=== PATIENT | female | born 1950 | race American Indian/Alaskan Native ===

== ENCOUNTER 2016-10-25 07:48 | Inpatient (IN) | payer MEDICARE, BC ==
[2016-10-16 10:34] VITALS: BMI 32.3
[2016-10-25] MEDS ORDERED: ceFAZolin IV 2 gm in Dextrose 0 GM/0 ML BAG IVPB ONE (08:32)
[2016-10-25] MEDS ORDERED: HEPARIN-NS 5,000 UNITS/500 ML 0 UNIT/0 ML BAG IV ONE (08:33)
[2016-10-25] MEDS ORDERED: Iodixanol 320 MG/ML 200 ML BOTTLE IV ONE (08:33)
[2016-10-25 08:53] LABS: POTASSIUM 4.1 mmol/L (3.6-5.2)
[2016-10-25 08:57] LABS: CALCIUM 8.2 mg/dl (8.6-10.4)
[2016-10-25 09:21] LABS: BASO % 0.2 % (0.0-2.0); HEMATOCRIT 25.4 % (34.0-47.0); LYMPH # 1.2 K/uL (1.0-4.3); MEAN CELL VOLUME 91.3 fL (81.0-99.0); MEAN CORPUSCULAR HEMOGLOBIN 28.6 pg (27.0-31.0); MEAN CORPUSCULAR HGB CONC 31.4 g/dL (33.0-37.0); MEAN PLATELET VOLUME 9.2 fL (7.2-11.7); MONO # 0.7 K/uL (0.0-0.8); PLATELET COUNT 280 K/uL (130-400); RED CELL DISTRIBUTION WIDTH 17.6 % (11.5-14.5); WHITE BLOOD COUNT 17.7 K/uL (4.8-10.8)
--- NOTE | 2016-10-25 09:35 | RAD ---
HISTORY: pre-op COMPARISON: Comparison is made to 10/16/2016 FINDINGS: LUNGS: No significant interval change in the lungs noted since the previous exam. PLEURA: No significant pleural effusion identified, no pneumothorax apparent. CARDIOVASCULAR: The cardiac silhouette is prominent/mildly enlarged. Left-sided subclavian hemodialysis catheter is again seen in place. OSSEOUS STRUCTURES: No significant abnormalities. VISUALIZED UPPER ABDOMEN: Normal. OTHER FINDINGS: None. IMPRESSION: No significant interval change since the previous exam.
[2016-10-25 10:01] LABS: NEUTROPHIL 90 % (50-75); TOTAL CELLS COUNTED 100
[2016-10-25 10:51] LABS: VENOUS BLOOD GAS BASE EXCESS 4.9 mmol/L (0.0-2.0); VENOUS BLOOD GAS PCO2 41 mmHg (40-60); VENOUS BLOOD PH 7.46 (7.32-7.43)
--- NOTE | 2016-10-25 15:47 | CP.PCM.CON ---
History of Present Illness - History of Present Illness History of Present Illness: Surgery 65 F with PMH of ESRD on HD, DM, secral decubitus ulcer came to [facility] for AV shunt placement. Pt reports that she has been having fevers ranging between 102- 104 last 6 days. Pt has sacral decubitus ulcer and has wound vac. Wound vac is leaking and displaced. Pt had permacath for over 8 months for HD. AV shunt placement is cancelled today and Pt is admitted for sepsis. Denies N/V/D/CP/SOB/ dysuria/ PMH: DM, ESRD on HD, sacral decubitus ulcer, HLD, HTN PSH: Decubitus debridement, Permacath Review of Systems - Review of Systems Review of Systems: See HPI - Gastrointestinal Gastrointestinal: absent: Abdominal Pain Past Patient History - Past Medical History & Family History Past Medical History?: Yes - Past Social History Smoking Status: Never Smoked - CARDIAC Hx Cardiac Disorders: Yes Hx Hypertension: Yes - PULMONARY Hx Respiratory Disorders: No - NEUROLOGICAL Hx Neurological Disorder: No - HEENT Hx HEENT Problems: No - RENAL Hx Chronic Kidney Disease: Yes Type of Dialysis Access: perma cath left chest Date of Last Dialysis Treatment: 10/24/16 Hx Renal Failure: Yes - ENDOCRINE/METABOLIC Hx Endocrine Disorders: Yes Hx Diabetes Mellitus Type 2: Yes - HEMATOLOGICAL/ONCOLOGICAL Hx Blood Disorders: Yes Hx Anemia: Yes Hx Blood Transfusions: Yes Hx Blood Transfusion Reaction: No - INTEGUMENTARY Hx Dermatological Problems: Yes Other/Comment: ulcer buttocks - MUSCULOSKELETAL/RHEUMATOLOGICAL Hx Musculoskeletal Disorders: Yes (right leg weakness due to debridemnet buttocks wound) Hx Osteoarthritis: Yes - GASTROINTESTINAL Hx Gastrointestinal Disorders: No - GENITOURINARY/GYNECOLOGICAL Hx Genitourinary Disorders: No - PSYCHIATRIC Hx Psychophysiologic Disorder: No - SURGICAL HISTORY Hx Surgeries: Yes Hx Cardiac Catheterization: Yes Hx Vascular Surgery: Yes (perma cath insertion) Other/Comment: debridement ulcer buttocks - ANESTHESIA Hx Anesthesia: Yes Hx Anesthesia Reactions: No Hx Malignant Hyperthermia: No Has any member of the family had a problem w/ anesthesia?: No Meds Allergies/Adverse Reactions: Allergies Allergy/AdvReac Type Severity Reaction Status Date / Time No Known Allergies Allergy Verified 10/16/16 10:32 - Medications Medications: Current Medications Ceftriaxone Sodium 1 gm/ (Sodium Chloride) 100 mls @ 200 mls/hr IVPB DAILY YANETH Last Admin: 10/25/16 12:40 Dose: 100 mls Physical Exam - Constitutional Appears: Non-toxic - Head Exam Head Exam: ATRAUMATIC, NORMAL INSPECTION, NORMOCEPHALIC - Eye Exam Eye Exam: EOMI, Normal appearance, PERRL Pupil Exam: NORMAL ACCOMODATION, PERRL - ENT Exam ENT Exam: Mucous Membranes Moist, Normal Exam - Neck Exam Neck exam: Positive for: Normal Inspection - Respiratory Exam Respiratory Exam: Clear to Auscultation Bilateral, NORMAL BREATHING PATTERN - Cardiovascular Exam Cardiovascular Exam: REGULAR RHYTHM - GI/Abdominal Exam GI & Abdominal Exam: Normal Bowel Sounds, Soft. absent: Distended, Tenderness - Extremities Exam Extremities exam: Negative for: full ROM Additional comments: R LE weakness - Neurological Exam Neurological exam: Alert, CN II-XII Intact, Oriented x3, Reflexes Normal - Psychiatric Exam Psychiatric exam: Normal Affect, Normal Mood - Skin Skin Exam: Erythema, Warm Additional comments: Sacral decubitus : covered on wound vac. Leaking. Results - Vital Signs Recent Vital Signs: Last Vital Signs Temp 98.5 F 10/25/16 08:15 Pulse 69 10/25/16 08:15 Resp 18 10/25/16 08:15 BP 129/64 10/25/16 08:15 Pulse Ox 96 10/25/16 08:15 - Labs Result Diagrams: 10/25/16 09:00 10/25/16 08:40 Labs: Laboratory Results - last 24 hr 10/25/16 10/25/16 10/25/16 08:16 08:40 09:00 WBC 17.7 H RBC 2.79 L Hgb 8.0 L Hct 25.4 L MCV 91.3 MCH 28.6 MCHC 31.4 L RDW 17.6 H Plt Count 280 MPV 9.2 Neut % (Auto) 88.8 H Lymph % (Auto) 7.0 L [place] % (Auto) 4.0 Eos % (Auto) 0.0 Baso % (Auto) 0.2 Neut # 15.7 H Lymph # 1.2 [place] # 0.7 Eos # 0.0 Baso # 0.0 Neutrophils % (Manual) 90 H Lymphocytes % (Manual) 8 L Monocytes % (Manual) 2 Platelet Estimate Normal Hypochromasia (manual) Slight Poikilocytosis (manual Slight Anisocytosis (manual) Slight Microcytosis (manual) Slight Target Cells Slight pO2 VBG pH VBG pCO2 VBG HCO3 VBG Total CO2 VBG O2 Sat (Calc) VBG Base Excess VBG Potassium A-a O2 Difference Glucose Lactate FiO2 Crit Value Called To Crit Value Called By Crit Value Read Back Blood Gas Notified Time Sodium 135 Potassium 4.1 Chloride 97 L Carbon Dioxide 26 Anion Gap 16 BUN 37 H Creatinine 2.9 H Est GFR ( Amer) 20 Est GFR (Non-Af Amer) 16 POC Glucose (mg/dL) 166 H Random Glucose 131 H Calcium 8.2 L Venous Blood Potassium 10/25/16 10:40 WBC RBC Hgb Hct MCV MCH MCHC RDW Plt Count MPV Neut % (Auto) Lymph % (Auto) [place] % (Auto) Eos % (Auto) Baso % (Auto) Neut # Lymph # [place] # Eos # Baso # Neutrophils % (Manual) Lymphocytes % (Manual) Monocytes % (Manual) Platelet Estimate Hypochromasia (manual) Poikilocytosis (manual Anisocytosis (manual) Microcytosis (manual) Target Cells pO2 33 VBG pH 7.46 H VBG pCO2 41 VBG HCO3 27.9 VBG Total CO2 30.5 H VBG O2 Sat (Calc) 72.0 H VBG Base Excess 4.9 H VBG Potassium 4.2 A-a O2 Difference 65.0 Glucose 150 H Lactate 0.9 FiO2 21.0 Crit Value Called To [facility] rn Crit Value 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 Cancelled. -Febrile , Leukocytosis 18k -Had Permacath for 8months -Sacral decubitus -Medical management -IV ABX -Wound care: Wound vac -ID rec : need clearance for AV shunt -F/U blood cx -F/U catheter cx -will order wound cx DW Dr. Casillas
--- NOTE | 2016-10-25 17:22 | CP.PCM.CON ---
History of Present Illness - History of Present Illness History of Present Illness: 65 F with PMH of ESRD on HD, DM, secral decubitus ulcer came to [facility] for AV shunt placement. Pt reports that she has been having fevers ranging between 102- 104 last 6 days. Pt has sacral decubitus ulcer and has wound vac. Wound vac is leaking and displaced. Pt had permacath for over 8 months for HD. AV shunt placement is cancelled today and Pt is admitted for sepsis. Denies N/V/D/CP/SOB/ dysuria/ PMH: DM, ESRD on HD, sacral decubitus ulcer, HLD, HTN PSH: Decubitus debridement, Permacath Review of Systems - Review of Systems All systems: reviewed and no additional remarkable complaints except - Constitutional Constitutional: As Per HPI - EENT Eyes: absent: As Per HPI, Blind Spots, Blurred Vision, Change in Vision, Decreased Night Vision, Diplopia, Discharge, Dry Eye, Exophthalmos, Floaters, Irritation, Itchy Eyes, Loss of Peripheral Vision, Pain, Photophobia, Requires Corrective Lenses, Sees Flashes, Spots in Vision, Tunnel Vision, Other Visual Disturbances, Loss of Vision, Other Ears: absent: As Per HPI, Decreased Hearing, Ear Discharge, Ear Pain, Tinnitus, Abnormal Hearing, Disequilibrium, Dizziness, Other Nose/Mouth/Throat: absent: As Per HPI, Epistaxis, Nasal Congestion, Nasal Discharge, Nasal Obstruction, Nasal Trauma, Nose Pain, Post Nasal Drip, Sinus Pain, Sinus Pressure, Bleeding Gums, Change in Voice, Dental Pain, Dry Mouth, Dysphagia, Halitosis, Hoarsness, Lip Swelling, Mouth Lesions, Mouth Pain, Odynophagia, Sore Throat, Throat Swelling, Tongue Swelling, Facial Pain, Neck Pain, Neck Mass, Other - Breasts Breasts: absent: As Per HPI, Change in Shape, Mass, Pain, Nipple Discharge, Nipple Inversion, Skin Changes, Swelling, Other - Cardiovascular Cardiovascular: absent: As Per HPI, Acrocyanosis, Chest Pain, Chest Pain at Rest , Chest Pain with Activity, Claudication, Diaphoresis, Dyspnea, Dyspnea on Exertion, Edema, Irregular Heart Rhythm, Pain Radiating to Arm/Neck/Jaw, Leg Edema, Leg Ulcers, Lightheadedness, Orthopnea, Palpitations, Paroxysmal Nocturnal Dyspnea, Pedal Edema, Radiating Pain, Rapid Heart Rate, Slow Heart Rate, Syncope, Other - Respiratory Respiratory: absent: As Per HPI, Cough, Dyspnea, Hemoptysis, Dyspnea on Exertion , Wheezing, Snoring, Stridor, Pain on Inspiration, Chest Congestion, Excessive Mucous Production, Change in Mucous Color, Pain with Coughing, Other - Gastrointestinal Gastrointestinal: absent: As Per HPI, Abdominal Pain, Belching, Bloating, Change in Bowel Habits, Change in Stool Character, Coffee Ground Emesis, Constipation, Cramping, Diarrhea, Dyspepsia, Dysphagia, Early Satiety, Excessive Flatus, Fecal Incontinence, Heartburn, Hematemesis, Hematochezia, Loose Stools, Melena, Nausea, Odynophagia, Temesmus, Vomiting, Other - Genitourinary Genitourinary: absent: As Per HPI, Change in Urinary Stream, Difficulty Urinating, Dysuria, Flank Pain, Hematuria, Pyuria, Nocturia, Urinary Incontinence, Urinary Frequency, Urinary Hesitance, Urinary Urgency, Voiding Freq/Small Amts, Freq UTI, Hx Renal/Bladder Calculi, Hx /Renal Surgery, Bladder Distension, Other - Reproductive: Female Reproductive:Female: absent: As Per HPI, Amenorrhea, Amenorrhea/ Control, Currently Menstual, Cycle <21 Days, Cycle >35 Days, Cycle Variable, Menses 1-7 Days, Menses >/= 8 Days, Menses Variable, Cycle > 4 Weeks Between, No Menses for 6 Months, Heavy Menses, Light Menses, Normal Menses, Spotting Between Cycles , S/P Hysterectomy, Menopausal, Post Menopausal, Premenarche, Abnormal Vaginal Bleeding, Dysmenorrhea, Dyspareunia, Genital Lesions, Genital Pruritis, Pelvic Pain, Prolapse Symptoms, Sexual Dysfunction, Vaginal Discharge, Vaginal Dryness , Vaginal Odor, Vaginal Pruritis, Other - Menstruation Menstruation: absent: As Per HPI, Amenorrhea, Amenorrhea/ Control, Currently Menstual, Cycle <21 Days, Cycle >35 Days, Cycle Variable, Menses 1-7 Days, Menses >/= 8 Days, Menses Variable, Cycle > 4 Weeks Between, No Menses for 6 Months, Heavy Menses, Light Menses, Normal Menses, Spotting Between Cycles , S/P Hysterectomy, Menopausal, Post Menopausal, Premenarche, Abnormal Vaginal Bleeding, Dysmenorrhea, Other - Musculoskeletal Musculoskeletal: As Per HPI - Integumentary Integumentary: As Per HPI - Neurological Neurological: As Per HPI, Weakness - Psychiatric Psychiatric: absent: As Per HPI, Abnormal Sleep Pattern, Anhedonia, Anxiety, Auditory Hallucinations, Behavioral Changes, Change in Appetite, Change in Libido, Confusion, Depression, Difficulty Concentrating, Hallucinations, Homicidal Ideation, Hopelessness, Irritability, Memory Loss, Mood Swings, Panic Attacks, Paranoia, Suicidal Ideation, Visual Hallucinations, Tactile Hallucinations, Other - Endocrine Endocrine: absent: As Per HPI, Change in Body Appearance, Change in Libido, Cold Intolorance, Deepening of Voice, Excessive Sweating, Fatigue, Flushing, Heat Intolorance, Increase in Ring/Shoe/Hat Size, Palpitations, Polydipsia, Polyphagia, Polyuria, Other - Hematologic/Lymphatic Hematologic: absent: As Per HPI, Easy Bleeding, Easy Bruising, Lymphadenopathy, Other Past Patient History - Past Medical History & Family History Past Medical History?: Yes - Past Social History Smoking Status: Never Smoked - CARDIAC Hx Cardiac Disorders: Yes Hx Hypertension: Yes - PULMONARY Hx Respiratory Disorders: No - NEUROLOGICAL Hx Neurological Disorder: No - HEENT Hx HEENT Problems: No - RENAL Hx Chronic Kidney Disease: Yes Type of Dialysis Access: perma cath left chest Date of Last Dialysis Treatment: 10/24/16 Hx Renal Failure: Yes - ENDOCRINE/METABOLIC Hx Endocrine Disorders: Yes Hx Diabetes Mellitus Type 2: Yes - HEMATOLOGICAL/ONCOLOGICAL Hx Blood Disorders: Yes Hx Anemia: Yes Hx Blood Transfusions: Yes Hx Blood Transfusion Reaction: No - INTEGUMENTARY Hx Dermatological Problems: Yes Other/Comment: ulcer buttocks - MUSCULOSKELETAL/RHEUMATOLOGICAL Hx Musculoskeletal Disorders: Yes (right leg weakness due to debridemnet buttocks wound) Hx Osteoarthritis: Yes - GASTROINTESTINAL Hx Gastrointestinal Disorders: No - GENITOURINARY/GYNECOLOGICAL Hx Genitourinary Disorders: No - PSYCHIATRIC Hx Psychophysiologic Disorder: No - SURGICAL HISTORY Hx Surgeries: Yes Hx Cardiac Catheterization: Yes Hx Vascular Surgery: Yes (perma cath insertion) Other/Comment: debridement ulcer buttocks - ANESTHESIA Hx Anesthesia: Yes Hx Anesthesia Reactions: No Hx Malignant Hyperthermia: No Has any member of the family had a problem w/ anesthesia?: No Meds Allergies/Adverse Reactions: Allergies Allergy/AdvReac Type Severity Reaction Status Date / Time No Known Allergies Allergy Verified 10/16/16 10:32 - Medications Medications: Current Medications Ceftriaxone Sodium 1 gm/ (Sodium Chloride) 100 mls @ 200 mls/hr IVPB DAILY YANETH Last Admin: 10/25/16 12:40 Dose: 100 mls Physical Exam - Constitutional Appears: Non-toxic, Chronically Ill - Head Exam Head Exam: ATRAUMATIC, NORMAL INSPECTION, NORMOCEPHALIC - Eye Exam Eye Exam: PERRL. absent: Scleral icterus - ENT Exam ENT Exam: Mucous Membranes Dry - Neck Exam Neck exam: Negative for: Lymphadenopathy, Thyromegaly - Respiratory Exam Respiratory Exam: Decreased Breath Sounds, Clear to Auscultation Bilateral - Cardiovascular Exam Cardiovascular Exam: REGULAR RHYTHM, +S1, +S2 - GI/Abdominal Exam GI & Abdominal Exam: Diminished Bowel Sounds, Soft. absent: Tenderness - Rectal Exam Rectal Exam: Deferred - Exam Exam: NORMAL INSPECTION - Extremities Exam Extremities exam: Positive for: pedal pulses present. Negative for: calf tenderness, pedal edema, tenderness - Back Exam Back exam: absent: CVA tenderness (L), CVA tenderness (R) - Neurological Exam Neurological exam: Abnormal Gait, Alert, CN II-XII Intact, Motor Sensory Deficit , Oriented x3 - Psychiatric Exam Psychiatric exam: Depressed - Skin Skin Exam: Dry Results - Vital Signs Recent Vital Signs: Last Vital Signs Temp 98.5 F 10/25/16 08:15 Pulse 69 10/25/16 08:15 Resp 18 10/25/16 08:15 BP 129/64 10/25/16 08:15 Pulse Ox 96 10/25/16 08:15 - Labs Result Diagrams: 10/27/16 07:16 10/27/16 07:16 Labs: Laboratory Results - last 24 hr 10/25/16 10/25/16 10/25/16 08:16 08:40 09:00 WBC 17.7 H RBC 2.79 L Hgb 8.0 L Hct 25.4 L MCV 91.3 MCH 28.6 MCHC 31.4 L RDW 17.6 H Plt Count 280 MPV 9.2 Neut % (Auto) 88.8 H Lymph % (Auto) 7.0 L [place] % (Auto) 4.0 Eos % (Auto) 0.0 Baso % (Auto) 0.2 Neut # 15.7 H Lymph # 1.2 [place] # 0.7 Eos # 0.0 Baso # 0.0 Neutrophils % (Manual) 90 H Lymphocytes % (Manual) 8 L Monocytes % (Manual) 2 Platelet Estimate Normal Hypochromasia (manual) Slight Poikilocytosis (manual Slight Anisocytosis (manual) Slight Microcytosis (manual) Slight Target Cells Slight pO2 VBG pH VBG pCO2 VBG HCO3 VBG Total CO2 VBG O2 Sat (Calc) VBG Base Excess VBG Potassium A-a O2 Difference Glucose Lactate FiO2 Crit Value Called To Crit Value Called By Crit Value Read Back Blood Gas Notified Time Sodium 135 Potassium 4.1 Chloride 97 L Carbon Dioxide 26 Anion Gap 16 BUN 37 H Creatinine 2.9 H Est GFR ( Amer) 20 Est GFR (Non-Af Amer) 16 POC Glucose (mg/dL) 166 H Random Glucose 131 H Calcium 8.2 L Venous Blood Potassium 10/25/16 10:40 WBC RBC Hgb Hct MCV MCH MCHC RDW Plt Count MPV Neut % (Auto) Lymph % (Auto) [place] % (Auto) Eos % (Auto) Baso % (Auto) Neut # Lymph # [place] # Eos # Baso # Neutrophils % (Manual) Lymphocytes % (Manual) Monocytes % (Manual) Platelet Estimate Hypochromasia (manual) Poikilocytosis (manual Anisocytosis (manual) Microcytosis (manual) Target Cells pO2 33 VBG pH 7.46 H VBG pCO2 41 VBG HCO3 27.9 VBG Total CO2 30.5 H VBG O2 Sat (Calc) 72.0 H VBG Base Excess 4.9 H VBG Potassium 4.2 A-a O2 Difference 65.0 Glucose 150 H Lactate 0.9 FiO2 21.0 Crit Value Called To [facility] rn Crit Value 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
--- NOTE | 2016-10-25 17:57 | CP.PCM.HP ---
History of Present Illness - History of Present Illness History of Present Illness: A 65-year-old female with PMH- ESRD [on maintenance as HD], DM and sacral decubitus ulcer presents for AV shunt placement. C/Ofever for 6 days. High-grade, with chills, with rigors, intermittent, 2-3 spikes per day, recorded at 102-104F. Patient has a sacral decubitus ulcer and has a wound VAC which is leaking. Patient has a permacath for over 8 months for hemodialysis. No C/Oshortness of breath, chest pain, cough, abdominal pain. Past Patient History - Past Medical History & Family History Past Medical History?: Yes - Past Social History Smoking Status: Never Smoked - CARDIAC Hx Cardiac Disorders: Yes Hx Hypertension: Yes - PULMONARY Hx Respiratory Disorders: No - NEUROLOGICAL Hx Neurological Disorder: No - HEENT Hx HEENT Problems: No - RENAL Hx Chronic Kidney Disease: Yes Type of Dialysis Access: perma cath left chest Date of Last Dialysis Treatment: 10/24/16 Hx Renal Failure: Yes - ENDOCRINE/METABOLIC Hx Endocrine Disorders: Yes Hx Diabetes Mellitus Type 2: Yes - HEMATOLOGICAL/ONCOLOGICAL Hx Blood Disorders: Yes Hx Anemia: Yes Hx Blood Transfusions: Yes Hx Blood Transfusion Reaction: No - INTEGUMENTARY Hx Dermatological Problems: Yes Other/Comment: ulcer buttocks - MUSCULOSKELETAL/RHEUMATOLOGICAL Hx Musculoskeletal Disorders: Yes (right leg weakness due to debridemnet buttocks wound) Hx Osteoarthritis: Yes - GASTROINTESTINAL Hx Gastrointestinal Disorders: No - GENITOURINARY/GYNECOLOGICAL Hx Genitourinary Disorders: No - PSYCHIATRIC Hx Psychophysiologic Disorder: No - SURGICAL HISTORY Hx Surgeries: Yes Hx Cardiac Catheterization: Yes Hx Vascular Surgery: Yes (perma cath insertion) Other/Comment: debridement ulcer buttocks - ANESTHESIA Hx Anesthesia: Yes Hx Anesthesia Reactions: No Hx Malignant Hyperthermia: No Has any member of the family had a problem w/ anesthesia?: No Meds Home Medications: Home Medication List Medication Instructions Recorded Confirmed Type Acetaminophen [Tylenol 325mg tab] 650 mg PO Q6 PRN tab 10/31/16 Rx Cefepime [Maxipime] 1 gm IV DAILY #1 vial 10/31/16 Rx Epoetin Alonso [Procrit] 10,000 unit IV TTS ml 10/31/16 Rx Insulin Human Regular [Novolin R] 0 unit SC ACHS unit 10/31/16 Rx Sevelamer Carbonate [Renvela] 1,600 mg PO TIDCC tab 10/31/16 Rx Vitamin B Complex/Vit C/Folic 1 tab PO 0800 tab 10/31/16 Rx [Nephro-Umu] amLODIPine [Norvasc] 5 mg PO DAILY tab 10/31/16 Rx Allergies/Adverse Reactions: Allergies Allergy/AdvReac Type Severity Reaction Status Date / Time No Known Allergies Allergy Verified 10/16/16 10:32 Physical Exam - Constitutional Appears: Well - Head Exam Head Exam: ATRAUMATIC, NORMAL INSPECTION, NORMOCEPHALIC - Eye Exam Eye Exam: EOMI, Normal appearance, PERRL Pupil Exam: NORMAL ACCOMODATION, PERRL - ENT Exam ENT Exam: Mucous Membranes Moist, Normal Exam - Neck Exam Neck exam: Positive for: Normal Inspection - Respiratory Exam Respiratory Exam: Decreased Breath Sounds - Cardiovascular Exam Cardiovascular Exam: REGULAR RHYTHM, +S1, +S2 - GI/Abdominal Exam GI & Abdominal Exam: Diminished Bowel Sounds, Soft - Rectal Exam Rectal Exam: Deferred Results - Vital Signs Recent Vital Signs: Last Vital Signs Temp 98.8 F 10/25/16 17:23 Pulse 66 10/25/16 17:23 Resp 16 10/25/16 17:23 BP 107/62 10/25/16 17:23 Pulse Ox 96 10/25/16 17:23 - Labs Result Diagrams: 10/30/16 14:13 10/30/16 14:13 Labs: Laboratory Results - last 24 hr 10/25/16 10/25/16 10/25/16 08:16 08:40 09:00 WBC 17.7 H RBC 2.79 L Hgb 8.0 L Hct 25.4 L MCV 91.3 MCH 28.6 MCHC 31.4 L RDW 17.6 H Plt Count 280 MPV 9.2 Neut % (Auto) 88.8 H Lymph % (Auto) 7.0 L [place] % (Auto) 4.0 Eos % (Auto) 0.0 Baso % (Auto) 0.2 Neut # 15.7 H Lymph # 1.2 [place] # 0.7 Eos # 0.0 Baso # 0.0 Neutrophils % (Manual) 90 H Lymphocytes % (Manual) 8 L Monocytes % (Manual) 2 Platelet Estimate Normal Hypochromasia (manual) Slight Poikilocytosis (manual Slight Anisocytosis (manual) Slight Microcytosis (manual) Slight Target Cells Slight pO2 VBG pH VBG pCO2 VBG HCO3 VBG Total CO2 VBG O2 Sat (Calc) VBG Base Excess VBG Potassium A-a O2 Difference Glucose Lactate FiO2 Crit Value Called To Crit Value Called By Crit Value Read Back Blood Gas Notified Time Sodium 135 Potassium 4.1 Chloride 97 L Carbon Dioxide 26 Anion Gap 16 BUN 37 H Creatinine 2.9 H Est GFR ( Amer) 20 Est GFR (Non-Af Amer) 16 POC Glucose (mg/dL) 166 H Random Glucose 131 H Calcium 8.2 L Venous Blood Potassium 10/25/16 10:40 WBC RBC Hgb Hct MCV MCH MCHC RDW Plt Count MPV Neut % (Auto) Lymph % (Auto) [place] % (Auto) Eos % (Auto) Baso % (Auto) Neut # Lymph # [place] # Eos # Baso # Neutrophils % (Manual) Lymphocytes % (Manual) Monocytes % (Manual) Platelet Estimate Hypochromasia (manual) Poikilocytosis (manual Anisocytosis (manual) Microcytosis (manual) Target Cells pO2 33 VBG pH 7.46 H VBG pCO2 41 VBG HCO3 27.9 VBG Total CO2 30.5 H VBG O2 Sat (Calc) 72.0 H VBG Base Excess 4.9 H VBG Potassium 4.2 A-a O2 Difference 65.0 Glucose 150 H Lactate 0.9 FiO2 21.0 Crit Value Called To [facility] rn Crit Value Called By [employer] 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
[2016-10-25] MEDS: Vancomycin 1 gm/NS 200 ml 1 GM/200 ML BAG IVPB SCH ×2 (18:45→19:00)
[2016-10-25] MEDS: Piperacillin/Tazobact 3.375 GM in Sodium Chloride 100 ML IVPB SCH (22:46)
[2016-10-26 07:18] LABS: BASO % 0.2 % (0.0-2.0); EOS # 0.1 K/uL (0.0-0.7); EOS % 1.3 % (0.0-4.0); HEMATOCRIT 25.4 % (34.0-47.0); LYMPH # 1.8 K/uL (1.0-4.3); MEAN CORPUSCULAR HEMOGLOBIN 29.5 pg (27.0-31.0); MEAN PLATELET VOLUME 8.9 fL (7.2-11.7); MONO # 0.6 K/uL (0.0-0.8); RED CELL DISTRIBUTION WIDTH 17.5 % (11.5-14.5); WHITE BLOOD COUNT 10.3 K/uL (4.8-10.8)
[2016-10-26 07:43] LABS: ALB/GLOB RATIO 0.8 (1.0-2.1); BILIRUBIN,TOTAL 0.8 mg/dL (0.2-1.3); TOTAL PROTEIN 6.7 g/dL (6.3-8.3)
[2016-10-26 07:44] LABS: CALCIUM 8.3 mg/dl (8.6-10.4)
--- NOTE | 2016-10-26 09:10 | CP.PCM.PN ---
Subjective - Date & Time of Evaluation Date of Evaluation: 10/26/16 Time of Evaluation: 09:02 - Subjective Subjective: Patient was seen and examined at bedside in no acute distress. Patient was laying comfortably in bed. She denies having fevers over night, but says she feels like she currently has a fever. Patient's measure temperature have ranged from 98.0 to 99.2F over 24 hours. She denies having chest pain, abdominal pain, sacral pain, nausea, and vomiting. 12 point review of systems otherwise negative. Objective - Vital Signs/Intake and Output Vital Signs (last 24 hours): Temp Pulse Resp BP Pulse Ox 98 F 62 20 155/84 H 99 10/26/16 07:58 10/26/16 07:58 10/26/16 07:58 10/26/16 07:58 10/26/16 07:58 Intake and Output: 10/26/16 10/26/16 06:59 18:59 Intake Total 120 Balance 120 - Medications Medications: Current Medications Amiodarone HCl (Cordarone) 200 mg PO DAILY [facility] Collagenase (Santyl) 0.5 gm EXT DAILY [facility] Folic Acid (Folic Acid) 1 mg PO DAILY [facility] Vancomycin/Sodium Chloride (Vancocin) 1 gm in 200 mls @ 166.7 mls/hr IVPB ONCE [facility] Stop: 10/30/16 18:01 Last Admin: 10/25/16 18:45 Dose: 0 mls Piperacillin Sod/Tazobactam (Sod 3.375 gm/ Sodium Chloride) 100 mls @ 200 mls/ hr IVPB Q12 [facility] Last Admin: 10/25/16 22:46 Dose: 200 mls/hr Lisinopril (Zestril) 40 mg PO DAILY [facility] Metoprolol Tartrate (Lopressor) 100 mg PO DAILY [facility] Warfarin Sodium (Coumadin) 5 mg PO DAILY [facility] - Labs Labs: 10/26/16 07:10 10/26/16 07:10 - Head Exam Head Exam: ATRAUMATIC, NORMAL INSPECTION - Eye Exam Eye Exam: EOMI - ENT Exam ENT Exam: Mucous Membranes Moist - Respiratory Exam Respiratory Exam: Clear to Ausculation Bilateral, NORMAL BREATHING PATTERN. absent: Rhonchi, Wheezes, Respiratory Distress - Cardiovascular Exam Cardiovascular Exam: +S1, +S2, Murmur - GI/Abdominal Exam GI & Abdominal Exam: Soft, Normal Bowel Sounds. absent: Tenderness - Extremities Exam Extremities Exam: Pedal Edema - Neurological Exam Neurological Exam: Alert, Awake - Psychiatric Exam Psychiatric exam: Normal Affect, Normal Mood - Skin Skin Exam: Dry, Normal Color, Warm Additional comments: Permacath placed 12/2015; Dressing clean, dry, intact. Assessment and Plan - Assessment and Plan (Free Text) Assessment: 65 year old female with ESRD, consulted for left AV shunt. Patient was scheduled for same day surgery on 10/25/16; surgery was canceled due to fever and leukocytosis. Patient has permathcath since 12/2015. - Blood culture: gram positive cocci; follow up sensitivities. - Follow up wound culture - Continue IV antibiotics and management as per ID. - Continue wound care for sacral decubitus ulcer. - Continue medical management.
[2016-10-26] MEDS ORDERED: Collagenase 250 Units/gm Ointment(30 gm) EXT SCH (10:00)
[2016-10-26] MEDS: Metoprolol Succinate 100 mg XL Tab PO SCH (10:58)
[2016-10-26] MEDS: Piperacillin/Tazobact 3.375 GM in Sodium Chloride 100 ML IVPB SCH (11:00)
--- NOTE | 2016-10-26 11:43 | CP.PCM.CON ---
History of Present Illness - History of Present Illness History of Present Illness: 65 y/o female with ESRD on [facility] every TTS via a Rt IJ permanent cath, HTN, decubitus ulcer whic was previously treated for infection is admitted for AVF Sx. However, pt reported that she was having fevers of 102, 103 with chills. Sx was cancelled & pt is currently treated fo Staph bacteremia Past Patient History - Past Medical History & Family History Past Medical History?: Yes - Past Social History Smoking Status: Never Smoked - CARDIAC Hx Cardiac Disorders: Yes Hx Hypercholesterolemia: Yes Hx Hypertension: Yes - PULMONARY Hx Respiratory Disorders: No - NEUROLOGICAL Hx Neurological Disorder: No - HEENT Hx HEENT Problems: No - RENAL Hx Chronic Kidney Disease: Yes Type of Dialysis Access: perma cath left chest Date of Last Dialysis Treatment: 10/24/16 Hx Renal Failure: Yes - ENDOCRINE/METABOLIC Hx Endocrine Disorders: Yes Hx Diabetes Mellitus Type 2: Yes - HEMATOLOGICAL/ONCOLOGICAL Hx Blood Disorders: Yes Hx Anemia: Yes Hx Blood Transfusions: Yes Hx Blood Transfusion Reaction: No - INTEGUMENTARY Hx Dermatological Problems: Yes Other/Comment: ulcer buttocks - MUSCULOSKELETAL/RHEUMATOLOGICAL Hx Falls: No - GASTROINTESTINAL Hx Gastrointestinal Disorders: No - GENITOURINARY/GYNECOLOGICAL Hx Genitourinary Disorders: No - PSYCHIATRIC Hx Psychophysiologic Disorder: No Hx Substance Use: No - SURGICAL HISTORY Hx Surgeries: Yes Hx Cardiac Catheterization: Yes Hx Vascular Surgery: Yes (perma cath insertion) Other/Comment: debridement ulcer buttocks - ANESTHESIA Hx Anesthesia: Yes Hx Anesthesia Reactions: No Hx Malignant Hyperthermia: No Has any member of the family had a problem w/ anesthesia?: No Meds Allergies/Adverse Reactions: Allergies Allergy/AdvReac Type Severity Reaction Status Date / Time No Known Allergies Allergy Verified 10/16/16 10:32 - Medications Medications: Current Medications Amiodarone HCl (Cordarone) 200 mg PO DAILY [facility] Last Admin: 10/26/16 10:57 Dose: Not Given Collagenase (Santyl) 0.5 gm EXT DAILY [facility] Epoetin Alonso (Procrit) 10,000 unit IV TTS [facility] Folic Acid (Folic Acid) 1 mg PO DAILY [facility] Last Admin: 10/26/16 11:00 Dose: 1 mg Vancomycin/Sodium Chloride (Vancocin) 1 gm in 200 mls @ 166.7 mls/hr IVPB ONCE [facility] Stop: 10/30/16 18:01 Last Admin: 10/25/16 18:45 Dose: 0 mls Piperacillin Sod/Tazobactam (Sod 3.375 gm/ Sodium Chloride) 100 mls @ 200 mls/ hr IVPB Q12 [facility] Last Admin: 10/26/16 11:00 Dose: 200 mls/hr Vancomycin HCl 500 mg/ Sodium (Chloride) 100 mls @ 100 mls/hr IVPB TTS [facility] Lisinopril (Zestril) 40 mg PO DAILY [facility] Last Admin: 10/26/16 10:58 Dose: Not Given Metoprolol Succinate (Toprol Xl) 100 mg PO DAILY [facility] Last Admin: 10/26/16 10:58 Dose: Not Given Warfarin Sodium (Coumadin) 5 mg PO DAILY [facility] Physical Exam - Constitutional Appears: No Acute Distress - Head Exam Head Exam: ATRAUMATIC, NORMOCEPHALIC - Eye Exam Additional comments: Sclerae anicteric - ENT Exam ENT Exam: Mucous Membranes Moist - Neck Exam Neck exam: Positive for: Full Rom - Respiratory Exam Additional comments: Lungs clear - Cardiovascular Exam Cardiovascular Exam: REGULAR RHYTHM - GI/Abdominal Exam GI & Abdominal Exam: Soft - Extremities Exam Additional comments: No edema Results - Vital Signs Recent Vital Signs: Last Vital Signs Temp 98 F 10/26/16 07:58 Pulse 62 10/26/16 07:58 Resp 20 10/26/16 07:58 BP 155/84 H 10/26/16 07:58 Pulse Ox 99 10/26/16 07:58 - Labs Result Diagrams: 10/26/16 07:10 10/26/16 07:10 Labs: Laboratory Results - last 24 hr 10/26/16 10/26/16 10/26/16 07:10 07:10 07:22 WBC 10.3 RBC 2.77 L Hgb 8.1 L Hct 25.4 L MCV 92.0 MCH 29.5 MCHC 32.0 L RDW 17.5 H Plt Count 272 MPV 8.9 Neut % (Auto) 75.5 H Lymph % (Auto) 17.0 L [place] % (Auto) 6.0 Eos % (Auto) 1.3 Baso % (Auto) 0.2 Neut # 7.8 H Lymph # 1.8 [place] # 0.6 Eos # 0.1 Baso # 0.0 Sodium 136 Potassium 5.0 Chloride 98 Carbon Dioxide 25 Anion Gap 19 BUN 47 H Creatinine 3.7 H Est GFR ( Amer) 15 Est GFR (Non-Af Amer) 12 POC Glucose (mg/dL) 114 H Random Glucose 107 H Calcium 8.3 L Total Bilirubin 0.8 AST 53 H ALT 54 H Alkaline Phosphatase 474 H Total Protein 6.7 Albumin 2.9 L Globulin 3.7 Albumin/Globulin Ratio 0.8 L Assessment & Plan - Assessment and Plan (Free Text) Assessment: ESRD on HD Staph bactereima ? line infection Infected decubitus ulcer ( Staph aureous ) Anemia Plan: Pt is for dialysis today Vancomycin is ordered. ID on case Leukocytosis is resolving Epogen, Iron profile
[2016-10-26 11:45] LABS: INR 1.4
[2016-10-26 14:16] LABS: IRON 22 ug/dL (37-170)
[2016-10-26] MEDS ORDERED: Epoetin Alfa 10,000 unit/ml Dialysis IV SCH (16:10)
--- NOTE | 2016-10-26 17:20 | CP.PCM.PN ---
Subjective - Date & Time of Evaluation Date of Evaluation: 10/26/16 Time of Evaluation: 07:20 - Subjective Subjective: clinically same Objective - Vital Signs/Intake and Output Vital Signs (last 24 hours): Temp Pulse Resp BP Pulse Ox 97.6 F 62 16 118/67 97 10/26/16 13:05 10/26/16 14:56 10/26/16 14:56 10/26/16 16:00 10/26/16 13:05 Intake and Output: 10/26/16 10/26/16 06:59 18:59 Intake Total 120 400 Balance 120 400 - Medications Medications: Current Medications Amiodarone HCl (Cordarone) 200 mg PO DAILY [facility] Last Admin: 10/26/16 10:57 Dose: Not Given Epoetin Alonso (Procrit) 10,000 unit IV TTS [facility] Stop: 10/31/16 10:01 Last Admin: 10/26/16 16:50 Dose: 10,000 unit Folic Acid (Folic Acid) 1 mg PO DAILY [facility] Last Admin: 10/26/16 11:00 Dose: 1 mg Heparin Sodium (Porcine) (Heparin) 3,700 units IVP TTS [facility] Stop: 10/31/16 10:01 Vancomycin/Sodium Chloride (Vancocin) 1 gm in 200 mls @ 166.7 mls/hr IVPB ONCE [facility] Stop: 10/30/16 18:01 Last Admin: 10/25/16 18:45 Dose: 0 mls Vancomycin HCl 500 mg/ Sodium (Chloride) 100 mls @ 100 mls/hr IVPB TTS [facility] Piperacillin Sod/Tazobactam (Sod 2.25 gm/ Sodium Chloride) 100 mls @ 200 mls/ hr IVPB Q8H [facility] Lisinopril (Zestril) 40 mg PO DAILY [facility] Last Admin: 10/26/16 10:58 Dose: Not Given Metoprolol Succinate (Toprol Xl) 100 mg PO DAILY [facility] Last Admin: 10/26/16 10:58 Dose: Not Given Warfarin Sodium (Coumadin) 5 mg PO ONCE [facility] Stop: 10/26/16 18:01 - Labs Labs: 10/26/16 07:10 10/26/16 07:10 PT 16.7 SECONDS (9.7-12.2) H 10/26/16 11:35 INR 1.4 10/26/16 11:35 - Constitutional Appears: Well - Head Exam Head Exam: ATRAUMATIC, NORMAL INSPECTION, NORMOCEPHALIC - Eye Exam Eye Exam: EOMI, Normal appearance, PERRL Pupil Exam: NORMAL ACCOMODATION, PERRL - ENT Exam ENT Exam: Mucous Membranes Moist, Normal Exam - Neck Exam Neck Exam: Full ROM, Normal Inspection. absent: Lymphadenopathy - Respiratory Exam Respiratory Exam: Decreased Breath Sounds - Cardiovascular Exam Cardiovascular Exam: REGULAR RHYTHM, +S1, +S2 - GI/Abdominal Exam GI & Abdominal Exam: Soft, Diminished Bowel Sounds - Rectal Exam Rectal Exam: Deferred - Extremities Exam Extremities Exam: Full ROM, Normal Capillary Refill, Normal Inspection. absent : Joint Swelling, Pedal Edema - Psychiatric Exam Psychiatric exam: Normal Affect, Normal Mood Assessment and Plan (1) Osteomyelitis Status: Acute - Assessment and Plan (Free Text) Plan: WBC count raised, with significant neutrophilia. Creatinine at 2.9. Patient in sepsis. Continue broad-spectrum antibiotic piperacillin and tazobactam, vancomycin. Blood culture positive for beta-hemolytic group B streptococcus sensitive to ampicillin, penicillin and vancomycin.
--- NOTE | 2016-10-26 18:22 | CP.PCM.PN ---
Subjective - Date & Time of Evaluation Date of Evaluation: 10/26/16 Time of Evaluation: 10:00 - Subjective Subjective: IV rx in progress + blodd cultures wound care in progress consider CT sacrum/ surgical eval of woiund Objective - Vital Signs/Intake and Output Vital Signs (last 24 hours): Temp Pulse Resp BP Pulse Ox 98.2 F 67 18 151/81 H 99 10/26/16 16:45 10/26/16 16:45 10/26/16 16:45 10/26/16 16:45 10/26/16 16:45 Intake and Output: 10/26/16 10/26/16 06:59 18:59 Intake Total 120 400 Balance 120 400 - Medications Medications: Current Medications Amiodarone HCl (Cordarone) 200 mg PO DAILY [facility] Last Admin: 10/26/16 10:57 Dose: Not Given Epoetin Alonso (Procrit) 10,000 unit IV TTS [facility] Stop: 10/31/16 10:01 Last Admin: 10/26/16 16:50 Dose: 10,000 unit Folic Acid (Folic Acid) 1 mg PO DAILY [facility] Last Admin: 10/26/16 11:00 Dose: 1 mg Heparin Sodium (Porcine) (Heparin) 3,700 units IVP TTS [facility] Stop: 10/31/16 10:01 Last Admin: 10/26/16 17:24 Dose: 3,700 units Vancomycin/Sodium Chloride (Vancocin) 1 gm in 200 mls @ 166.7 mls/hr IVPB ONCE [facility] Stop: 10/30/16 18:01 Last Admin: 10/25/16 18:45 Dose: 0 mls Vancomycin HCl 500 mg/ Sodium (Chloride) 100 mls @ 100 mls/hr IVPB TTS [facility] Piperacillin Sod/Tazobactam (Sod 2.25 gm/ Sodium Chloride) 100 mls @ 200 mls/ hr IVPB Q8H [facility] Lisinopril (Zestril) 40 mg PO DAILY [facility] Last Admin: 10/26/16 10:58 Dose: Not Given Metoprolol Succinate (Toprol Xl) 100 mg PO DAILY [facility] Last Admin: 10/26/16 10:58 Dose: Not Given - Labs Labs: 10/26/16 07:10 10/26/16 07:10 PT 16.7 SECONDS (9.7-12.2) H 10/26/16 11:35 INR 1.4 10/26/16 11:35 - Constitutional Appears: Non-toxic, Chronically Ill - Head Exam Head Exam: NORMOCEPHALIC - Eye Exam Eye Exam: PERRL. absent: Scleral icterus - ENT Exam ENT Exam: Mucous Membranes Dry - Neck Exam Neck Exam: absent: Lymphadenopathy - Respiratory Exam Respiratory Exam: Decreased Breath Sounds, Clear to Ausculation Bilateral - Cardiovascular Exam Cardiovascular Exam: REGULAR RHYTHM - GI/Abdominal Exam GI & Abdominal Exam: Distended, Soft - Rectal Exam Rectal Exam: Deferred - Exam Exam: NORMAL INSPECTION Assessment and Plan - Assessment and Plan (Free Text) Assessment: esrd on hd sepsis baceremia decubiti
[2016-10-26] MEDS: Piperacillin/Tazobact 2.25 GM in Sodium Chloride 100 ML IVPB SCH (22:27)
[2016-10-27] MEDS: Piperacillin/Tazobact 2.25 GM in Sodium Chloride 100 ML IVPB SCH ×3 (06:03→22:34)
[2016-10-27 07:37] LABS: BASO % 0.6 % (0.0-2.0); EOS # 0.3 K/uL (0.0-0.7); EOS % 3.5 % (0.0-4.0); HEMATOCRIT 24.7 % (34.0-47.0); LYMPH # 1.8 K/uL (1.0-4.3); MEAN CELL VOLUME 91.3 fL (81.0-99.0); MEAN CORPUSCULAR HEMOGLOBIN 29.5 pg (27.0-31.0); MEAN CORPUSCULAR HGB CONC 32.3 g/dL (33.0-37.0); MEAN PLATELET VOLUME 9.1 fL (7.2-11.7); MONO # 0.6 K/uL (0.0-0.8); MONO % 8.6 % (0.0-10.0); RED CELL DISTRIBUTION WIDTH 17.6 % (11.5-14.5); WHITE BLOOD COUNT 7.3 K/uL (4.8-10.8)
--- NOTE | 2016-10-27 07:44 | CP.PCM.PN ---
<Olegario Hester - Last Filed: 10/27/16 17:56> Subjective - Date & Time of Evaluation Date of Evaluation: 10/27/16 Time of Evaluation: 07:05 - Subjective Subjective: PGY2 Resident - Medicine Progress Note Patient seen and examined at bedside. No overnight events per nursing. Wound care on board for stage 4 pressure ulcers. Patient is resting comfortably. Admits that she has not been able to walk for over 1 year secondary to decreased sensation in her b/l legs. Tolerating diet. Denies any acute complaints. --- 65 F with PMH of ESRD on HD, DM, secral decubitus ulcer came to [facility] for AV shunt placement. Pt reports that she has been having fevers ranging between 102- 104 last 6 days. Pt has sacral decubitus ulcer and has wound vac. Wound vac is leaking and displaced. Pt had permacath for over 8 months for HD. AV shunt placement is cancelled today and Pt is admitted for sepsis. Denies N/V/D/CP/SOB/ dysuria/ PMH: DM, ESRD on HD, sacral decubitus ulcer, HLD, HTN PSH: Decubitus debridement, Permacath Objective - Vital Signs/Intake and Output Vital Signs (last 24 hours): Temp Pulse Resp BP Pulse Ox 98.5 F 68 20 159/76 H 96 10/26/16 23:20 10/26/16 23:20 10/26/16 23:20 10/26/16 23:20 10/26/16 23:20 Intake and Output: 10/27/16 10/27/16 06:59 18:59 Intake Total 400 200 Balance 400 200 - Medications Medications: Current Medications Amiodarone HCl (Cordarone) 200 mg PO DAILY [facility] Last Admin: 10/26/16 10:57 Dose: Not Given Epoetin Alonso (Procrit) 10,000 unit IV TTS [facility] Stop: 10/31/16 10:01 Last Admin: 10/26/16 16:50 Dose: 10,000 unit Folic Acid (Folic Acid) 1 mg PO DAILY [facility] Last Admin: 10/26/16 11:00 Dose: 1 mg Heparin Sodium (Porcine) (Heparin) 3,700 units IVP TTS [facility] Stop: 10/31/16 10:01 Last Admin: 10/26/16 17:24 Dose: 3,700 units Vancomycin/Sodium Chloride (Vancocin) 1 gm in 200 mls @ 166.7 mls/hr IVPB ONCE [facility] Stop: 10/30/16 18:01 Last Admin: 10/25/16 18:45 Dose: 0 mls Vancomycin HCl 500 mg/ Sodium (Chloride) 100 mls @ 100 mls/hr IVPB TTS [facility] Piperacillin Sod/Tazobactam (Sod 2.25 gm/ Sodium Chloride) 100 mls @ 200 mls/ hr IVPB Q8H [facility] Last Admin: 10/27/16 06:03 Dose: 200 mls/hr Lisinopril (Zestril) 40 mg PO DAILY [facility] Last Admin: 10/26/16 10:58 Dose: Not Given Metoprolol Succinate (Toprol Xl) 100 mg PO DAILY [facility] Last Admin: 10/26/16 10:58 Dose: Not Given - Labs Labs: 10/27/16 07:16 10/26/16 07:10 PT 16.7 SECONDS (9.7-12.2) H 10/26/16 11:35 INR 1.4 10/26/16 11:35 - Additional Findings Additional findings: - Head Exam Head Exam: ATRAUMATIC, NORMAL INSPECTION - Eye Exam Eye Exam: EOMI - ENT Exam ENT Exam: Mucous Membranes Moist - Respiratory Exam Respiratory Exam: Clear to Ausculation Bilateral, NORMAL BREATHING PATTERN. absent: Rhonchi, Wheezes, Respiratory Distress - Cardiovascular Exam Cardiovascular Exam: +S1, +S2, Murmur - GI/Abdominal Exam GI & Abdominal Exam: Soft, Normal Bowel Sounds. absent: Tenderness - Extremities Exam Extremities Exam: Pedal Edema - discoloration/darkening of skin on b/l shins - Neurological Exam Neurological Exam: Alert, Awake - reflexes in tact b/l - decreased sensation along all aspects of b/l lower extremities (below knee) ( R is worst than L). - Psychiatric Exam Psychiatric exam: Normal Affect, Normal Mood - Skin Skin Exam: Dry, Normal Color, Warm Additional comments: Permacath placed 12/2015; Dressing clean, dry, intact. Assessment and Plan - Assessment and Plan (Free Text) Assessment: ESRD on HD 10/27: received HD yesterday, no complications. IV rx in progress + blodd cultures wound care in progress consider CT sacrum/ surgical eval of wound Vancomycin HCl 500 mg/ Sodium (Chloride) 100 mls @ 100 mls/hr IVPB TTS [facility] Sepsis / Bacteremia 10/27: WBC 7.3. Continue IV Abx. f/u repeat wound culture and blood cultures. Blood culture (+) for beta hemolytic strep / Coccyx culture (+) corynebacterium. ID consult, Dr. George, f/u recs Vancocin) 1 gm in 200 mls @ 166.7 mls/hr IVPB ONCE [facility] Piperacillin Sod/Tazobactam (Sod 2.25 gm/ Sodium Chloride) 100 mls @ 200 mls/ hr IVPB Q8H [facility] Decubitus Ulcer 10/27: WBC 7.3. Continue IV Abx. Blood culture (+) for beta hemolytic strep / Coccyx culture (+) corynebacterium. - Follow up wound culture - Continue IV antibiotics and management as per ID. - Continue wound care for sacral decubitus ulcer. Anemia Procrit) 10,000 unit IV TTS [facility] Folic Acid) 1 mg PO DAILY [facility] HTN Amiodarone HCl (Cordarone) 200 mg PO DAILY [facility] Lisinopril (Zestril) 40 mg PO DAILY [facility] Metoprolol Succinate (Toprol Xl) 100 mg PO DAILY [facility] Prophylaxis Heparin 3,700 units IVP TTS [facility] SCDs Case discussed with attending. All medical management as per Dr. Kain Ya <Stacie Ya - Last Filed: 12/13/16 15:54> Objective - Vital Signs/Intake and Output Vital Signs (last 24 hours): Temp Pulse Resp BP Pulse Ox 98.9 F 67 20 155/75 H 96 10/31/16 23:15 10/31/16 23:15 10/31/16 23:15 10/31/16 23:15 10/31/16 23:15 - Labs Labs: 10/30/16 14:13 10/30/16 14:13 PT 16.7 SECONDS (9.7-12.2) H 10/26/16 11:35 INR 1.4 10/26/16 11:35 Assessment and Plan (1) Osteomyelitis Status: Acute Attending/Attestation - Attestation I have personally seen and examined this patient.: Yes I have fully participated in the care of the patient.: Yes I have reviewed all pertinent clinical information, including history, physical exam and plan: Yes Notes (Text): Patient examined. No overnight events. Stage IV decubitus pressure sore on the back present. Continue vancomycin and piperacillin tazobactam for sepsis. Continue dialysis for ESRD. Continue antihypertensive medications.
[2016-10-27 07:52] LABS: POTASSIUM 4.5 mmol/L (3.6-5.2)
[2016-10-27 07:55] LABS: ALB/GLOB RATIO 0.8 (1.0-2.1); BILIRUBIN,TOTAL 0.6 mg/dL (0.2-1.3); CALCIUM 8.1 mg/dl (8.6-10.4); TOTAL PROTEIN 6.6 g/dL (6.3-8.3)
[2016-10-27] MEDS: Metoprolol Succinate 100 mg XL Tab PO SCH (10:49)
--- NOTE | 2016-10-27 10:57 | CP.PCM.PN ---
Subjective - Date & Time of Evaluation Date of Evaluation: 10/27/16 Time of Evaluation: 07:20 - Subjective Subjective: clinically same Objective - Vital Signs/Intake and Output Vital Signs (last 24 hours): Temp Pulse Resp BP Pulse Ox 98.4 F 65 20 177/86 H 97 10/27/16 07:58 10/27/16 07:58 10/27/16 07:58 10/27/16 07:58 10/27/16 07:58 Intake and Output: 10/27/16 10/27/16 06:59 18:59 Intake Total 400 200 Balance 400 200 - Medications Medications: Current Medications Amiodarone HCl (Cordarone) 200 mg PO DAILY [facility] Last Admin: 10/27/16 10:49 Dose: 200 mg Epoetin Alonso (Procrit) 10,000 unit IV TTS [facility] Stop: 10/31/16 10:01 Last Admin: 10/26/16 16:50 Dose: 10,000 unit Folic Acid (Folic Acid) 1 mg PO DAILY [facility] Last Admin: 10/27/16 10:49 Dose: 1 mg Heparin Sodium (Porcine) (Heparin) 3,700 units IVP TTS [facility] Stop: 10/31/16 10:01 Last Admin: 10/26/16 17:24 Dose: 3,700 units Vancomycin/Sodium Chloride (Vancocin) 1 gm in 200 mls @ 166.7 mls/hr IVPB ONCE [facility] Stop: 10/30/16 18:01 Last Admin: 10/25/16 18:45 Dose: 0 mls Vancomycin HCl 500 mg/ Sodium (Chloride) 100 mls @ 100 mls/hr IVPB TTS [facility] Piperacillin Sod/Tazobactam (Sod 2.25 gm/ Sodium Chloride) 100 mls @ 200 mls/ hr IVPB Q8H [facility] Last Admin: 10/27/16 06:03 Dose: 200 mls/hr Lisinopril (Zestril) 40 mg PO DAILY [facility] Last Admin: 10/27/16 10:49 Dose: 40 mg Metoprolol Succinate (Toprol Xl) 100 mg PO DAILY [facility] Last Admin: 10/27/16 10:49 Dose: 100 mg Vitamin B Complex/Vit C/Folic Acid (Nephro-Umu) 1 tab PO 0800 [facility] - Labs Labs: 10/27/16 07:16 10/27/16 07:16 PT 16.7 SECONDS (9.7-12.2) H 10/26/16 11:35 INR 1.4 10/26/16 11:35 - Constitutional Appears: Well - Head Exam Head Exam: ATRAUMATIC, NORMAL INSPECTION, NORMOCEPHALIC - Eye Exam Eye Exam: EOMI, Normal appearance, PERRL Pupil Exam: NORMAL ACCOMODATION, PERRL - ENT Exam ENT Exam: Mucous Membranes Moist, Normal Exam - Neck Exam Neck Exam: Full ROM, Normal Inspection. absent: Lymphadenopathy - Respiratory Exam Respiratory Exam: Decreased Breath Sounds - Cardiovascular Exam Cardiovascular Exam: REGULAR RHYTHM, +S1, +S2 - GI/Abdominal Exam GI & Abdominal Exam: Soft, Diminished Bowel Sounds - Rectal Exam Rectal Exam: Deferred - Extremities Exam Extremities Exam: Full ROM, Normal Capillary Refill, Normal Inspection. absent : Joint Swelling, Pedal Edema - Psychiatric Exam Psychiatric exam: Normal Affect, Normal Mood Assessment and Plan (1) Sepsis Status: Acute (2) Osteomyelitis Status: Acute - Assessment and Plan (Free Text) Plan: Patient examined. Continue vancomycin and piperacillin tazobactam. Continue medications for hypertension. Continue supportive care. General nursing care.
--- NOTE | 2016-10-27 19:06 | CP.PCM.PN ---
Subjective - Date & Time of Evaluation Date of Evaluation: 10/27/16 Time of Evaluation: 08:00 - Subjective Subjective: cultures noted iv rx in progress Objective - Vital Signs/Intake and Output Vital Signs (last 24 hours): Temp Pulse Resp BP Pulse Ox 98.9 F 62 20 164/73 H 97 10/27/16 16:00 10/27/16 16:00 10/27/16 16:00 10/27/16 16:00 10/27/16 16:00 Intake and Output: 10/27/16 10/28/16 18:59 06:59 Intake Total 600 Balance 600 - Medications Medications: Current Medications Amiodarone HCl (Cordarone) 200 mg PO DAILY [facility] Last Admin: 10/27/16 10:49 Dose: 200 mg Epoetin Alonso (Procrit) 10,000 unit IV TTS [facility] Stop: 10/31/16 10:01 Last Admin: 10/26/16 16:50 Dose: 10,000 unit Folic Acid (Folic Acid) 1 mg PO DAILY [facility] Last Admin: 10/27/16 10:49 Dose: 1 mg Heparin Sodium (Porcine) (Heparin) 3,700 units IVP TTS [facility] Stop: 10/31/16 10:01 Last Admin: 10/26/16 17:24 Dose: 3,700 units Vancomycin/Sodium Chloride (Vancocin) 1 gm in 200 mls @ 166.7 mls/hr IVPB ONCE [facility] Stop: 10/30/16 18:01 Last Admin: 10/25/16 18:45 Dose: 0 mls Vancomycin HCl 500 mg/ Sodium (Chloride) 100 mls @ 100 mls/hr IVPB TTS [facility] Piperacillin Sod/Tazobactam (Sod 2.25 gm/ Sodium Chloride) 100 mls @ 200 mls/ hr IVPB Q8H [facility] Last Admin: 10/27/16 16:04 Dose: 200 mls/hr Lisinopril (Zestril) 40 mg PO DAILY [facility] Last Admin: 10/27/16 10:49 Dose: 40 mg Metoprolol Succinate (Toprol Xl) 100 mg PO DAILY [facility] Last Admin: 10/27/16 10:49 Dose: 100 mg Vitamin B Complex/Vit C/Folic Acid (Nephro-Umu) 1 tab PO 0800 [facility] - Labs Labs: 10/27/16 07:16 10/27/16 07:16 PT 16.7 SECONDS (9.7-12.2) H 10/26/16 11:35 INR 1.4 10/26/16 11:35 - Constitutional Appears: Non-toxic, Chronically Ill - Head Exam Head Exam: NORMOCEPHALIC - Eye Exam Eye Exam: PERRL - ENT Exam ENT Exam: Mucous Membranes Dry - Cardiovascular Exam Cardiovascular Exam: REGULAR RHYTHM - GI/Abdominal Exam GI & Abdominal Exam: Distended Assessment and Plan - Assessment and Plan (Free Text) Plan: cont iv rx and wound care consider ct sacrum
[2016-10-28] MEDS: Piperacillin/Tazobact 2.25 GM in Sodium Chloride 100 ML IVPB SCH ×3 (05:59→22:24)
[2016-10-28] MEDS: Multivitamin Vitamin B Complex (Nephro-Vite) Tab PO SCH (08:04)
[2016-10-28] MEDS: Metoprolol Succinate 100 mg XL Tab PO SCH (09:19)
[2016-10-28] MEDS ORDERED: Epoetin Alfa 10,000 unit/ml Dialysis IV SCH ×3 (10:00→15:45)
[2016-10-28] MEDS: EPOETIN ALFA 4,000 UNIT/ML ML Dialysis IV SCH (16:00)
[2016-10-28] MEDS: Epoetin Alfa 10,000 unit/ml Dialysis IV SCH (16:00)
--- NOTE | 2016-10-28 18:48 | CP.PCM.PN ---
Subjective - Date & Time of Evaluation Date of Evaluation: 10/28/16 Time of Evaluation: 07:20 - Subjective Subjective: clinically same Objective - Vital Signs/Intake and Output Vital Signs (last 24 hours): Temp Pulse Resp BP Pulse Ox 98.5 F 60 20 148/76 96 10/28/16 13:30 10/28/16 13:30 10/28/16 13:30 10/28/16 14:45 10/28/16 09:17 Intake and Output: 10/28/16 10/28/16 06:59 18:59 Intake Total 370 Balance 370 - Medications Medications: Current Medications Amiodarone HCl (Cordarone) 200 mg PO DAILY [facility] Last Admin: 10/28/16 09:20 Dose: 200 mg Epoetin Alonso (Procrit) 10,000 unit IV TTS [facility] Stop: 11/07/16 10:01 Epoetin Alonso (Procrit) 4,000 unit IV TTS [facility] Stop: 11/07/16 10:01 Folic Acid (Folic Acid) 1 mg PO DAILY [facility] Last Admin: 10/28/16 09:19 Dose: 1 mg Heparin Sodium (Porcine) (Heparin) 3,700 units IVP TTS [facility] Stop: 10/31/16 10:01 Last Admin: 10/28/16 15:35 Dose: 3,700 units Vancomycin/Sodium Chloride (Vancocin) 1 gm in 200 mls @ 166.7 mls/hr IVPB ONCE [facility] Stop: 10/30/16 18:01 Last Admin: 10/25/16 18:45 Dose: 0 mls Vancomycin HCl 500 mg/ Sodium (Chloride) 100 mls @ 100 mls/hr IVPB TTS [facility] Last Admin: 10/28/16 09:50 Dose: 100 mls/hr Piperacillin Sod/Tazobactam (Sod 2.25 gm/ Sodium Chloride) 100 mls @ 200 mls/ hr IVPB Q8H [facility] Last Admin: 10/28/16 05:59 Dose: 200 mls/hr Lisinopril (Zestril) 40 mg PO DAILY [facility] Last Admin: 10/28/16 09:19 Dose: 40 mg Metoprolol Succinate (Toprol Xl) 100 mg PO DAILY [facility] Last Admin: 10/28/16 09:19 Dose: 100 mg Vitamin B Complex/Vit C/Folic Acid (Nephro-Umu) 1 tab PO 0800 [facility] Last Admin: 10/28/16 08:04 Dose: 1 tab - Labs Labs: 10/27/16 07:16 10/27/16 07:16 PT 16.7 SECONDS (9.7-12.2) H 10/26/16 11:35 INR 1.4 10/26/16 11:35 - Constitutional Appears: Well - Head Exam Head Exam: ATRAUMATIC, NORMAL INSPECTION, NORMOCEPHALIC - Eye Exam Eye Exam: EOMI, Normal appearance, PERRL - ENT Exam ENT Exam: Mucous Membranes Moist, Normal Exam - Neck Exam Neck Exam: Full ROM, Normal Inspection. absent: Lymphadenopathy - Respiratory Exam Respiratory Exam: Decreased Breath Sounds - Cardiovascular Exam Cardiovascular Exam: REGULAR RHYTHM, +S1, +S2. absent: Murmur - GI/Abdominal Exam GI & Abdominal Exam: Diminished Bowel Sounds - Rectal Exam Rectal Exam: Deferred - Extremities Exam Extremities Exam: Full ROM, Normal Capillary Refill, Normal Inspection. absent : Joint Swelling, Pedal Edema - Psychiatric Exam Psychiatric exam: Normal Affect, Normal Mood Assessment and Plan (1) Osteomyelitis Status: Acute (2) Sepsis Status: Acute - Assessment and Plan (Free Text) Plan: Patient examined. Clinically the same. Continue broad-spectrum antibiotics vancomycin and piperacillin and tazobactam. Continue treatment for hypertension. Continue supportive care and nursing care.
[2016-10-29] MEDS: Piperacillin/Tazobact 2.25 GM in Sodium Chloride 100 ML IVPB SCH ×3 (06:30→22:18)
[2016-10-29] MEDS: Multivitamin Vitamin B Complex (Nephro-Vite) Tab PO SCH (08:30)
[2016-10-29] MEDS: Metoprolol Succinate 100 mg XL Tab PO SCH (09:59)
--- NOTE | 2016-10-29 14:33 | CP.PCM.PN ---
Subjective - Date & Time of Evaluation Date of Evaluation: 10/29/16 Time of Evaluation: 09:00 - Subjective Subjective: no fever remains bedridden/ weak consider ct sacrum to r/o OM consider neuro eval cont iv antibiotics and wound care Objective - Vital Signs/Intake and Output Vital Signs (last 24 hours): Temp Pulse Resp BP Pulse Ox 99.1 F 64 20 137/70 98 10/29/16 09:10 10/29/16 09:10 10/29/16 09:10 10/29/16 09:10 10/29/16 09:10 Intake and Output: 10/29/16 10/29/16 06:59 18:59 Intake Total 500 Balance 500 - Medications Medications: Current Medications Amiodarone HCl (Cordarone) 200 mg PO DAILY [facility] Last Admin: 10/29/16 09:59 Dose: 200 mg Epoetin Alonso (Procrit) 10,000 unit IV TTS [facility] Stop: 11/07/16 10:01 Epoetin Alonso (Procrit) 4,000 unit IV TTS [facility] Stop: 11/07/16 10:01 Folic Acid (Folic Acid) 1 mg PO DAILY [facility] Last Admin: 10/29/16 09:59 Dose: 1 mg Heparin Sodium (Porcine) (Heparin) 3,700 units IVP TTS [facility] Stop: 10/31/16 10:01 Last Admin: 10/28/16 15:35 Dose: 3,700 units Vancomycin/Sodium Chloride (Vancocin) 1 gm in 200 mls @ 166.7 mls/hr IVPB ONCE [facility] Stop: 10/30/16 18:01 Last Admin: 10/25/16 18:45 Dose: 0 mls Vancomycin HCl 500 mg/ Sodium (Chloride) 100 mls @ 100 mls/hr IVPB TTS [facility] Last Admin: 10/28/16 09:50 Dose: 100 mls/hr Piperacillin Sod/Tazobactam (Sod 2.25 gm/ Sodium Chloride) 100 mls @ 200 mls/ hr IVPB Q8H [facility] Last Admin: 10/29/16 14:13 Dose: 200 mls/hr Lisinopril (Zestril) 40 mg PO DAILY [facility] Last Admin: 10/29/16 09:59 Dose: 40 mg Metoprolol Succinate (Toprol Xl) 100 mg PO DAILY [facility] Last Admin: 10/29/16 09:59 Dose: 100 mg Vitamin B Complex/Vit C/Folic Acid (Nephro-Umu) 1 tab PO 0800 [facility] Last Admin: 10/29/16 08:30 Dose: 1 tab - Labs Labs: 10/27/16 07:16 10/27/16 07:16 PT 16.7 SECONDS (9.7-12.2) H 10/26/16 11:35 INR 1.4 10/26/16 11:35 - Constitutional Appears: Non-toxic, Chronically Ill - Head Exam Head Exam: NORMOCEPHALIC - Eye Exam Eye Exam: PERRL. absent: Scleral icterus - ENT Exam ENT Exam: Mucous Membranes Dry, Normal External Ear Exam - Neck Exam Neck Exam: absent: Lymphadenopathy - Respiratory Exam Respiratory Exam: Decreased Breath Sounds, Rhonchi - Cardiovascular Exam Cardiovascular Exam: REGULAR RHYTHM, +S1, +S2 - GI/Abdominal Exam GI & Abdominal Exam: Distended, Soft. absent: Tenderness - Rectal Exam Rectal Exam: Deferred - Extremities Exam Extremities Exam: absent: Pedal Edema - Back Exam Back Exam: absent: CVA tenderness (L), CVA tenderness (R), paraspinal tenderness - Neurological Exam Neurological Exam: Alert, Awake, Oriented x3 Assessment and Plan - Assessment and Plan (Free Text) Plan: no fever remains bedridden/ weak consider ct sacrum to r/o OM consider neuro eval cont iv antibiotics and wound care
--- NOTE | 2016-10-29 17:43 | CP.PCM.PN ---
Subjective - Date & Time of Evaluation Date of Evaluation: 10/29/16 Time of Evaluation: 07:20 - Subjective Subjective: clinically same Objective - Vital Signs/Intake and Output Vital Signs (last 24 hours): Temp Pulse Resp BP Pulse Ox 99.2 F 59 L 20 144/66 97 10/29/16 16:00 10/29/16 16:00 10/29/16 16:00 10/29/16 16:00 10/29/16 16:00 Intake and Output: 10/29/16 10/29/16 06:59 18:59 Intake Total 500 Balance 500 - Medications Medications: Current Medications Amiodarone HCl (Cordarone) 200 mg PO DAILY [facility] Last Admin: 10/29/16 09:59 Dose: 200 mg Epoetin Alonso (Procrit) 10,000 unit IV TTS [facility] Stop: 11/07/16 10:01 Epoetin Alonso (Procrit) 4,000 unit IV TTS [facility] Stop: 11/07/16 10:01 Folic Acid (Folic Acid) 1 mg PO DAILY [facility] Last Admin: 10/29/16 09:59 Dose: 1 mg Vancomycin/Sodium Chloride (Vancocin) 1 gm in 200 mls @ 166.7 mls/hr IVPB ONCE [facility] Stop: 10/30/16 18:01 Last Admin: 10/25/16 18:45 Dose: 0 mls Vancomycin HCl 500 mg/ Sodium (Chloride) 100 mls @ 100 mls/hr IVPB TTS [facility] Last Admin: 10/28/16 09:50 Dose: 100 mls/hr Piperacillin Sod/Tazobactam (Sod 2.25 gm/ Sodium Chloride) 100 mls @ 200 mls/ hr IVPB Q8H [facility] Last Admin: 10/29/16 14:13 Dose: 200 mls/hr Lisinopril (Zestril) 40 mg PO DAILY [facility] Last Admin: 10/29/16 09:59 Dose: 40 mg Metoprolol Succinate (Toprol Xl) 100 mg PO DAILY [facility] Last Admin: 10/29/16 09:59 Dose: 100 mg Vitamin B Complex/Vit C/Folic Acid (Nephro-Umu) 1 tab PO 0800 [facility] Last Admin: 10/29/16 08:30 Dose: 1 tab - Labs Labs: 10/27/16 07:16 10/27/16 07:16 PT 16.7 SECONDS (9.7-12.2) H 10/26/16 11:35 INR 1.4 10/26/16 11:35 - Constitutional Appears: Well - Head Exam Head Exam: ATRAUMATIC, NORMAL INSPECTION, NORMOCEPHALIC - Eye Exam Eye Exam: EOMI, Normal appearance, PERRL - ENT Exam ENT Exam: Mucous Membranes Moist, Normal Exam - Neck Exam Neck Exam: Full ROM, Normal Inspection. absent: Lymphadenopathy - Respiratory Exam Respiratory Exam: Decreased Breath Sounds - Cardiovascular Exam Cardiovascular Exam: REGULAR RHYTHM, +S1, +S2. absent: Murmur - GI/Abdominal Exam GI & Abdominal Exam: Diminished Bowel Sounds - Extremities Exam Extremities Exam: Full ROM, Normal Capillary Refill, Normal Inspection. absent : Joint Swelling, Pedal Edema - Back Exam Back Exam: NORMAL INSPECTION - Psychiatric Exam Psychiatric exam: Normal Affect, Normal Mood Assessment and Plan (1) Osteomyelitis Status: Acute (2) Sepsis Status: Acute - Assessment and Plan (Free Text) Plan: Patient examined. No fever. Plan CT sacrum to rule out osteomyelitis. Neuro evaluation. Continue broad-spectrum antibiotics vancomycin and piperacillin and tazobactam. Continue treatment for hypertension. Continue supportive care and nursing care.
[2016-10-30] MEDS: Piperacillin/Tazobact 2.25 GM in Sodium Chloride 100 ML IVPB SCH ×3 (05:58→22:21)
[2016-10-30] MEDS: Multivitamin Vitamin B Complex (Nephro-Vite) Tab PO SCH (09:30)
--- NOTE | 2016-10-30 09:30 | PN ---
DATE: This is followup note for the dictation of HPI. REVIEWS OF SYSTEMS: Noted overnight events. She denied any complaints of chest pain, palpitations, shortness of breath, cough, phlegm, fever or chills. PHYSICAL EXAMINATION GENERAL: Patient appeared comfortable, not in acute distress. Pleasant and cooperative. VITAL SIGNS: Noted. Afebrile, pulse 82, blood pressure 157/79. LUNGS: Bilateral vesicular sounds clear. CARDIOVASCULAR: S1 and S2 is normal. No murmur. ABDOMEN: Soft, nontender. No organomegaly. EXTREMITIES: No edema. PSYCHIATRIC: Patient is pleasant and cooperative. Judgement is appropriate. Normal insight is present as well. VASCULAR: Patient has Perma-Cath. LABORATORY DATA: White blood cell count 7.3, hemoglobin 8, platelet count 291. Sodium 136, potassium 4.5, bicarb is 27, creatinine 2.8 and glucose 117. Wound culture have grown coagulase negative Staphylococcus and blood cultures have shown beta-hemolytic group B Streptococcus. MEDICATIONS: Current medications also Reviewed. ASSESSMENT AND PLAN: Sepsis with sacral decubitus wound infection and restarted hemodialysis, diabetic kidney disease, hypertensive chronic kidney disease, hyperlipidemia with anemia, hypophosphatemia secondary to hypoparathyroidism. RECOMMENDATIONS: Patient planned for dialysis today as ordered. Then we will increase his Epogen dose to 40,000 units. He is on dialysis. Patient is on AFib, rate controlled. Medication; amiodarone, continue lisinopril for his hypertension. He is also on multivitamin per day. Then dose vancomycin also by level. All questions were answered. Ryan Carter MD
--- NOTE | 2016-10-30 09:34 | PN ---
DATE: CHIEF COMPLAINT: None at this time. HISTORY OF PRESENT ILLNESS AND REVIEW OF SYSTEMS: Overnight no events. The patient doing well, no complaints. No chest pain, palpitations, shortness of breath. PHYSICAL EXAMINATION VITAL SIGNS: Afebrile, pulse is 64 and blood pressure 137/70. LUNGS: Bilateral vesicular breath sounds clear. CARDIOVASCULAR: S1 and S2 normal. No murmur. ABDOMEN: Soft and nontender. No organomegaly. EXTREMITIES: No edema. ACCESS: The patient has PermCath as the access. NEUROLOGIC: Alert and oriented x3. No focal deficits. Moving all 4 extremities. Strength and sensation intact. LABORATORY DATA: No new labs today. Glucose is 200 range. negative. ASSESSMENT: 1. Sepsis with sacral decubitus infection. 2. End stage renal disease, started on hemodialysis, right PermCath. 3. Hypertensive chronic kidney disease. 4. Diabetes mellitus, diabetes chronic kidney disease. RECOMMENDATIONS: No acute need for dialysis today. The patient had dialysis done yesterday. She tolerated it well. We will plan for next dialysis on Sunday. Blood pressure is under control on current regimen, continue with the same. She is on multivitamin, also lisinopril, dose vancomycin by level. All questions were answered. She is on Epogen with dialysis 14,000 units. Ryan Carter MD
--- NOTE | 2016-10-30 09:34 | PN ---
CHIEF COMPLAINT: "I've wound at the back." HISTORY OF PRESENT ILLNESS AND REVIEW OF SYSTEMS: The patient otherwise feels significant health. Denies any nausea, vomiting, chest pain, palpitation, shortness of breath, fevers or chills. Had dialysis yesterday. She reports that she has a wound at the back and she has infection from it. PHYSICAL EXAMINATION GENERAL: The patient does appear comfortable. She is sitting on the bed, not in acute distress, pleasant and cooperative. VITAL SIGNS: Noted, stable, afebrile. Pulse is 65. Blood pressure mostly under better control, but only this morning it was 177/86, but mostly has been under the good target range and has been 100 to 120s to 130s. LUNGS: Bilateral vesicular breath sounds, clear, but air entry present. No added sounds. CARDIOVASCULAR: S1 and S2 normal. No murmur. No rub. ABDOMEN: Soft and nontender. No organomegaly could be appreciated. EXTREMITIES: No edema. SKIN: No rash or ulceration except the patient has a wound at the back. LYMPH NODES: No adenopathy in the neck. NEUROLOGICALLY: Alert and oriented x3. No focal deficits. Moving all 4 extremities. PSYCHIATRIC: The patient is pleasant and cooperative. Judgement is appropriate. Affect is normal. Insight is present as well. LABORATORY DATA: Workup shows white blood cell count is 7.3, hemoglobin is 8, platelet count is 291. Sodium is 136, potassium is 4.5, creatinine 2.8, glucose is 122. Then, iron saturation of 14% with ferritin of 2130, albumin is 2.9. Culture from the wound infection has shown coagulase-negative staphylococcus and blood culture grew group B hemolytic streptococcus. CURRENT MEDICATIONS: Reviewed. ASSESSMENT: 1. End-stage renal disease, on hemodialysis via Perm-A-Cath and has sepsis with wound infection. 2. History of atrial fibrillation. 3. Hypertension. 4. Anemia, hyperphosphatemia. RECOMMENDATION: No acute need for dialysis today, but can be planned for dialysis tomorrow. Then, she is getting Epogen with dialysis and IV iron not indicated considering high ferritin infection. The patient mostly under good control on lisinopril 40 mg, also on metoprolol. Continue the antibiotic as per the infectious disease. Continue the multivitamin per day. All questions were answered. Dose vancomycin by level. Thank you, please call if any questions. Ryan Carter MD
--- NOTE | 2016-10-30 10:28 | CP.PCM.PN ---
<Javier Rojas - Last Filed: 10/30/16 17:02> Subjective - Date & Time of Evaluation Date of Evaluation: 10/30/16 Time of Evaluation: 10:25 - Subjective Subjective: PGY-[address] Ya's service: Pt seen and examined at bedside. Found lying in bed in no acute distress, eating breakfast. Wound nurse saw patient this AM, and states sacral wound is healing well. Wound vac applied today. Pt denies fever, chills, chest pain, SOB , abdominal pain, N/V/D/C. Patient is a 65 year old female, with PMHx of ESRD on HD, DM, secral decubitus ulcer came to [facility] for AV shunt placement on 10/25/2016. At that time she reported fevers ranging between 102-104 last 6 days. She was found to have sacral decubitus ulcers and has wound vac. Wound vac is leaking and displaced. Pt had permacath for over 8 months for HD. AV shunt placement was cancelled and instead pt was admitted for sepsis. Denies N/V/D/CP/SOB/dysuria. PMH: DM, ESRD on HD, sacral decubitus ulcer, HLD, HTN PSH: Decubitus debridement, Permacath Objective - Vital Signs/Intake and Output Vital Signs (last 24 hours): Temp Pulse Resp BP Pulse Ox 98.9 F 61 20 162/82 H 98 10/30/16 00:00 10/30/16 00:00 10/30/16 00:00 10/30/16 00:00 10/30/16 00:00 Intake and Output: 10/30/16 10/30/16 06:59 18:59 Intake Total 800 Balance 800 - Medications Medications: Current Medications Amiodarone HCl (Cordarone) 200 mg PO DAILY [facility] Last Admin: 10/29/16 09:59 Dose: 200 mg Epoetin Alonso (Procrit) 10,000 unit IV TTS [facility] Stop: 11/07/16 10:01 Epoetin Alonso (Procrit) 4,000 unit IV TTS [facility] Stop: 11/07/16 10:01 Folic Acid (Folic Acid) 1 mg PO DAILY [facility] Last Admin: 10/29/16 09:59 Dose: 1 mg Vancomycin/Sodium Chloride (Vancocin) 1 gm in 200 mls @ 166.7 mls/hr IVPB ONCE [facility] Stop: 10/30/16 18:01 Last Admin: 10/25/16 18:45 Dose: 0 mls Vancomycin HCl 500 mg/ Sodium (Chloride) 100 mls @ 100 mls/hr IVPB TTS [facility] Last Admin: 10/28/16 09:50 Dose: 100 mls/hr Piperacillin Sod/Tazobactam (Sod 2.25 gm/ Sodium Chloride) 100 mls @ 200 mls/ hr IVPB Q8H [facility] Last Admin: 10/30/16 05:58 Dose: 200 mls/hr Lisinopril (Zestril) 40 mg PO DAILY [facility] Last Admin: 10/29/16 09:59 Dose: 40 mg Metoprolol Succinate (Toprol Xl) 100 mg PO DAILY [facility] Last Admin: 10/29/16 09:59 Dose: 100 mg Vitamin B Complex/Vit C/Folic Acid (Nephro-Umu) 1 tab PO 0800 [facility] Last Admin: 10/30/16 09:30 Dose: 1 tab - Labs Labs: 10/27/16 07:16 10/27/16 07:16 PT 16.7 SECONDS (9.7-12.2) H 10/26/16 11:35 INR 1.4 10/26/16 11:35 - Constitutional Appears: Non-toxic, Chronically Ill - Head Exam Head Exam: NORMOCEPHALIC - Eye Exam Eye Exam: EOMI, PERRL - ENT Exam ENT Exam: Mucous Membranes Dry - Neck Exam Neck Exam: Full ROM - Respiratory Exam Respiratory Exam: Decreased Breath Sounds, Clear to Ausculation Bilateral, NORMAL BREATHING PATTERN. absent: Rhonchi, Wheezes - Cardiovascular Exam Cardiovascular Exam: +S1, +S2, Murmur - GI/Abdominal Exam GI & Abdominal Exam: Distended, Soft, Normal Bowel Sounds. absent: Tenderness - Extremities Exam Extremities Exam: Normal Capillary Refill, Pedal Edema (non-pitting) - Back Exam Back Exam: absent: CVA tenderness (L), CVA tenderness (R) - Neurological Exam Neurological Exam: Alert, Awake, Oriented x3 - Psychiatric Exam Psychiatric exam: Normal Affect, Normal Mood - Skin Skin Exam: Normal Color, Warm Additional comments: discoloration of b/l shins Assessment and Plan - Assessment and Plan (Free Text) Plan: Sepsis / Bacteremia 10/30: WBC 10.7. Continue IV Abx - repeat wound culture (pending) Blood culture (10/25/16) (+) for beta hemolytic strep / Coccyx culture (+) corynebacterium - repeat blood cx (no growth x 24 hrs) ID consult, Dr. George -Vancomycin 1 gm in 200 mls @ 166.7 mls/hr IVPB ONCE [facility] - Zosyn 2.25 gm IVPB Q8H [facility] - recommend CT l-spine/sacrum for osteomyletits ESRD on HD 10/30: received HD yesterday, no complications. IV rx in progress + blood cultures wound care in progress consider CT sacrum/ surgical eval of wound Vancomycin HCl 500 mg/ Sodium (Chloride) 100 mls @ 100 mls/hr IVPB TTS [facility] Decubitus Ulcer 10/30: WBC 10.7. Continue IV Abx. Blood culture (+) for beta hemolytic strep / Coccyx culture (+) corynebacterium. - Follow up wound culture - Continue IV antibiotics and management as per ID. - Continue wound care for sacral decubitus ulcer. Wound care following - f/u CT L-spine for osteomyelitis Anemia Hgb 7.6 on AM labs - monitor Procrit 10,000 unit IV TTS [facility] Folic Acid 1 mg PO DAILY [facility] HTN Amiodarone HCl (Cordarone) 200 mg PO DAILY [facility] Lisinopril (Zestril) 40 mg PO DAILY [facility] Metoprolol Succinate (Toprol Xl) 100 mg PO DAILY [facility] Type Two Diabetes Mellitus Accuchecks GINO f/u A1c Prophylaxis Heparin with dialysis SCDs Coumadin held for possible surgical intervention Javier Rojas PGY-2 Case discussed with attending. All medical management as per Dr. Kain Ya <Stacie Ya - Last Filed: 12/13/16 16:00> Objective - Vital Signs/Intake and Output Vital Signs (last 24 hours): Temp Pulse Resp BP Pulse Ox 98.9 F 67 20 155/75 H 96 10/31/16 23:15 10/31/16 23:15 10/31/16 23:15 10/31/16 23:15 10/31/16 23:15 - Labs Labs: 10/30/16 14:13 10/30/16 14:13 PT 16.7 SECONDS (9.7-12.2) H 10/26/16 11:35 INR 1.4 10/26/16 11:35 Assessment and Plan (1) Osteomyelitis Status: Acute (2) Sepsis Status: Acute Attending/Attestation - Attestation I have personally seen and examined this patient.: Yes I have fully participated in the care of the patient.: Yes I have reviewed all pertinent clinical information, including history, physical exam and plan: Yes Notes (Text): Patient examined. No acute events. Continue broad-spectrum antibiotics. Continue treatment for hypertension. Continue supportive care. Continue dialysis.
[2016-10-30] MEDS: Metoprolol Succinate 100 mg XL Tab PO SCH (11:10)
--- NOTE | 2016-10-30 12:00 | CP.PCM.PN ---
Subjective - Date & Time of Evaluation Date of Evaluation: 10/30/16 Time of Evaluation: 07:00 - Subjective Subjective: remains bedridden/ weak consider ct sacrum to r/o OM Objective - Vital Signs/Intake and Output Vital Signs (last 24 hours): Temp Pulse Resp BP Pulse Ox 98.9 F 61 20 162/82 H 98 10/30/16 00:00 10/30/16 00:00 10/30/16 00:00 10/30/16 00:00 10/30/16 00:00 Intake and Output: 10/30/16 10/30/16 06:59 18:59 Intake Total 800 Balance 800 - Medications Medications: Current Medications Amiodarone HCl (Cordarone) 200 mg PO DAILY [facility] Last Admin: 10/30/16 11:10 Dose: 200 mg Epoetin Alonso (Procrit) 10,000 unit IV TTS [facility] Stop: 11/07/16 10:01 Epoetin Alonso (Procrit) 4,000 unit IV TTS [facility] Stop: 11/07/16 10:01 Folic Acid (Folic Acid) 1 mg PO DAILY [facility] Last Admin: 10/30/16 11:10 Dose: 1 mg Vancomycin/Sodium Chloride (Vancocin) 1 gm in 200 mls @ 166.7 mls/hr IVPB ONCE [facility] Stop: 10/30/16 18:01 Last Admin: 10/25/16 18:45 Dose: 0 mls Vancomycin HCl 500 mg/ Sodium (Chloride) 100 mls @ 100 mls/hr IVPB TTS [facility] Last Admin: 10/28/16 09:50 Dose: 100 mls/hr Piperacillin Sod/Tazobactam (Sod 2.25 gm/ Sodium Chloride) 100 mls @ 200 mls/ hr IVPB Q8H [facility] Last Admin: 10/30/16 05:58 Dose: 200 mls/hr Lisinopril (Zestril) 40 mg PO DAILY [facility] Last Admin: 10/30/16 11:10 Dose: 40 mg Metoprolol Succinate (Toprol Xl) 100 mg PO DAILY [facility] Last Admin: 10/30/16 11:10 Dose: 100 mg Vitamin B Complex/Vit C/Folic Acid (Nephro-Umu) 1 tab PO 0800 [facility] Last Admin: 10/30/16 09:30 Dose: 1 tab - Labs Labs: 10/27/16 07:16 10/27/16 07:16 PT 16.7 SECONDS (9.7-12.2) H 10/26/16 11:35 INR 1.4 10/26/16 11:35 - Constitutional Appears: Non-toxic, Chronically Ill - Head Exam Head Exam: NORMOCEPHALIC - Eye Exam Eye Exam: PERRL - ENT Exam ENT Exam: Mucous Membranes Dry, Normal External Ear Exam - Neck Exam Neck Exam: absent: Lymphadenopathy - Respiratory Exam Respiratory Exam: Decreased Breath Sounds - Cardiovascular Exam Cardiovascular Exam: REGULAR RHYTHM - GI/Abdominal Exam GI & Abdominal Exam: Distended Assessment and Plan - Assessment and Plan (Free Text) Assessment: remains bedridden/ weak consider ct sacrum to r/o OM
[2016-10-30 14:31] LABS: BASO # 0.1 K/uL (0.0-0.2); BASO % 0.6 % (0.0-2.0); EOS # 0.2 K/uL (0.0-0.7); EOS % 1.9 % (0.0-4.0); HEMATOCRIT 23.7 % (34.0-47.0); LYMPH # 2.2 K/uL (1.0-4.3); LYMPH % 20.7 % (20.0-40.0); MEAN CELL VOLUME 91.4 fL (81.0-99.0); MEAN CORPUSCULAR HEMOGLOBIN 29.4 pg (27.0-31.0); MEAN CORPUSCULAR HGB CONC 32.2 g/dL (33.0-37.0); MEAN PLATELET VOLUME 8.6 fL (7.2-11.7); MONO # 0.7 K/uL (0.0-0.8); MONO % 6.1 % (0.0-10.0); RED CELL DISTRIBUTION WIDTH 17.9 % (11.5-14.5); WHITE BLOOD COUNT 10.7 K/uL (4.8-10.8)
[2016-10-30 14:33] LABS: POTASSIUM 5.2 mmol/L (3.6-5.2)
[2016-10-30 14:36] LABS: ALB/GLOB RATIO 0.8 (1.0-2.1); BILIRUBIN,TOTAL 0.4 mg/dL (0.2-1.3); PHOSPHOROUS 7.2 mg/dL (2.5-4.5); TOTAL PROTEIN 6.5 g/dL (6.3-8.3)
--- NOTE | 2016-10-30 16:54 | CT ---
PROCEDURE: CT Lumbar Spine without contrast HISTORY: sacral wound, r/o osteomyelitis COMPARISON: None. TECHNIQUE: Axial computed tomography images were obtained of the lumbar spine without the use of intravenous contrast. Coronal and sagittal reformatted images were created and reviewed. Radiation dose: Total exam DLP = 1727.47 mGy-cm. This CT exam was performed using one or more of the following dose reduction techniques: Automated exposure control, adjustment of the mA and/or kV according to patient size, and/or use of iterative reconstruction technique. FINDINGS: VERTEBRAE: The vertebral bodies of the lumbar spine are maintained in height. The transverse processes and posterior elements appear intact. Normal alignment is maintained. There is mild levo scoliotic curvature of the lumbar spine. The sacrum is significant for sclerosis of the inferior aspect of the [id number]. . There is gross osseous destruction of the majority of the proximal coccyx secondary to a large sacral decubitus ulcer. DISCS/SPINAL CANAL/NEURAL FORAMINA: L1-2: Marked disc space narrowing mild osteophyte formation consistent with degenerative disc disease. L2-3: Disc space narrowing and osteophyte formation consistent with degenerative disc disease. [id number] bilateral neural foraminal stenosis. L3-4: Mild disc bulge. No focal herniation. No spinal or foraminal stenosis. L4-5: Diffuse disc bulge. Extensive bilateral degenerative facet arthropathy with bilateral ligamentum flavum hypertrophy and mild central spinal stenosis. Moderate bilateral neural foraminal stenosis is also noted. L5-S1: Diffuse disc bulge. No focal herniation. No spinal or foraminal stenosis. PARASPINAL SOFT TISSUES: Large sacral decubitus ulcer. Abnormal presacral soft tissue density common nonspecific. This may be related to the sacral decubitus ulcer. OTHER FINDINGS: None. IMPRESSION: Gross destruction of the proximal coccyx. Sclerosis of the distal aspect of the S4 vertebra. Large sacral decubitus ulcer. Findings concerning for osteomyelitis. Abnormal presacral soft tissue density. Additional minor findings of the lumbar spine as above.
[2016-10-30] MEDS: (Novolin R) Insulin Human Regular 100 units/ml vial SC SCH ×2 (18:10→22:22)
--- NOTE | 2016-10-30 18:16 | CP.PCM.PN ---
Subjective - Date & Time of Evaluation Date of Evaluation: 10/30/16 Time of Evaluation: 07:20 - Subjective Subjective: clinically sme Objective - Vital Signs/Intake and Output Vital Signs (last 24 hours): Temp Pulse Resp BP Pulse Ox 98.1 F 61 21 162/82 H 98 10/30/16 14:42 10/30/16 12:23 10/30/16 10:00 10/30/16 12:23 10/30/16 12:23 Intake and Output: 10/30/16 10/30/16 06:59 18:59 Intake Total 800 340 Balance 800 340 - Medications Medications: Current Medications Acetaminophen (Tylenol 325mg Tab) 650 mg PO Q6 PRN PRN Reason: Pain, moderate (4-7) Last Admin: 10/30/16 14:42 Dose: 650 mg Amiodarone HCl (Cordarone) 200 mg PO DAILY [facility] Last Admin: 10/30/16 11:10 Dose: 200 mg Epoetin Alonso (Procrit) 10,000 unit IV TTS [facility] Stop: 11/07/16 10:01 Epoetin Alonso (Procrit) 4,000 unit IV TTS [facility] Stop: 11/07/16 10:01 Folic Acid (Folic Acid) 1 mg PO DAILY [facility] Last Admin: 10/30/16 11:10 Dose: 1 mg Vancomycin HCl 500 mg/ Sodium (Chloride) 100 mls @ 100 mls/hr IVPB TTS [facility] Last Admin: 10/28/16 09:50 Dose: 100 mls/hr Piperacillin Sod/Tazobactam (Sod 2.25 gm/ Sodium Chloride) 100 mls @ 200 mls/ hr IVPB Q8H [facility] Last Admin: 10/30/16 14:35 Dose: 200 mls/hr Insulin Human Regular (Novolin R) 0 unit SC ACHS [facility] PRN Reason: Protocol Last Admin: 10/30/16 18:10 Dose: Not Given Lisinopril (Zestril) 40 mg PO DAILY [facility] Last Admin: 10/30/16 11:10 Dose: 40 mg Metoprolol Succinate (Toprol Xl) 100 mg PO DAILY [facility] Last Admin: 10/30/16 11:10 Dose: 100 mg Sevelamer Carbonate (Renvela) 1,600 mg PO TIDCC [facility] Last Admin: 10/30/16 18:10 Dose: 1,600 mg Vitamin B Complex/Vit C/Folic Acid (Nephro-Umu) 1 tab PO 0800 [facility] Last Admin: 10/30/16 09:30 Dose: 1 tab - Labs Labs: 10/30/16 14:13 10/30/16 14:13 PT 16.7 SECONDS (9.7-12.2) H 10/26/16 11:35 INR 1.4 10/26/16 11:35 - Constitutional Appears: Well - Head Exam Head Exam: ATRAUMATIC, NORMAL INSPECTION, NORMOCEPHALIC - Eye Exam Eye Exam: EOMI, Normal appearance, PERRL Pupil Exam: NORMAL ACCOMODATION, PERRL - ENT Exam ENT Exam: Mucous Membranes Moist, Normal Exam - Neck Exam Neck Exam: Full ROM, Normal Inspection. absent: Lymphadenopathy - Respiratory Exam Respiratory Exam: Decreased Breath Sounds - Cardiovascular Exam Cardiovascular Exam: REGULAR RHYTHM, +S1, +S2 - GI/Abdominal Exam GI & Abdominal Exam: Soft, Diminished Bowel Sounds - Rectal Exam Rectal Exam: Deferred - Neurological Exam Neurological Exam: Alert, Awake, CN II-XII Intact, Oriented x3 - Psychiatric Exam Psychiatric exam: Normal Affect, Normal Mood Assessment and Plan (1) Osteomyelitis Status: Acute (2) Sepsis Status: Acute - Assessment and Plan (Free Text) Plan: Patient examined. Plan CT sacrum. Continue broad-spectrum antibiotics, dialysis, antihypertensive medications and supportive care.
--- NOTE | 2016-10-30 22:21 | CARD ---
APPROVED REPORT EKG Measurement Heart [id number] <Conclusion> Normal sinus rhythm Normal ECG
[2016-10-31] MEDS: Piperacillin/Tazobact 2.25 GM in Sodium Chloride 100 ML IVPB SCH ×2 (06:05→14:11)
[2016-10-31] MEDS: (Novolin R) Insulin Human Regular 100 units/ml vial SC SCH ×4 (08:45→22:35)
--- NOTE | 2016-10-31 08:55 | PN ---
DATE: 10/30/2016 CHIEF COMPLAINT: None at this time, "I feel good". HISTORY OF PRESENT ILLNESS AND REVIEW OF SYSTEMS: The patient feels well. Denies any nausea, vomiting, chest pain, palpitations, shortness of breath, cough, fever or chills. PHYSICAL EXAMINATION: VITAL SIGNS: The patient is afebrile with pulse of 61, blood pressure 162/82, saturation is well maintained. LUNGS: Bilateral vesicular breath sounds clear. Bilateral air entry, normal symmetrical, no added sounds. CARDIOVASCULAR: S1 and S2 normal. No murmur, rub or gallop. ABDOMEN: Soft, nontender. No organomegaly could be appreciated. EXTREMITIES: No edema. PSYCHIATRIC: The patient is pleasant and cooperative. Judgement is appropriate. Affect is normal. Insight is present. VASCULAR: The patient has a Perma-Cath. LABORATORY DATA: Workup, white blood cell count is 10.7, hemoglobin is 7.6, platelet count is 363. Sodium is 136, potassium 5.2, creatinine 4.3. Phosphorus is 7.2. Repeat blood culture from 10/29 has been negative so far. CURRENT MEDICATIONS: Reviewed. ASSESSMENT: Overall condition is stable. DIAGNOSES: 1. Sepsis with wound infection. 2. End-stage renal disease, on hemodialysis via Perma-Cath. 3. Anemia. 4. Hyperphosphatemia. 5. Secondary hyperparathyroidism. 6. Diabetic chronic kidney disease and hypertensive chronic kidney disease. 7. History of sacral decubitus ulcer. RECOMMENDATIONS: No acute need for dialysis today. We will plan for dialysis tomorrow. The patient is on 14,000 units Epogen with dialysis, may transfuse as needed, blood pressure mostly acceptable on lisinopril, also she is on metoprolol. Continue multivitamin. We will add phosphate binders considering her hyperphosphatemia. All questions were answered. Thanks for the consultation. Ryan Carter MD
[2016-10-31] MEDS: Multivitamin Vitamin B Complex (Nephro-Vite) Tab PO SCH (09:02)
--- NOTE | 2016-10-31 11:00 | CP.PCM.PN ---
Addendum entered and electronically signed by Javier Rojas DO 10/31/16 15:49: Addendum to Osteomyelitis/Bacteremia plan: - Contact isolation per ID Original Note: <Javier Rojas - Last Filed: 10/31/16 15:07> Subjective - Date & Time of Evaluation Date of Evaluation: 10/31/16 Time of Evaluation: 10:59 - Subjective Subjective: PGY-[address] Ya's service: Pt seen and examined at bedside. Nursing reports no acute events overnight. She is for dialysis today. Pt denies fever, chills, chest pain, SOB, abdominal pain , N/V/D/C. Objective - Vital Signs/Intake and Output Vital Signs (last 24 hours): Temp Pulse Resp BP Pulse Ox 98.7 F 60 20 193/93 H 97 10/31/16 08:56 10/31/16 08:56 10/31/16 08:56 10/31/16 08:56 10/31/16 08:56 Intake and Output: 10/31/16 10/31/16 06:59 18:59 Intake Total 700 Balance 700 - Medications Medications: Current Medications Acetaminophen (Tylenol 325mg Tab) 650 mg PO Q6 PRN PRN Reason: Pain, moderate (4-7) Last Admin: 10/30/16 14:42 Dose: 650 mg Amiodarone HCl (Cordarone) 200 mg PO DAILY [facility] Last Admin: 10/30/16 11:10 Dose: 200 mg Amlodipine Besylate (Norvasc) 5 mg PO DAILY [facility] Epoetin Alonso (Procrit) 10,000 unit IV TTS [facility] Stop: 11/07/16 10:01 Epoetin Alonso (Procrit) 4,000 unit IV TTS [facility] Stop: 11/07/16 10:01 Folic Acid (Folic Acid) 1 mg PO DAILY [facility] Last Admin: 10/30/16 11:10 Dose: 1 mg Vancomycin HCl 500 mg/ Sodium (Chloride) 100 mls @ 100 mls/hr IVPB TTS [facility] Last Admin: 10/28/16 09:50 Dose: 100 mls/hr Piperacillin Sod/Tazobactam (Sod 2.25 gm/ Sodium Chloride) 100 mls @ 200 mls/ hr IVPB Q8H [facility] Last Admin: 10/31/16 06:05 Dose: 200 mls/hr Insulin Human Regular (Novolin R) 0 unit SC ACHS [facility] PRN Reason: Protocol Last Admin: 10/31/16 08:45 Dose: Not Given Lisinopril (Zestril) 40 mg PO DAILY [facility] Last Admin: 10/30/16 11:10 Dose: 40 mg Metoprolol Succinate (Toprol Xl) 100 mg PO DAILY [facility] Last Admin: 10/30/16 11:10 Dose: 100 mg Sevelamer Carbonate (Renvela) 1,600 mg PO TIDCC [facility] Last Admin: 10/31/16 09:02 Dose: 1,600 mg Vitamin B Complex/Vit C/Folic Acid (Nephro-Umu) 1 tab PO 0800 [facility] Last Admin: 10/31/16 09:02 Dose: 1 tab - Labs Labs: 10/30/16 14:13 10/30/16 14:13 PT 16.7 SECONDS (9.7-12.2) H 10/26/16 11:35 INR 1.4 10/26/16 11:35 - Additional Findings Additional findings: - Constitutional Appears: Non-toxic, Chronically Ill, excess body habitus noted - Head Exam Head Exam: NORMOCEPHALIC, Atraumatic - Eye Exam Eye Exam: EOMI, PERRL - ENT Exam ENT Exam: Mucous Membranes Dry - Neck Exam Neck Exam: Full ROM - Respiratory Exam Respiratory Exam: Decreased Breath Sounds (excess body habitus), Clear to Ausculation Bilateral, NORMAL BREATHING PATTERN. absent: Rhonchi, Wheezes - Cardiovascular Exam Cardiovascular Exam: +S1, +S2, Murmur - GI/Abdominal Exam GI & Abdominal Exam: Distended, Soft, Normal Bowel Sounds. absent: Tenderness - Extremities Exam Extremities Exam: Normal Capillary Refill, Pedal Edema (non-pitting) - Back Exam Back Exam: absent: CVA tenderness (L), CVA tenderness (R) - wound vac applied to sacral wound - Neurological Exam Neurological Exam: Alert, Awake, Oriented x3 - Psychiatric Exam Psychiatric exam: Normal Affect, Normal Mood - Skin Skin Exam: Normal Color, Warm Additional comments: discoloration of b/l shins Assessment and Plan - Assessment and Plan (Free Text) Plan: Sepsis / Bacteremia Blood culture (10/25/16) (+) for beta hemolytic strep / Coccyx culture (+) corynebacterium - repeat blood cx (10/29/16) (no growth x 48 hrs) 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 George - start Zyvox 600mg IV Q12H - start Cefepime 1gm IV daily - stop zosyn and Vancomycin Osteomyelitis CT L-spine (10/30/16): Gross destruction of proximal coccyx. Sclerosis of distal S4 vertebrae. Large sacral ulcer. Concerning for osteomyelitis. (see full report ) ID consult, Dr. George - start Zyvox 600mg IV Q12H (for 6 week duration) - start Cefepime 1gm IV daily (for 6 week duration) ESRD on HD 10/31: received HD today, no complications. IV rx in progress + blood cultures wound care in progress Decubitus Ulcer 10/30: WBC 10.7. Continue IV Abx. Blood culture (+) for beta hemolytic strep / Coccyx culture (+) corynebacterium. - Follow up wound culture - Continue IV antibiotics and management as per ID. - Continue wound care for sacral decubitus ulcer. Wound care following - CT L-spine for osteomyelitis: Gross destruction of proximal coccyx. Sclerosis of distal S4 vertebrae. Large sacral ulcer. Concerning for osteomyelitis. (see full report) Anemia Procrit 10,000 unit IV TTS [facility] Folic Acid 1 mg PO DAILY [facility] HTN Elevated, will follow up after dialysis Amiodarone HCl (Cordarone) 200 mg PO DAILY [facility] Lisinopril (Zestril) 40 mg PO DAILY [facility] Metoprolol Succinate (Toprol Xl) 100 mg PO DAILY [facility] Type Two Diabetes Mellitus Well-controlled Accuchecks GINO A1c: 5.0 Prophylaxis SCDs Restart Coumadin this evening Disposition: Pt accepted to [facility], will need 6 weeks of IV antibiotics (Zyvox and Cefepime) Javier Rojas PGY-2 Case discussed with attending. All medical management as per Dr. Kain Ya <Stacie Ya - Last Filed: 12/13/16 16:03> Objective - Vital Signs/Intake and Output Vital Signs (last 24 hours): Temp Pulse Resp BP Pulse Ox 98.9 F 67 20 155/75 H 96 10/31/16 23:15 10/31/16 23:15 10/31/16 23:15 10/31/16 23:15 10/31/16 23:15 - Labs Labs: 10/30/16 14:13 10/30/16 14:13 PT 16.7 SECONDS (9.7-12.2) H 10/26/16 11:35 INR 1.4 10/26/16 11:35 Assessment and Plan (1) Osteomyelitis Status: Acute (2) Sepsis Status: Acute Attending/Attestation - Attestation I have personally seen and examined this patient.: Yes I have fully participated in the care of the patient.: Yes I have reviewed all pertinent clinical information, including history, physical exam and plan: Yes Notes (Text): Patient examined. No acute events. Continue her broad-spectrum antibiotics, dialysis, supportive care, antihypertensive medications.
[2016-10-31] MEDS: Metoprolol Succinate 100 mg XL Tab PO SCH (11:38)
--- NOTE | 2016-10-31 12:40 | CP.PCM.PN ---
Subjective - Date & Time of Evaluation Date of Evaluation: 10/31/16 Time of Evaluation: 09:00 - Subjective Subjective: VRE wound discussed with Dr Kristi stewart added Objective - Vital Signs/Intake and Output Vital Signs (last 24 hours): Temp Pulse Resp BP Pulse Ox 98.7 F 60 20 193/93 H 97 10/31/16 08:56 10/31/16 08:56 10/31/16 08:56 10/31/16 08:56 10/31/16 08:56 Intake and Output: 10/31/16 10/31/16 06:59 18:59 Intake Total 700 Balance 700 - Medications Medications: Current Medications Acetaminophen (Tylenol 325mg Tab) 650 mg PO Q6 PRN PRN Reason: Pain, moderate (4-7) Last Admin: 10/30/16 14:42 Dose: 650 mg Amiodarone HCl (Cordarone) 200 mg PO DAILY [facility] Last Admin: 10/31/16 11:37 Dose: Not Given Amlodipine Besylate (Norvasc) 5 mg PO DAILY [facility] Last Admin: 10/31/16 11:37 Dose: Not Given Epoetin Alonso (Procrit) 10,000 unit IV TTS [facility] Stop: 11/07/16 10:01 Epoetin Alonso (Procrit) 4,000 unit IV TTS [facility] Stop: 11/07/16 10:01 Folic Acid (Folic Acid) 1 mg PO DAILY [facility] Last Admin: 10/31/16 11:37 Dose: Not Given Heparin Sodium (Porcine) (Heparin) 2,000 units IVP TTS [facility] Vancomycin HCl 500 mg/ Sodium (Chloride) 100 mls @ 100 mls/hr IVPB TTS [facility] Last Admin: 10/28/16 09:50 Dose: 100 mls/hr Piperacillin Sod/Tazobactam (Sod 2.25 gm/ Sodium Chloride) 100 mls @ 200 mls/ hr IVPB Q8H [facility] Last Admin: 10/31/16 06:05 Dose: 200 mls/hr Insulin Human Regular (Novolin R) 0 unit SC ACHS [facility] PRN Reason: Protocol Last Admin: 10/31/16 12:11 Dose: 1 unit Lisinopril (Zestril) 40 mg PO DAILY [facility] Last Admin: 10/31/16 11:38 Dose: Not Given Metoprolol Succinate (Toprol Xl) 100 mg PO DAILY [facility] Last Admin: 10/31/16 11:38 Dose: Not Given Sevelamer Carbonate (Renvela) 1,600 mg PO TIDCC [facility] Last Admin: 10/31/16 09:02 Dose: 1,600 mg Vitamin B Complex/Vit C/Folic Acid (Nephro-Umu) 1 tab PO 0800 [facility] Last Admin: 10/31/16 09:02 Dose: 1 tab - Labs Labs: 10/30/16 14:13 10/30/16 14:13 PT 16.7 SECONDS (9.7-12.2) H 10/26/16 11:35 INR 1.4 10/26/16 11:35 - Constitutional Appears: Non-toxic, Chronically Ill - Head Exam Head Exam: NORMOCEPHALIC - Eye Exam Eye Exam: PERRL - ENT Exam ENT Exam: Mucous Membranes Dry - Neck Exam Neck Exam: absent: Lymphadenopathy - Respiratory Exam Respiratory Exam: Decreased Breath Sounds - Cardiovascular Exam Cardiovascular Exam: REGULAR RHYTHM - GI/Abdominal Exam GI & Abdominal Exam: Distended Assessment and Plan (1) Osteomyelitis Status: Acute
[2016-10-31 14:24] LABS: HTLV-I-II AB W/REFL CONF Nonreactive (Nonreactive)
[2016-10-31] MEDS: Epoetin Alfa 10,000 unit/ml Dialysis IV SCH (14:46)
[2016-10-31] MEDS: EPOETIN ALFA 4,000 UNIT/ML ML Dialysis IV SCH (14:48)
[2016-10-31] MEDS ORDERED: Linezolid 600 mg in D5W 300 ml 600 MG/300 ML BAG IVPB ONE (17:52)
[2016-10-31] MEDS ORDERED: Cefepime 1 GM in Sodium Chloride 0.9% 100 ML IVPB SCH (18:00)
[2016-10-31] MEDS ORDERED: Cefepime 1 GM in Sodium Chloride 0.9% 50 ML IVPB SCH (18:00)
--- NOTE | 2016-10-31 19:31 | PN ---
DATE: 10/31/2016 CHIEF COMPLAINT: None at this time. Reports wound at the back. HISTORY OF PRESENT ILLNESS AND REVIEW OF SYSTEMS: Noted overnight event. Denies any new complaint. No chest pain, palpitations, shortness of breath, or cough. No fever or chills. She is scheduled for dialysis today. PHYSICAL EXAMINATION: VITAL SIGNS: Afebrile, pulse of 60, blood pressure had been on the high side, latest was 193/93, previously had been 140 to 170 systolic. LUNGS: Bilateral vesicular sounds. Bilateral air entry, normal, symmetrical, clear. CARDIOVASCULAR: S1 and S2 normal. No murmur or gallop. Rhythm is normal. ABDOMEN: Soft, nontender. No organomegaly could be appreciated. EXTREMITIES: No edema. NEUROLOGIC: The patient is A and O x3, following all commands. PSYCHIATRIC: The patient is pleasant and cooperative. Judgement is appropriate. Affect is normal. Insight is present as well. WORKUP: Her white blood cell count is 10.7, hemoglobin is 7.6, and platelet count is 363. Sodium is 136, potassium 5.2, and creatinine 4.3. Phosphorus 7.2. These are labs from yesterday. No new labs today. Repeat blood culture had been negative so far. CT scan of the spine shows sacral decubitus ulcer and concern for osteomyelitis. ASSESSMENT: Overall condition remains stable. 1. Sacral decubitus ulcer with consequences of osteomyelitis and also with sepsis. 2. End-stage renal disease, on hemodialysis via PermCath. 3. Diabetic chronic kidney disease and hypertensive chronic kidney disease. 4. Anemia. 5. Hyperphosphatemia. 6. Secondary hyperparathyroidism. RECOMMENDATIONS: The patient will plan for dialysis today as ordered. We will add amlodipine 500 mg daily for her hypertension control. She is already on max dose of lisinopril and metoprolol XL. Can increase amlodipine for next few days if blood pressure stays elevated. She is already on phosphate binders. She is also on Epogen 14,000 units for dialysis, then may give PRBC as needed. We will also add heparin during dialysis. She is already on multivitamin per day. All questions were answered. Thank you for the consultation. Please call if any questions. Ryan Emma, MD
--- NOTE | 2016-10-31 20:02 | CP.PCM.PN ---
Subjective - Date & Time of Evaluation Date of Evaluation: 10/31/16 Time of Evaluation: 07:20 - Subjective Subjective: clinically same Objective - Vital Signs/Intake and Output Vital Signs (last 24 hours): Temp Pulse Resp BP Pulse Ox 97.9 F 61 18 167/86 H 98 10/31/16 18:00 10/31/16 18:00 10/31/16 18:00 10/31/16 18:00 10/31/16 18:00 Intake and Output: 10/31/16 11/01/16 18:59 06:59 Intake Total 340 Balance 340 - Medications Medications: Current Medications Acetaminophen (Tylenol 325mg Tab) 650 mg PO Q6 PRN PRN Reason: Pain, moderate (4-7) Last Admin: 10/30/16 14:42 Dose: 650 mg Amiodarone HCl (Cordarone) 200 mg PO DAILY [facility] Last Admin: 10/31/16 11:37 Dose: Not Given Amlodipine Besylate (Norvasc) 5 mg PO DAILY [facility] Last Admin: 10/31/16 11:37 Dose: Not Given Epoetin Alonso (Procrit) 10,000 unit IV TTS [facility] Stop: 11/07/16 10:01 Last Admin: 10/31/16 14:46 Dose: 10,000 unit Epoetin Alonso (Procrit) 4,000 unit IV TTS [facility] Stop: 11/07/16 10:01 Last Admin: 10/31/16 14:48 Dose: 4,000 unit Folic Acid (Folic Acid) 1 mg PO DAILY [facility] Last Admin: 10/31/16 11:37 Dose: Not Given Heparin Sodium (Porcine) (Heparin) 2,000 units IVP TTS [facility] Last Admin: 10/31/16 14:46 Dose: 2,000 units Cefepime HCl 1 gm/ Sodium (Chloride) 100 mls @ 100 mls/hr IVPB Q24H [facility] Last Admin: 10/31/16 18:22 Dose: 100 mls/hr Insulin Human Regular (Novolin R) 0 unit SC ACHS [facility] PRN Reason: Protocol Last Admin: 10/31/16 17:02 Dose: Not Given Lisinopril (Zestril) 40 mg PO DAILY [facility] Last Admin: 10/31/16 11:38 Dose: Not Given Metoprolol Succinate (Toprol Xl) 100 mg PO DAILY [facility] Last Admin: 10/31/16 11:38 Dose: Not Given Sevelamer Carbonate (Renvela) 1,600 mg PO TIDCC [facility] Last Admin: 10/31/16 18:37 Dose: 1,600 mg Vitamin B Complex/Vit C/Folic Acid (Nephro-Umu) 1 tab PO 0800 [facility] Last Admin: 10/31/16 09:02 Dose: 1 tab - Labs Labs: 10/30/16 14:13 10/30/16 14:13 PT 16.7 SECONDS (9.7-12.2) H 10/26/16 11:35 INR 1.4 10/26/16 11:35 - Constitutional Appears: Well - Head Exam Head Exam: ATRAUMATIC, NORMAL INSPECTION, NORMOCEPHALIC - Eye Exam Eye Exam: EOMI, Normal appearance, PERRL Pupil Exam: NORMAL ACCOMODATION, PERRL - ENT Exam ENT Exam: Mucous Membranes Moist, Normal Exam - Neck Exam Neck Exam: Full ROM, Normal Inspection. absent: Lymphadenopathy - Respiratory Exam Respiratory Exam: Decreased Breath Sounds - Cardiovascular Exam Cardiovascular Exam: REGULAR RHYTHM, +S1, +S2 - GI/Abdominal Exam GI & Abdominal Exam: Soft, Diminished Bowel Sounds - Rectal Exam Rectal Exam: Deferred - Extremities Exam Extremities Exam: Full ROM, Normal Capillary Refill, Normal Inspection. absent : Joint Swelling, Pedal Edema - Back Exam Back Exam: NORMAL INSPECTION - Psychiatric Exam Psychiatric exam: Normal Affect, Normal Mood Assessment and Plan (1) Osteomyelitis Status: Acute (2) Sepsis Status: Acute - Assessment and Plan (Free Text) Plan: CT sacrum suggestive of gross destruction of proximal coccyx. Sclerosis of a S4. Large sacral decubitus ulcer. Osteomyelitis present. Abnormal presacral soft tissue density. Continue broad-spectrum antibiotics vancomycin and piperacillin tazobactam. Continue supportive care. Continue dialysis. Continue antihypertensive medications.
[2016-10-31 23:19] VITALS: BP 155/75; PULSE 67; RESP 20; TEMP 98.9; O2SAT 96
== END 2016-11-01 | DRG 871 ==
LOC: C.SDS 07:48 → C.9S 08:42 → C.3T 18:54
PROVIDERS: ADMIT Internal Medicine Nephrology; ATTEND Internal Medicine Nephrology
PROC: 5A1D60Z (ICD-10-PCS; principal; 2016-10-26)
DX: A41.1 Sepsis due to other specified staphylococcus (principal); L89.154 Pressure ulcer of sacral region, stage 4; N18.6 End stage renal disease; I12.0 Hypertensive chronic kidney disease with stage 5 chronic kidney disease or end stage renal disease; T82.42XA Displacement of vascular dialysis catheter, initial encounter; N25.81 Secondary hyperparathyroidism of renal origin; E11.22 Type 2 diabetes mellitus with diabetic chronic kidney disease; I48.91 Unspecified atrial fibrillation; M46.28 Osteomyelitis of vertebra, sacral and sacrococcygeal region; E11.69 Type 2 diabetes mellitus with other specified complication; D64.9 Anemia, unspecified; E20.9 Hypoparathyroidism, unspecified; Z99.2 Dependence on renal dialysis; Y84.1 Kidney dialysis as the cause of abnormal reaction of the patient, or of later complication, without mention of misadventure at the time of the procedure; Z53.09 Procedure and treatment not carried out because of other contraindication; Z79.899 Other long term (current) drug therapy

== ENCOUNTER 2017-03-26 16:57 | Inpatient (IN) | payer MEDICARE, BC, OTHER ==
[2017-03-26 16:57] VITALS: BMI 32.3
[2017-03-26 18:11] LABS: BASO % 0.1 % (0.0-2.0); EOS # 0.1 K/uL (0.0-0.7); EOS % 0.5 % (0.0-4.0); HEMOGLOBIN 8.7 g/dL (11.0-16.0); LYMPH # 0.7 K/uL (1.0-4.3); LYMPH % 3.4 % (20.0-40.0); MEAN CORPUSCULAR HEMOGLOBIN 30.4 pg (27.0-31.0); MEAN CORPUSCULAR HGB CONC 31.9 g/dL (33.0-37.0); MONO # 0.3 K/uL (0.0-0.8); MONO % 1.5 % (0.0-10.0); NEUT # 18.9 K/uL (1.8-7.0); NEUT % 94.5 % (50.0-75.0); PLATELET COUNT 203 K/uL (130-400); RBC 2.87 Mil/uL (3.80-5.20); RED CELL DISTRIBUTION WIDTH 16.9 % (11.5-14.5)
[2017-03-26 18:12] LABS: MEAN CELL VOLUME 95.1 fL (81.0-99.0)
[2017-03-26 18:23] LABS: ALB/GLOB RATIO 0.8 (1.0-2.1); ALBUMIN 2.9 g/dL (3.5-5.0)
[2017-03-26 18:34] LABS: TROPONIN I 0.053 ng/mL (0.00-0.120)
[2017-03-26 18:41] LABS: BANDS 8 % (0-2); LYMPHOCYTE 4 % (20-40); MONOCYTE 1 % (0-10); NEUTROPHIL 87 % (50-75); NUCLEATED RED BLOOD CELL 1 % (0-0); PLATELET ESTIMATE NORMAL (NORMAL); TOTAL CELLS COUNTED 100
[2017-03-26 18:42] LABS: HYPOCHROMIC SLIGHT; MICROCYTOSIS SLIGHT; POLYCHROMIC SLIGHT; SCHISTOCYTES SLIGHT
[2017-03-26 18:46] LABS: LARGE PLATELETS PRESENT
[2017-03-26 18:47] LABS: SMUDGE CELLS PRESENT
[2017-03-26 19:00] LABS: TEARDROP CELLS SLIGHT
[2017-03-26 19:10] LABS: SQUAMOUS EPITHIAL 232 /hpf (0-5); URINE BACTERIA MANY (<OCC); URINE BILIRUBIN NEGATIVE (NEGATIVE); URINE BLOOD 2+ (NEGATIVE); URINE CLARITY Turbid (Clear); URINE COLOR Yellow (YELLOW); URINE GLUCOSE (UA) NORMAL (Normal); URINE LEUKOCYTE ESTERASE 3+ Leu/uL (Negative); URINE NITRATE NEGATIVE (NEGATIVE); URINE PROTEIN 2+ mg/dL (NEGATIVE); URINE UROBILINOGEN NORMAL mg/dL (0.2-1.0)
[2017-03-26] MEDS ORDERED: Piperacill/Tazo 3.375gm in Dex 3.375 GM/50 ML BAG IVPB STA (19:31)
[2017-03-26] MEDS ORDERED: Vancomycin 1 GM 1 GM/250 ML BAG IV STA (19:32)
--- NOTE | 2017-03-26 19:37 | C.PDOC ---
History Of Present Illness 66 year old female with history of dementia presents to the ED with son for evaluation of low grade fevers x1 week. Per son patient has had occasion increased confusion. Patient had fever to 101 prior to arrival. She denies dysuria. Time Seen by Provider: 03/26/17 17:20 Chief Complaint (Nursing): Flu-like Symptoms History Per: Patient, Family History/Exam Limitations: other (dementia) Onset/Duration Of Symptoms: Days Current Symptoms Are (Timing): Still Present Additional History Per: Family Past Medical History Reviewed: Historical Data, Nursing Documentation, Vital Signs Vital Signs: Last Vital Signs Temp 99.2 F 03/26/17 21:10 Pulse 86 03/26/17 21:10 Resp 20 03/26/17 21:10 BP 130/60 03/26/17 21:10 Pulse Ox 88 L 03/27/17 01:24 - Medical History PMH: Anemia, Dementia, HTN, Hypercholesterolemia, Chronic Kidney Disease - [facility] Procedures PERFORMANCE OF URINARY FILTRATION, MULTIPLE (10/25/16) Family History: States: Unknown Family Hx - Social History Hx Alcohol Use: No Hx Substance Use: No Review Of Systems Except As Marked, All Systems Reviewed And Found Negative. Constitutional: Positive for: Fever Genitourinary: Negative for: Dysuria Neurological: Positive for: Confusion Physical Exam - Physical Exam Appears: Well, Non-toxic, No Acute Distress, Confused (mild dementia ) Skin: Normal Color, Warm, Dry Head: Atraumatic, Normacephalic Eye(s): bilateral: Normal Inspection, PERRL, EOMI Oral Mucosa: Moist Tongue: Normal Appearing Lips: Normal Appearing Throat: Normal Neck: Normal, Normal ROM, Supple Cardiovascular: Rhythm Regular Respiratory: Normal Breath Sounds Gastrointestinal/Abdominal: Soft, No Tenderness, Other (obese ) Back: Other (Sacral decubitus ulcer 7x6x2.5 cm with good granulation tissue) Extremity: Normal ROM, No Deformity ED Course And Treatment - Laboratory Results Result Diagrams: 03/26/17 18:07 03/26/17 18:07 Lab Interpretation: Abnormal (UA 7600 WBC's) ECG: Interpreted By Me ECG Rhythm: Sinus Rhythm ECG Interpretation: Normal O2 Sat by Pulse Oximetry: 88 Pulse Ox Interpretation: Abnormal - Radiology CXR: Interpreted by Me CXR Interpretation: Yes: No Acute Disease Progress Note: paul/yolanda Reevaluation Time: 19:38 Reassessment Condition: Improved - Physician Consult Information Outcome Of Conversation: [phone], d/w Dr. Goldy Ya, ok to admit. Medical Decision Making Medical Decision Making: urosepsis, chronic sacral decub Will start patient on vancomycin. Disposition Doctor Will See Patient In The: Hospital Counseled Patient/Family Regarding: Studies Performed, Diagnosis - Disposition Disposition: HOSPITALIZED Disposition Time: 19:39 Condition: GOOD - Clinical Impression Clinical Impression: UTI (urinary tract infection), Sacral decubitus ulcer, stage IV - Scribe Statement The provider has reviewed the documentation as recorded by the Scribe The provider has reviewed the documentation as recorded by the Scribe (Harris Armendariz) Provider Attestation: All medical record entries made by the Scribe were at my direction and personally dictated by me. I have reviewed the chart and agree that the record accurately reflects my personal performance of the history, physical exam, medical decision making, and the department course for this patient. I have also personally directed, reviewed, and agree with the discharge instructions and disposition.
[2017-03-26] MEDS ORDERED: Piperacillin/Tazobact 3.375 GM in Sodium Chloride 0.9% 100 ML IVPB ONE (20:00)
[2017-03-26] MEDS ORDERED: Vancomycin 1 gm/NS 200 ml 1 GM/200 ML BAG IVPB ONE (20:00)
--- NOTE | 2017-03-26 23:57 | CP.PCM.HP ---
Past Patient History - Past Medical History & Family History Past Medical History?: Yes - Past Social History Smoking Status: Never Smoked - CARDIAC Hx Hypercholesterolemia: Yes Hx Hypertension: Yes - PULMONARY Hx Respiratory Disorders: No - NEUROLOGICAL Hx Neurological Disorder: No - HEENT Hx HEENT Problems: No - RENAL Hx Chronic Kidney Disease: Yes - ENDOCRINE/METABOLIC Hx Endocrine Disorders: Yes Hx Diabetes Mellitus Type 2: Yes - HEMATOLOGICAL/ONCOLOGICAL Hx Anemia: Yes - INTEGUMENTARY Hx Dermatological Problems: Yes Other/Comment: ulcer buttocks - MUSCULOSKELETAL/RHEUMATOLOGICAL Hx Musculoskeletal Disorders: Yes (right leg weakness due to debridemnet buttocks wound) Hx Osteoarthritis: Yes - GASTROINTESTINAL Hx Gastrointestinal Disorders: No - GENITOURINARY/GYNECOLOGICAL Hx Genitourinary Disorders: No - PSYCHIATRIC Hx Substance Use: No - SURGICAL HISTORY Hx Surgeries: Yes Hx Cardiac Catheterization: Yes Hx Vascular Surgery: Yes (perma cath insertion) Other/Comment: debridement ulcer buttocks - ANESTHESIA Hx Anesthesia: Yes Hx Anesthesia Reactions: No Hx Malignant Hyperthermia: No Meds Allergies/Adverse Reactions: Allergies Allergy/AdvReac Type Severity Reaction Status Date / Time No Known Allergies Allergy Verified 03/26/17 17:07 Results - Vital Signs Recent Vital Signs: Last Vital Signs Temp 99.2 F 03/26/17 21:10 Pulse 86 03/26/17 21:10 Resp 20 03/26/17 21:10 BP 130/60 03/26/17 21:10 Pulse Ox 95 03/26/17 21:10 - Labs Result Diagrams: 03/26/17 18:07 03/26/17 18:07 Labs: Laboratory Results - last 24 hr 03/26/17 03/26/17 03/26/17 17:47 18:07 18:07 WBC 20.0 H D RBC 2.87 L Hgb 8.7 L Hct 27.3 L MCV 95.1 D MCH 30.4 MCHC 31.9 L RDW 16.9 H Plt Count 203 D MPV 10.0 Neut % (Auto) 94.5 H Lymph % (Auto) 3.4 L [place] % (Auto) 1.5 Eos % (Auto) 0.5 Baso % (Auto) 0.1 Neut # (Auto) 18.9 H Lymph # (Auto) 0.7 L [place] # (Auto) 0.3 Eos # (Auto) 0.1 Baso # (Auto) 0.0 Neutrophils % (Manual) 87 H Band Neutrophils % 8 H Lymphocytes % (Manual) 4 L Monocytes % (Manual) 1 Nucleated RBC % 1 H Smudge Cells Present Platelet Estimate Normal Large Platelets Present Polychromasia Slight Hypochromasia (manual) Slight Microcytosis (manual) Slight Tear Drop Cells Slight Schistocytes Slight Sodium 132 Potassium 4.1 Chloride 91 L Carbon Dioxide 27 Anion Gap 18 BUN 57 H Creatinine 4.0 H Est GFR ( Amer) 14 Est GFR (Non-Af Amer) 11 Random Glucose 272 H Calcium 9.0 Total Bilirubin 4.5 H AST 79 H ALT 48 Alkaline Phosphatase 513 H Troponin I 0.0530 NT-Pro-B Natriuret Pep 41394 H Total Protein 6.8 Albumin 2.9 L Globulin 3.9 Albumin/Globulin Ratio 0.8 L Urine Color Urine Clarity Urine pH Ur Specific [place] Urine Protein Urine Glucose (UA) Urine Ketones Urine Blood Urine Nitrate Urine Bilirubin Urine Urobilinogen Ur Leukocyte Esterase Urine WBC (Auto) Urine RBC (Auto) Ur Squamous Epith Cells Urine Bacteria Influenza Typ A,B (EIA) Negative for flu a/b 03/26/17 18:45 WBC RBC Hgb Hct MCV MCH MCHC RDW Plt Count MPV Neut % (Auto) Lymph % (Auto) [place] % (Auto) Eos % (Auto) Baso % (Auto) Neut # (Auto) Lymph # (Auto) [place] # (Auto) Eos # (Auto) Baso # (Auto) Neutrophils % (Manual) Band Neutrophils % Lymphocytes % (Manual) Monocytes % (Manual) Nucleated RBC % Smudge Cells Platelet Estimate Large Platelets Polychromasia Hypochromasia (manual) Microcytosis (manual) Tear Drop Cells Schistocytes Sodium Potassium Chloride Carbon Dioxide Anion Gap BUN Creatinine Est GFR ( Amer) Est GFR (Non-Af Amer) Random Glucose Calcium Total Bilirubin AST ALT Alkaline Phosphatase Troponin I NT-Pro-B Natriuret Pep Total Protein Albumin Globulin Albumin/Globulin Ratio Urine Color Yellow Urine Clarity Turbid Urine pH 5.0 Ur Specific [place] 1.008 Urine Protein 2+ H Urine Glucose (UA) Normal Urine Ketones Negative Urine Blood 2+ H Urine Nitrate Negative Urine Bilirubin Negative Urine Urobilinogen Normal Ur Leukocyte Esterase 3+ H Urine WBC (Auto) 7618 H Urine RBC (Auto) 370 H Ur Squamous Epith Cells 232 H Urine Bacteria Many H Influenza Typ A,B (EIA)
[2017-03-27] MEDS: Multivitamin Vitamin B Complex (Nephro-Vite) Tab PO SCH (08:27)
[2017-03-27] MEDS: (Novolin R) Insulin Human Regular 100 units/ml vial SC SCH ×4 (08:28→21:28)
--- NOTE | 2017-03-27 08:36 | RAD ---
PROCEDURE: CHEST RADIOGRAPH, 1 VIEW HISTORY: SOB COMPARISON: 10/16/2016. FINDINGS: The left-sided dialysis catheter terminates in the right atrium. LUNGS: The lungs are well inflated. There is mild pulmonary venous congestion. PLEURA: No pneumothorax or pleural fluid seen. CARDIOVASCULAR: Normal. OSSEOUS STRUCTURES: No significant abnormalities. VISUALIZED UPPER ABDOMEN: Normal. OTHER FINDINGS: None. IMPRESSION: Mild pulmonary venous congestion. The left dialysis catheter terminates in the right atrium.
[2017-03-27] MEDS ORDERED: Cefepime (Maxipime) 1 g Inj IVPB SCH (10:00)
[2017-03-27] MEDS ORDERED: Linezolid 600 mg in D5W 300 ml 600 MG/300 ML BAG IVPB SCH (10:30)
[2017-03-27] MEDS: Cefepime IV 1 gm in Dextrose 1 GM/50 ML BAG IVPB SCH (11:00)
[2017-03-27] MEDS: Collagenase 250 Units/gm Ointment(30 gm) EXT SCH (11:00)
[2017-03-27 11:20] LABS: INR 1.2; PROTHROMBIN TIME 14.1 SECONDS (9.7-12.2)
[2017-03-27 11:33] LABS: MEAN CORPUSCULAR HEMOGLOBIN 31.2 pg (27.0-31.0); MEAN CORPUSCULAR HGB CONC 32.8 g/dL (33.0-37.0); PLATELET COUNT 168 K/uL (130-400); RBC 2.89 Mil/uL (3.80-5.20); RED CELL DISTRIBUTION WIDTH 17.6 % (11.5-14.5); WHITE BLOOD COUNT 17.8 K/uL (4.8-10.8)
--- NOTE | 2017-03-27 11:47 | CP.PCM.CON ---
History of Present Illness - History of Present Illness History of Present Illness: admitted for sepsis ? old CVA with large IV decubiti from home blood + cocci chains - Medical History PMH: Anemia, Dementia, HTN, Hypercholesterolemia, Chronic Kidney Disease Review of Systems - Review of Systems Systems not reviewed;Unavailable: Altered Mental Status Past Patient History - Past Medical History & Family History Past Medical History?: Yes - Past Social History Smoking Status: Never Smoked - CARDIAC Hx Cardiac Disorders: Yes Hx Hypercholesterolemia: Yes Hx Hypertension: Yes - PULMONARY Hx Respiratory Disorders: No - NEUROLOGICAL Hx Neurological Disorder: Yes Hx Dementia: Yes - HEENT Hx HEENT Problems: No - RENAL Hx Chronic Kidney Disease: Yes Type of Dialysis Access: L chest permacath Date of Last Dialysis Treatment: 03/24/17 - ENDOCRINE/METABOLIC Hx Endocrine Disorders: Yes Hx Diabetes Mellitus Type 2: Yes - HEMATOLOGICAL/ONCOLOGICAL Hx Blood Disorders: Yes Hx Anemia: Yes - INTEGUMENTARY Hx Dermatological Problems: Yes Other/Comment: ulcer buttocks - MUSCULOSKELETAL/RHEUMATOLOGICAL Hx Musculoskeletal Disorders: Yes (right leg weakness due to debridemnet buttocks wound) Hx Falls: No Hx Osteoarthritis: Yes - GASTROINTESTINAL Hx Gastrointestinal Disorders: No - GENITOURINARY/GYNECOLOGICAL Hx Genitourinary Disorders: Yes Hx Incontinence: Yes Hx Urinary Tract Infection: Yes - PSYCHIATRIC Hx Psychophysiologic Disorder: No Hx Substance Use: No - SURGICAL HISTORY Hx Surgeries: Yes Hx Cardiac Catheterization: Yes Hx Vascular Surgery: Yes (perma cath insertion) Other/Comment: debridement ulcer buttocks - ANESTHESIA Hx Anesthesia: Yes Hx Anesthesia Reactions: No Hx Malignant Hyperthermia: No Meds Allergies/Adverse Reactions: Allergies Allergy/AdvReac Type Severity Reaction Status Date / Time No Known Allergies Allergy Verified 03/26/17 17:07 - Medications Medications: Current Medications Acetaminophen (Tylenol 325mg Tab) 650 mg PO Q6 PRN PRN Reason: Pain, moderate (4-7) Amiodarone HCl (Cordarone) 200 mg PO DAILY YANETH Amlodipine Besylate (Norvasc) 5 mg PO DAILY YANETH Collagenase (Santyl) 0 gm EXT DAILY YANETH Epoetin Alonso (Procrit) 10,000 unit IV TTS YANETH Folic Acid (Folic Acid) 1 mg PO DAILY YANETH Cefepime HCl (Maxipime Iv 1 Gm Premix) 1 gm in 50 mls @ 100 mls/hr IVPB DAILY YANETH Linezolid (Zyvox 600mg/300ml D5w) 600 mg in 300 mls @ 200 mls/hr IVPB Q12H [facility] Insulin Human Regular (Novolin R) 0 unit SC ACHS [facility] PRN Reason: Protocol Last Admin: 03/27/17 08:28 Dose: 3 unit Lisinopril (Zestril) 40 mg PO DAILY [facility] Metoprolol Tartrate (Lopressor) 100 mg PO DAILY [facility] Pneumococcal Polyvalent Vaccine (Pneumovax 23 Vaccine) 0.5 ml IM .ONCE ONE Stop: 03/29/17 10:01 Sevelamer Carbonate (Renvela) 1,600 mg PO TIDCC [facility] Last Admin: 03/27/17 08:27 Dose: 1,600 mg Vitamin B Complex/Vit C/Folic Acid (Nephro-Umu) 1 tab PO 0800 [facility] Last Admin: 03/27/17 08:27 Dose: 1 tab Warfarin Sodium (Coumadin) 5 mg PO DAILY@1800 ONE Stop: 03/27/17 18:01 Physical Exam - Constitutional Appears: Non-toxic, Chronically Ill - Head Exam Head Exam: NORMOCEPHALIC - Eye Exam Eye Exam: PERRL - ENT Exam ENT Exam: Mucous Membranes Dry - Neck Exam Neck exam: Negative for: Lymphadenopathy - Respiratory Exam Respiratory Exam: Decreased Breath Sounds, Rhonchi - Cardiovascular Exam Cardiovascular Exam: REGULAR RHYTHM - GI/Abdominal Exam GI & Abdominal Exam: Diminished Bowel Sounds - Rectal Exam Rectal Exam: Deferred - Exam Exam: NORMAL INSPECTION - Extremities Exam Extremities exam: Positive for: pedal pulses present. Negative for: calf tenderness, normal inspection, pedal edema - Back Exam Back exam: absent: CVA tenderness (L), CVA tenderness (R) - Neurological Exam Neurological exam: Alert, Altered, CN II-XII Intact, Motor Sensory Deficit Additional comments: weakness bilaterally upper/ lower bedridden - Psychiatric Exam Psychiatric exam: Depressed - Skin Skin Exam: Dry Results - Vital Signs Recent Vital Signs: Last Vital Signs Temp 98.6 F 03/27/17 08:16 Pulse 105 H 03/27/17 08:16 Resp 20 03/27/17 08:16 BP 124/82 03/27/17 08:16 Pulse Ox 99 03/27/17 08:16 - Labs Result Diagrams: 03/27/17 11:04 03/26/17 18:07 Labs: Laboratory Results - last 24 hr 03/26/17 03/26/17 03/26/17 17:47 18:07 18:07 WBC 20.0 H D RBC 2.87 L Hgb 8.7 L Hct 27.3 L MCV 95.1 D MCH 30.4 MCHC 31.9 L RDW 16.9 H Plt Count 203 D MPV 10.0 Neut % (Auto) 94.5 H Lymph % (Auto) 3.4 L [place] % (Auto) 1.5 Eos % (Auto) 0.5 Baso % (Auto) 0.1 Neut # (Auto) 18.9 H Lymph # (Auto) 0.7 L [place] # (Auto) 0.3 Eos # (Auto) 0.1 Baso # (Auto) 0.0 Neutrophils % (Manual) 87 H Band Neutrophils % 8 H Lymphocytes % (Manual) 4 L Monocytes % (Manual) 1 Nucleated RBC % 1 H Smudge Cells Present Platelet Estimate Normal Large Platelets Present Polychromasia Slight Hypochromasia (manual) Slight Microcytosis (manual) Slight Tear Drop Cells Slight Schistocytes Slight PT INR APTT Sodium 132 Potassium 4.1 Chloride 91 L Carbon Dioxide 27 Anion Gap 18 BUN 57 H Creatinine 4.0 H Est GFR ( Amer) 14 Est GFR (Non-Af Amer) 11 POC Glucose (mg/dL) Random Glucose 272 H Calcium 9.0 Total Bilirubin 4.5 H AST 79 H ALT 48 Alkaline Phosphatase 513 H Troponin I 0.0530 NT-Pro-B Natriuret Pep 97454 H Total Protein 6.8 Albumin 2.9 L Globulin 3.9 Albumin/Globulin Ratio 0.8 L Urine Color Urine Clarity Urine pH Ur Specific [place] Urine Protein Urine Glucose (UA) Urine Ketones Urine Blood Urine Nitrate Urine Bilirubin Urine Urobilinogen Ur Leukocyte Esterase Urine WBC (Auto) Urine RBC (Auto) Ur Squamous Epith Cells Urine Bacteria Influenza Typ A,B (EIA) Negative for flu a/b 03/26/17 03/27/17 03/27/17 18:45 07:06 11:04 WBC 17.8 H RBC 2.89 L Hgb 9.0 L Hct 27.4 L MCV 95.0 MCH 31.2 H MCHC 32.8 L RDW 17.6 H Plt Count 168 MPV 11.0 Neut % (Auto) Lymph % (Auto) [place] % (Auto) Eos % (Auto) Baso % (Auto) Neut # (Auto) Lymph # (Auto) [place] # (Auto) Eos # (Auto) Baso # (Auto) Neutrophils % (Manual) Band Neutrophils % Lymphocytes % (Manual) Monocytes % (Manual) Nucleated RBC % Smudge Cells Platelet Estimate Large Platelets Polychromasia Hypochromasia (manual) Microcytosis (manual) Tear Drop Cells Schistocytes PT INR APTT Sodium Potassium Chloride Carbon Dioxide Anion Gap BUN Creatinine Est GFR ( Amer) Est GFR (Non-Af Amer) POC Glucose (mg/dL) 258 H Random Glucose Calcium Total Bilirubin AST ALT Alkaline Phosphatase Troponin I NT-Pro-B Natriuret Pep Total Protein Albumin Globulin Albumin/Globulin Ratio Urine Color Yellow Urine Clarity Turbid Urine pH 5.0 Ur Specific [place] 1.008 Urine Protein 2+ H Urine Glucose (UA) Normal Urine Ketones Negative Urine Blood 2+ H Urine Nitrate Negative Urine Bilirubin Negative Urine Urobilinogen Normal Ur Leukocyte Esterase 3+ H Urine WBC (Auto) 7618 H Urine RBC (Auto) 370 H Ur Squamous Epith Cells 232 H Urine Bacteria Many H Influenza Typ A,B (EIA) 03/27/17 03/27/17 11:04 11:12 WBC RBC Hgb Hct MCV MCH MCHC RDW Plt Count MPV Neut % (Auto) Lymph % (Auto) [place] % (Auto) Eos % (Auto) Baso % (Auto) Neut # (Auto) Lymph # (Auto) [place] # (Auto) Eos # (Auto) Baso # (Auto) Neutrophils % (Manual) Band Neutrophils % Lymphocytes % (Manual) Monocytes % (Manual) Nucleated RBC % Smudge Cells Platelet Estimate Large Platelets Polychromasia Hypochromasia (manual) Microcytosis (manual) Tear Drop Cells Schistocytes PT 14.1 H INR 1.2 APTT 29 Sodium Potassium Chloride Carbon Dioxide Anion Gap BUN Creatinine Est GFR ( Amer) Est GFR (Non-Af Amer) POC Glucose (mg/dL) 294 H Random Glucose Calcium Total Bilirubin AST ALT Alkaline Phosphatase Troponin I NT-Pro-B Natriuret Pep Total Protein Albumin Globulin Albumin/Globulin Ratio Urine Color Urine Clarity Urine pH Ur Specific [place] Urine Protein Urine Glucose (UA) Urine Ketones Urine Blood Urine Nitrate Urine Bilirubin Urine Urobilinogen Ur Leukocyte Esterase Urine WBC (Auto) Urine RBC (Auto) Ur Squamous Epith Cells Urine Bacteria Influenza Typ A,B (EIA) Assessment & Plan (1) Sacral decubitus ulcer, stage IV Status: Acute (2) UTI (urinary tract infection) Status: Acute (3) Osteomyelitis Status: Acute (4) Sepsis Status: Acute - Assessment and Plan (Free Text) Assessment: recc : CT Sacrum await blood c/s echo Cont IV antibiotics
[2017-03-27 11:53] LABS: ALB/GLOB RATIO 0.7 (1.0-2.1); ALBUMIN 2.7 g/dL (3.5-5.0); CALCIUM 8.6 mg/dl (8.6-10.4)
--- NOTE | 2017-03-27 12:26 | CARD ---
APPROVED REPORT EKG Measurement Heart [id number] <Conclusion> Atrial fibrillation with rapid ventricular response with premature ventricular or aberrantly conducted complexes Abnormal ECG
[2017-03-27 12:27] LABS: BASO % 0.3 % (0.0-2.0); EOS % 0.1 % (0.0-4.0); LYMPH # 1.6 K/uL (1.0-4.3); LYMPH % 9.4 % (20.0-40.0); MONO # 1.2 K/uL (0.0-0.8); MONO % 7.1 % (0.0-10.0); NEUT # 14.5 K/uL (1.8-7.0); NEUT % 83.1 % (50.0-75.0)
[2017-03-27 12:30] LABS: ANISOCYTOSIS SLIGHT; BANDS 7 % (0-2); LYMPHOCYTE 4 % (20-40); MONOCYTE 5 % (0-10); NEUTROPHIL 84 % (50-75); PLATELET ESTIMATE NORMAL (NORMAL); TOTAL CELLS COUNTED 100; TOXIC GRANULATION PRESENT
[2017-03-27] MEDS: Albumin Human 25% (12.5 gm/50 ml) IV PRN (13:29)
--- NOTE | 2017-03-27 13:40 | CP.PCM.CON ---
History of Present Illness - History of Present Illness History of Present Illness: dictated Past Patient History - Past Medical History & Family History Past Medical History?: Yes - Past Social History Smoking Status: Never Smoked - CARDIAC Hx Cardiac Disorders: Yes Hx Hypercholesterolemia: Yes Hx Hypertension: Yes - PULMONARY Hx Respiratory Disorders: No - NEUROLOGICAL Hx Neurological Disorder: Yes Hx Dementia: Yes - HEENT Hx HEENT Problems: No - RENAL Hx Chronic Kidney Disease: Yes Type of Dialysis Access: L chest permacath Date of Last Dialysis Treatment: 03/24/17 - ENDOCRINE/METABOLIC Hx Endocrine Disorders: Yes Hx Diabetes Mellitus Type 2: Yes - HEMATOLOGICAL/ONCOLOGICAL Hx Blood Disorders: Yes Hx Anemia: Yes - INTEGUMENTARY Hx Dermatological Problems: Yes Other/Comment: ulcer buttocks - MUSCULOSKELETAL/RHEUMATOLOGICAL Hx Musculoskeletal Disorders: Yes (right leg weakness due to debridemnet buttocks wound) Hx Falls: No Hx Osteoarthritis: Yes - GASTROINTESTINAL Hx Gastrointestinal Disorders: No - GENITOURINARY/GYNECOLOGICAL Hx Genitourinary Disorders: Yes Hx Incontinence: Yes Hx Urinary Tract Infection: Yes - PSYCHIATRIC Hx Psychophysiologic Disorder: No Hx Substance Use: No - SURGICAL HISTORY Hx Surgeries: Yes Hx Cardiac Catheterization: Yes Hx Vascular Surgery: Yes (perma cath insertion) Other/Comment: debridement ulcer buttocks - ANESTHESIA Hx Anesthesia: Yes Hx Anesthesia Reactions: No Hx Malignant Hyperthermia: No Meds Allergies/Adverse Reactions: Allergies Allergy/AdvReac Type Severity Reaction Status Date / Time No Known Allergies Allergy Verified 03/26/17 17:07 - Medications Medications: Current Medications Acetaminophen (Tylenol 325mg Tab) 650 mg PO Q6 PRN PRN Reason: Pain, moderate (4-7) Albumin Human (Albumin Human 25% (12.5 Gm/50 Ml)) 12.5 gm IV TTS PRN PRN Reason: Hypotension Stop: 03/30/17 13:17 Last Admin: 03/27/17 13:29 Dose: 12.5 gm Amiodarone HCl (Cordarone) 200 mg PO DAILY [facility] Last Admin: 03/27/17 11:00 Dose: 200 mg Amlodipine Besylate (Norvasc) 5 mg PO DAILY [facility] Last Admin: 03/27/17 11:00 Dose: Not Given Collagenase (Santyl) 0 gm EXT DAILY [facility] Last Admin: 03/27/17 11:00 Dose: Not Given Epoetin Alonso (Procrit) 10,000 unit IV TTS [facility] Folic Acid (Folic Acid) 1 mg PO DAILY [facility] Last Admin: 03/27/17 11:00 Dose: 1 mg Cefepime HCl (Maxipime Iv 1 Gm Premix) 1 gm in 50 mls @ 100 mls/hr IVPB DAILY [facility] Last Admin: 03/27/17 11:00 Dose: 100 mls/hr Linezolid (Zyvox 600mg/300ml D5w) 600 mg in 300 mls @ 200 mls/hr IVPB Q12H [facility] Insulin Human Regular (Novolin R) 0 unit SC ACHS [facility] PRN Reason: Protocol Last Admin: 03/27/17 12:30 Dose: 3 unit Lisinopril (Zestril) 40 mg PO DAILY [facility] Last Admin: 03/27/17 11:00 Dose: Not Given Metoprolol Tartrate (Lopressor) 100 mg PO DAILY [facility] Last Admin: 03/27/17 11:00 Dose: Not Given Pneumococcal Polyvalent Vaccine (Pneumovax 23 Vaccine) 0.5 ml IM .ONCE ONE Stop: 03/29/17 10:01 Sevelamer Carbonate (Renvela) 1,600 mg PO TIDCC [facility] Last Admin: 03/27/17 12:36 Dose: Not Given Vitamin B Complex/Vit C/Folic Acid (Nephro-Umu) 1 tab PO 0800 [facility] Last Admin: 03/27/17 08:27 Dose: 1 tab Warfarin Sodium (Coumadin) 5 mg PO DAILY@1800 ONE Stop: 03/27/17 18:01 Results - Vital Signs Recent Vital Signs: Last Vital Signs Temp 98.6 F 03/27/17 08:16 Pulse 105 H 03/27/17 08:16 Resp 20 03/27/17 08:16 BP 124/82 03/27/17 08:16 Pulse Ox 99 03/27/17 08:16 - Labs Result Diagrams: 03/27/17 11:04 03/27/17 11:04 Labs: Laboratory Results - last 24 hr 03/26/17 03/26/17 03/26/17 17:47 18:07 18:07 WBC 20.0 H D RBC 2.87 L Hgb 8.7 L Hct 27.3 L MCV 95.1 D MCH 30.4 MCHC 31.9 L RDW 16.9 H Plt Count 203 D MPV 10.0 Neut % (Auto) 94.5 H Lymph % (Auto) 3.4 L Wilson % (Auto) 1.5 Eos % (Auto) 0.5 Baso % (Auto) 0.1 Neut # (Auto) 18.9 H Lymph # (Auto) 0.7 L Wilson # (Auto) 0.3 Eos # (Auto) 0.1 Baso # (Auto) 0.0 Neutrophils % (Manual) 87 H Band Neutrophils % 8 H Lymphocytes % (Manual) 4 L Monocytes % (Manual) 1 Nucleated RBC % 1 H Smudge Cells Present Toxic Granulation Dohle Bodies Platelet Estimate Normal Large Platelets Present Polychromasia Slight Hypochromasia (manual) Slight Anisocytosis (manual) Microcytosis (manual) Slight Tear Drop Cells Slight Schistocytes Slight PT INR APTT Sodium 132 Potassium 4.1 Chloride 91 L Carbon Dioxide 27 Anion Gap 18 BUN 57 H Creatinine 4.0 H Est GFR ( Amer) 14 Est GFR (Non-Af Amer) 11 POC Glucose (mg/dL) Random Glucose 272 H Calcium 9.0 Total Bilirubin 4.5 H AST 79 H ALT 48 Alkaline Phosphatase 513 H Troponin I 0.0530 NT-Pro-B Natriuret Pep 72079 H Total Protein 6.8 Albumin 2.9 L Globulin 3.9 Albumin/Globulin Ratio 0.8 L Urine Color Urine Clarity Urine pH Ur Specific [place] Urine Protein Urine Glucose (UA) Urine Ketones Urine Blood Urine Nitrate Urine Bilirubin Urine Urobilinogen Ur Leukocyte Esterase Urine WBC (Auto) Urine RBC (Auto) Ur Squamous Epith Cells Urine Bacteria Influenza Typ A,B (EIA) Negative for flu a/b 03/26/17 03/27/17 03/27/17 18:45 07:06 11:04 WBC 17.8 H RBC 2.89 L Hgb 9.0 L Hct 27.4 L MCV 95.0 MCH 31.2 H MCHC 32.8 L RDW 17.6 H Plt Count 168 MPV 11.0 Neut % (Auto) 83.1 H Lymph % (Auto) 9.4 L Wilson % (Auto) 7.1 Eos % (Auto) 0.1 Baso % (Auto) 0.3 Neut # (Auto) 14.5 H Lymph # (Auto) 1.6 Wilson # (Auto) 1.2 H Eos # (Auto) 0.0 Baso # (Auto) 0.0 Neutrophils % (Manual) 84 H Band Neutrophils % 7 H Lymphocytes % (Manual) 4 L Monocytes % (Manual) 5 Nucleated RBC % Smudge Cells Toxic Granulation Present Dohle Bodies Present Platelet Estimate Normal Large Platelets Polychromasia Hypochromasia (manual) Anisocytosis (manual) Slight Microcytosis (manual) Tear Drop Cells Schistocytes PT INR APTT Sodium Potassium Chloride Carbon Dioxide Anion Gap BUN Creatinine Est GFR ( Amer) Est GFR (Non-Af Amer) POC Glucose (mg/dL) 258 H Random Glucose Calcium Total Bilirubin AST ALT Alkaline Phosphatase Troponin I NT-Pro-B Natriuret Pep Total Protein Albumin Globulin Albumin/Globulin Ratio Urine Color Yellow Urine Clarity Turbid Urine pH 5.0 Ur Specific [place] 1.008 Urine Protein 2+ H Urine Glucose (UA) Normal Urine Ketones Negative Urine Blood 2+ H Urine Nitrate Negative Urine Bilirubin Negative Urine Urobilinogen Normal Ur Leukocyte Esterase 3+ H Urine WBC (Auto) 7618 H Urine RBC (Auto) 370 H Ur Squamous Epith Cells 232 H Urine Bacteria Many H Influenza Typ A,B (EIA) 03/27/17 03/27/17 03/27/17 11:04 11:04 11:12 WBC RBC Hgb Hct MCV MCH MCHC RDW Plt Count MPV Neut % (Auto) Lymph % (Auto) Wilson % (Auto) Eos % (Auto) Baso % (Auto) Neut # (Auto) Lymph # (Auto) Wilson # (Auto) Eos # (Auto) Baso # (Auto) Neutrophils % (Manual) Band Neutrophils % Lymphocytes % (Manual) Monocytes % (Manual) Nucleated RBC % Smudge Cells Toxic Granulation Dohle Bodies Platelet Estimate Large Platelets Polychromasia Hypochromasia (manual) Anisocytosis (manual) Microcytosis (manual) Tear Drop Cells Schistocytes PT 14.1 H INR 1.2 APTT 29 Sodium 131 L Potassium 4.4 Chloride 90 L Carbon Dioxide 28 Anion Gap 17 BUN 70 H Creatinine 4.3 H Est GFR ( Amer) 12 Est GFR (Non-Af Amer) 10 POC Glucose (mg/dL) 294 H Random Glucose 289 H Calcium 8.6 Total Bilirubin 3.9 H AST 77 H ALT 43 Alkaline Phosphatase 387 H D Troponin I NT-Pro-B Natriuret Pep Total Protein 6.7 Albumin 2.7 L Globulin 3.9 Albumin/Globulin Ratio 0.7 L Urine Color Urine Clarity Urine pH Ur Specific [place] Urine Protein Urine Glucose (UA) Urine Ketones Urine Blood Urine Nitrate Urine Bilirubin Urine Urobilinogen Ur Leukocyte Esterase Urine WBC (Auto) Urine RBC (Auto) Ur Squamous Epith Cells Urine Bacteria Influenza Typ A,B (EIA)
--- NOTE | 2017-03-27 13:41 | CP.PCM.PN ---
Subjective - Date & Time of Evaluation Date of Evaluation: 03/27/17 Time of Evaluation: 13:40 - Subjective Subjective: dialysis note dictated Objective - Vital Signs/Intake and Output Vital Signs (last 24 hours): Temp Pulse Resp BP Pulse Ox 98.6 F 105 H 20 124/82 99 03/27/17 08:16 03/27/17 08:16 03/27/17 08:16 03/27/17 08:16 03/27/17 08:16 Intake and Output: 03/27/17 03/27/17 06:59 18:59 Intake Total 200 Balance 200 - Medications Medications: Current Medications Acetaminophen (Tylenol 325mg Tab) 650 mg PO Q6 PRN PRN Reason: Pain, moderate (4-7) Albumin Human (Albumin Human 25% (12.5 Gm/50 Ml)) 12.5 gm IV TTS PRN PRN Reason: Hypotension Stop: 03/30/17 13:17 Last Admin: 03/27/17 13:29 Dose: 12.5 gm Amiodarone HCl (Cordarone) 200 mg PO DAILY [facility] Last Admin: 03/27/17 11:00 Dose: 200 mg Amlodipine Besylate (Norvasc) 5 mg PO DAILY [facility] Last Admin: 03/27/17 11:00 Dose: Not Given Collagenase (Santyl) 0 gm EXT DAILY [facility] Last Admin: 03/27/17 11:00 Dose: Not Given Epoetin Alonso (Procrit) 10,000 unit IV TTS [facility] Folic Acid (Folic Acid) 1 mg PO DAILY [facility] Last Admin: 03/27/17 11:00 Dose: 1 mg Cefepime HCl (Maxipime Iv 1 Gm Premix) 1 gm in 50 mls @ 100 mls/hr IVPB DAILY [facility] Last Admin: 03/27/17 11:00 Dose: 100 mls/hr Linezolid (Zyvox 600mg/300ml D5w) 600 mg in 300 mls @ 200 mls/hr IVPB Q12H [facility] Insulin Human Regular (Novolin R) 0 unit SC ACHS [facility] PRN Reason: Protocol Last Admin: 03/27/17 12:30 Dose: 3 unit Lisinopril (Zestril) 40 mg PO DAILY [facility] Last Admin: 03/27/17 11:00 Dose: Not Given Metoprolol Tartrate (Lopressor) 100 mg PO DAILY [facility] Last Admin: 03/27/17 11:00 Dose: Not Given Pneumococcal Polyvalent Vaccine (Pneumovax 23 Vaccine) 0.5 ml IM .ONCE ONE Stop: 03/29/17 10:01 Sevelamer Carbonate (Renvela) 1,600 mg PO TIDCC [facility] Last Admin: 03/27/17 12:36 Dose: Not Given Vitamin B Complex/Vit C/Folic Acid (Nephro-Umu) 1 tab PO 0800 [facility] Last Admin: 03/27/17 08:27 Dose: 1 tab Warfarin Sodium (Coumadin) 5 mg PO DAILY@1800 ONE Stop: 03/27/17 18:01 - Labs Labs: 03/27/17 11:04 03/27/17 11:04 PT 14.1 SECONDS (9.7-12.2) H 03/27/17 11:04 INR 1.2 03/27/17 11:04 APTT 29 SECONDS (21-34) 03/27/17 11:04
[2017-03-27] MEDS: Epoetin Alfa 10,000 unit/ml Dialysis IV SCH (16:11)
--- NOTE | 2017-03-27 16:26 | CP.PCM.PN ---
Subjective - Date & Time of Evaluation Date of Evaluation: 03/27/17 Time of Evaluation: 09:00 - Subjective Subjective: clinically same Objective - Vital Signs/Intake and Output Vital Signs (last 24 hours): Temp Pulse Resp BP Pulse Ox 98.3 F 63 18 104/82 100 03/27/17 12:55 03/27/17 16:05 03/27/17 16:05 03/27/17 16:05 03/27/17 12:55 Intake and Output: 03/27/17 03/27/17 06:59 18:59 Intake Total 200 Balance 200 - Medications Medications: Current Medications Acetaminophen (Tylenol 325mg Tab) 650 mg PO Q6 PRN PRN Reason: Pain, moderate (4-7) Albumin Human (Albumin Human 25% (12.5 Gm/50 Ml)) 12.5 gm IV TTS PRN PRN Reason: Hypotension Stop: 03/30/17 13:17 Last Admin: 03/27/17 13:29 Dose: 12.5 gm Amiodarone HCl (Cordarone) 200 mg PO DAILY [facility] Last Admin: 03/27/17 11:00 Dose: 200 mg Amlodipine Besylate (Norvasc) 5 mg PO DAILY [facility] Last Admin: 03/27/17 11:00 Dose: Not Given Collagenase (Santyl) 0 gm EXT DAILY [facility] Last Admin: 03/27/17 11:00 Dose: Not Given Epoetin Alonso (Procrit) 10,000 unit IV TTS [facility] Last Admin: 03/27/17 16:11 Dose: 10,000 unit Folic Acid (Folic Acid) 1 mg PO DAILY [facility] Last Admin: 03/27/17 11:00 Dose: 1 mg Cefepime HCl (Maxipime Iv 1 Gm Premix) 1 gm in 50 mls @ 100 mls/hr IVPB DAILY [facility] Last Admin: 03/27/17 11:00 Dose: 100 mls/hr Linezolid (Zyvox 600mg/300ml D5w) 600 mg in 300 mls @ 200 mls/hr IVPB Q12H [facility] Insulin Human Regular (Novolin R) 0 unit SC ACHS [facility] PRN Reason: Protocol Last Admin: 03/27/17 12:30 Dose: 3 unit Lisinopril (Zestril) 40 mg PO DAILY [facility] Last Admin: 03/27/17 11:00 Dose: Not Given Metoprolol Tartrate (Lopressor) 100 mg PO DAILY [facility] Last Admin: 03/27/17 11:00 Dose: Not Given Pneumococcal Polyvalent Vaccine (Pneumovax 23 Vaccine) 0.5 ml IM .ONCE ONE Stop: 03/29/17 10:01 Sevelamer Carbonate (Renvela) 1,600 mg PO TIDCC [facility] Last Admin: 03/27/17 12:36 Dose: Not Given Vitamin B Complex/Vit C/Folic Acid (Nephro-Umu) 1 tab PO 0800 [facility] Last Admin: 03/27/17 08:27 Dose: 1 tab Warfarin Sodium (Coumadin) 5 mg PO DAILY@1800 ONE Stop: 03/27/17 18:01 - Labs Labs: 03/27/17 11:04 03/27/17 11:04 PT 14.1 SECONDS (9.7-12.2) H 03/27/17 11:04 INR 1.2 03/27/17 11:04 APTT 29 SECONDS (21-34) 03/27/17 11:04 - Constitutional Appears: Well - Head Exam Head Exam: ATRAUMATIC, NORMAL INSPECTION, NORMOCEPHALIC - Eye Exam Eye Exam: EOMI, Normal appearance, PERRL Pupil Exam: NORMAL ACCOMODATION, PERRL - ENT Exam ENT Exam: Mucous Membranes Moist, Normal Exam - Neck Exam Neck Exam: Full ROM, Normal Inspection. absent: Lymphadenopathy - Respiratory Exam Respiratory Exam: Decreased Breath Sounds - Cardiovascular Exam Cardiovascular Exam: REGULAR RHYTHM, +S1, +S2 - GI/Abdominal Exam GI & Abdominal Exam: Soft, Diminished Bowel Sounds - Rectal Exam Rectal Exam: Deferred
[2017-03-27] MEDS: Linezolid 600 mg in D5W 300 ml 600 MG/300 ML BAG IVPB SCH (17:15)
[2017-03-28] MEDS: Linezolid 600 mg in D5W 300 ml 600 MG/300 ML BAG IVPB SCH ×2 (03:45→16:39)
[2017-03-28] MEDS: (Novolin R) Insulin Human Regular 100 units/ml vial SC SCH ×4 (08:27→22:03)
--- NOTE | 2017-03-28 10:20 | CON ---
DATE: 03/27/2017 HISTORY OF PRESENT ILLNESS: She was admitted today. This patient is a 66 years of age female known with end-stage renal disease on maintenance hemodialysis Sunday, and Sunday. She was admitted with low grade fever and complaining of some burning sensation when she passes urine and she was admitted to rule out urosepsis. In addition, the patient was complaining of losing of her appetite; however, no vomiting, no diarrhea was reported and no chest pain. PAST MEDICAL HISTORY: Significant to end-stage renal disease, hypertension, the patient goes to dialysis as outpatient to [facility]. SOCIAL HISTORY: Noncontributory. REVIEW OF SYSTEMS: The rest of the system as noted to be okay except what I mentioned above. PHYSICAL EXAMINATION: GENERAL: The patient is awake and conscious. VITAL SIGNS: Blood pressure 124/82 with a pulse 96, came up to 105, temperature 98.6. NECK: Supple. CHEST: No significant rales. HEART: No rubs. ABDOMEN: Soft. Bowel sounds . EXTREMITIES: No pitting edema. LABORATORY DATA: Showed urinalysis 3+ leucocytes loaded with wbc, rbc and squamous cell in the urine with 2+ protein, 2+ blood and. WBC 20,000, hemoglobin 8.7. SMA-7, creatinine 4.3, BUN 17, sodium 151, potassium 4.4 with glucose 294. IMPRESSION AND PLAN: The patient admitted what appeared to be with urosepsis. She is started on antibiotics. She was seen by Infectious Disease. In addition, the patient noted to be having leukocytosis that is related to the infection. Also the patient has diabetes mellitus as noted per primary team and hypertension. Her medications reordered and dialysis was ordered to be done as soon as possible and which is already started. Adjust the antibiotics as per renal dose. The patient goes on dialysis for Sunday, and Sunday; and continue monitoring. Urine culture was done. Felix Long MD
--- NOTE | 2017-03-28 10:21 | CON ---
DATE: DIALYSIS NOTE Zuleyka was admitted with what appeared to be urosepsis. She started on antibiotics. She is dialysis patient, TTS and dialysis was ordered and the patient seen at the hemodialysis unit. I discussed the order with the washer meat at the bedside. Including sodium bath 137, potassium bath 2 mEq, bicarb bath 34 mEq, ultrafiltration 1500 mL as tolerated. PHYSICAL EXAMINATION: GENERAL: The patient is conscious. CHEST: Few rhonchi. HEART: No rubs. ABDOMEN: Soft. EXTREMITIES: No edema. LABORATORY DATA: As noted. IMPRESSION AND PLAN: 1. The patient has severe leukocytosis with urosepsis, started on antibiotics. 2. End stage renal disease, receiving dialysis as ordered and discussed with the dialysis nurse, 2 units of 25% 50 mL albumin was ordered now, standing by the patient when I noted the blood pressure came down to around 90/60, I discussed it with the dialysis nurse. Continue monitoring. Felix Long MD [email or web address]
[2017-03-28] MEDS: Cefepime IV 1 gm in Dextrose 1 GM/50 ML BAG IVPB SCH (11:00)
[2017-03-28] MEDS: Multivitamin Vitamin B Complex (Nephro-Vite) Tab PO SCH (11:00)
[2017-03-28] MEDS: Collagenase 250 Units/gm Ointment(30 gm) EXT SCH (11:00)
--- NOTE | 2017-03-28 13:57 | CP.PCM.PN ---
Subjective - Date & Time of Evaluation Date of Evaluation: 03/28/17 Time of Evaluation: 08:20 - Subjective Subjective: clinically same Objective - Vital Signs/Intake and Output Vital Signs (last 24 hours): Temp Pulse Resp BP Pulse Ox 97.8 F 69 20 113/71 100 03/28/17 09:00 03/28/17 09:00 03/28/17 09:00 03/28/17 09:00 03/28/17 09:00 Intake and Output: 03/28/17 03/28/17 06:59 18:59 Intake Total 420 Output Total 0 Balance 420 - Medications Medications: Current Medications Acetaminophen (Tylenol 325mg Tab) 650 mg PO Q6 PRN PRN Reason: Pain, moderate (4-7) Last Admin: 03/28/17 01:05 Dose: 650 mg Albumin Human (Albumin Human 25% (12.5 Gm/50 Ml)) 12.5 gm IV TTS PRN PRN Reason: Hypotension Stop: 03/30/17 13:17 Last Admin: 03/27/17 13:29 Dose: 12.5 gm Amiodarone HCl (Cordarone) 200 mg PO DAILY [facility] Last Admin: 03/28/17 11:00 Dose: 200 mg Amlodipine Besylate (Norvasc) 5 mg PO DAILY [facility] Last Admin: 03/28/17 11:00 Dose: 5 mg Collagenase (Santyl) 0 gm EXT DAILY [facility] Last Admin: 03/28/17 11:00 Dose: 1 applic Epoetin Alonso (Procrit) 10,000 unit IV TTS [facility] Last Admin: 03/27/17 16:11 Dose: 10,000 unit Folic Acid (Folic Acid) 1 mg PO DAILY [facility] Last Admin: 03/28/17 11:00 Dose: 1 mg Cefepime HCl (Maxipime Iv 1 Gm Premix) 1 gm in 50 mls @ 100 mls/hr IVPB DAILY [facility] Last Admin: 03/28/17 11:00 Dose: 100 mls/hr Linezolid (Zyvox 600mg/300ml D5w) 600 mg in 300 mls @ 200 mls/hr IVPB Q12H [facility] Last Admin: 03/28/17 03:45 Dose: 200 mls/hr Insulin Human Regular (Novolin R) 0 unit SC ACHS [facility] PRN Reason: Protocol Last Admin: 03/28/17 12:30 Dose: 3 unit Lisinopril (Zestril) 40 mg PO DAILY [facility] Last Admin: 03/28/17 11:00 Dose: 40 mg Metoprolol Tartrate (Lopressor) 100 mg PO DAILY [facility] Last Admin: 03/28/17 11:00 Dose: 100 mg Pneumococcal Polyvalent Vaccine (Pneumovax 23 Vaccine) 0.5 ml IM .ONCE ONE Stop: 03/29/17 10:01 Sevelamer Carbonate (Renvela) 1,600 mg PO TIDCC [facility] Last Admin: 03/28/17 12:50 Dose: 1,600 mg Vitamin B Complex/Vit C/Folic Acid (Nephro-Umu) 1 tab PO 0800 [facility] Last Admin: 03/28/17 11:00 Dose: 1 tab - Labs Labs: 03/27/17 11:04 03/27/17 11:04 PT 14.1 SECONDS (9.7-12.2) H 03/27/17 11:04 INR 1.2 03/27/17 11:04 APTT 29 SECONDS (21-34) 03/27/17 11:04 - Constitutional Appears: Well - Head Exam Head Exam: ATRAUMATIC, NORMAL INSPECTION, NORMOCEPHALIC - Eye Exam Eye Exam: EOMI, Normal appearance, PERRL Pupil Exam: NORMAL ACCOMODATION, PERRL - ENT Exam ENT Exam: Mucous Membranes Moist, Normal Exam - Neck Exam Neck Exam: Full ROM, Normal Inspection. absent: Lymphadenopathy - Respiratory Exam Respiratory Exam: Decreased Breath Sounds - Cardiovascular Exam Cardiovascular Exam: REGULAR RHYTHM, +S1, +S2 - GI/Abdominal Exam GI & Abdominal Exam: Soft, Diminished Bowel Sounds - Rectal Exam Rectal Exam: Deferred
--- NOTE | 2017-03-28 14:48 | CP.PCM.PN ---
Subjective - Date & Time of Evaluation Date of Evaluation: 03/28/17 Time of Evaluation: 14:46 - Subjective Subjective: Follow up Nephrology Consultation: Assessment: Stable sepsis ? due to UTI/sacral decubitus Hypertensive Chronic Kidney Disease (I12.0), Diabetic CKD (E11.22) End stage renal disease (N18.6) dependence on hemodialysis (Z99.2) (TTS) via permacath Anemia Hyperphosphatemia (E83.39), Secondary Hyperparathyroidism (E21.1), HTN ( I12.0) Plan: Will plan for HD tomorrow as ordered. Continue with Nephrovite 1 tab/day. PRBC as needed for anemia. On KEILA as epogen , last Hb 9 Continue with phos binders home dose. BP control with meds as ordered. on liisnopril. d/c norvsac Glycemic control, Dialysis consistent diet Further work up/management as per primary team Dose meds/antibiotics for ESRD status. Avoid fleets enema/magnesium based laxatives. Thanks for allowing me to participate in care of your patient. Will follow patient with you. Please call if any Qs. Dr Ryan Carter Office: [phone] ROS Cardiovascular: No chest pain. Pulmonary: improved shortness of breath Gastrointestinal: denies abdominal pain no further nausea vomiting Genitourinary: No pain while urinating. Denies blood in urine. All other negative except sacral ulcer had permacath exchanged recently Physical Examination: General Appearance: Comfortable, in no acute respiratory distress, co-operative . Vitals reviewed and noted as below Head; Atraumatic, normocephalic ENT: no ulcers no thrush. Tongue is midline. Oropharynx: no rash or ulcers. EYES: Pupils are equal, round and reactive to light accommodation. Eye muscles and extraocular movement intact. Sclera is anicteric. Neck; supple no lymphadenopathy, no thyromegaly or bruit Lungs: Normal respiratory rate/effort. Breath sounds bilateral equal and clear Heart: Normal rate. s1s2 normal. No rub or gallop. Extremities: 1+ edema. No varicose veins Neurological: Patient is alert, awake and oriented to person, place and time. chronically bed bound Skin: Warm and dry. Normal turgor. No rash. Palpitation: Normal elasticity for age Abdomen: Abdomen is soft. Bowel sounds +. There is no abdominal tenderness, no guarding/rigidity or organomegaly Psych: normal insight and normal affect/mood MSK: no joint tenderness or swelling. Digits and nails normal, no deformity : kidney or bladder not palpable Access: permacath Labs/imaging reviewed. Past medical history, past surgical history, family history, social history, allergy reviewed and noted as below Family Hx: no hx of CKD. Non contributory Objective - Vital Signs/Intake and Output Vital Signs (last 24 hours): Temp Pulse Resp BP Pulse Ox 97.8 F 65 20 113/71 98 03/28/17 09:00 03/28/17 14:08 03/28/17 09:00 03/28/17 14:08 03/28/17 14:08 Intake and Output: 03/28/17 03/28/17 06:59 18:59 Intake Total 420 Output Total 0 Balance 420 - Medications Medications: Current Medications Acetaminophen (Tylenol 325mg Tab) 650 mg PO Q6 PRN PRN Reason: Pain, moderate (4-7) Last Admin: 03/28/17 01:05 Dose: 650 mg Albumin Human (Albumin Human 25% (12.5 Gm/50 Ml)) 12.5 gm IV TTS PRN PRN Reason: Hypotension Stop: 03/30/17 13:17 Last Admin: 03/27/17 13:29 Dose: 12.5 gm Amiodarone HCl (Cordarone) 200 mg PO DAILY [facility] Last Admin: 03/28/17 11:00 Dose: 200 mg Epoetin Alonso (Procrit) 10,000 unit IV TTS [facility] Last Admin: 03/27/17 16:11 Dose: 10,000 unit Folic Acid (Folic Acid) 1 mg PO DAILY [facility] Last Admin: 03/28/17 11:00 Dose: 1 mg Cefepime HCl (Maxipime Iv 1 Gm Premix) 1 gm in 50 mls @ 100 mls/hr IVPB DAILY [facility] Last Admin: 03/28/17 11:00 Dose: 100 mls/hr Linezolid (Zyvox 600mg/300ml D5w) 600 mg in 300 mls @ 200 mls/hr IVPB Q12H [facility] Last Admin: 03/28/17 03:45 Dose: 200 mls/hr Insulin Human Regular (Novolin R) 0 unit SC ACHS [facility] PRN Reason: Protocol Last Admin: 03/28/17 12:30 Dose: 3 unit Lisinopril (Zestril) 40 mg PO DAILY [facility] Last Admin: 03/28/17 11:00 Dose: 40 mg Metoprolol Tartrate (Lopressor) 100 mg PO DAILY [facility] Last Admin: 03/28/17 11:00 Dose: 100 mg Pneumococcal Polyvalent Vaccine (Pneumovax 23 Vaccine) 0.5 ml IM .ONCE ONE Stop: 03/29/17 10:01 Sevelamer Carbonate (Renvela) 1,600 mg PO TIDCC [facility] Last Admin: 03/28/17 12:50 Dose: 1,600 mg Vitamin B Complex/Vit C/Folic Acid (Nephro-Umu) 1 tab PO 0800 [facility] Last Admin: 03/28/17 11:00 Dose: 1 tab - Labs Labs: 03/27/17 11:04 03/27/17 11:04 PT 14.1 SECONDS (9.7-12.2) H 03/27/17 11:04 INR 1.2 03/27/17 11:04 APTT 29 SECONDS (21-34) 03/27/17 11:04
[2017-03-28] MEDS ORDERED: Piperacill/Tazo 3.375gm in Dex 3.375 GM/50 ML BAG IVPB SCH (19:00)
--- NOTE | 2017-03-28 19:00 | CP.PCM.PN ---
Subjective - Date & Time of Evaluation Date of Evaluation: 03/28/17 Time of Evaluation: 09:00 - Subjective Subjective: BLOOD + FOR GRP b STREP ON IV RX MAY NEED DEBRIDEMENT PROGOSIS GUARDED Objective - Vital Signs/Intake and Output Vital Signs (last 24 hours): Temp Pulse Resp BP Pulse Ox 98.3 F 64 20 97/60 L 99 03/28/17 15:10 03/28/17 15:10 03/28/17 15:10 03/28/17 15:10 03/28/17 15:10 Intake and Output: 03/28/17 03/28/17 06:59 18:59 Intake Total 870 Output Total 0 Balance 870 - Medications Medications: Current Medications Acetaminophen (Tylenol 325mg Tab) 650 mg PO Q6 PRN PRN Reason: Pain, moderate (4-7) Last Admin: 03/28/17 01:05 Dose: 650 mg Albumin Human (Albumin Human 25% (12.5 Gm/50 Ml)) 12.5 gm IV TTS PRN PRN Reason: Hypotension Stop: 03/30/17 13:17 Last Admin: 03/27/17 13:29 Dose: 12.5 gm Amiodarone HCl (Cordarone) 200 mg PO DAILY [facility] Last Admin: 03/28/17 11:00 Dose: 200 mg Epoetin Alonso (Procrit) 10,000 unit IV TTS [facility] Last Admin: 03/27/17 16:11 Dose: 10,000 unit Folic Acid (Folic Acid) 1 mg PO DAILY [facility] Last Admin: 03/28/17 11:00 Dose: 1 mg Insulin Human Regular (Novolin R) 0 unit SC ACHS [facility] PRN Reason: Protocol Last Admin: 03/28/17 16:30 Dose: 3 unit Lisinopril (Zestril) 40 mg PO DAILY [facility] Last Admin: 03/28/17 11:00 Dose: 40 mg Metoprolol Tartrate (Lopressor) 100 mg PO DAILY [facility] Last Admin: 03/28/17 11:00 Dose: 100 mg Pneumococcal Polyvalent Vaccine (Pneumovax 23 Vaccine) 0.5 ml IM .ONCE ONE Stop: 03/29/17 10:01 Sevelamer Carbonate (Renvela) 1,600 mg PO TIDCC [facility] Last Admin: 03/28/17 17:25 Dose: 1,600 mg Vitamin B Complex/Vit C/Folic Acid (Nephro-Umu) 1 tab PO 0800 [facility] Last Admin: 03/28/17 11:00 Dose: 1 tab - Labs Labs: 03/27/17 11:04 03/27/17 11:04 PT 14.1 SECONDS (9.7-12.2) H 03/27/17 11:04 INR 1.2 03/27/17 11:04 APTT 29 SECONDS (21-34) 03/27/17 11:04 - Constitutional Appears: Confused, Chronically Ill - Head Exam Head Exam: NORMOCEPHALIC - Eye Exam Eye Exam: PERRL - ENT Exam ENT Exam: Mucous Membranes Dry - Neck Exam Neck Exam: absent: Lymphadenopathy - Respiratory Exam Respiratory Exam: Decreased Breath Sounds - Cardiovascular Exam Cardiovascular Exam: REGULAR RHYTHM, +S1, +S2 - GI/Abdominal Exam GI & Abdominal Exam: Distended, Soft - Rectal Exam Rectal Exam: Deferred - Extremities Exam Extremities Exam: Pedal Edema - Back Exam Back Exam: absent: CVA tenderness (L), CVA tenderness (R) - Neurological Exam Neurological Exam: Altered Assessment and Plan (1) Sacral decubitus ulcer, stage IV Status: Acute (2) UTI (urinary tract infection) Status: Acute (3) Osteomyelitis Status: Acute (4) Sepsis Status: Acute - Assessment and Plan (Free Text) Assessment: IV ZOSYN
[2017-03-28] MEDS ORDERED: Piperacillin/Tazobact 3.375 gm 100 ML IVPB SCH (20:00)
[2017-03-28] MEDS: Piperacillin/Tazobact 3.375 GM in Sodium Chloride 0.9% 100 ML IVPB SCH (20:00)
[2017-03-29] MEDS: Piperacillin/Tazobact 3.375 GM in Sodium Chloride 0.9% 100 ML IVPB SCH ×3 (07:01→21:46)
[2017-03-29] MEDS: Multivitamin Vitamin B Complex (Nephro-Vite) Tab PO SCH (08:33)
[2017-03-29] MEDS: (Novolin R) Insulin Human Regular 100 units/ml vial SC SCH ×4 (08:34→21:42)
[2017-03-29] MEDS: HYDROmorphone 0.5 mg/0.5 ml ISec IVP PRN ×2 (08:35→17:46)
[2017-03-29] MEDS ORDERED: Pneumococcal 23-Valent Vaccine IM ONE (10:00)
[2017-03-29] MEDS ORDERED: Influenza Vaccine 60 mcg/0.5 mL SYR (4YR UP) IM ONE (10:00)
[2017-03-29] MEDS: Epoetin Alfa 10,000 unit/ml Dialysis IV SCH (10:18)
[2017-03-29] MEDS: Albumin Human 25% (12.5 gm/50 ml) IV PRN (10:18)
--- NOTE | 2017-03-29 11:44 | CP.PCM.PN ---
Subjective - Date & Time of Evaluation Date of Evaluation: 03/29/17 Time of Evaluation: 11:43 - Subjective Subjective: Follow up Nephrology Consultation: Assessment: Stable sepsis ? due to UTI/sacral decubitus Hypertensive Chronic Kidney Disease (I12.0), Diabetic CKD (E11.22) End stage renal disease (N18.6) dependence on hemodialysis (Z99.2) (TTS) via permacath Anemia Hyperphosphatemia (E83.39), Secondary Hyperparathyroidism (E21.1), HTN ( I12.0) Plan: for HD today as ordered. Continue with Nephrovite 1 tab/day. PRBC as needed for anemia. On KEILA as epogen , last Hb 9 Continue with phos binders home dose. BP on low side due to sepsis. d/c liisnopril/ norvsac for now Glycemic control, Dialysis consistent diet Further work up/management as per primary team Dose meds/antibiotics for ESRD status. Avoid fleets enema/magnesium based laxatives. ID following Thanks for allowing me to participate in care of your patient. Will follow patient with you. Please call if any Qs. Dr Ryan Carter Office: [phone] ROS Cardiovascular: No chest pain. Pulmonary: improved shortness of breath Gastrointestinal: denies abdominal pain no further nausea vomiting Genitourinary: No pain while urinating. Denies blood in urine. All other negative except sacral ulcer had permacath exchanged recently Physical Examination: seen on HD General Appearance: Comfortable, in no acute respiratory distress, co-operative . Vitals reviewed and noted as below Head; Atraumatic, normocephalic ENT: no ulcers no thrush. Tongue is midline. Oropharynx: no rash or ulcers. EYES: Pupils are equal, round and reactive to light accommodation. Eye muscles and extraocular movement intact. Sclera is anicteric. Neck; supple no lymphadenopathy, no thyromegaly or bruit Lungs: Normal respiratory rate/effort. Breath sounds bilateral equal and clear Heart: Normal rate. s1s2 normal. No rub or gallop. Extremities: 1+ edema. No varicose veins Neurological: Patient is alert, awake and oriented to person, place and time. chronically bed bound Skin: Warm and dry. Normal turgor. No rash. Palpitation: Normal elasticity for age Abdomen: Abdomen is soft. Bowel sounds +. There is no abdominal tenderness, no guarding/rigidity or organomegaly Psych: normal insight and normal affect/mood MSK: no joint tenderness or swelling. Digits and nails normal, no deformity : kidney or bladder not palpable Access: permacath Labs/imaging reviewed. Past medical history, past surgical history, family history, social history, allergy reviewed and noted as below Family Hx: no hx of CKD. Non contributory Objective - Vital Signs/Intake and Output Vital Signs (last 24 hours): Temp Pulse Resp BP Pulse Ox 97.7 F 66 17 99/45 L 98 03/29/17 09:05 03/29/17 09:05 03/29/17 09:05 03/29/17 11:05 03/29/17 09:05 Intake and Output: 03/29/17 03/29/17 06:59 18:59 Intake Total 100 Balance 100 - Medications Medications: Current Medications Acetaminophen (Tylenol 325mg Tab) 650 mg PO Q6 PRN PRN Reason: Pain, moderate (4-7) Last Admin: 03/28/17 01:05 Dose: 650 mg Albumin Human (Albumin Human 25% (12.5 Gm/50 Ml)) 12.5 gm IV TTS PRN PRN Reason: Hypotension Stop: 03/30/17 13:17 Last Admin: 03/29/17 10:18 Dose: 12.5 gm Amiodarone HCl (Cordarone) 200 mg PO DAILY [facility] Last Admin: 03/28/17 11:00 Dose: 200 mg Epoetin Alonso (Procrit) 10,000 unit IV TTS [facility] Last Admin: 03/29/17 10:18 Dose: 10,000 unit Folic Acid (Folic Acid) 1 mg PO DAILY [facility] Last Admin: 03/28/17 11:00 Dose: 1 mg Hydromorphone HCl (Dilaudid) 0.5 mg IVP Q8H PRN PRN Reason: Pain, moderate (4-7) Last Admin: 03/29/17 08:35 Dose: 0.5 mg Piperacillin Sod/Tazobactam (Sod 3.375 gm/ Sodium Chloride) 100 mls @ 200 mls/ hr IVPB Q8H [facility] Last Admin: 03/29/17 07:01 Dose: 200 mls/hr Insulin Human Regular (Novolin R) 0 unit SC ACHS [facility] PRN Reason: Protocol Last Admin: 03/29/17 08:34 Dose: 2 unit Metoprolol Tartrate (Lopressor) 100 mg PO DAILY [facility] Last Admin: 03/28/17 11:00 Dose: 100 mg Sevelamer Carbonate (Renvela) 1,600 mg PO TIDCC [facility] Last Admin: 03/29/17 08:34 Dose: 1,600 mg Vitamin B Complex/Vit C/Folic Acid (Nephro-Umu) 1 tab PO 0800 [facility] Last Admin: 03/29/17 08:33 Dose: 1 tab - Labs Labs: 03/27/17 11:04 03/27/17 11:04 PT 14.1 SECONDS (9.7-12.2) H 03/27/17 11:04 INR 1.2 03/27/17 11:04 APTT 29 SECONDS (21-34) 03/27/17 11:04
--- NOTE | 2017-03-29 16:05 | CP.PCM.PN ---
Subjective - Date & Time of Evaluation Date of Evaluation: 03/29/17 Time of Evaluation: 10:40 - Subjective Subjective: pt clinically same Objective - Vital Signs/Intake and Output Vital Signs (last 24 hours): Temp Pulse Resp BP Pulse Ox 97.6 F 60 19 106/61 100 03/29/17 12:40 03/29/17 12:40 03/29/17 12:40 03/29/17 12:40 03/29/17 12:40 Intake and Output: 03/29/17 03/29/17 06:59 18:59 Intake Total 100 Balance 100 - Medications Medications: Current Medications Acetaminophen (Tylenol 325mg Tab) 650 mg PO Q6 PRN PRN Reason: Pain, moderate (4-7) Last Admin: 03/28/17 01:05 Dose: 650 mg Albumin Human (Albumin Human 25% (12.5 Gm/50 Ml)) 12.5 gm IV TTS PRN PRN Reason: Hypotension Stop: 03/30/17 13:17 Last Admin: 03/29/17 10:18 Dose: 12.5 gm Amiodarone HCl (Cordarone) 200 mg PO DAILY [facility] Last Admin: 03/29/17 11:00 Dose: Not Given Epoetin Alonso (Procrit) 10,000 unit IV TTS [facility] Last Admin: 03/29/17 10:18 Dose: 10,000 unit Folic Acid (Folic Acid) 1 mg PO DAILY [facility] Last Admin: 03/29/17 10:58 Dose: Not Given Hydromorphone HCl (Dilaudid) 0.5 mg IVP Q8H PRN PRN Reason: Pain, moderate (4-7) Last Admin: 03/29/17 08:35 Dose: 0.5 mg Piperacillin Sod/Tazobactam (Sod 3.375 gm/ Sodium Chloride) 100 mls @ 200 mls/ hr IVPB Q8H [facility] Last Admin: 03/29/17 13:49 Dose: 200 mls/hr Insulin Human Regular (Novolin R) 0 unit SC ACHS [facility] PRN Reason: Protocol Last Admin: 03/29/17 13:50 Dose: 2 unit Metoprolol Tartrate (Lopressor) 100 mg PO DAILY [facility] Last Admin: 03/29/17 10:59 Dose: Not Given Sevelamer Carbonate (Renvela) 1,600 mg PO TIDCC [facility] Last Admin: 03/29/17 13:53 Dose: 1,600 mg Vitamin B Complex/Vit C/Folic Acid (Nephro-Umu) 1 tab PO 0800 [facility] Last Admin: 03/29/17 08:33 Dose: 1 tab - Labs Labs: 03/27/17 11:04 03/27/17 11:04 PT 14.1 SECONDS (9.7-12.2) H 03/27/17 11:04 INR 1.2 03/27/17 11:04 APTT 29 SECONDS (21-34) 03/27/17 11:04 - Constitutional Appears: No Acute Distress - Head Exam Head Exam: ATRAUMATIC, NORMAL INSPECTION, NORMOCEPHALIC - Eye Exam Eye Exam: EOMI, Normal appearance, PERRL Pupil Exam: NORMAL ACCOMODATION, PERRL - ENT Exam ENT Exam: Mucous Membranes Moist - Neck Exam Neck Exam: Full ROM - Respiratory Exam Respiratory Exam: Decreased Breath Sounds - Cardiovascular Exam Cardiovascular Exam: REGULAR RHYTHM, +S1, +S2 - GI/Abdominal Exam GI & Abdominal Exam: Soft, Diminished Bowel Sounds - Rectal Exam Rectal Exam: Deferred - Neurological Exam Additional comments: 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
--- NOTE | 2017-03-29 19:04 | CP.PCM.PN ---
Subjective - Date & Time of Evaluation Date of Evaluation: 03/29/17 Time of Evaluation: 08:00 - Subjective Subjective: BLOOD + FOR GRP b STREP ON IV RX MAY NEED DEBRIDEMENT DECUBITUS FROM HOME HX OLD CVA Objective - Vital Signs/Intake and Output Vital Signs (last 24 hours): Temp Pulse Resp BP Pulse Ox 99.2 F 70 20 117/67 99 03/29/17 15:00 03/29/17 15:00 03/29/17 15:00 03/29/17 15:00 03/29/17 15:00 Intake and Output: 03/29/17 03/30/17 18:59 06:59 Intake Total 650 Balance 650 - Medications Medications: Current Medications Acetaminophen (Tylenol 325mg Tab) 650 mg PO Q6 PRN PRN Reason: Pain, moderate (4-7) Last Admin: 03/28/17 01:05 Dose: 650 mg Albumin Human (Albumin Human 25% (12.5 Gm/50 Ml)) 12.5 gm IV TTS PRN PRN Reason: Hypotension Stop: 03/30/17 13:17 Last Admin: 03/29/17 10:18 Dose: 12.5 gm Amiodarone HCl (Cordarone) 200 mg PO DAILY [facility] Last Admin: 03/29/17 11:00 Dose: Not Given Epoetin Alonso (Procrit) 10,000 unit IV TTS [facility] Last Admin: 03/29/17 10:18 Dose: 10,000 unit Folic Acid (Folic Acid) 1 mg PO DAILY [facility] Last Admin: 03/29/17 10:58 Dose: Not Given Hydromorphone HCl (Dilaudid) 0.5 mg IVP Q8H PRN PRN Reason: Pain, moderate (4-7) Last Admin: 03/29/17 17:46 Dose: 0.5 mg Piperacillin Sod/Tazobactam (Sod 3.375 gm/ Sodium Chloride) 100 mls @ 200 mls/ hr IVPB Q8H [facility] Last Admin: 03/29/17 13:49 Dose: 200 mls/hr Insulin Human Regular (Novolin R) 0 unit SC ACHS [facility] PRN Reason: Protocol Last Admin: 03/29/17 17:17 Dose: 3 unit Metoprolol Tartrate (Lopressor) 100 mg PO DAILY [facility] Last Admin: 03/29/17 10:59 Dose: Not Given Sevelamer Carbonate (Renvela) 1,600 mg PO TIDCC [facility] Last Admin: 03/29/17 17:44 Dose: 1,600 mg Vitamin B Complex/Vit C/Folic Acid (Nephro-Umu) 1 tab PO 0800 [facility] Last Admin: 03/29/17 08:33 Dose: 1 tab - Labs Labs: 03/27/17 11:04 03/27/17 11:04 PT 14.1 SECONDS (9.7-12.2) H 03/27/17 11:04 INR 1.2 03/27/17 11:04 APTT 29 SECONDS (21-34) 03/27/17 11:04 - Constitutional Appears: Non-toxic, Chronically Ill - Head Exam Head Exam: NORMOCEPHALIC - Eye Exam Eye Exam: absent: Scleral icterus - ENT Exam ENT Exam: Mucous Membranes Dry - Neck Exam Neck Exam: absent: Lymphadenopathy - Respiratory Exam Respiratory Exam: Decreased Breath Sounds - Cardiovascular Exam Cardiovascular Exam: REGULAR RHYTHM - GI/Abdominal Exam GI & Abdominal Exam: Distended, Soft - Rectal Exam Rectal Exam: Deferred - Exam Exam: NORMAL INSPECTION - Extremities Exam Extremities Exam: absent: Pedal Edema - Back Exam Back Exam: absent: CVA tenderness (L), CVA tenderness (R) - Neurological Exam Neurological Exam: Alert, Awake - Psychiatric Exam Psychiatric exam: Depressed Assessment and Plan (1) Sacral decubitus ulcer, stage IV Status: Acute (2) UTI (urinary tract infection) Status: Acute (3) Osteomyelitis Status: Acute (4) Sepsis Status: Acute - Assessment and Plan (Free Text) Assessment: BLOOD + FOR GRP b STREP ON IV RX MAY NEED DEBRIDEMENT DECUBITUS FROM HOME HX OLD CVA
[2017-03-30] MEDS: Piperacillin/Tazobact 3.375 GM in Sodium Chloride 0.9% 100 ML IVPB SCH ×2 (05:37→13:43)
[2017-03-30] MEDS: (Novolin R) Insulin Human Regular 100 units/ml vial SC SCH ×4 (07:30→21:28)
[2017-03-30] MEDS: Multivitamin Vitamin B Complex (Nephro-Vite) Tab PO SCH (08:00)
[2017-03-30] MEDS: HYDROmorphone 0.5 mg/0.5 ml ISec IVP PRN ×2 (08:50→19:48)
--- NOTE | 2017-03-30 10:54 | CP.PCM.PN ---
Subjective - Date & Time of Evaluation Date of Evaluation: 03/30/17 Time of Evaluation: 07:45 - Subjective Subjective: PGY2 Medicine Note - Dr. Kain Ya Patient seen and examined this am. Patient received her L chest port on sunday. Reports feeling feverish but denies chills. Also c/o of lower abdominal pain. She is however tolerating her diet and passing normal BM's. Denies any additional acute complaints. Objective - Vital Signs/Intake and Output Vital Signs (last 24 hours): Temp Pulse Resp BP Pulse Ox 99.1 F 80 20 146/79 98 03/30/17 07:30 03/30/17 07:30 03/30/17 07:30 03/30/17 07:30 03/30/17 07:30 Intake and Output: 03/30/17 03/30/17 06:59 18:59 Intake Total 220 Balance 220 - Medications Medications: Current Medications Acetaminophen (Tylenol 325mg Tab) 650 mg PO Q6 PRN PRN Reason: Pain, moderate (4-7) Last Admin: 03/28/17 01:05 Dose: 650 mg Albumin Human (Albumin Human 25% (12.5 Gm/50 Ml)) 12.5 gm IV TTS PRN PRN Reason: Hypotension Stop: 03/30/17 13:17 Last Admin: 03/29/17 10:18 Dose: 12.5 gm Amiodarone HCl (Cordarone) 200 mg PO DAILY [facility] Last Admin: 03/30/17 10:12 Dose: 200 mg Epoetin Alonso (Procrit) 10,000 unit IV TTS [facility] Last Admin: 03/29/17 10:18 Dose: 10,000 unit Folic Acid (Folic Acid) 1 mg PO DAILY [facility] Last Admin: 03/30/17 10:02 Dose: 1 mg Hydromorphone HCl (Dilaudid) 0.5 mg IVP Q8H PRN PRN Reason: Pain, moderate (4-7) Last Admin: 03/29/17 17:46 Dose: 0.5 mg Piperacillin Sod/Tazobactam (Sod 3.375 gm/ Sodium Chloride) 100 mls @ 200 mls/ hr IVPB Q8H [facility] Last Admin: 03/30/17 05:37 Dose: 200 mls/hr Insulin Human Regular (Novolin R) 0 unit SC ACHS [facility] PRN Reason: Protocol Last Admin: 03/30/17 07:30 Dose: 2 unit Metoprolol Tartrate (Lopressor) 100 mg PO DAILY [facility] Last Admin: 03/30/17 10:13 Dose: 100 mg Sevelamer Carbonate (Renvela) 1,600 mg PO TIDCC [facility] Last Admin: 03/30/17 08:00 Dose: 1,600 mg Vitamin B Complex/Vit C/Folic Acid (Nephro-Umu) 1 tab PO 0800 [facility] Last Admin: 03/30/17 08:00 Dose: 1 tab - Labs Labs: 03/27/17 11:04 03/27/17 11:04 PT 14.1 SECONDS (9.7-12.2) H 03/27/17 11:04 INR 1.2 03/27/17 11:04 APTT 29 SECONDS (21-34) 03/27/17 11:04 - Additional Findings Additional findings: - Constitutional Appears: Non-toxic, Chronically Ill - Head Exam Head Exam: NORMOCEPHALIC - ENT Exam ENT Exam: Mucous Membranes Dry - Neck Exam Neck Exam: absent: Lymphadenopathy - Respiratory Exam Respiratory Exam: Decreased Breath Sounds - Cardiovascular Exam Cardiovascular Exam: REGULAR RHYTHM, S1, S2 - GI/Abdominal Exam GI & Abdominal Exam: Distended, Soft, Tenderness (mild, suprapubic tenderness to palpation) - Extremities Exam Extremities Exam: absent: Pedal Edema - Back Exam Back Exam: absent: CVA tenderness (L), CVA tenderness (R) - Neurological Exam Neurological Exam: Alert, Awake - Psychiatric Exam Psychiatric exam: Depressed Assessment and Plan - Assessment and Plan (Free Text) Assessment: Urosepsis 03/30: Changed dosing of Zosyn for renal dosing; now Zosyn 2.25 IVPB Q8H [facility]. WBC 12.5 decreasing; continue to monitor. Urosepsis Blood + for Grp B Strep ID Consulted, Dr. George, f/u recs Zosyn 3.375IVPB Q8H [facility] ESRD HD ,Sat. PRBC as needed for anemia. On KEILA as epogen , last Hb 9 Continue with phos binders home dose. BP on low side due to sepsis. d/c liisnopril/ norvsac for now Glycemic control, Dialysis consistent diet Procrit) 10,000 unit IV TTS [facility] Renvela) 1,600 mg PO TIDCC [facility] Nephro-Umu) 1 tab PO 0800 [facility] Diabetes Novolin R) 0 unit SC ACHS [facility] HTN Lopressor) 100 mg PO DAILY [facility] Sacral decubitus ulcer, stage IV Status: Acute Tylenol 325mg Tab) 650 mg PO Q6 PRN Dilaudid) 0.5 mg IVP Q8H PRN Osteomyelitis Status: Acute Hypoalbuminemia Albumin Human 25% (12.5 Gm/50 Ml)) 12.5 gm IV TTS PRN Prophylaxis SCDs
--- NOTE | 2017-03-30 12:29 | CP.PCM.PN ---
Subjective - Date & Time of Evaluation Date of Evaluation: 03/30/17 Time of Evaluation: 12:28 - Subjective Subjective: Follow up Nephrology Consultation: Assessment: Stable sepsis ? due to UTI/sacral decubitus Hypertensive Chronic Kidney Disease (I12.0), Diabetic CKD (E11.22) End stage renal disease (N18.6) dependence on hemodialysis (Z99.2) (TTS) via permacath Anemia Hyperphosphatemia (E83.39), Secondary Hyperparathyroidism (E21.1), HTN ( I12.0) Plan: for HD tomorrow as ordered. Continue with Nephrovite 1 tab/day. PRBC as needed for anemia. On KEILA as epogen , last Hb 9 Continue with phos binders home dose. BP on low side due to sepsis. d/c liisnopril/ norvsac for now Glycemic control, Dialysis consistent diet Further work up/management as per primary team Dose meds/antibiotics for ESRD status. Avoid fleets enema/magnesium based laxatives. ID following Thanks for allowing me to participate in care of your patient. Will follow patient with you. Please call if any Qs. Dr Ryan Carter Office: [phone] ROS Cardiovascular: No chest pain. Pulmonary: improved shortness of breath Gastrointestinal: denies abdominal pain no further nausea vomiting Genitourinary: No pain while urinating. Denies blood in urine. All other negative except sacral ulcer had permacath exchanged recently Physical Examination: General Appearance: Comfortable, in no acute respiratory distress, co-operative . Vitals reviewed and noted as below Head; Atraumatic, normocephalic ENT: no ulcers no thrush. Tongue is midline. Oropharynx: no rash or ulcers. EYES: Pupils are equal, round and reactive to light accommodation. Eye muscles and extraocular movement intact. Sclera is anicteric. Neck; supple no lymphadenopathy, no thyromegaly or bruit Lungs: Normal respiratory rate/effort. Breath sounds bilateral equal and clear Heart: Normal rate. s1s2 normal. No rub or gallop. Extremities: 1+ edema. No varicose veins Neurological: Patient is alert, awake and oriented to person, place and time. chronically bed bound Skin: Warm and dry. Normal turgor. No rash. Palpitation: Normal elasticity for age Abdomen: Abdomen is soft. Bowel sounds +. There is no abdominal tenderness, no guarding/rigidity or organomegaly Psych: normal insight and normal affect/mood MSK: no joint tenderness or swelling. Digits and nails normal, no deformity : kidney or bladder not palpable Access: permacath Labs/imaging reviewed. Past medical history, past surgical history, family history, social history, allergy reviewed and noted as below Family Hx: no hx of CKD. Non contributory Objective - Vital Signs/Intake and Output Vital Signs (last 24 hours): Temp Pulse Resp BP Pulse Ox 99.1 F 80 20 146/79 98 03/30/17 07:30 03/30/17 07:30 03/30/17 07:30 03/30/17 07:30 03/30/17 07:30 Intake and Output: 03/30/17 03/30/17 06:59 18:59 Intake Total 220 Balance 220 - Medications Medications: Current Medications Acetaminophen (Tylenol 325mg Tab) 650 mg PO Q6 PRN PRN Reason: Pain, moderate (4-7) Last Admin: 03/28/17 01:05 Dose: 650 mg Albumin Human (Albumin Human 25% (12.5 Gm/50 Ml)) 12.5 gm IV TTS PRN PRN Reason: Hypotension Stop: 03/30/17 13:17 Last Admin: 03/29/17 10:18 Dose: 12.5 gm Amiodarone HCl (Cordarone) 200 mg PO DAILY [facility] Last Admin: 03/30/17 10:12 Dose: 200 mg Epoetin Alonso (Procrit) 10,000 unit IV TTS [facility] Last Admin: 03/29/17 10:18 Dose: 10,000 unit Folic Acid (Folic Acid) 1 mg PO DAILY [facility] Last Admin: 03/30/17 10:02 Dose: 1 mg Hydromorphone HCl (Dilaudid) 0.5 mg IVP Q8H PRN PRN Reason: Pain, moderate (4-7) Last Admin: 03/30/17 08:50 Dose: 0.5 mg Piperacillin Sod/Tazobactam (Sod 3.375 gm/ Sodium Chloride) 100 mls @ 200 mls/ hr IVPB Q8H [facility] Last Admin: 03/30/17 05:37 Dose: 200 mls/hr Insulin Human Regular (Novolin R) 0 unit SC ACHS [facility] PRN Reason: Protocol Last Admin: 03/30/17 11:56 Dose: 3 unit Metoprolol Tartrate (Lopressor) 100 mg PO DAILY [facility] Last Admin: 03/30/17 10:13 Dose: 100 mg Sevelamer Carbonate (Renvela) 1,600 mg PO TIDCC [facility] Last Admin: 03/30/17 08:00 Dose: 1,600 mg Vitamin B Complex/Vit C/Folic Acid (Nephro-Umu) 1 tab PO 0800 [facility] Last Admin: 03/30/17 08:00 Dose: 1 tab - Labs Labs: 03/27/17 11:04 03/27/17 11:04 PT 14.1 SECONDS (9.7-12.2) H 03/27/17 11:04 INR 1.2 03/27/17 11:04 APTT 29 SECONDS (21-34) 03/27/17 11:04
[2017-03-30 14:09] LABS: BASO # 0.1 K/uL (0.0-0.2); BASO % 0.4 % (0.0-2.0); EOS # 0.1 K/uL (0.0-0.7); EOS % 0.6 % (0.0-4.0); HEMOGLOBIN 7.5 g/dL (11.0-16.0); LYMPH # 1.2 K/uL (1.0-4.3); LYMPH % 9.9 % (20.0-40.0); MEAN CELL VOLUME 94.1 fL (81.0-99.0); MEAN CORPUSCULAR HEMOGLOBIN 30.9 pg (27.0-31.0); MEAN CORPUSCULAR HGB CONC 32.9 g/dL (33.0-37.0); MEAN PLATELET VOLUME 9.5 fL (7.2-11.7); MONO % 7.9 % (0.0-10.0); NEUT # 10.2 K/uL (1.8-7.0); NEUT % 81.2 % (50.0-75.0); PLATELET COUNT 306 K/uL (130-400); RBC 2.44 Mil/uL (3.80-5.20); RED CELL DISTRIBUTION WIDTH 17.2 % (11.5-14.5); WHITE BLOOD COUNT 12.5 K/uL (4.8-10.8)
[2017-03-30 14:29] LABS: ALB/GLOB RATIO 0.8 (1.0-2.1); ALBUMIN 2.8 g/dL (3.5-5.0); CALCIUM 8.1 mg/dl (8.6-10.4); MAGNESIUM 2.2 mg/dL (1.6-2.3)
[2017-03-30 14:46] LABS: LYMPHOCYTE 10 % (20-40); MONOCYTE 11 % (0-10); NEUTROPHIL 79 % (50-75); TOTAL CELLS COUNTED 100
[2017-03-30 14:47] LABS: ANISOCYTOSIS SLIGHT; PLATELET ESTIMATE NORMAL (NORMAL)
[2017-03-30 14:48] LABS: HYPOCHROMIC SLIGHT; POLYCHROMIC SLIGHT; TARGET CELLS SLIGHT
--- NOTE | 2017-03-30 18:35 | CP.PCM.PN ---
Subjective - Date & Time of Evaluation Date of Evaluation: 03/30/17 Time of Evaluation: 08:40 - Subjective Subjective: clinically same Objective - Vital Signs/Intake and Output Vital Signs (last 24 hours): Temp Pulse Resp BP Pulse Ox 99.6 F 75 20 155/76 H 95 03/30/17 16:51 03/30/17 16:51 03/30/17 16:51 03/30/17 16:51 03/30/17 16:51 Intake and Output: 03/30/17 03/30/17 06:59 18:59 Intake Total 220 Balance 220 - Medications Medications: Current Medications Acetaminophen (Tylenol 325mg Tab) 650 mg PO Q6 PRN PRN Reason: Pain, moderate (4-7) Last Admin: 03/28/17 01:05 Dose: 650 mg Amiodarone HCl (Cordarone) 200 mg PO DAILY [facility] Last Admin: 03/30/17 10:12 Dose: 200 mg Epoetin Alonso (Procrit) 10,000 unit IV TTS [facility] Last Admin: 03/29/17 10:18 Dose: 10,000 unit Folic Acid (Folic Acid) 1 mg PO DAILY [facility] Last Admin: 03/30/17 10:02 Dose: 1 mg Hydromorphone HCl (Dilaudid) 0.5 mg IVP Q8H PRN PRN Reason: Pain, moderate (4-7) Last Admin: 03/30/17 08:50 Dose: 0.5 mg Piperacillin Sod/Tazobactam (Sod 2.25 gm/ Sodium Chloride) 100 mls @ 200 mls/ hr IVPB Q8 [facility] Insulin Human Regular (Novolin R) 0 unit SC ACHS [facility] PRN Reason: Protocol Last Admin: 03/30/17 17:04 Dose: 1 unit Metoprolol Tartrate (Lopressor) 100 mg PO DAILY [facility] Last Admin: 03/30/17 10:13 Dose: 100 mg Sevelamer Carbonate (Renvela) 1,600 mg PO TIDCC [facility] Last Admin: 03/30/17 17:04 Dose: 1,600 mg Vitamin B Complex/Vit C/Folic Acid (Nephro-Umu) 1 tab PO 0800 [facility] Last Admin: 03/30/17 08:00 Dose: 1 tab - Labs Labs: 03/30/17 14:00 03/30/17 14:00 PT 14.1 SECONDS (9.7-12.2) H 03/27/17 11:04 INR 1.2 03/27/17 11:04 APTT 29 SECONDS (21-34) 03/27/17 11:04 - Constitutional Appears: Well - Head Exam Head Exam: ATRAUMATIC, NORMAL INSPECTION, NORMOCEPHALIC - Eye Exam Eye Exam: EOMI, Normal appearance, PERRL Pupil Exam: NORMAL ACCOMODATION, PERRL - ENT Exam ENT Exam: Mucous Membranes Moist, Normal Exam - Neck Exam Neck Exam: Full ROM, Normal Inspection. absent: Lymphadenopathy - Respiratory Exam Respiratory Exam: Decreased Breath Sounds - Cardiovascular Exam Cardiovascular Exam: REGULAR RHYTHM, +S1, +S2 - GI/Abdominal Exam GI & Abdominal Exam: Soft, Diminished Bowel Sounds - Rectal Exam Rectal Exam: Deferred
[2017-03-31] MEDS: HYDROmorphone 0.5 mg/0.5 ml ISec IVP PRN ×2 (03:26→14:44)
[2017-03-31 08:02] LABS: BASO # 0.1 K/uL (0.0-0.2); BASO % 0.4 % (0.0-2.0); EOS % 0.3 % (0.0-4.0); HEMOGLOBIN 8.2 g/dL (11.0-16.0); LYMPH # 1.9 K/uL (1.0-4.3); LYMPH % 12.9 % (20.0-40.0); MEAN CELL VOLUME 95.4 fL (81.0-99.0); MEAN CORPUSCULAR HEMOGLOBIN 31.4 pg (27.0-31.0); MEAN CORPUSCULAR HGB CONC 32.9 g/dL (33.0-37.0); MEAN PLATELET VOLUME 9.4 fL (7.2-11.7); MONO % 6.5 % (0.0-10.0); NEUT # 11.8 K/uL (1.8-7.0); NEUT % 79.9 % (50.0-75.0); NRBC % 0.1 % (0.0-2.0); RBC 2.6 Mil/uL (3.80-5.20); RED CELL DISTRIBUTION WIDTH 16.9 % (11.5-14.5); WHITE BLOOD COUNT 14.8 K/uL (4.8-10.8)
[2017-03-31 08:20] LABS: CALCIUM 8.2 mg/dl (8.6-10.4)
[2017-03-31] MEDS: (Novolin R) Insulin Human Regular 100 units/ml vial SC SCH ×4 (08:30→21:47)
[2017-03-31] MEDS: Multivitamin Vitamin B Complex (Nephro-Vite) Tab PO SCH (08:40)
[2017-03-31] MEDS: Epoetin Alfa 10,000 unit/ml Dialysis IV SCH (10:54)
--- NOTE | 2017-03-31 16:37 | CP.PCM.PN ---
Subjective - Date & Time of Evaluation Date of Evaluation: 03/31/17 Time of Evaluation: 08:20 - Subjective Subjective: clinically same Objective - Vital Signs/Intake and Output Vital Signs (last 24 hours): Temp Pulse Resp BP Pulse Ox 97.3 F L 68 16 130/69 100 03/31/17 12:14 03/31/17 12:14 03/31/17 12:14 03/31/17 12:14 03/31/17 12:14 Intake and Output: 03/31/17 03/31/17 06:59 18:59 Intake Total 280 Balance 280 - Medications Medications: Current Medications Acetaminophen (Tylenol 325mg Tab) 650 mg PO Q6 PRN PRN Reason: Pain, moderate (4-7) Last Admin: 03/28/17 01:05 Dose: 650 mg Amiodarone HCl (Cordarone) 200 mg PO DAILY [facility] Last Admin: 03/31/17 14:30 Dose: 200 mg Epoetin Alonso (Procrit) 10,000 unit IV TTS [facility] Last Admin: 03/31/17 10:54 Dose: 10,000 unit Folic Acid (Folic Acid) 1 mg PO DAILY [facility] Last Admin: 03/31/17 14:30 Dose: 1 mg Hydromorphone HCl (Dilaudid) 0.5 mg IVP Q8H PRN PRN Reason: Pain, moderate (4-7) Last Admin: 03/31/17 14:44 Dose: 0.5 mg Piperacillin Sod/Tazobactam (Sod 2.25 gm/ Sodium Chloride) 100 mls @ 200 mls/ hr IVPB Q8 [facility] Last Admin: 03/31/17 14:44 Dose: 200 mls/hr Insulin Human Regular (Novolin R) 0 unit SC ACHS [facility] PRN Reason: Protocol Last Admin: 03/31/17 13:22 Dose: 2 unit Metoprolol Tartrate (Lopressor) 100 mg PO DAILY [facility] Last Admin: 03/31/17 10:47 Dose: Not Given Sevelamer Carbonate (Renvela) 1,600 mg PO TIDCC [facility] Last Admin: 03/31/17 13:23 Dose: 1,600 mg Vitamin B Complex/Vit C/Folic Acid (Nephro-Umu) 1 tab PO 0800 [facility] Last Admin: 03/31/17 08:40 Dose: 1 tab Warfarin Sodium (Coumadin) 5 mg PO 1800 [facility] Stop: 03/31/17 18:01 - Labs Labs: 03/31/17 07:34 03/31/17 07:34 PT 14.1 SECONDS (9.7-12.2) H 03/27/17 11:04 INR 1.2 03/27/17 11:04 APTT 29 SECONDS (21-34) 03/27/17 11:04 - Constitutional Appears: Well - Head Exam Head Exam: ATRAUMATIC, NORMAL INSPECTION, NORMOCEPHALIC - Eye Exam Eye Exam: EOMI, Normal appearance, PERRL Pupil Exam: NORMAL ACCOMODATION, PERRL - ENT Exam ENT Exam: Mucous Membranes Moist, Normal Exam - Neck Exam Neck Exam: Full ROM, Normal Inspection. absent: Lymphadenopathy - Respiratory Exam Respiratory Exam: Decreased Breath Sounds - Cardiovascular Exam Cardiovascular Exam: REGULAR RHYTHM, +S1, +S2 - GI/Abdominal Exam GI & Abdominal Exam: Soft, Diminished Bowel Sounds - Rectal Exam Rectal Exam: Deferred
--- NOTE | 2017-03-31 18:21 | CP.PCM.PN ---
Subjective - Date & Time of Evaluation Date of Evaluation: 03/31/17 Time of Evaluation: 18:20 - Subjective Subjective: Assessment: Stable sepsis ? due to UTI/sacral decubitus Hypertensive Chronic Kidney Disease (I12.0), Diabetic CKD (E11.22) End stage renal disease (N18.6) dependence on hemodialysis (Z99.2) (TTS) via permacath Anemia Hyperphosphatemia (E83.39), Secondary Hyperparathyroidism (E21.1), HTN ( I12.0) Plan: HD TTS, continue per schedule and done today anemia: epo with hd and transfuse prn Continue with phos binders home dose. BP improved now Dose meds/antibiotics for ESRD status. continue nephrocaps Physical Examination: General Appearance: Comfortable, in no acute respiratory distress, co-operative . Vitals reviewed and noted as below Head; Atraumatic, normocephalic ENT: Tongue is midline. Oropharynx: no rash or ulcers. EYES: Sclera is anicteric. Neck; supple no thyromegaly or bruit Lungs: Normal respiratory rate/effort. Breath sounds bilateral equal and clear Heart: Normal rate. s1s2 normal. No rub or gallop. Extremities: 1+ edema. No varicose veins Neurological: Patient is alert, awake and oriented to person, place and time. chronically bed bound Skin: Warm and dry. Normal turgor. No rash. Palpitation: Normal elasticity for age Abdomen: Abdomen is soft. Bowel sounds +. There is no abdominal tenderness, no guarding/rigidity or organomegaly Psych: normal insight and normal affect/mood MSK: no joint tenderness or swelling. no deformity Access: permacath Objective - Vital Signs/Intake and Output Vital Signs (last 24 hours): Temp Pulse Resp BP Pulse Ox 98.9 F 75 20 124/66 95 03/31/17 17:10 03/31/17 17:10 03/31/17 17:10 03/31/17 17:10 03/31/17 17:10 Intake and Output: 03/31/17 03/31/17 06:59 18:59 Intake Total 780 Balance 780 - Medications Medications: Current Medications Acetaminophen (Tylenol 325mg Tab) 650 mg PO Q6 PRN PRN Reason: Pain, moderate (4-7) Last Admin: 03/28/17 01:05 Dose: 650 mg Amiodarone HCl (Cordarone) 200 mg PO DAILY [facility] Last Admin: 03/31/17 14:30 Dose: 200 mg Epoetin Alonso (Procrit) 10,000 unit IV TTS [facility] Last Admin: 03/31/17 10:54 Dose: 10,000 unit Folic Acid (Folic Acid) 1 mg PO DAILY [facility] Last Admin: 03/31/17 14:30 Dose: 1 mg Hydromorphone HCl (Dilaudid) 0.5 mg IVP Q8H PRN PRN Reason: Pain, moderate (4-7) Last Admin: 03/31/17 14:44 Dose: 0.5 mg Piperacillin Sod/Tazobactam (Sod 2.25 gm/ Sodium Chloride) 100 mls @ 200 mls/ hr IVPB Q8 [facility] Last Admin: 03/31/17 14:44 Dose: 200 mls/hr Insulin Human Regular (Novolin R) 0 unit SC ACHS [facility] PRN Reason: Protocol Last Admin: 03/31/17 16:30 Dose: 3 unit Metoprolol Tartrate (Lopressor) 100 mg PO DAILY [facility] Last Admin: 03/31/17 10:47 Dose: Not Given Sevelamer Carbonate (Renvela) 1,600 mg PO TIDCC [facility] Last Admin: 03/31/17 17:39 Dose: 1,600 mg Vitamin B Complex/Vit C/Folic Acid (Nephro-Umu) 1 tab PO 0800 [facility] Last Admin: 03/31/17 08:40 Dose: 1 tab - Labs Labs: 03/31/17 07:34 03/31/17 07:34 PT 14.1 SECONDS (9.7-12.2) H 03/27/17 11:04 INR 1.2 03/27/17 11:04 APTT 29 SECONDS (21-34) 03/27/17 11:04
[2017-03-31 19:26] LABS: INR 1.2; PROTHROMBIN TIME 13.7 SECONDS (9.7-12.2)
[2017-04-01] MEDS: HYDROmorphone 0.5 mg/0.5 ml ISec IVP PRN ×2 (06:12→17:34)
[2017-04-01 08:13] LABS: INR 1.2; PROTHROMBIN TIME 13.8 SECONDS (9.7-12.2)
[2017-04-01] MEDS: Multivitamin Vitamin B Complex (Nephro-Vite) Tab PO SCH (08:40)
[2017-04-01] MEDS: (Novolin R) Insulin Human Regular 100 units/ml vial SC SCH ×4 (08:40→22:50)
--- NOTE | 2017-04-01 15:30 | CP.PCM.PN ---
Subjective - Date & Time of Evaluation Date of Evaluation: 04/01/17 Time of Evaluation: 06:00 - Subjective Subjective: no fever cultures reviewewd Objective - Vital Signs/Intake and Output Vital Signs (last 24 hours): Temp Pulse Resp BP Pulse Ox 98.6 F 75 20 132/70 95 04/01/17 09:39 04/01/17 09:39 04/01/17 09:39 04/01/17 09:39 04/01/17 09:39 Intake and Output: 04/01/17 04/01/17 06:59 18:59 Intake Total 240 Balance 240 - Medications Medications: Current Medications Acetaminophen (Tylenol 325mg Tab) 650 mg PO Q6 PRN PRN Reason: Pain, moderate (4-7) Last Admin: 03/28/17 01:05 Dose: 650 mg Amiodarone HCl (Cordarone) 200 mg PO DAILY [facility] Last Admin: 04/01/17 11:03 Dose: 200 mg Epoetin Alonso (Procrit) 10,000 unit IV TTS [facility] Last Admin: 03/31/17 10:54 Dose: 10,000 unit Folic Acid (Folic Acid) 1 mg PO DAILY [facility] Last Admin: 04/01/17 11:03 Dose: 1 mg Hydromorphone HCl (Dilaudid) 0.5 mg IVP Q8H PRN PRN Reason: Pain, moderate (4-7) Last Admin: 04/01/17 06:12 Dose: 0.5 mg Piperacillin Sod/Tazobactam (Sod 2.25 gm/ Sodium Chloride) 100 mls @ 200 mls/ hr IVPB Q8 [facility] Last Admin: 04/01/17 14:44 Dose: 200 mls/hr Insulin Human Regular (Novolin R) 0 unit SC ACHS [facility] PRN Reason: Protocol Last Admin: 04/01/17 12:30 Dose: 2 unit Metoprolol Tartrate (Lopressor) 100 mg PO DAILY [facility] Last Admin: 04/01/17 11:03 Dose: 100 mg Sevelamer Carbonate (Renvela) 1,600 mg PO TIDCC [facility] Last Admin: 04/01/17 12:30 Dose: 1,600 mg Vitamin B Complex/Vit C/Folic Acid (Nephro-Umu) 1 tab PO 0800 [facility] Last Admin: 04/01/17 08:40 Dose: 1 tab Warfarin Sodium (Coumadin) 7.5 mg PO 1800 [facility] Stop: 04/01/17 18:01 - Labs Labs: 03/31/17 07:34 03/31/17 07:34 PT 13.8 SECONDS (9.7-12.2) H 04/01/17 07:57 INR 1.2 04/01/17 07:57 APTT 29 SECONDS (21-34) 03/27/17 11:04 - Constitutional Appears: Non-toxic, Chronically Ill - Head Exam Head Exam: NORMOCEPHALIC - Eye Exam Eye Exam: absent: Scleral icterus - ENT Exam ENT Exam: Mucous Membranes Dry - Neck Exam Neck Exam: absent: Lymphadenopathy - Respiratory Exam Respiratory Exam: Decreased Breath Sounds - Cardiovascular Exam Cardiovascular Exam: REGULAR RHYTHM - GI/Abdominal Exam GI & Abdominal Exam: Distended, Soft - Rectal Exam Rectal Exam: Deferred - Exam Exam: NORMAL INSPECTION - Extremities Exam Extremities Exam: absent: Pedal Edema - Back Exam Back Exam: absent: CVA tenderness (L), CVA tenderness (R) - Neurological Exam Neurological Exam: Alert, Awake, CN II-XII Intact - Psychiatric Exam Psychiatric exam: Depressed - Skin Skin Exam: Dry Assessment and Plan (1) Sacral decubitus ulcer, stage IV Status: Acute (2) UTI (urinary tract infection) Status: Acute (3) Osteomyelitis Status: Acute (4) Sepsis Status: Acute (5) CKD (chronic kidney disease) stage 4, GFR 15-29 ml/min Status: Acute - Assessment and Plan (Free Text) Assessment: cont iv rx for 6 weeks debride as needed plastics eval
--- NOTE | 2017-04-01 16:17 | CP.PCM.PN ---
Subjective - Date & Time of Evaluation Date of Evaluation: 04/01/17 Time of Evaluation: 08:20 - Subjective Subjective: clinically same Objective - Vital Signs/Intake and Output Vital Signs (last 24 hours): Temp Pulse Resp BP Pulse Ox 98.6 F 75 20 132/70 95 04/01/17 09:39 04/01/17 09:39 04/01/17 09:39 04/01/17 09:39 04/01/17 09:39 Intake and Output: 04/01/17 04/01/17 06:59 18:59 Intake Total 240 500 Balance 240 500 - Medications Medications: Current Medications Acetaminophen (Tylenol 325mg Tab) 650 mg PO Q6 PRN PRN Reason: Pain, moderate (4-7) Last Admin: 03/28/17 01:05 Dose: 650 mg Amiodarone HCl (Cordarone) 200 mg PO DAILY [facility] Last Admin: 04/01/17 11:03 Dose: 200 mg Epoetin Alonso (Procrit) 10,000 unit IV TTS [facility] Last Admin: 03/31/17 10:54 Dose: 10,000 unit Folic Acid (Folic Acid) 1 mg PO DAILY [facility] Last Admin: 04/01/17 11:03 Dose: 1 mg Hydromorphone HCl (Dilaudid) 0.5 mg IVP Q8H PRN PRN Reason: Pain, moderate (4-7) Last Admin: 04/01/17 06:12 Dose: 0.5 mg Piperacillin Sod/Tazobactam (Sod 2.25 gm/ Sodium Chloride) 100 mls @ 200 mls/ hr IVPB Q8 [facility] Last Admin: 04/01/17 14:44 Dose: 200 mls/hr Insulin Human Regular (Novolin R) 0 unit SC ACHS [facility] PRN Reason: Protocol Last Admin: 04/01/17 12:30 Dose: 2 unit Metoprolol Tartrate (Lopressor) 100 mg PO DAILY [facility] Last Admin: 04/01/17 11:03 Dose: 100 mg Sevelamer Carbonate (Renvela) 1,600 mg PO TIDCC [facility] Last Admin: 04/01/17 12:30 Dose: 1,600 mg Vitamin B Complex/Vit C/Folic Acid (Nephro-Umu) 1 tab PO 0800 [facility] Last Admin: 04/01/17 08:40 Dose: 1 tab Warfarin Sodium (Coumadin) 7.5 mg PO 1800 [facility] Stop: 04/01/17 18:01 - Labs Labs: 03/31/17 07:34 03/31/17 07:34 PT 13.8 SECONDS (9.7-12.2) H 04/01/17 07:57 INR 1.2 04/01/17 07:57 APTT 29 SECONDS (21-34) 03/27/17 11:04
[2017-04-02 06:19] LABS: BASO % 0.4 % (0.0-2.0); EOS # 0.1 K/uL (0.0-0.7); EOS % 0.9 % (0.0-4.0); HEMOGLOBIN 7.6 g/dL (11.0-16.0); LYMPH % 16.5 % (20.0-40.0); MEAN CELL VOLUME 94.6 fL (81.0-99.0); MEAN CORPUSCULAR HEMOGLOBIN 30.9 pg (27.0-31.0); MEAN CORPUSCULAR HGB CONC 32.7 g/dL (33.0-37.0); MEAN PLATELET VOLUME 8.5 fL (7.2-11.7); MONO # 0.9 K/uL (0.0-0.8); MONO % 7.2 % (0.0-10.0); NEUT # 9.2 K/uL (1.8-7.0); RBC 2.44 Mil/uL (3.80-5.20); RED CELL DISTRIBUTION WIDTH 17.6 % (11.5-14.5); WHITE BLOOD COUNT 12.3 K/uL (4.8-10.8)
[2017-04-02 06:27] LABS: INR 1.6; PROTHROMBIN TIME 18.5 SECONDS (9.7-12.2)
[2017-04-02 06:42] LABS: ALB/GLOB RATIO 0.7 (1.0-2.1); ALBUMIN 2.7 g/dL (3.5-5.0); CALCIUM 7.8 mg/dl (8.6-10.4); MAGNESIUM 2.2 mg/dL (1.6-2.3)
[2017-04-02] MEDS: HYDROmorphone 0.5 mg/0.5 ml ISec IVP PRN ×2 (07:51→18:41)
[2017-04-02] MEDS: (Novolin R) Insulin Human Regular 100 units/ml vial SC SCH ×4 (08:26→22:36)
[2017-04-02] MEDS: Multivitamin Vitamin B Complex (Nephro-Vite) Tab PO SCH (11:10)
[2017-04-02] MEDS ORDERED: Epoetin Alfa 10,000 unit/ml Dialysis IV SCH (11:15)
--- NOTE | 2017-04-02 11:27 | CP.PCM.PN ---
Subjective - Date & Time of Evaluation Date of Evaluation: 04/02/17 Time of Evaluation: 11:25 - Subjective Subjective: Progress note. Attending: JEFFRY MONTAÑO. Pt seen and examined at bedside. No acute distress. No events overnight. No fevers, chills, vomiting, diarrhea. Objective - Vital Signs/Intake and Output Vital Signs (last 24 hours): Temp Pulse Resp BP Pulse Ox 98 F 68 20 158/80 H 97 04/02/17 08:48 04/02/17 08:48 04/02/17 08:48 04/02/17 08:48 04/02/17 08:48 Intake and Output: 04/02/17 04/02/17 06:59 18:59 Intake Total 220 350 Output Total 1 Balance 220 349 - Medications Medications: Current Medications Acetaminophen (Tylenol 325mg Tab) 650 mg PO Q6 PRN PRN Reason: Pain, moderate (4-7) Last Admin: 03/28/17 01:05 Dose: 650 mg Amiodarone HCl (Cordarone) 200 mg PO DAILY [facility] Last Admin: 04/02/17 11:10 Dose: 200 mg Amlodipine Besylate (Norvasc) 5 mg PO QPM [facility] Epoetin Alonso (Procrit) 14,000 unit IV TTS [facility] Folic Acid (Folic Acid) 1 mg PO DAILY [facility] Last Admin: 04/02/17 11:10 Dose: 1 mg Hydromorphone HCl (Dilaudid) 0.5 mg IVP Q8H PRN PRN Reason: Pain, moderate (4-7) Last Admin: 04/02/17 07:51 Dose: 0.5 mg Piperacillin Sod/Tazobactam (Sod 2.25 gm/ Sodium Chloride) 100 mls @ 200 mls/ hr IVPB Q8 [facility] Last Admin: 04/02/17 05:14 Dose: 200 mls/hr Insulin Human Regular (Novolin R) 0 unit SC ACHS [facility] PRN Reason: Protocol Last Admin: 04/02/17 08:26 Dose: Not Given Lisinopril (Zestril) 40 mg PO DAILY [facility] Metoprolol Tartrate (Lopressor) 100 mg PO DAILY [facility] Last Admin: 04/02/17 11:10 Dose: 100 mg Sevelamer Carbonate (Renvela) 1,600 mg PO TIDCC [facility] Last Admin: 04/02/17 09:00 Dose: 1,600 mg Vitamin B Complex/Vit C/Folic Acid (Nephro-Umu) 1 tab PO 0800 [facility] Last Admin: 04/02/17 11:10 Dose: 1 tab - Labs Labs: 04/02/17 06:14 04/02/17 06:14 PT 18.5 SECONDS (9.7-12.2) H 04/02/17 06:14 INR 1.6 04/02/17 06:14 APTT 29 SECONDS (21-34) 03/27/17 11:04 - Constitutional Appears: Non-toxic, No Acute Distress - Head Exam Head Exam: ATRAUMATIC, NORMAL INSPECTION, NORMOCEPHALIC - Eye Exam Eye Exam: EOMI - ENT Exam ENT Exam: Mucous Membranes Moist, Normal Exam - Neck Exam Neck Exam: Full ROM, Normal Inspection - Respiratory Exam Respiratory Exam: absent: Respiratory Distress - Cardiovascular Exam Cardiovascular Exam: +S1, +S2 - GI/Abdominal Exam GI & Abdominal Exam: Soft, Normal Bowel Sounds. absent: Tenderness - Extremities Exam Extremities Exam: Full ROM, Normal Inspection - Neurological Exam Neurological Exam: Alert, Awake, Oriented x3 - Psychiatric Exam Psychiatric exam: Normal Affect, Normal Mood - Skin Skin Exam: Dry, Intact, Normal Color, Warm Assessment and Plan - Assessment and Plan (Free Text) Assessment: This is a 66 yo female, originally from [facility], with Urosepsis 03/30: Changed dosing of Zosyn for renal dosing; now Zosyn 2.25 IVPB Q8H [facility]. WBC 12.5 decreasing; continue to monitor. Urosepsis Blood culture positive for Grp B Strep ID Consulted, Dr. George, f/u recs Zosyn 3.375IVPB Q8H [facility] ESRD HD ,Sat. PRBC as needed for anemia. On KEILA as epogen , last Hb 9 Continue with phos binders home dose. BP on low side due to sepsis. d/c liisnopril/ norvsac for now Glycemic control, Dialysis consistent diet Procrit 10,000 unit IV TTS [facility] Renvela 1,600 mg PO TIDCC [facility] Nephro-Umu 1 tab PO 0800 [facility] Diabetes Novolin 0 unit SC ACHS [facility] HTN Lopressor 100 mg PO DAILY [facility] Sacral decubitus ulcer, stage IV Tylenol 325mg Tab 650 mg PO Q6 PRN Dilaudid 0.5 mg IVP Q8H PRN general surgery consult. recs appreciated. Osteomyelitis -ID consult. recs appreciated. Hypoalbuminemia Albumin Human 25% (12.5 Gm/50 Ml)) 12.5 gm IV TTS PRN Prophylaxis SCDs -protonix discussed with Dr. Montaño.
--- NOTE | 2017-04-02 12:22 | CP.PCM.CON ---
History of Present Illness - History of Present Illness History of Present Illness: 66-year-old lady with prior history of hypertension, questionable diabetes, questionable prior CVA, from [facility]. It was complicated with end state renal disease she is dependent on hemodialysis 3 times a week. She was admitted through the emergency room with low-grade fever, was found with elevated white count and positive blood culture with gram-positive cocci. Seen by infectious disease on Zosyn. Was found also with large decubitus ulcer local management for possible surgery. From cardiac viewpoint she stable hemodynamically on beta kesha for hypertension with check an echocardiogram to evaluate her risks prior to surgery. Review of Systems - Review of Systems Systems not reviewed;Unavailable: Unstable Vital Signs - Constitutional Constitutional: Anorexia, Weakness - EENT Eyes: absent: Discharge Ears: absent: Ear Discharge, Dizziness Nose/Mouth/Throat: absent: Epistaxis - Cardiovascular Cardiovascular: absent: Acrocyanosis, Chest Pain, Diaphoresis, Dyspnea, Orthopnea, Syncope - Respiratory Respiratory: absent: Cough, Dyspnea, Hemoptysis - Gastrointestinal Gastrointestinal: absent: Abdominal Pain, Diarrhea - Genitourinary Genitourinary: absent: Change in Urinary Stream Past Patient History - Past Medical History & Family History Past Medical History?: Yes - Past Social History Smoking Status: Never Smoked - CARDIAC Hx Cardiac Disorders: Yes Hx Hypercholesterolemia: Yes Hx Hypertension: Yes - PULMONARY Hx Respiratory Disorders: No - NEUROLOGICAL Hx Neurological Disorder: Yes Hx Dementia: Yes - HEENT Hx HEENT Problems: No - RENAL Hx Chronic Kidney Disease: Yes Type of Dialysis Access: L chest permacath Date of Last Dialysis Treatment: 03/24/17 - ENDOCRINE/METABOLIC Hx Diabetes Mellitus Type 2: Yes - HEMATOLOGICAL/ONCOLOGICAL Hx Blood Disorders: Yes Hx Anemia: Yes - INTEGUMENTARY Hx Dermatological Problems: Yes Other/Comment: ulcer buttocks - MUSCULOSKELETAL/RHEUMATOLOGICAL Hx Musculoskeletal Disorders: Yes (right leg weakness due to debridemnet buttocks wound) Hx Falls: No Hx Osteoarthritis: Yes - GASTROINTESTINAL Hx Gastrointestinal Disorders: No - GENITOURINARY/GYNECOLOGICAL Hx Genitourinary Disorders: Yes Hx Incontinence: Yes Hx Urinary Tract Infection: Yes - PSYCHIATRIC Hx Psychophysiologic Disorder: No Hx Substance Use: No - SURGICAL HISTORY Hx Surgeries: Yes Hx Cardiac Catheterization: Yes Hx Vascular Surgery: Yes (perma cath insertion) Other/Comment: debridement ulcer buttocks - ANESTHESIA Hx Anesthesia: Yes Hx Anesthesia Reactions: No Hx Malignant Hyperthermia: No Meds Allergies/Adverse Reactions: Allergies Allergy/AdvReac Type Severity Reaction Status Date / Time No Known Allergies Allergy Verified 03/26/17 17:07 - Medications Medications: Current Medications Acetaminophen (Tylenol 325mg Tab) 650 mg PO Q6 PRN PRN Reason: Pain, moderate (4-7) Last Admin: 03/28/17 01:05 Dose: 650 mg Amiodarone HCl (Cordarone) 200 mg PO DAILY [facility] Last Admin: 04/02/17 11:10 Dose: 200 mg Amlodipine Besylate (Norvasc) 5 mg PO QPM [facility] Epoetin Alonso (Procrit) 10,000 unit IV TTS [facility] Epoetin Alonso (Procrit) 4,000 unit IV TTS [facility] Folic Acid (Folic Acid) 1 mg PO DAILY [facility] Last Admin: 04/02/17 11:10 Dose: 1 mg Hydromorphone HCl (Dilaudid) 0.5 mg IVP Q8H PRN PRN Reason: Pain, moderate (4-7) Last Admin: 04/02/17 07:51 Dose: 0.5 mg Piperacillin Sod/Tazobactam (Sod 2.25 gm/ Sodium Chloride) 100 mls @ 200 mls/ hr IVPB Q8 [facility] Last Admin: 04/02/17 05:14 Dose: 200 mls/hr Insulin Human Regular (Novolin R) 0 unit SC ACHS [facility] PRN Reason: Protocol Last Admin: 04/02/17 08:26 Dose: Not Given Lisinopril (Zestril) 40 mg PO DAILY [facility] Metoprolol Tartrate (Lopressor) 100 mg PO DAILY [facility] Last Admin: 04/02/17 11:10 Dose: 100 mg Sevelamer Carbonate (Renvela) 1,600 mg PO TIDCC [facility] Last Admin: 04/02/17 09:00 Dose: 1,600 mg Vitamin B Complex/Vit C/Folic Acid (Nephro-Umu) 1 tab PO 0800 [facility] Last Admin: 04/02/17 11:10 Dose: 1 tab Physical Exam - Constitutional Appears: Non-toxic - Head Exam Head Exam: ATRAUMATIC - Eye Exam Eye Exam: EOMI - ENT Exam ENT Exam: Mucous Membranes Moist - Neck Exam Neck exam: Negative for: Lymphadenopathy, Thyromegaly - Respiratory Exam Respiratory Exam: Clear to Auscultation Bilateral. absent: Rales - Cardiovascular Exam Cardiovascular Exam: REGULAR RHYTHM, Systolic Murmur - GI/Abdominal Exam GI & Abdominal Exam: Normal Bowel Sounds. absent: Organomegaly - Rectal Exam Rectal Exam: Deferred - Extremities Exam Extremities exam: Positive for: normal capillary refill. Negative for: calf tenderness - Neurological Exam Neurological exam: Alert, Oriented x3 - Psychiatric Exam Psychiatric exam: Normal Mood - Skin Skin Exam: Dry Results - Vital Signs Recent Vital Signs: Last Vital Signs Temp 98 F 04/02/17 08:48 Pulse 68 04/02/17 08:48 Resp 20 04/02/17 08:48 BP 158/80 H 04/02/17 08:48 Pulse Ox 97 04/02/17 08:48 - Labs Result Diagrams: 04/02/17 06:14 04/02/17 06:14 Labs: Laboratory Results - last 24 hr 04/01/17 04/01/17 04/02/17 17:12 20:58 06:14 WBC 12.3 H RBC 2.44 L Hgb 7.6 L Hct 23.1 L MCV 94.6 MCH 30.9 MCHC 32.7 L RDW 17.6 H Plt Count 442 H MPV 8.5 Neut % (Auto) 75.0 Lymph % (Auto) 16.5 L Overton % (Auto) 7.2 Eos % (Auto) 0.9 Baso % (Auto) 0.4 Neut # (Auto) 9.2 H Lymph # (Auto) 2.0 Overton # (Auto) 0.9 H Eos # (Auto) 0.1 Baso # (Auto) 0.0 PT INR Sodium Potassium Chloride Carbon Dioxide Anion Gap BUN Creatinine Est GFR ( Amer) Est GFR (Non-Af Amer) POC Glucose (mg/dL) 160 H 216 H Random Glucose Calcium Phosphorus Magnesium Total Bilirubin AST ALT Alkaline Phosphatase Total Protein Albumin Globulin Albumin/Globulin Ratio 04/02/17 04/02/17 04/02/17 06:14 06:14 07:43 WBC RBC Hgb Hct MCV MCH MCHC RDW Plt Count MPV Neut % (Auto) Lymph % (Auto) Overton % (Auto) Eos % (Auto) Baso % (Auto) Neut # (Auto) Lymph # (Auto) Overton # (Auto) Eos # (Auto) Baso # (Auto) PT 18.5 H INR 1.6 Sodium 128 L Potassium 4.1 Chloride 91 L Carbon Dioxide 24 Anion Gap 17 BUN 48 H Creatinine 4.1 H Est GFR ( Amer) 13 Est GFR (Non-Af Amer) 11 POC Glucose (mg/dL) 139 H Random Glucose 144 H Calcium 7.8 L Phosphorus 5.7 H Magnesium 2.2 Total Bilirubin 0.9 AST 39 H D ALT 39 Alkaline Phosphatase 398 H Total Protein 6.5 Albumin 2.7 L Globulin 3.8 Albumin/Globulin Ratio 0.7 L 04/02/17 11:30 WBC RBC Hgb Hct MCV MCH MCHC RDW Plt Count MPV Neut % (Auto) Lymph % (Auto) Overton % (Auto) Eos % (Auto) Baso % (Auto) Neut # (Auto) Lymph # (Auto) Overton # (Auto) Eos # (Auto) Baso # (Auto) PT INR Sodium Potassium Chloride Carbon Dioxide Anion Gap BUN Creatinine Est GFR ( Amer) Est GFR (Non-Af Amer) POC Glucose (mg/dL) 217 H Random Glucose Calcium Phosphorus Magnesium Total Bilirubin AST ALT Alkaline Phosphatase Total Protein Albumin Globulin Albumin/Globulin Ratio Assessment & Plan (1) Sepsis Status: Acute Comment: With decubitus ulcer for possible surgery, evaluate an echocardiogram prior to surgery, ? cath infection (2) CKD (chronic kidney disease) stage 4, GFR 15-29 ml/min Status: Chronic (3) Sacral decubitus ulcer, stage IV Status: Chronic
[2017-04-02 12:52] LABS: INR 1.6; PROTHROMBIN TIME 19.1 SECONDS (9.7-12.2)
--- NOTE | 2017-04-02 14:53 | CP.PCM.PN ---
Subjective - Date & Time of Evaluation Date of Evaluation: 04/02/17 Time of Evaluation: 14:52 - Subjective Subjective: Follow up Nephrology Consultation: Assessment: Stable sepsis ? due to UTI/sacral decubitus Hypertensive Chronic Kidney Disease (I12.0), Diabetic CKD (E11.22) End stage renal disease (N18.6) dependence on hemodialysis (Z99.2) (TTS) via permacath Anemia Hyperphosphatemia (E83.39), Secondary Hyperparathyroidism (E21.1), HTN ( I12.0) Plan: for HD tomorrow as ordered. Continue with Nephrovite 1 tab/day. PRBC as needed for anemia. On KEILA as epogen (increased) , last Hb 7.6 Continue with phos binders home dose. resume BP meds as liisnopril/ norvsac Glycemic control, Dialysis consistent diet Further work up/management as per primary team Dose meds/antibiotics for ESRD status. Avoid fleets enema/magnesium based laxatives. ID following Thanks for allowing me to participate in care of your patient. Will follow patient with you. Please call if any Qs. Dr Ryan Carter Office: [phone] ROS Cardiovascular: No chest pain. Pulmonary: improved shortness of breath Gastrointestinal: denies abdominal pain no further nausea vomiting Genitourinary: No pain while urinating. Denies blood in urine. All other negative except sacral ulcer had permacath exchanged recently Physical Examination: General Appearance: Comfortable, in no acute respiratory distress, co-operative . Vitals reviewed and noted as below Head; Atraumatic, normocephalic ENT: no ulcers no thrush. Tongue is midline. Oropharynx: no rash or ulcers. EYES: Pupils are equal, round and reactive to light accommodation. Eye muscles and extraocular movement intact. Sclera is anicteric. Neck; supple no lymphadenopathy, no thyromegaly or bruit Lungs: Normal respiratory rate/effort. Breath sounds bilateral equal and clear Heart: Normal rate. s1s2 normal. No rub or gallop. Extremities: 1+ edema. No varicose veins Neurological: Patient is alert, awake and oriented to person, place and time. chronically bed bound Skin: Warm and dry. Normal turgor. No rash. Palpitation: Normal elasticity for age Abdomen: Abdomen is soft. Bowel sounds +. There is no abdominal tenderness, no guarding/rigidity or organomegaly Psych: normal insight and normal affect/mood MSK: no joint tenderness or swelling. Digits and nails normal, no deformity : kidney or bladder not palpable Access: permacath Labs/imaging reviewed. Past medical history, past surgical history, family history, social history, allergy reviewed and noted as below Family Hx: no hx of CKD. Non contributory Objective - Vital Signs/Intake and Output Vital Signs (last 24 hours): Temp Pulse Resp BP Pulse Ox 98 F 68 20 158/80 H 97 04/02/17 08:48 04/02/17 08:48 04/02/17 08:48 04/02/17 08:48 04/02/17 08:48 Intake and Output: 04/02/17 04/02/17 06:59 18:59 Intake Total 220 350 Output Total 1 Balance 220 349 - Medications Medications: Current Medications Acetaminophen (Tylenol 325mg Tab) 650 mg PO Q6 PRN PRN Reason: Pain, moderate (4-7) Last Admin: 03/28/17 01:05 Dose: 650 mg Amiodarone HCl (Cordarone) 200 mg PO DAILY [facility] Last Admin: 04/02/17 11:10 Dose: 200 mg Amlodipine Besylate (Norvasc) 5 mg PO QPM [facility] Epoetin Alonso (Procrit) 10,000 unit IV TTS [facility] Epoetin Alonso (Procrit) 4,000 unit IV TTS [facility] Folic Acid (Folic Acid) 1 mg PO DAILY [facility] Last Admin: 04/02/17 11:10 Dose: 1 mg Hydromorphone HCl (Dilaudid) 0.5 mg IVP Q8H PRN PRN Reason: Pain, moderate (4-7) Last Admin: 04/02/17 07:51 Dose: 0.5 mg Piperacillin Sod/Tazobactam (Sod 2.25 gm/ Sodium Chloride) 100 mls @ 200 mls/ hr IVPB Q8 [facility] Last Admin: 04/02/17 05:14 Dose: 200 mls/hr Insulin Human Regular (Novolin R) 0 unit SC ACHS [facility] PRN Reason: Protocol Last Admin: 04/02/17 12:42 Dose: 2 unit Lisinopril (Zestril) 40 mg PO DAILY [facility] Last Admin: 04/02/17 12:42 Dose: 40 mg Metoprolol Tartrate (Lopressor) 100 mg PO DAILY [facility] Last Admin: 04/02/17 11:10 Dose: 100 mg Sevelamer Carbonate (Renvela) 1,600 mg PO TIDCC [facility] Last Admin: 04/02/17 12:42 Dose: 1,600 mg Vitamin B Complex/Vit C/Folic Acid (Nephro-Umu) 1 tab PO 0800 [facility] Last Admin: 04/02/17 11:10 Dose: 1 tab - Labs Labs: 04/02/17 06:14 04/02/17 06:14 PT 19.1 SECONDS (9.7-12.2) H 04/02/17 12:35 INR 1.6 04/02/17 12:35 APTT 32 SECONDS (21-34) 04/02/17 12:35
--- NOTE | 2017-04-02 18:37 | CP.PCM.CON ---
History of Present Illness - History of Present Illness History of Present Illness: General Surgery- Dr. Rivera 66F pmhx signficant for DM, HTN, ESRD on dialysis TTS; currently has bacteremia surgery was consulted for sacral decubitus ulcer that has been present for 1 year. Patient is experiencing pain in that area. Pt is non-mobile at home. Denies purulent drainage for sacral site, fevers, chills, nausea, vomiting, diarrhea PMH: stated above PSH: permacath placement ALL: NKDA SocialHx: Denies tobacco, etoh, recreational drug use Review of Systems - Review of Systems All systems: reviewed and no additional remarkable complaints except - Constitutional Constitutional: As Per HPI Past Patient History - Past Medical History & Family History Past Medical History?: Yes - Past Social History Smoking Status: Never Smoked - CARDIAC Hx Cardiac Disorders: Yes Hx Hypercholesterolemia: Yes Hx Hypertension: Yes - PULMONARY Hx Respiratory Disorders: No - NEUROLOGICAL Hx Neurological Disorder: Yes Hx Dementia: Yes - HEENT Hx HEENT Problems: No - RENAL Hx Chronic Kidney Disease: Yes Type of Dialysis Access: L chest permacath Date of Last Dialysis Treatment: 03/24/17 - ENDOCRINE/METABOLIC Hx Diabetes Mellitus Type 2: Yes - HEMATOLOGICAL/ONCOLOGICAL Hx Blood Disorders: Yes Hx Anemia: Yes - INTEGUMENTARY Hx Dermatological Problems: Yes Other/Comment: ulcer buttocks - MUSCULOSKELETAL/RHEUMATOLOGICAL Hx Musculoskeletal Disorders: Yes (right leg weakness due to debridemnet buttocks wound) Hx Falls: No Hx Osteoarthritis: Yes - GASTROINTESTINAL Hx Gastrointestinal Disorders: No - GENITOURINARY/GYNECOLOGICAL Hx Genitourinary Disorders: Yes Hx Incontinence: Yes Hx Urinary Tract Infection: Yes - PSYCHIATRIC Hx Psychophysiologic Disorder: No Hx Substance Use: No - SURGICAL HISTORY Hx Surgeries: Yes Hx Cardiac Catheterization: Yes Hx Vascular Surgery: Yes (perma cath insertion) Other/Comment: debridement ulcer buttocks - ANESTHESIA Hx Anesthesia: Yes Hx Anesthesia Reactions: No Hx Malignant Hyperthermia: No Meds Allergies/Adverse Reactions: Allergies Allergy/AdvReac Type Severity Reaction Status Date / Time No Known Allergies Allergy Verified 03/26/17 17:07 - Medications Medications: Current Medications Acetaminophen (Tylenol 325mg Tab) 650 mg PO Q6 PRN PRN Reason: Pain, moderate (4-7) Last Admin: 03/28/17 01:05 Dose: 650 mg Amiodarone HCl (Cordarone) 200 mg PO DAILY [facility] Last Admin: 04/02/17 11:10 Dose: 200 mg Amlodipine Besylate (Norvasc) 5 mg PO QPM [facility] Epoetin Alonso (Procrit) 10,000 unit IV TTS [facility] Epoetin Alonso (Procrit) 4,000 unit IV TTS [facility] Folic Acid (Folic Acid) 1 mg PO DAILY [facility] Last Admin: 04/02/17 11:10 Dose: 1 mg Hydromorphone HCl (Dilaudid) 0.5 mg IVP Q8H PRN PRN Reason: Pain, moderate (4-7) Last Admin: 04/02/17 07:51 Dose: 0.5 mg Piperacillin Sod/Tazobactam (Sod 2.25 gm/ Sodium Chloride) 100 mls @ 200 mls/ hr IVPB Q8 [facility] Last Admin: 04/02/17 15:24 Dose: 200 mls/hr Insulin Human Regular (Novolin R) 0 unit SC ACHS [facility] PRN Reason: Protocol Last Admin: 04/02/17 18:00 Dose: Not Given Lisinopril (Zestril) 40 mg PO DAILY [facility] Last Admin: 04/02/17 12:42 Dose: 40 mg Metoprolol Tartrate (Lopressor) 100 mg PO DAILY [facility] Last Admin: 04/02/17 11:10 Dose: 100 mg Sevelamer Carbonate (Renvela) 1,600 mg PO TIDCC [facility] Last Admin: 04/02/17 12:42 Dose: 1,600 mg Vitamin B Complex/Vit C/Folic Acid (Nephro-Umu) 1 tab PO 0800 [facility] Last Admin: 04/02/17 11:10 Dose: 1 tab Physical Exam - Constitutional Appears: Non-toxic, No Acute Distress, Chronically Ill - Head Exam Head Exam: ATRAUMATIC - Eye Exam Eye Exam: EOMI. absent: Scleral icterus - ENT Exam ENT Exam: Mucous Membranes Moist - Respiratory Exam Respiratory Exam: NORMAL BREATHING PATTERN. absent: Accessory Muscle Use, Respiratory Distress - Cardiovascular Exam Cardiovascular Exam: +S1, +S2. absent: Bradycardia, Tachycardia - GI/Abdominal Exam GI & Abdominal Exam: Soft. absent: Distended, Firm, Guarding, Tenderness - Extremities Exam Extremities exam: Positive for: normal inspection. Negative for: calf tenderness - Neurological Exam Neurological exam: Alert, Oriented x3 - Psychiatric Exam Psychiatric exam: Normal Affect - Skin Skin Exam: Dry, Normal Color Results - Vital Signs Recent Vital Signs: Last Vital Signs Temp 99.4 F 04/02/17 16:00 Pulse 62 04/02/17 16:00 Resp 20 04/02/17 16:00 BP 153/82 H 04/02/17 16:00 Pulse Ox 98 04/02/17 16:00 - Labs Result Diagrams: 04/02/17 06:14 04/02/17 06:14 Labs: Laboratory Results - last 24 hr 04/01/17 04/02/17 04/02/17 20:58 06:14 06:14 WBC 12.3 H RBC 2.44 L Hgb 7.6 L Hct 23.1 L MCV 94.6 MCH 30.9 MCHC 32.7 L RDW 17.6 H Plt Count 442 H MPV 8.5 Neut % (Auto) 75.0 Lymph % (Auto) 16.5 L Jenkins % (Auto) 7.2 Eos % (Auto) 0.9 Baso % (Auto) 0.4 Neut # (Auto) 9.2 H Lymph # (Auto) 2.0 Jenkins # (Auto) 0.9 H Eos # (Auto) 0.1 Baso # (Auto) 0.0 PT INR APTT Sodium 128 L Potassium 4.1 Chloride 91 L Carbon Dioxide 24 Anion Gap 17 BUN 48 H Creatinine 4.1 H Est GFR ( Amer) 13 Est GFR (Non-Af Amer) 11 POC Glucose (mg/dL) 216 H Random Glucose 144 H Calcium 7.8 L Phosphorus 5.7 H Magnesium 2.2 Total Bilirubin 0.9 AST 39 H D ALT 39 Alkaline Phosphatase 398 H Total Protein 6.5 Albumin 2.7 L Globulin 3.8 Albumin/Globulin Ratio 0.7 L 04/02/17 04/02/17 04/02/17 06:14 07:43 11:30 WBC RBC Hgb Hct MCV MCH MCHC RDW Plt Count MPV Neut % (Auto) Lymph % (Auto) Jenkins % (Auto) Eos % (Auto) Baso % (Auto) Neut # (Auto) Lymph # (Auto) Jenkins # (Auto) Eos # (Auto) Baso # (Auto) PT 18.5 H INR 1.6 APTT Sodium Potassium Chloride Carbon Dioxide Anion Gap BUN Creatinine Est GFR ( Amer) Est GFR (Non-Af Amer) POC Glucose (mg/dL) 139 H 217 H Random Glucose Calcium Phosphorus Magnesium Total Bilirubin AST ALT Alkaline Phosphatase Total Protein Albumin Globulin Albumin/Globulin Ratio 04/02/17 04/02/17 12:35 16:20 WBC RBC Hgb Hct MCV MCH MCHC RDW Plt Count MPV Neut % (Auto) Lymph % (Auto) Jenkins % (Auto) Eos % (Auto) Baso % (Auto) Neut # (Auto) Lymph # (Auto) Jenkins # (Auto) Eos # (Auto) Baso # (Auto) PT 19.1 H INR 1.6 APTT 32 Sodium Potassium Chloride Carbon Dioxide Anion Gap BUN Creatinine Est GFR ( Amer) Est GFR (Non-Af Amer) POC Glucose (mg/dL) 153 H Random Glucose Calcium Phosphorus Magnesium Total Bilirubin AST ALT Alkaline Phosphatase Total Protein Albumin Globulin Albumin/Globulin Ratio Assessment & Plan - Assessment and Plan (Free Text) Assessment: 66F w/ Stage IV sacral decub ulcer; no necrotic areas measuring 10x 6x3cm Plan: recommend santyl local wound care PT Abx medical management per primary team d/w Dr. Rivera surgical attending [facility] PGY1
--- NOTE | 2017-04-02 18:57 | CP.PCM.PN ---
Subjective - Date & Time of Evaluation Date of Evaluation: 04/02/17 Time of Evaluation: 08:20 - Subjective Subjective: clinically same Objective - Vital Signs/Intake and Output Vital Signs (last 24 hours): Temp Pulse Resp BP Pulse Ox 99.4 F 62 20 153/82 H 98 04/02/17 16:00 04/02/17 16:00 04/02/17 16:00 04/02/17 16:00 04/02/17 16:00 Intake and Output: 04/02/17 04/02/17 06:59 18:59 Intake Total 220 350 Output Total 1 Balance 220 349 - Medications Medications: Current Medications Acetaminophen (Tylenol 325mg Tab) 650 mg PO Q6 PRN PRN Reason: Pain, moderate (4-7) Last Admin: 03/28/17 01:05 Dose: 650 mg Amiodarone HCl (Cordarone) 200 mg PO DAILY [facility] Last Admin: 04/02/17 11:10 Dose: 200 mg Amlodipine Besylate (Norvasc) 5 mg PO QPM [facility] Last Admin: 04/02/17 18:42 Dose: 5 mg Epoetin Alonso (Procrit) 10,000 unit IV TTS [facility] Epoetin Alonso (Procrit) 4,000 unit IV TTS [facility] Folic Acid (Folic Acid) 1 mg PO DAILY [facility] Last Admin: 04/02/17 11:10 Dose: 1 mg Hydromorphone HCl (Dilaudid) 0.5 mg IVP Q8H PRN PRN Reason: Pain, moderate (4-7) Last Admin: 04/02/17 18:41 Dose: 0.5 mg Piperacillin Sod/Tazobactam (Sod 2.25 gm/ Sodium Chloride) 100 mls @ 200 mls/ hr IVPB Q8 [facility] Last Admin: 04/02/17 15:24 Dose: 200 mls/hr Insulin Human Regular (Novolin R) 0 unit SC ACHS [facility] PRN Reason: Protocol Last Admin: 04/02/17 18:00 Dose: Not Given Lisinopril (Zestril) 40 mg PO DAILY [facility] Last Admin: 04/02/17 12:42 Dose: 40 mg Metoprolol Tartrate (Lopressor) 100 mg PO DAILY [facility] Last Admin: 04/02/17 11:10 Dose: 100 mg Sevelamer Carbonate (Renvela) 1,600 mg PO TIDCC [facility] Last Admin: 04/02/17 18:42 Dose: 1,600 mg Vitamin B Complex/Vit C/Folic Acid (Nephro-Umu) 1 tab PO 0800 [facility] Last Admin: 04/02/17 11:10 Dose: 1 tab - Labs Labs: 04/02/17 06:14 04/02/17 06:14 PT 19.1 SECONDS (9.7-12.2) H 04/02/17 12:35 INR 1.6 04/02/17 12:35 APTT 32 SECONDS (21-34) 04/02/17 12:35 - Constitutional Appears: Well - Head Exam Head Exam: ATRAUMATIC, NORMAL INSPECTION, NORMOCEPHALIC - Eye Exam Eye Exam: EOMI, Normal appearance, PERRL Pupil Exam: NORMAL ACCOMODATION, PERRL - ENT Exam ENT Exam: Mucous Membranes Moist, Normal Exam - Neck Exam Neck Exam: Full ROM, Normal Inspection. absent: Lymphadenopathy - Respiratory Exam Respiratory Exam: Decreased Breath Sounds - Cardiovascular Exam Cardiovascular Exam: REGULAR RHYTHM, +S1, +S2 - GI/Abdominal Exam GI & Abdominal Exam: Soft, Diminished Bowel Sounds - Rectal Exam Rectal Exam: Deferred
[2017-04-03] MEDS: HYDROmorphone 0.5 mg/0.5 ml ISec IVP PRN ×2 (03:33→12:37)
[2017-04-03 06:24] LABS: BASO % 0.3 % (0.0-2.0); EOS # 0.1 K/uL (0.0-0.7); EOS % 0.5 % (0.0-4.0); HEMOGLOBIN 7.1 g/dL (11.0-16.0); LYMPH # 1.6 K/uL (1.0-4.3); LYMPH % 12.6 % (20.0-40.0); MEAN CELL VOLUME 94.1 fL (81.0-99.0); MEAN CORPUSCULAR HEMOGLOBIN 30.9 pg (27.0-31.0); MEAN CORPUSCULAR HGB CONC 32.9 g/dL (33.0-37.0); MEAN PLATELET VOLUME 8.4 fL (7.2-11.7); MONO # 0.9 K/uL (0.0-0.8); NEUT % 79.6 % (50.0-75.0); RBC 2.28 Mil/uL (3.80-5.20); RED CELL DISTRIBUTION WIDTH 17.8 % (11.5-14.5); WHITE BLOOD COUNT 12.6 K/uL (4.8-10.8)
[2017-04-03 06:33] LABS: INR 1.9; PROTHROMBIN TIME 21.5 SECONDS (9.7-12.2)
[2017-04-03 06:52] LABS: ALB/GLOB RATIO 0.7 (1.0-2.1); ALBUMIN 2.6 g/dL (3.5-5.0); CALCIUM 7.4 mg/dl (8.6-10.4); MAGNESIUM 2.2 mg/dL (1.6-2.3)
[2017-04-03 07:49] VITALS: O2SAT 97
[2017-04-03] MEDS: (Novolin R) Insulin Human Regular 100 units/ml vial SC SCH ×4 (08:02→22:00)
--- NOTE | 2017-04-03 08:39 | CP.PCM.PN ---
Subjective - Date & Time of Evaluation Date of Evaluation: 04/03/17 Time of Evaluation: 07:00 - Subjective Subjective: General Surgery- Dr. Rivera Patient seen and examined at bedside this AM. No acute events overnight. Nursing notes reviewed. Pt has Stage IV sarcal decub ulcer, that patient admits to seeing wound care and a physician in [place] for, for every 2 weeks. She states that they wound vac is used sometimes, however recently it was taken off due to good healing. Objective - Vital Signs/Intake and Output Vital Signs (last 24 hours): Temp Pulse Resp BP Pulse Ox 98.2 F 74 20 149/72 97 04/03/17 07:45 04/03/17 07:45 04/03/17 07:45 04/03/17 07:45 04/03/17 07:45 Intake and Output: 04/03/17 04/03/17 06:59 18:59 Intake Total 400 300 Balance 400 300 - Medications Medications: Current Medications Acetaminophen (Tylenol 325mg Tab) 650 mg PO Q6 PRN PRN Reason: Pain, moderate (4-7) Last Admin: 03/28/17 01:05 Dose: 650 mg Amiodarone HCl (Cordarone) 200 mg PO DAILY [facility] Last Admin: 04/02/17 11:10 Dose: 200 mg Amlodipine Besylate (Norvasc) 5 mg PO QPM [facility] Last Admin: 04/02/17 18:42 Dose: 5 mg Epoetin Alonso (Procrit) 10,000 unit IV TTS [facility] Epoetin Alonso (Procrit) 4,000 unit IV TTS [facility] Folic Acid (Folic Acid) 1 mg PO DAILY [facility] Last Admin: 04/02/17 11:10 Dose: 1 mg Hydromorphone HCl (Dilaudid) 0.5 mg IVP Q8H PRN PRN Reason: Pain, moderate (4-7) Last Admin: 04/03/17 03:33 Dose: 0.5 mg Piperacillin Sod/Tazobactam (Sod 2.25 gm/ Sodium Chloride) 100 mls @ 200 mls/ hr IVPB Q8 [facility] Last Admin: 04/03/17 05:38 Dose: 200 mls/hr Insulin Human Regular (Novolin R) 0 unit SC ACHS [facility] PRN Reason: Protocol Last Admin: 04/03/17 08:02 Dose: Not Given Lisinopril (Zestril) 40 mg PO DAILY [facility] Last Admin: 04/02/17 12:42 Dose: 40 mg Metoprolol Tartrate (Lopressor) 100 mg PO DAILY [facility] Last Admin: 04/02/17 11:10 Dose: 100 mg Sevelamer Carbonate (Renvela) 1,600 mg PO TIDCC [facility] Last Admin: 04/02/17 18:42 Dose: 1,600 mg Vitamin B Complex/Vit C/Folic Acid (Nephro-Umu) 1 tab PO 0800 [facility] Last Admin: 04/02/17 11:10 Dose: 1 tab - Labs Labs: 04/03/17 06:12 04/03/17 06:12 PT 21.5 SECONDS (9.7-12.2) H 04/03/17 06:12 INR 1.9 04/03/17 06:12 APTT 32 SECONDS (21-34) 04/02/17 12:35 - Constitutional Appears: Non-toxic, No Acute Distress - Head Exam Head Exam: ATRAUMATIC - Eye Exam Eye Exam: EOMI. absent: Scleral icterus - ENT Exam ENT Exam: Mucous Membranes Moist - Respiratory Exam Respiratory Exam: NORMAL BREATHING PATTERN. absent: Accessory Muscle Use, Respiratory Distress - Cardiovascular Exam Cardiovascular Exam: +S1, +S2. absent: Bradycardia, Tachycardia - GI/Abdominal Exam GI & Abdominal Exam: Soft. absent: Rigid, Tenderness - Back Exam Additional comments: Stage IV sacral decub ulcer. Healing well w/ good grandulation tissue. No signs of necrotic areas. - Neurological Exam Neurological Exam: Alert, Awake - Skin Skin Exam: Warm Assessment and Plan - Assessment and Plan (Free Text) Assessment: 66F w/ Stage IV sacral decub ulcer; no necrotic areas w/ good granulation tissue. Pt actively seeing wound care at home caring for decub ulcer. Plan: recommend santyl local wound care PT Abx medical management per primary team no acute surgical intervention at this time d/w Dr. Rivera surgical attending [facility] PGY1
[2017-04-03] MEDS: Multivitamin Vitamin B Complex (Nephro-Vite) Tab PO SCH (08:55)
[2017-04-03] MEDS ORDERED: EPOETIN ALFA 4,000 UNIT/ML ML Dialysis IV SCH (10:00)
--- NOTE | 2017-04-03 10:59 | CP.PCM.PN ---
Subjective - Date & Time of Evaluation Date of Evaluation: 04/03/17 Time of Evaluation: 10:58 - Subjective Subjective: Follow up Nephrology Consultation: Assessment: Stable sepsis ? due to UTI/sacral decubitus Hypertensive Chronic Kidney Disease (I12.0), Diabetic CKD (E11.22) End stage renal disease (N18.6) dependence on hemodialysis (Z99.2) (TTS) via permacath Anemia Hyperphosphatemia (E83.39), Secondary Hyperparathyroidism (E21.1), HTN ( I12.0) Plan: for HD today as ordered. Continue with Nephrovite 1 tab/day. PRBC as needed for anemia. consider PRBC today. On KEILA as epogen (increased) , last Hb 7.1 Continue with phos binders home dose. resume BP meds as liisnopril/ norvsac Glycemic control, Dialysis consistent diet Further work up/management as per primary team Dose meds/antibiotics for ESRD status. Avoid fleets enema/magnesium based laxatives. ID following Thanks for allowing me to participate in care of your patient. Will follow patient with you. Please call if any Qs. Dr Ryan Carter Office: [phone] ROS Cardiovascular: No chest pain. Pulmonary: improved shortness of breath Gastrointestinal: denies abdominal pain no further nausea vomiting Genitourinary: No pain while urinating. Denies blood in urine. All other negative except sacral ulcer had permacath exchanged recently Physical Examination: General Appearance: Comfortable, in no acute respiratory distress, co-operative . Vitals reviewed and noted as below Head; Atraumatic, normocephalic ENT: no ulcers no thrush. Tongue is midline. Oropharynx: no rash or ulcers. EYES: Pupils are equal, round and reactive to light accommodation. Eye muscles and extraocular movement intact. Sclera is anicteric. Neck; supple no lymphadenopathy, no thyromegaly or bruit Lungs: Normal respiratory rate/effort. Breath sounds bilateral equal and clear Heart: Normal rate. s1s2 normal. No rub or gallop. Extremities: no edema. No varicose veins Neurological: Patient is alert, awake and oriented to person, place and time. chronically bed bound Skin: Warm and dry. Normal turgor. No rash. Palpitation: Normal elasticity for age Abdomen: Abdomen is soft. Bowel sounds +. There is no abdominal tenderness, no guarding/rigidity or organomegaly Psych: normal insight and normal affect/mood MSK: no joint tenderness or swelling. Digits and nails normal, no deformity : kidney or bladder not palpable Access: permacath Labs/imaging reviewed. Past medical history, past surgical history, family history, social history, allergy reviewed and noted as below Family Hx: no hx of CKD. Non contributory Objective - Vital Signs/Intake and Output Vital Signs (last 24 hours): Temp Pulse Resp BP Pulse Ox 98.2 F 74 20 149/72 97 04/03/17 07:45 04/03/17 07:45 04/03/17 07:45 04/03/17 07:45 04/03/17 07:45 Intake and Output: 04/03/17 04/03/17 06:59 18:59 Intake Total 400 300 Balance 400 300 - Medications Medications: Current Medications Acetaminophen (Tylenol 325mg Tab) 650 mg PO Q6 PRN PRN Reason: Pain, moderate (4-7) Last Admin: 03/28/17 01:05 Dose: 650 mg Amiodarone HCl (Cordarone) 200 mg PO DAILY [facility] Last Admin: 04/02/17 11:10 Dose: 200 mg Amlodipine Besylate (Norvasc) 5 mg PO QPM [facility] Last Admin: 04/02/17 18:42 Dose: 5 mg Collagenase (Santyl) 0 gm TOP DAILY [facility] Epoetin Alonso (Procrit) 10,000 unit IV TTS [facility] Epoetin Alonso (Procrit) 4,000 unit IV TTS [facility] Folic Acid (Folic Acid) 1 mg PO DAILY [facility] Last Admin: 04/02/17 11:10 Dose: 1 mg Hydromorphone HCl (Dilaudid) 0.5 mg IVP Q8H PRN PRN Reason: Pain, moderate (4-7) Last Admin: 04/03/17 03:33 Dose: 0.5 mg Piperacillin Sod/Tazobactam (Sod 2.25 gm/ Sodium Chloride) 100 mls @ 200 mls/ hr IVPB Q8 [facility] Last Admin: 04/03/17 05:38 Dose: 200 mls/hr Insulin Human Regular (Novolin R) 0 unit SC ACHS [facility] PRN Reason: Protocol Last Admin: 02/27/18 08:02 Dose: Not Given Lisinopril (Zestril) 40 mg PO DAILY [facility] Last Admin: 04/02/17 12:42 Dose: 40 mg Metoprolol Tartrate (Lopressor) 100 mg PO DAILY [facility] Last Admin: 04/02/17 11:10 Dose: 100 mg Sevelamer Carbonate (Renvela) 1,600 mg PO TIDCC [facility] Last Admin: 04/03/17 08:55 Dose: 1,600 mg Vitamin B Complex/Vit C/Folic Acid (Nephro-Umu) 1 tab PO 0800 [facility] Last Admin: 04/03/17 08:55 Dose: 1 tab - Labs Labs: 04/03/17 06:12 04/03/17 06:12 PT 21.5 SECONDS (9.7-12.2) H 04/03/17 06:12 INR 1.9 04/03/17 06:12 APTT 32 SECONDS (21-34) 04/02/17 12:35
--- NOTE | 2017-04-03 11:55 | CP.PCM.PN ---
Subjective - Date & Time of Evaluation Date of Evaluation: 04/03/17 Time of Evaluation: 11:50 - Subjective Subjective: Progress note. Attending: Dr. Ya.. Pt seen and examined at bedside. No acute distress. No events overnight. No fevers, chills, vomiting, diarrhea. Getting 1 unit of blood today. Objective - Vital Signs/Intake and Output Vital Signs (last 24 hours): Temp Pulse Resp BP Pulse Ox 98.2 F 74 20 149/72 97 04/03/17 07:45 04/03/17 07:45 04/03/17 07:45 04/03/17 07:45 04/03/17 07:45 Intake and Output: 04/03/17 04/03/17 06:59 18:59 Intake Total 400 300 Balance 400 300 - Medications Medications: Current Medications Acetaminophen (Tylenol 325mg Tab) 650 mg PO Q6 PRN PRN Reason: Pain, moderate (4-7) Last Admin: 03/28/17 01:05 Dose: 650 mg Amiodarone HCl (Cordarone) 200 mg PO DAILY [facility] Last Admin: 04/02/17 11:10 Dose: 200 mg Amlodipine Besylate (Norvasc) 5 mg PO QPM [facility] Last Admin: 04/02/17 18:42 Dose: 5 mg Collagenase (Santyl) 0 gm TOP DAILY [facility] Epoetin Alonso (Procrit) 10,000 unit IV TTS [facility] Epoetin Alonso (Procrit) 4,000 unit IV TTS [facility] Folic Acid (Folic Acid) 1 mg PO DAILY [facility] Last Admin: 04/02/17 11:10 Dose: 1 mg Hydromorphone HCl (Dilaudid) 0.5 mg IVP Q8H PRN PRN Reason: Pain, moderate (4-7) Last Admin: 04/03/17 03:33 Dose: 0.5 mg Piperacillin Sod/Tazobactam (Sod 2.25 gm/ Sodium Chloride) 100 mls @ 200 mls/ hr IVPB Q8 [facility] Last Admin: 04/03/17 05:38 Dose: 200 mls/hr Insulin Human Regular (Novolin R) 0 unit SC ACHS [facility] PRN Reason: Protocol Last Admin: 04/03/17 08:02 Dose: Not Given Lisinopril (Zestril) 40 mg PO DAILY [facility] Last Admin: 04/02/17 12:42 Dose: 40 mg Metoprolol Tartrate (Lopressor) 100 mg PO DAILY [facility] Last Admin: 04/02/17 11:10 Dose: 100 mg Sevelamer Carbonate (Renvela) 1,600 mg PO TIDCC [facility] Last Admin: 04/03/17 08:55 Dose: 1,600 mg Vitamin B Complex/Vit C/Folic Acid (Nephro-Umu) 1 tab PO 0800 [facility] Last Admin: 04/03/17 08:55 Dose: 1 tab - Labs Labs: 04/03/17 06:12 04/03/17 06:12 PT 21.5 SECONDS (9.7-12.2) H 04/03/17 06:12 INR 1.9 04/03/17 06:12 APTT 32 SECONDS (21-34) 04/02/17 12:35 - Constitutional Appears: No Acute Distress, Chronically Ill - Head Exam Head Exam: ATRAUMATIC, NORMAL INSPECTION, NORMOCEPHALIC - Eye Exam Eye Exam: EOMI - Neck Exam Neck Exam: Full ROM, Normal Inspection - Respiratory Exam Respiratory Exam: NORMAL BREATHING PATTERN. absent: Respiratory Distress - Cardiovascular Exam Cardiovascular Exam: +S1, +S2 - GI/Abdominal Exam GI & Abdominal Exam: Soft, Normal Bowel Sounds. absent: Tenderness - Extremities Exam Extremities Exam: Full ROM, Normal Inspection - Back Exam Back Exam: absent: NORMAL INSPECTION Additional comments: sacral decub ulcer, stage IV. - Neurological Exam Neurological Exam: Alert, Awake, Oriented x3 - Psychiatric Exam Psychiatric exam: Flat Affect - Skin Skin Exam: Dry, Intact, Normal Color, Warm Assessment and Plan - Assessment and Plan (Free Text) Assessment: This is a 66 yo female, originally from [facility], with Urosepsis 03/30: Changed dosing of Zosyn for renal dosing; now Zosyn 2.25 IVPB Q8H [facility]. Urosepsis Blood culture positive for Grp B Strep ID Consulted, Dr. George, f/u recs Zosyn 2.25IVPB Q8H [facility] ESRD HD Sun,,Sat. PRBC as needed for anemia. On KEILA as epogen , last Hb 9 Continue with phos binders home dose. BP on low side due to sepsis. d/c liisnopril/ norvsac for now Glycemic control, Dialysis consistent diet Procrit 10,000 unit IV TTS [facility] Renvela 1,600 mg PO TIDCC [facility] Nephro-Umu 1 tab PO 0800 [facility] will give 1 unit today of packed red cells. Diabetes Novolin 0 unit SC ACHS [facility] HTN Lopressor 100 mg PO DAILY [facility] Sacral decubitus ulcer, stage IV Tylenol 325mg Tab 650 mg PO Q6 PRN Dilaudid 0.5 mg IVP Q8H PRN general surgery consult. recs appreciated. no surgical intervention at this time. Osteomyelitis -ID consult. recs appreciated. Hypoalbuminemia Albumin Human 25% (12.5 Gm/50 Ml)) 12.5 gm IV TTS PRN Prophylaxis SCDs -protonix discussed with Dr. Ya.
--- NOTE | 2017-04-03 13:03 | CP.PCM.PN ---
Subjective - Date & Time of Evaluation Date of Evaluation: 04/03/17 Time of Evaluation: 13:00 - Subjective Subjective: Echocardiogram with normal left ventricular contractility, no aortic stenosis or effusion. She would have acceptable risk for cardiac complication from the surgry Objective - Vital Signs/Intake and Output Vital Signs (last 24 hours): Temp Pulse Resp BP Pulse Ox 98.2 F 74 20 149/72 97 04/03/17 07:45 04/03/17 07:45 04/03/17 07:45 04/03/17 07:45 04/03/17 07:45 Intake and Output: 04/03/17 04/03/17 06:59 18:59 Intake Total 400 300 Balance 400 300 - Medications Medications: Current Medications Acetaminophen (Tylenol 325mg Tab) 650 mg PO Q6 PRN PRN Reason: Pain, moderate (4-7) Last Admin: 03/28/17 01:05 Dose: 650 mg Amiodarone HCl (Cordarone) 200 mg PO DAILY [facility] Last Admin: 04/03/17 12:37 Dose: 200 mg Amlodipine Besylate (Norvasc) 5 mg PO QPM [facility] Last Admin: 04/02/17 18:42 Dose: 5 mg Collagenase (Santyl) 0 gm TOP DAILY [facility] Epoetin Alonso (Procrit) 10,000 unit IV TTS [facility] Epoetin Alonso (Procrit) 4,000 unit IV TTS [facility] Folic Acid (Folic Acid) 1 mg PO DAILY [facility] Last Admin: 04/03/17 12:36 Dose: 1 mg Hydromorphone HCl (Dilaudid) 0.5 mg IVP Q8H PRN PRN Reason: Pain, moderate (4-7) Last Admin: 04/03/17 12:37 Dose: 0.5 mg Piperacillin Sod/Tazobactam (Sod 2.25 gm/ Sodium Chloride) 100 mls @ 200 mls/ hr IVPB Q8 [facility] Last Admin: 04/03/17 05:38 Dose: 200 mls/hr Insulin Human Regular (Novolin R) 0 unit SC ACHS [facility] PRN Reason: Protocol Last Admin: 04/03/17 08:02 Dose: Not Given Lisinopril (Zestril) 40 mg PO DAILY [facility] Last Admin: 04/02/17 12:42 Dose: 40 mg Metoprolol Tartrate (Lopressor) 100 mg PO DAILY [facility] Last Admin: 02/26/18 11:10 Dose: 100 mg Sevelamer Carbonate (Renvela) 1,600 mg PO TIDCC [facility] Last Admin: 04/03/17 12:36 Dose: 1,600 mg Vitamin B Complex/Vit C/Folic Acid (Nephro-Umu) 1 tab PO 0800 [facility] Last Admin: 04/03/17 08:55 Dose: 1 tab - Labs Labs: 04/03/17 06:12 04/03/17 06:12 PT 21.5 SECONDS (9.7-12.2) H 04/03/17 06:12 INR 1.9 04/03/17 06:12 APTT 32 SECONDS (21-34) 04/02/17 12:35 - Constitutional Appears: Non-toxic - Head Exam Head Exam: ATRAUMATIC - Eye Exam Eye Exam: EOMI - ENT Exam ENT Exam: Mucous Membranes Moist - Neck Exam Neck Exam: absent: Lymphadenopathy, Thyromegaly - Respiratory Exam Respiratory Exam: Clear to Ausculation Bilateral. absent: Rales - Cardiovascular Exam Cardiovascular Exam: REGULAR RHYTHM, Murmur - GI/Abdominal Exam GI & Abdominal Exam: Normal Bowel Sounds. absent: Organomegaly - Rectal Exam Rectal Exam: Deferred - Extremities Exam Extremities Exam: Normal Capillary Refill. absent: Calf Tenderness - Neurological Exam Neurological Exam: Alert, Oriented x3 - Psychiatric Exam Psychiatric exam: Anxious - Skin Skin Exam: Dry Assessment and Plan (1) Sepsis Status: Acute (2) CKD (chronic kidney disease) stage 4, GFR 15-29 ml/min Status: Chronic (3) Sacral decubitus ulcer, stage IV Status: Chronic
--- NOTE | 2017-04-03 15:43 | CP.PCM.PN ---
Subjective - Date & Time of Evaluation Date of Evaluation: 04/03/17 Time of Evaluation: 15:38 - Subjective Subjective: DISCUSSED WITH THE CM PLAN FOR IV ABX UPON D/C. ORIGINAL PLAN WAS FOR PT TO HAVE ZOSYN IV X6 WEEKS. PT IS FOR D/C HOME WHEN STABLE PER CM. PT IS A DIALYSIS PT AND WE WOULD NEED NEPHRO APPROVAL FOR PICC LINE. I DISCUSSED THIS WITH DR. BASURTO. PER DR. BASURTO, OK TO D/C ZOSYN UPON D/C AND PLACE HER ON ANCEF 2 GM IV Q DIALYSIS DAY X6 WEEKS (START 04/05/17 AND LAST DOSE TO BE GIVEN ON 05/17/17). DISCUSSED THIS WITH CM KYLE AND SW MELANIE. SW WILL CONFIRM WITH HD LOCATION THAT ANCEF CAN BE GIVEN. RX GIVEN TO SW FOR THE IV ABX. NO FURTHER ORDERS AT THIS TIME. Objective - Vital Signs/Intake and Output Vital Signs (last 24 hours): Temp Pulse Resp BP Pulse Ox 97.7 F 68 18 140/75 97 04/03/17 15:35 04/03/17 15:35 04/03/17 15:35 04/03/17 15:35 04/03/17 07:45 Intake and Output: 04/03/17 04/03/17 06:59 18:59 Intake Total 400 300 Balance 400 300 - Medications Medications: Current Medications Acetaminophen (Tylenol 325mg Tab) 650 mg PO Q6 PRN PRN Reason: Pain, moderate (4-7) Last Admin: 03/28/17 01:05 Dose: 650 mg Amiodarone HCl (Cordarone) 200 mg PO DAILY [facility] Last Admin: 04/03/17 12:37 Dose: 200 mg Amlodipine Besylate (Norvasc) 5 mg PO QPM [facility] Last Admin: 04/02/17 18:42 Dose: 5 mg Collagenase (Santyl) 0 gm TOP DAILY [facility] Epoetin Alonso (Procrit) 10,000 unit IV TTS [facility] Epoetin Alonso (Procrit) 4,000 unit IV TTS [facility] Folic Acid (Folic Acid) 1 mg PO DAILY [facility] Last Admin: 04/03/17 12:36 Dose: 1 mg Hydromorphone HCl (Dilaudid) 0.5 mg IVP Q8H PRN PRN Reason: Pain, moderate (4-7) Last Admin: 04/03/17 12:37 Dose: 0.5 mg Piperacillin Sod/Tazobactam (Sod 2.25 gm/ Sodium Chloride) 100 mls @ 200 mls/ hr IVPB Q8 [facility] Last Admin: 04/03/17 14:03 Dose: 200 mls/hr Insulin Human Regular (Novolin R) 0 unit SC ACHS [facility] PRN Reason: Protocol Last Admin: 04/03/17 14:04 Dose: Not Given Lisinopril (Zestril) 40 mg PO DAILY [facility] Last Admin: 04/03/17 14:04 Dose: Not Given Metoprolol Tartrate (Lopressor) 100 mg PO DAILY [facility] Last Admin: 04/03/17 14:04 Dose: Not Given Sevelamer Carbonate (Renvela) 1,600 mg PO TIDCC [facility] Last Admin: 04/03/17 12:36 Dose: 1,600 mg Vitamin B Complex/Vit C/Folic Acid (Nephro-Umu) 1 tab PO 0800 [facility] Last Admin: 04/03/17 08:55 Dose: 1 tab - Labs Labs: 04/03/17 06:12 04/03/17 06:12 PT 21.5 SECONDS (9.7-12.2) H 04/03/17 06:12 INR 1.9 04/03/17 06:12 APTT 32 SECONDS (21-34) 04/02/17 12:35
[2017-04-03] MEDS: Collagenase 250 Units/gm Ointment(30 gm) TOP SCH (16:54)
--- NOTE | 2017-04-03 17:08 | CP.PCM.PN ---
Subjective - Date & Time of Evaluation Date of Evaluation: 04/03/17 Time of Evaluation: 08:20 - Subjective Subjective: clinically same Objective - Vital Signs/Intake and Output Vital Signs (last 24 hours): Temp Pulse Resp BP Pulse Ox 97.7 F 70 17 170/85 H 97 04/03/17 16:20 04/03/17 16:20 04/03/17 16:20 04/03/17 16:20 04/03/17 07:45 Intake and Output: 04/03/17 04/03/17 06:59 18:59 Intake Total 400 625 Balance 400 625 - Medications Medications: Current Medications Acetaminophen (Tylenol 325mg Tab) 650 mg PO Q6 PRN PRN Reason: Pain, moderate (4-7) Last Admin: 03/28/17 01:05 Dose: 650 mg Amiodarone HCl (Cordarone) 200 mg PO DAILY [facility] Last Admin: 04/03/17 12:37 Dose: 200 mg Amlodipine Besylate (Norvasc) 5 mg PO QPM [facility] Last Admin: 04/02/17 18:42 Dose: 5 mg Collagenase (Santyl) 0 gm TOP DAILY [facility] Last Admin: 04/03/17 16:54 Dose: Not Given Epoetin Alonso (Procrit) 10,000 unit IV TTS [facility] Epoetin Alonso (Procrit) 4,000 unit IV TTS [facility] Folic Acid (Folic Acid) 1 mg PO DAILY [facility] Last Admin: 04/03/17 12:36 Dose: 1 mg Hydromorphone HCl (Dilaudid) 0.5 mg IVP Q8H PRN PRN Reason: Pain, moderate (4-7) Last Admin: 04/03/17 12:37 Dose: 0.5 mg Piperacillin Sod/Tazobactam (Sod 2.25 gm/ Sodium Chloride) 100 mls @ 200 mls/ hr IVPB Q8 [facility] Last Admin: 04/03/17 14:03 Dose: 200 mls/hr Insulin Human Regular (Novolin R) 0 unit SC ACHS [facility] PRN Reason: Protocol Last Admin: 04/03/17 14:04 Dose: Not Given Lisinopril (Zestril) 40 mg PO DAILY [facility] Last Admin: 04/03/17 14:04 Dose: Not Given Metoprolol Tartrate (Lopressor) 100 mg PO DAILY [facility] Last Admin: 04/03/17 14:04 Dose: Not Given Sevelamer Carbonate (Renvela) 1,600 mg PO TIDCC [facility] Last Admin: 04/03/17 12:36 Dose: 1,600 mg Vitamin B Complex/Vit C/Folic Acid (Nephro-Umu) 1 tab PO 0800 [facility] Last Admin: 04/03/17 08:55 Dose: 1 tab - Labs Labs: 04/03/17 06:12 04/03/17 06:12 PT 21.5 SECONDS (9.7-12.2) H 04/03/17 06:12 INR 1.9 04/03/17 06:12 APTT 32 SECONDS (21-34) 04/02/17 12:35 - Constitutional Appears: Well - Head Exam Head Exam: ATRAUMATIC, NORMAL INSPECTION, NORMOCEPHALIC - Eye Exam Eye Exam: EOMI, Normal appearance, PERRL Pupil Exam: NORMAL ACCOMODATION, PERRL - ENT Exam ENT Exam: Mucous Membranes Moist, Normal Exam - Neck Exam Neck Exam: Full ROM, Normal Inspection. absent: Lymphadenopathy - Respiratory Exam Respiratory Exam: Decreased Breath Sounds - Cardiovascular Exam Cardiovascular Exam: REGULAR RHYTHM, +S1, +S2 - GI/Abdominal Exam GI & Abdominal Exam: Soft, Diminished Bowel Sounds - Rectal Exam Rectal Exam: Deferred
[2017-04-03] MEDS ORDERED: HYDROmorphone 1 mg/ml ISec IVP PRN (17:56)
[2017-04-03] MEDS ORDERED: HYDROmorphone 1 mg/ml ISec IVP STA (18:13)
[2017-04-03] MEDS ORDERED: HYDROmorphone 0.5 mg/0.5 ml ISec IVP PRN (18:15)
[2017-04-03 18:57] VITALS: RESP 20
--- NOTE | 2017-04-03 23:06 | CARD ---
APPROVED REPORT EXAM: Two-dimensional and M-mode echocardiogram with Doppler and color Doppler. Other Information Quality : GoodRhythm : INDICATION Pre-Op Infection: 2D DIMENSIONS IVSd1.2 (0.7-1.1cm)LVDd4.9 (3.9-5.9cm) PWd1.0 (0.7-1.1cm)LVDs3.7 (2.5-4.0cm) FS (%) 24.0 %LVEF (%)55.0 (>50%) M-Mode DIMENSIONS Left Atrium (MM)3.72 (2.5-4.0cm)Aortic Root3.37 (2.2-3.7cm) Aortic Cusp Exc.2.24 (1.5-2.0cm) Mitral Valve MV E Yfnesqpr173.2cm/sMV A Iwdnogbj85.3cm/sE/A ratio1.2 TDI E/Lateral E'0.0E/Medial E'0.0 Tricuspid Valve TR Peak [id number]/sTR Peak Gr.55mmHg LEFT VENTRICLE The left ventricle is normal size. There is normal left ventricular wall thickness. Left ventricle systolic function is normal. The Ejection Fraction is 50-55%. There is normal LV segmental wall motion. The left ventricular diastolic function is normal. RIGHT VENTRICLE The right ventricle is normal size. There is normal right ventricular wall thickness. The right ventricular systolic function is normal. ATRIA The left atrium size is normal. The right atrium size is normal. The interatrial septum is intact with no evidence for an atrial septal defect. AORTIC VALVE The aortic valve is mildly thickened and calcified but opens well. No aortic regurgitation is present. There is no aortic valvular stenosis. MITRAL VALVE Mitral annular calcification is mild. There is no evidence of mitral valve prolapse. There is no mitral valve stenosis. Mitral regurgitation is mild. TRICUSPID VALVE The tricuspid valve is normal in structure. There is mild tricuspid regurgitation. Right ventricular systolic pressure is estimated at greater than 60 mmHg. There is severe pulmonary hypertension. PULMONIC VALVE The pulmonic valve is not well visualized. There is mild pulmonic valvular regurgitation. GREAT VESSELS The aortic root is normal in size. PERICARDIAL EFFUSION There is no significant pericardial effusion. <Conclusion> Left ventricle systolic function is normal. The Ejection Fraction is 50-55%. No aortic regurgitation is present. Mitral regurgitation is mild. There is mild tricuspid regurgitation. There is severe pulmonary hypertension. There is mild pulmonic valvular regurgitation.
[2017-04-04] MEDS: (Novolin R) Insulin Human Regular 100 units/ml vial SC SCH ×2 (08:13→13:45)
[2017-04-04] MEDS: Multivitamin Vitamin B Complex (Nephro-Vite) Tab PO SCH (08:13)
[2017-04-04] MEDS: HYDROmorphone 0.5 mg/0.5 ml ISec IVP PRN (08:14)
[2017-04-04 08:24] LABS: BASO # 0.1 K/uL (0.0-0.2); BASO % 0.5 % (0.0-2.0); EOS % 0.1 % (0.0-4.0); LYMPH # 1.8 K/uL (1.0-4.3); LYMPH % 12.7 % (20.0-40.0); MEAN CELL VOLUME 92.6 fL (81.0-99.0); MEAN CORPUSCULAR HEMOGLOBIN 31.5 pg (27.0-31.0); MEAN PLATELET VOLUME 8.3 fL (7.2-11.7); MONO # 0.9 K/uL (0.0-0.8); MONO % 6.6 % (0.0-10.0); NEUT # 11.2 K/uL (1.8-7.0); NEUT % 80.1 % (50.0-75.0); RBC 2.87 Mil/uL (3.80-5.20); RED CELL DISTRIBUTION WIDTH 16.8 % (11.5-14.5)
[2017-04-04 08:39] VITALS: BP 142/76; PULSE 77
[2017-04-04 08:42] LABS: ALB/GLOB RATIO 0.7 (1.0-2.1); ALBUMIN 2.9 g/dL (3.5-5.0); MAGNESIUM 2.2 mg/dL (1.6-2.3)
--- NOTE | 2017-04-04 10:32 | CP.PCM.PN ---
Subjective - Date & Time of Evaluation Date of Evaluation: 04/04/17 Time of Evaluation: 10:30 - Subjective Subjective: Progress note. Attending: Dr. Ya. Pt seen and examined at bedside. No acute distress. No events overnight. No fevers, chills, vomiting, diarrhea. Objective - Vital Signs/Intake and Output Vital Signs (last 24 hours): Temp Pulse Resp BP Pulse Ox 98.7 F 77 20 142/76 97 04/04/17 08:37 04/04/17 08:37 04/04/17 08:37 04/04/17 08:37 04/04/17 08:37 Intake and Output: 04/04/17 04/04/17 06:59 18:59 Intake Total 340 Output Total 500 Balance -500 340 - Medications Medications: Current Medications Acetaminophen (Tylenol 325mg Tab) 650 mg PO Q6 PRN PRN Reason: Pain, moderate (4-7) Last Admin: 03/28/17 01:05 Dose: 650 mg Amiodarone HCl (Cordarone) 200 mg PO DAILY [facility] Last Admin: 04/03/17 12:37 Dose: 200 mg Amlodipine Besylate (Norvasc) 5 mg PO QPM [facility] Last Admin: 04/03/17 18:56 Dose: 5 mg Epoetin Alonso (Procrit) 10,000 unit IV TTS [facility] Last Admin: 04/03/17 18:45 Dose: 10,000 unit Epoetin Alonso (Procrit) 4,000 unit IV TTS [facility] Last Admin: 04/03/17 18:45 Dose: 4,000 unit Folic Acid (Folic Acid) 1 mg PO DAILY [facility] Last Admin: 04/03/17 12:36 Dose: 1 mg Hydromorphone HCl (Dilaudid) 0.5 mg IVP Q8H PRN PRN Reason: Pain, moderate (4-7) Last Admin: 04/04/17 08:14 Dose: 0.5 mg Hydromorphone HCl (Dilaudid) 1 mg IVP Q8H PRN PRN Reason: sacral pain Last Admin: 04/04/17 04:13 Dose: 1 mg Piperacillin Sod/Tazobactam (Sod 2.25 gm/ Sodium Chloride) 100 mls @ 200 mls/ hr IVPB Q8 [facility] Last Admin: 04/04/17 05:30 Dose: 200 mls/hr Insulin Human Regular (Novolin R) 0 unit SC ACHS [facility] PRN Reason: Protocol Last Admin: 04/04/17 08:13 Dose: 1 unit Lisinopril (Zestril) 40 mg PO DAILY [facility] Last Admin: 04/03/17 14:04 Dose: Not Given Metoprolol Tartrate (Lopressor) 100 mg PO DAILY [facility] Last Admin: 04/03/17 14:04 Dose: Not Given Sevelamer Carbonate (Renvela) 1,600 mg PO TIDCC [facility] Last Admin: 04/04/17 08:24 Dose: 1,600 mg Vitamin B Complex/Vit C/Folic Acid (Nephro-Umu) 1 tab PO 0800 [facility] Last Admin: 04/04/17 08:13 Dose: 1 tab - Labs Labs: 04/04/17 08:10 04/04/17 08:10 PT 21.5 SECONDS (9.7-12.2) H 04/03/17 06:12 INR 1.9 04/03/17 06:12 APTT 32 SECONDS (21-34) 04/02/17 12:35 - Constitutional Appears: Non-toxic, No Acute Distress - Head Exam Head Exam: ATRAUMATIC, NORMAL INSPECTION, NORMOCEPHALIC - Eye Exam Eye Exam: EOMI - Respiratory Exam Respiratory Exam: NORMAL BREATHING PATTERN. absent: Respiratory Distress - Cardiovascular Exam Cardiovascular Exam: +S1, +S2 - GI/Abdominal Exam GI & Abdominal Exam: Soft, Normal Bowel Sounds. absent: Tenderness - Extremities Exam Extremities Exam: Full ROM, Normal Inspection - Back Exam Back Exam: absent: NORMAL INSPECTION Additional comments: sacral ulcer stage IV. - Neurological Exam Neurological Exam: Alert, Awake, Oriented x3 - Psychiatric Exam Psychiatric exam: Flat Affect - Skin Skin Exam: Dry, Intact, Normal Color, Warm Assessment and Plan - Assessment and Plan (Free Text) Assessment: This is a 66 yo female, originally from [facility], with Urosepsis 03/30: Changed dosing of Zosyn for renal dosing; now Zosyn 2.25 IVPB Q8H [facility]. Urosepsis Blood culture positive for Grp B Strep ID Consulted, Dr. George, f/u recs Zosyn 2.25IVPB Q8H [facility] ESRD HD Tue,,Sat. PRBC as needed for anemia. On KEILA as epogen , last Hb 9 Continue with phos binders home dose. BP on low side due to sepsis. d/c liisnopril/ norvsac for now Glycemic control, Dialysis consistent diet Procrit 10,000 unit IV TTS [facility] Renvela 1,600 mg PO TIDCC [facility] Nephro-Umu 1 tab PO 0800 [facility] will give 1 unit today of packed red cells. Diabetes Novolin 0 unit SC ACHS [facility] HTN Lopressor 100 mg PO DAILY [facility] Sacral decubitus ulcer, stage IV Tylenol 325mg Tab 650 mg PO Q6 PRN Dilaudid 0.5 mg IVP Q8H PRN general surgery consult. recs appreciated. no surgical intervention at this time. Osteomyelitis -ID consult. recs appreciated. Hypoalbuminemia Albumin Human 25% (12.5 Gm/50 Ml)) 12.5 gm IV TTS PRN Prophylaxis SCDs -protonix DISPO: working on getting approval for ancef at dialysis center. discussed with Dr. Ya.
[2017-04-04] MEDS: Collagenase 250 Units/gm Ointment(30 gm) TOP SCH (10:57)
--- NOTE | 2017-04-04 12:44 | CP.PCM.PN ---
Subjective - Date & Time of Evaluation Date of Evaluation: 04/04/17 Time of Evaluation: 13:00 - Subjective Subjective: Stable hemodynamically on management for decubitus ulcer. Objective - Vital Signs/Intake and Output Vital Signs (last 24 hours): Temp Pulse Resp BP Pulse Ox 98.7 F 77 20 142/76 97 04/04/17 08:37 04/04/17 08:37 04/04/17 08:37 04/04/17 08:37 04/04/17 08:37 Intake and Output: 04/04/17 04/04/17 06:59 18:59 Intake Total 340 Output Total 500 Balance -500 340 - Medications Medications: Current Medications Acetaminophen (Tylenol 325mg Tab) 650 mg PO Q6 PRN PRN Reason: Pain, moderate (4-7) Last Admin: 03/28/17 01:05 Dose: 650 mg Amiodarone HCl (Cordarone) 200 mg PO DAILY [facility] Last Admin: 04/04/17 10:57 Dose: 200 mg Amlodipine Besylate (Norvasc) 5 mg PO QPM [facility] Last Admin: 04/03/17 18:56 Dose: 5 mg Epoetin Alonso (Procrit) 10,000 unit IV TTS [facility] Last Admin: 04/03/17 18:45 Dose: 10,000 unit Epoetin Alonso (Procrit) 4,000 unit IV TTS [facility] Last Admin: 04/03/17 18:45 Dose: 4,000 unit Folic Acid (Folic Acid) 1 mg PO DAILY [facility] Last Admin: 04/04/17 10:56 Dose: 1 mg Hydromorphone HCl (Dilaudid) 0.5 mg IVP Q8H PRN PRN Reason: Pain, moderate (4-7) Last Admin: 04/04/17 08:14 Dose: 0.5 mg Hydromorphone HCl (Dilaudid) 1 mg IVP Q8H PRN PRN Reason: sacral pain Last Admin: 04/04/17 04:13 Dose: 1 mg Piperacillin Sod/Tazobactam (Sod 2.25 gm/ Sodium Chloride) 100 mls @ 200 mls/ hr IVPB Q8 [facility] Last Admin: 04/04/17 05:30 Dose: 200 mls/hr Insulin Human Regular (Novolin R) 0 unit SC ACHS [facility] PRN Reason: Protocol Last Admin: 04/04/17 08:13 Dose: 1 unit Lisinopril (Zestril) 40 mg PO DAILY [facility] Last Admin: 04/04/17 10:56 Dose: 40 mg Metoprolol Tartrate (Lopressor) 100 mg PO DAILY [facility] Last Admin: 04/04/17 10:56 Dose: 100 mg Sevelamer Carbonate (Renvela) 1,600 mg PO TIDCC [facility] Last Admin: 04/04/17 08:24 Dose: 1,600 mg Vitamin B Complex/Vit C/Folic Acid (Nephro-Umu) 1 tab PO 0800 [facility] Last Admin: 04/04/17 08:13 Dose: 1 tab - Labs Labs: 04/04/17 08:10 04/04/17 08:10 PT 21.5 SECONDS (9.7-12.2) H 04/03/17 06:12 INR 1.9 04/03/17 06:12 APTT 32 SECONDS (21-34) 04/02/17 12:35 - Constitutional Appears: Non-toxic - Head Exam Head Exam: ATRAUMATIC - Eye Exam Eye Exam: EOMI - ENT Exam ENT Exam: Mucous Membranes Moist - Neck Exam Neck Exam: absent: Lymphadenopathy, Thyromegaly - Respiratory Exam Respiratory Exam: NORMAL BREATHING PATTERN. absent: Rales - Cardiovascular Exam Cardiovascular Exam: REGULAR RHYTHM, Murmur - GI/Abdominal Exam GI & Abdominal Exam: Normal Bowel Sounds. absent: Organomegaly - Rectal Exam Rectal Exam: Deferred - Extremities Exam Extremities Exam: Normal Capillary Refill. absent: Calf Tenderness - Neurological Exam Neurological Exam: Alert, Oriented x3 - Psychiatric Exam Psychiatric exam: Normal Mood - Skin Skin Exam: Dry Assessment and Plan (1) Sepsis Status: Acute (2) CKD (chronic kidney disease) stage 4, GFR 15-29 ml/min Status: Chronic (3) Sacral decubitus ulcer, stage IV Status: Chronic
--- NOTE | 2017-04-04 15:19 | CP.PCM.PN ---
Subjective - Date & Time of Evaluation Date of Evaluation: 04/04/17 Time of Evaluation: 08:20 - Subjective Subjective: clinically same Objective - Vital Signs/Intake and Output Vital Signs (last 24 hours): Temp Pulse Resp BP Pulse Ox 98.7 F 77 20 142/76 97 04/04/17 08:37 04/04/17 08:37 04/04/17 08:37 04/04/17 08:37 04/04/17 08:37 Intake and Output: 04/04/17 04/04/17 06:59 18:59 Intake Total 340 Output Total 500 Balance -500 340 - Medications Medications: Current Medications Acetaminophen (Tylenol 325mg Tab) 650 mg PO Q6 PRN PRN Reason: Pain, moderate (4-7) Last Admin: 03/28/17 01:05 Dose: 650 mg Amiodarone HCl (Cordarone) 200 mg PO DAILY [facility] Last Admin: 04/04/17 10:57 Dose: 200 mg Amlodipine Besylate (Norvasc) 5 mg PO QPM [facility] Last Admin: 04/03/17 18:56 Dose: 5 mg Epoetin Laonso (Procrit) 10,000 unit IV TTS [facility] Last Admin: 04/03/17 18:45 Dose: 10,000 unit Epoetin Alonso (Procrit) 4,000 unit IV TTS [facility] Last Admin: 04/03/17 18:45 Dose: 4,000 unit Folic Acid (Folic Acid) 1 mg PO DAILY [facility] Last Admin: 04/04/17 10:56 Dose: 1 mg Hydromorphone HCl (Dilaudid) 0.5 mg IVP Q8H PRN PRN Reason: Pain, moderate (4-7) Last Admin: 04/04/17 08:14 Dose: 0.5 mg Hydromorphone HCl (Dilaudid) 1 mg IVP Q8H PRN PRN Reason: sacral pain Last Admin: 04/04/17 04:13 Dose: 1 mg Piperacillin Sod/Tazobactam Sod (Zosyn 2.25 Gm Iv Premix) 2.25 gm in 50 mls @ 100 mls/hr IVPB Q8H [facility] Insulin Human Regular (Novolin R) 0 unit SC ACHS [facility] PRN Reason: Protocol Last Admin: 04/04/17 13:45 Dose: Not Given Lisinopril (Zestril) 40 mg PO DAILY [facility] Last Admin: 04/04/17 10:56 Dose: 40 mg Metoprolol Tartrate (Lopressor) 100 mg PO DAILY [facility] Last Admin: 04/04/17 10:56 Dose: 100 mg Sevelamer Carbonate (Renvela) 1,600 mg PO TIDCC [facility] Last Admin: 04/04/17 13:52 Dose: 1,600 mg Vitamin B Complex/Vit C/Folic Acid (Nephro-Umu) 1 tab PO 0800 [facility] Last Admin: 04/04/17 08:13 Dose: 1 tab - Labs Labs: 04/04/17 08:10 04/04/17 08:10 PT 21.5 SECONDS (9.7-12.2) H 04/03/17 06:12 INR 1.9 04/03/17 06:12 APTT 32 SECONDS (21-34) 04/02/17 12:35 - Constitutional Appears: Well - Head Exam Head Exam: ATRAUMATIC, NORMAL INSPECTION, NORMOCEPHALIC - Eye Exam Eye Exam: EOMI, Normal appearance, PERRL Pupil Exam: NORMAL ACCOMODATION, PERRL - ENT Exam ENT Exam: Mucous Membranes Moist, Normal Exam - Neck Exam Neck Exam: Full ROM, Normal Inspection. absent: Lymphadenopathy - Respiratory Exam Respiratory Exam: Decreased Breath Sounds - Cardiovascular Exam Cardiovascular Exam: REGULAR RHYTHM, +S1, +S2 - GI/Abdominal Exam GI & Abdominal Exam: Soft, Diminished Bowel Sounds - Rectal Exam Rectal Exam: Deferred
[2017-04-04] MEDS ORDERED: HYDROmorphone 1 mg/ml ISec IVP PRN (15:45)
[2017-04-04 16:44] VITALS: TEMP 99.1
--- NOTE | 2017-04-04 17:30 | CP.PCM.PN ---
Subjective - Date & Time of Evaluation Date of Evaluation: 04/04/17 Time of Evaluation: 16:00 - Subjective Subjective: Follow up Nephrology Consultation: Assessment: Stable sepsis ? due to UTI/sacral decubitus Hypertensive Chronic Kidney Disease (I12.0), Diabetic CKD (E11.22) End stage renal disease (N18.6) dependence on hemodialysis (Z99.2) (TTS) via permacath Anemia Hyperphosphatemia (E83.39), Secondary Hyperparathyroidism (E21.1), HTN ( I12.0) Plan: for HD Tomorrow as ordered. Continue with Nephrovite 1 tab/day. PRBC as needed for anemia. consider PRBC today. On KEILA as epogen (increased) , last Hb 7.1 Continue with phos binders home dose. resume BP meds as liisnopril/ norvsac Glycemic control, Dialysis consistent diet Further work up/management as per primary team Dose meds/antibiotics for ESRD status. Avoid fleets enema/magnesium based laxatives. ID following patient is stable for discharge when planning, from renal perspective Thanks for allowing me to participate in care of your patient. Will follow patient with you. Please call if any Qs. Dr Ryan Carter Office: [phone] ROS Cardiovascular: No chest pain. Pulmonary: improved shortness of breath Gastrointestinal: denies abdominal pain no further nausea vomiting Genitourinary: No pain while urinating. Denies blood in urine. All other negative except sacral ulcer and pain had permacath exchanged recently Physical Examination: General Appearance: Comfortable, in no acute respiratory distress, co-operative . Vitals reviewed and noted as below Head; Atraumatic, normocephalic ENT: no ulcers no thrush. Tongue is midline. Oropharynx: no rash or ulcers. EYES: Pupils are equal, round and reactive to light accommodation. Eye muscles and extraocular movement intact. Sclera is anicteric. Neck; supple no lymphadenopathy, no thyromegaly or bruit Lungs: Normal respiratory rate/effort. Breath sounds bilateral equal and clear Heart: Normal rate. s1s2 normal. No rub or gallop. Extremities: no edema. No varicose veins Neurological: Patient is alert, awake and oriented to person, place and time. chronically bed bound Skin: Warm and dry. Normal turgor. No rash. Palpitation: Normal elasticity for age Abdomen: Abdomen is soft. Bowel sounds +. There is no abdominal tenderness, no guarding/rigidity or organomegaly Psych: normal insight and normal affect/mood MSK: no joint tenderness or swelling. Digits and nails normal, no deformity : kidney or bladder not palpable Access: permacath Labs/imaging reviewed. Past medical history, past surgical history, family history, social history, allergy reviewed and noted as below Family Hx: no hx of CKD. Non contributory Objective - Vital Signs/Intake and Output Vital Signs (last 24 hours): Temp Pulse Resp BP Pulse Ox 99.1 F 77 20 142/76 97 04/04/17 16:00 04/04/17 16:18 04/04/17 16:00 04/04/17 16:18 04/04/17 16:18 Intake and Output: 04/04/17 04/04/17 06:59 18:59 Intake Total 740 Output Total 500 Balance -500 740 - Labs Labs: 04/04/17 08:10 04/04/17 08:10 PT 21.5 SECONDS (9.7-12.2) H 04/03/17 06:12 INR 1.9 04/03/17 06:12 APTT 32 SECONDS (21-34) 04/02/17 12:35
--- NOTE | 2017-04-04 17:55 | CP.PCM.PN ---
Subjective - Date & Time of Evaluation Date of Evaluation: 04/04/17 Time of Evaluation: 11:00 - Subjective Subjective: awake, alert, follows commands, no distress. Objective - Vital Signs/Intake and Output Vital Signs (last 24 hours): Temp Pulse Resp BP Pulse Ox 99.1 F 77 20 142/76 97 04/04/17 16:00 04/04/17 16:18 04/04/17 16:00 04/04/17 16:18 04/04/17 16:18 Intake and Output: 04/04/17 04/04/17 06:59 18:59 Intake Total 740 Output Total 500 Balance -500 740 - Labs Labs: 04/04/17 08:10 04/04/17 08:10 PT 21.5 SECONDS (9.7-12.2) H 04/03/17 06:12 INR 1.9 04/03/17 06:12 APTT 32 SECONDS (21-34) 04/02/17 12:35 Assessment and Plan - Assessment and Plan (Free Text) Assessment: Patient is seen and examined. Alert, responsive, no sob or chest pains. As per ID, she needs 6 weeks of ancef 2gms after each dialysis. Family will take her home, home care and sacral wound care is arranged by case management. Discussed with DR Kain Ya, agree with the plan. Advised to follow up with PMD in 1 week.
[2017-04-04] MEDS ORDERED: Piperacill/Tazo 2.25gm in Dex 2.25 GM/50 ML BAG IVPB SCH (22:00)
== END 2017-04-04 16:42 | disposition home or self-care (01) | DRG 871 ==
LOC: C.ER 16:57 → C.9E 19:36 → C.3T 20:49
PROVIDERS: ADMIT Internal Medicine Nephrology; ATTEND Internal Medicine Nephrology
DX: A41.9 Sepsis, unspecified organism (principal); L89.154 Pressure ulcer of sacral region, stage 4; E11.69 Type 2 diabetes mellitus with other specified complication; I12.0 Hypertensive chronic kidney disease with stage 5 chronic kidney disease or end stage renal disease; E11.22 Type 2 diabetes mellitus with diabetic chronic kidney disease; N18.6 End stage renal disease; N39.0 Urinary tract infection, site not specified; M86.9 Osteomyelitis, unspecified; N25.81 Secondary hyperparathyroidism of renal origin; E83.39 Other disorders of phosphorus metabolism; D64.9 Anemia, unspecified; B95.1 Streptococcus, group B, as the cause of diseases classified elsewhere; E88.09 Other disorders of plasma-protein metabolism, not elsewhere classified; E78.00 Pure hypercholesterolemia, unspecified; F03.90 Unspecified dementia, unspecified severity, without behavioral disturbance, psychotic disturbance, mood disturbance, and anxiety; Z79.4 Long term (current) use of insulin; Z86.73 Personal history of transient ischemic attack (TIA), and cerebral infarction without residual deficits; Z79.899 Other long term (current) drug therapy; Z99.2 Dependence on renal dialysis; Z87.440 Personal history of urinary (tract) infections

== ENCOUNTER 2017-04-26 17:55 | Inpatient (IN) | payer MEDICARE, BC, OTHER ==
[2017-04-26 17:55] VITALS: BMI 32.3
--- NOTE | 2017-04-26 18:35 | C.PDOC ---
History Of Present Illness The patient, whose PMHx includes Dementia, ESRD (on hemodialysis), presents to the ED for evaluation after she was found to have altered mental stratus during hemodialysis earlier today. Patient appeared lethargic and was slow to respond. Patient was recently evaluated in ED and admitted for sacral decub and urosepsis. She denies any other complaints at this time. Additional history limited because patient is a poor historian. Time Seen by Provider: 04/26/17 18:27 Chief Complaint (Nursing): Altered Mental Status History Per: Patient History/Exam Limitations: Other (poor historian ) Onset/Duration Of Symptoms: Hrs Exacerbating Factor(s): Unknown Additional History Per: Patient Past Medical History Reviewed: Historical Data, Nursing Documentation, Vital Signs Vital Signs: Last Vital Signs Temp 98.4 F 04/27/17 13:15 Pulse 68 04/27/17 16:18 Resp 18 04/27/17 16:18 BP 101/47 L 04/27/17 16:18 Pulse Ox 98 04/27/17 16:18 - Medical History PMH: Anemia, Dementia, HTN, Hypercholesterolemia, Chronic Kidney Disease Surgical History: No Surg Hx - [facility] Procedures PERFORMANCE OF URINARY FILTRATION, MULTIPLE (10/25/16) Family History: States: Unknown Family Hx - Social History Hx Alcohol Use: No Hx Substance Use: No Review Of Systems Neurological: Positive for: Altered Mental Status, Other (lethargic, slow to respond ) Physical Exam - Physical Exam Appears: Non-toxic, No Acute Distress Skin: Warm, Dry, Pale (mildly) Head: Atraumatic, Normacephalic Eye(s): bilateral: Normal Inspection Oral Mucosa: Moist Neck: Supple Chest: Symmetrical, No Deformity, No Tenderness Cardiovascular: Rhythm Regular, No Murmur Respiratory: Normal Breath Sounds, No Rales, No Rhonchi, No Wheezing Gastrointestinal/Abdominal: Soft, No Tenderness Extremity: Normal ROM, Capillary Refill (less than 2 seconds ) Neurological/Psych: Other (awake, alert and oriented x2) ED Course And Treatment - Laboratory Results Result Diagrams: 04/27/17 14:14 04/27/17 06:35 ECG: Interpreted By Me, Viewed By Me ECG Rhythm: Sinus Rhythm Interpretation Of ECG: Normal Sinus Rhythm at rate 74bpm. No ST/T wave changes. Rate From EC O2 Sat by Pulse Oximetry: 97 (on RA ) Pulse Ox Interpretation: Normal Medical Decision Making Medical Decision Making: ro gi bleed, sepsis- labs imaging pendign Progress: Bloodwork, urinalysis, CXR, CT Head, EKG ordered and reviewed. ekg nsr [address] twav e changes noted anemia, blood ffp ordered. case discusse diwht dr reina and gi fellow accepted icu. vit k dosed Disposition - Disposition Disposition: HOSPITALIZED Disposition Time: 08:00 Condition: CRITICAL - Clinical Impression Clinical Impression: GI bleed, Anemia, Sacral decubitus ulcer - Scribe Statement The provider has reviewed the documentation as recorded by the Scribe (Manju Ya) Provider Attestation: All medical record entries made by the Scribe were at my direction and personally dictated by me. I have reviewed the chart and agree that the record accurately reflects my personal performance of the history, physical exam, medical decision making, and the department course for this patient. I have also personally directed, reviewed, and agree with the discharge instructions and disposition. Decision To Admit - Pt Status Changed To: Hospital Disposition Of: Inpatient - Admit Certification Admit to Inpatient:: After my assessment, the patient will require hospitalization for at least two midnights. This is because of the severity of symptoms shown, intensity of services needed, and/or the medical risk in this patient being treated as an outpatient. - InPatient: Physician Admission Certification:: need icu - . Bed Request Type: ICU Admitting Physician: Stacie Ya Patient Diagnosis: GI bleed, Anemia, Sacral decubitus ulcer
[2017-04-26 18:48] LABS: ALB/GLOB RATIO 0.7 (1.0-2.1); ALBUMIN 2.7 g/dL (3.5-5.0); CALCIUM 7.8 mg/dl (8.6-10.4)
[2017-04-26 18:52] LABS: BASO % 0.3 % (0.0-2.0); LYMPH # 0.7 K/uL (1.0-4.3); LYMPH % 8.1 % (20.0-40.0); MEAN CORPUSCULAR HEMOGLOBIN 30.5 pg (27.0-31.0); MEAN PLATELET VOLUME 8.3 fL (7.2-11.7); MONO # 0.3 K/uL (0.0-0.8); NEUT # 7.2 K/uL (1.8-7.0); NEUT % 87.6 % (50.0-75.0); RBC 1.61 Mil/uL (3.80-5.20); RED CELL DISTRIBUTION WIDTH 18.6 % (11.5-14.5); WHITE BLOOD COUNT 8.2 K/uL (4.8-10.8)
[2017-04-26 18:56] LABS: HEMOGLOBIN 4.9 g/dL (11.0-16.0)
[2017-04-26 18:57] LABS: MEAN CELL VOLUME 95.2 fL (81.0-99.0); PLATELET COUNT 300 K/uL (130-400)
[2017-04-26 18:58] LABS: TROPONIN I 0.022 ng/mL (0.00-0.120)
[2017-04-26 19:00] LABS: VENOUS BLOOD GAS BASE EXCESS 5.7 mmol/L (0.0-2.0); VENOUS BLOOD GAS PCO2 53 mmHg (40-60); VENOUS BLOOD GAS PO2 23 mm/Hg (30-55); VENOUS BLOOD PH 7.39 (7.32-7.43)
[2017-04-26 19:07] LABS: INR 7.8
[2017-04-26] MEDS ORDERED: Piperacillin/Tazobact 3.375 gm 100 ML IVPB STA (19:09)
[2017-04-26 19:10] LABS: PROTHROMBIN TIME 95.6 SECONDS (9.7-12.2)
[2017-04-26] MEDS ORDERED: Phytonadione 10 mg/ml Inj (Adult) IV STA (19:12)
[2017-04-26 19:26] LABS: LYMPHOCYTE 7 % (20-40); MONOCYTE 2 % (0-10); NEUTROPHIL 91 % (50-75); PLATELET ESTIMATE NORMAL (NORMAL); TOTAL CELLS COUNTED 100
[2017-04-26 19:27] LABS: ANISOCYTOSIS SLIGHT; POIKILOCYTOSIS SLIGHT
[2017-04-26 19:28] LABS: LARGE PLATELETS PRESENT; OVALOCYTES SLIGHT
[2017-04-26] MEDS ORDERED: Vancomycin 1 gm/NS 200 ml 1 GM/200 ML BAG IVPB ONE (19:45)
--- NOTE | 2017-04-26 19:51 | CT ---
EXAM: CT Head Without Intravenous Contrast EXAM DATE/TIME: 04/26/2017 6:31 PM CLINICAL HISTORY: 66 years old, female; Signs and symptoms; Altered mental status/memory loss; Additional info: AMS TECHNIQUE: Axial computed tomography images of the head/brain without intravenous contrast. All CT scans at this facility use one or more dose reduction techniques, viz.: automated exposure control; ma/kV adjustment per patient size (including targeted exams where dose is matched to indication; i.e. head); or iterative reconstruction technique. COMPARISON: There are no prior studies for comparison. FINDINGS: Brain: There is mild prominence of sulci, gyri and ventricles. There is no midline shift. There are no intra-axial or extra axial mass lesions or areas of hemorrhage. Castelan-white differentiation is maintained. Ventricles: See above. 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 Cranial vault is intact. Soft tissues: unremarkable Sinuses: There is no acute sinusitis. There is a retention cyst/polyp in the left maxillary sinus. Ears and mastoids: Middle ears and mastoids unremarkable. Orbits: Orbital contents are unremarkable. IMPRESSION: No acute intracranial abnormality
--- NOTE | 2017-04-26 19:54 | CP.CCUPN ---
CCU Subjective - Physician Review Subjective (Free Text): 04/26/17 The Patient was seen and examined at the bedside, Medical records reviewed, and management issues were discussed and formulated with the house staff. 66 Y/O F with PMHx of HTN, Hypercholesterolemia, Anemia, Dementia and ESRD (on hemodialysis) Who was brought in to the ED for evaluation of altered mental stratus during hemodialysis earlier today. In the ER Patient appeared lethargic and was slow to respond. Labs sig for H/H 4.9/15.3, guaiac positive Head CT scan revealed, no acute intracranial abnormality Patient received Vitamin K. Will transfuse 2 units of PRBCS. No coffee ground emesis, hematemesis No wt loss. no fevers/chills No CP, SOB, KUNZ, cough + anemia + Weakness, fatigued during dialysis yesterday. Critical Care Time Spent (in minutes): 36 CCU Objective - Vital Signs / Intake & Output Vital Signs (Last 4 hours): Vital Signs Temp Pulse Resp BP Pulse Ox 04/26/17 18:47 97 04/26/17 18:06 97.9 F 85 20 101/46 L 97 Intake and Output (Last 8hrs): Intake & Output 04/26/17 04/26/17 04/26/17 06:59 14:59 22:59 Weight 90 lb 6.4 oz - Physical Exam Physical Exam Limitations: Positive for: Altered Mental Status, Clinical Condition Head: Positive for: Atraumatic Pupils: Positive for: PERRL Extroacular Muscles: Positive for: EOMI Mouth: Positive for: Moist Mucous Membranes Nose (Internal): Positive for: Normal Inspection Neck: Positive for: Normal Range of Motion, Trachea Midline. Negative for: Meningeal Signs, MIDLINE TENDERNESS, Paraspinal Tenderness, JVD, Lymphadenopathy , Bruit, Other Respiratory/Chest: Positive for: Clear to Auscultation, Good Air Exchange. Negative for: Respiratory Distress, Accessory Muscle Use, Wheezes, Rales, Retracting Cardiovascular: Positive for: Regular Rate and Rhythm, Normal S1, S2, Peripheal Pulses Present. Negative for: Murmurs, Irregular Rhythm Abdomen: Positive for: Distention, Normal Bowel Sounds. Negative for: Tenderness Back: Negative for: CVA Tenderness, Midline Tenderness Upper Extremity: Positive for: Other (Left subclavian Will catheter) Psychiatric: Positive for: Alert, Oriented x 3 - Medications Active Medications: Active Medications Generic Name Dose Route Start Last Admin Trade Name Freq PRN Reason Stop Dose Admin Vancomycin/Sodium Chloride 1 gm in 200 mls @ 133.333 mls/hr 04/26/17 19:45 Vancomycin 1 Gm/Ns 200 Ml IVPB 04/26/17 21:14 ONCE ONE Protocol - Patient Studies Lab Studies: Lab Studies 04/26/17 04/26/17 04/26/17 Range/Units 18:56 18:49 18:37 WBC 8.2 (4.8-10.8) K/uL RBC 1.61 L (3.80-5.20) Mil/uL Hgb 4.9 L* D (11.0-16.0) g/dL Hct 15.3 L (34.0-47.0) % MCV 95.2 D (81.0-99.0) fL MCH 30.5 (27.0-31.0) pg MCHC 32.0 L (33.0-37.0) g/dL RDW 18.6 H (11.5-14.5) % Plt Count 300 D (130-400) K/uL MPV 8.3 (7.2-11.7) fL Neut % (Auto) 87.6 H (50.0-75.0) % Lymph % (Auto) 8.1 L (20.0-40.0) % [place] % (Auto) 4.0 (0.0-10.0) % Eos % (Auto) 0.0 (0.0-4.0) % Baso % (Auto) 0.3 (0.0-2.0) % Neut # (Auto) 7.2 H (1.8-7.0) K/uL Lymph # (Auto) 0.7 L (1.0-4.3) K/uL [place] # (Auto) 0.3 (0.0-0.8) K/uL Eos # (Auto) 0.0 (0.0-0.7) K/uL Baso # (Auto) 0.0 (0.0-0.2) K/uL Neutrophils % (Manual) 91 H (50-75) % Lymphocytes % (Manual) 7 L (20-40) % Monocytes % (Manual) 2 (0-10) % Platelet Estimate Normal (NORMAL) Large Platelets Present Poikilocytosis (manual Slight Anisocytosis (manual) Slight Ovalocytes Slight PT (9.7-12.2) SECONDS INR APTT (21-34) SECONDS pO2 23 L (30-55) mm/Hg VBG pH 7.39 (7.32-7.43) VBG pCO2 53 (40-60) mmHg VBG HCO3 27.8 mmol/L VBG Total CO2 33.7 H (22-28) mmol/L VBG O2 Sat (Calc) 46.6 (40-65) % VBG Base Excess 5.7 H (0.0-2.0) mmol/L VBG Potassium 2.9 L (3.6-5.2) mmol/L Glucose 174 H (65-105) mg/dl Lactate 1.6 (0.7-2.1) mmol/L Sodium 141.0 (132-148) mmol/L Potassium (3.6-5.2) mmol/L Chloride 103.0 (98-107) mmol/L Carbon Dioxide (22-30) mmol/L Anion Gap (10-20) BUN (7-17) mg/dL Creatinine (0.7-1.2) mg/dL Est GFR ( Amer) Est GFR (Non-Af Amer) POC Glucose (mg/dL) (65-110) mg/dL Random Glucose (65-105) mg/dL Calcium (8.6-10.4) mg/dl Total Bilirubin (0.2-1.3) mg/dL AST (14-36) U/L ALT (9-52) U/L Alkaline Phosphatase (38-126) U/L Troponin I (0.00-0.120) ng/mL Total Protein (6.3-8.3) g/dL Albumin (3.5-5.0) g/dL Globulin (2.2-3.9) gm/dL Albumin/Globulin Ratio (1.0-2.1) Venous Blood Potassium 2.9 L (3.6-5.2) mmol/L Stool Occult Blood Positive H (NEGATIVE) 04/26/17 04/26/17 04/26/17 Range/Units 18:32 18:32 18:27 WBC (4.8-10.8) K/uL RBC (3.80-5.20) Mil/uL Hgb (11.0-16.0) g/dL Hct (34.0-47.0) % MCV (81.0-99.0) fL MCH (27.0-31.0) pg MCHC (33.0-37.0) g/dL RDW (11.5-14.5) % Plt Count (130-400) K/uL MPV (7.2-11.7) fL Neut % (Auto) (50.0-75.0) % Lymph % (Auto) (20.0-40.0) % [place] % (Auto) (0.0-10.0) % Eos % (Auto) (0.0-4.0) % Baso % (Auto) (0.0-2.0) % Neut # (Auto) (1.8-7.0) K/uL Lymph # (Auto) (1.0-4.3) K/uL [place] # (Auto) (0.0-0.8) K/uL Eos # (Auto) (0.0-0.7) K/uL Baso # (Auto) (0.0-0.2) K/uL Neutrophils % (Manual) (50-75) % Lymphocytes % (Manual) (20-40) % Monocytes % (Manual) (0-10) % Platelet Estimate (NORMAL) Large Platelets Poikilocytosis (manual Anisocytosis (manual) Ovalocytes PT 95.6 H* (9.7-12.2) SECONDS INR 7.8 APTT 54 H (21-34) SECONDS pO2 (30-55) mm/Hg VBG pH (7.32-7.43) VBG pCO2 (40-60) mmHg VBG HCO3 mmol/L VBG Total CO2 (22-28) mmol/L VBG O2 Sat (Calc) (40-65) % VBG Base Excess (0.0-2.0) mmol/L VBG Potassium (3.6-5.2) mmol/L Glucose (65-105) mg/dl Lactate (0.7-2.1) mmol/L Sodium 139 (132-148) mmol/L Potassium 3.6 (3.6-5.2) mmol/L Chloride 97 L (98-107) mmol/L Carbon Dioxide 27 (22-30) mmol/L Anion Gap 19 (10-20) BUN 30 H (7-17) mg/dL Creatinine 1.1 (0.7-1.2) mg/dL Est GFR ( Amer) 60 Est GFR (Non-Af Amer) 50 POC Glucose (mg/dL) 173 H (65-110) mg/dL Random Glucose 166 H (65-105) mg/dL Calcium 7.8 L (8.6-10.4) mg/dl Total Bilirubin 1.0 (0.2-1.3) mg/dL AST 32 (14-36) U/L ALT 9 D (9-52) U/L Alkaline Phosphatase 176 H D (38-126) U/L Troponin I 0.0220 (0.00-0.120) ng/mL Total Protein 6.5 (6.3-8.3) g/dL Albumin 2.7 L (3.5-5.0) g/dL Globulin 3.8 (2.2-3.9) gm/dL Albumin/Globulin Ratio 0.7 L (1.0-2.1) Venous Blood Potassium (3.6-5.2) mmol/L Stool Occult Blood (NEGATIVE) Laboratory Results - last 24 hr 04/26/17 04/26/17 04/26/17 18:27 18:32 18:32 WBC RBC Hgb Hct MCV MCH MCHC RDW Plt Count MPV Neut % (Auto) Lymph % (Auto) [place] % (Auto) Eos % (Auto) Baso % (Auto) Neut # (Auto) Lymph # (Auto) [place] # (Auto) Eos # (Auto) Baso # (Auto) Neutrophils % (Manual) Lymphocytes % (Manual) Monocytes % (Manual) Platelet Estimate Large Platelets Poikilocytosis (manual Anisocytosis (manual) Ovalocytes PT 95.6 H* INR 7.8 APTT 54 H pO2 VBG pH VBG pCO2 VBG HCO3 VBG Total CO2 VBG O2 Sat (Calc) VBG Base Excess VBG Potassium Glucose Lactate Sodium 139 Potassium 3.6 Chloride 97 L Carbon Dioxide 27 Anion Gap 19 BUN 30 H Creatinine 1.1 Est GFR ( Amer) 60 Est GFR (Non-Af Amer) 50 POC Glucose (mg/dL) 173 H Random Glucose 166 H Calcium 7.8 L Total Bilirubin 1.0 AST 32 ALT 9 D Alkaline Phosphatase 176 H D Troponin I 0.0220 Total Protein 6.5 Albumin 2.7 L Globulin 3.8 Albumin/Globulin Ratio 0.7 L Venous Blood Potassium Stool Occult Blood 04/26/17 04/26/17 04/26/17 18:37 18:49 18:56 WBC 8.2 RBC 1.61 L Hgb 4.9 L* D Hct 15.3 L MCV 95.2 D MCH 30.5 MCHC 32.0 L RDW 18.6 H Plt Count 300 D MPV 8.3 Neut % (Auto) 87.6 H Lymph % (Auto) 8.1 L [place] % (Auto) 4.0 Eos % (Auto) 0.0 Baso % (Auto) 0.3 Neut # (Auto) 7.2 H Lymph # (Auto) 0.7 L [place] # (Auto) 0.3 Eos # (Auto) 0.0 Baso # (Auto) 0.0 Neutrophils % (Manual) 91 H Lymphocytes % (Manual) 7 L Monocytes % (Manual) 2 Platelet Estimate Normal Large Platelets Present Poikilocytosis (manual Slight Anisocytosis (manual) Slight Ovalocytes Slight PT INR APTT pO2 23 L VBG pH 7.39 VBG pCO2 53 VBG HCO3 27.8 VBG Total CO2 33.7 H VBG O2 Sat (Calc) 46.6 VBG Base Excess 5.7 H VBG Potassium 2.9 L Glucose 174 H Lactate 1.6 Sodium 141.0 Potassium Chloride 103.0 Carbon Dioxide Anion Gap BUN Creatinine Est GFR ( Amer) Est GFR (Non-Af Amer) POC Glucose (mg/dL) Random Glucose Calcium Total Bilirubin AST ALT Alkaline Phosphatase Troponin I Total Protein Albumin Globulin Albumin/Globulin Ratio Venous Blood Potassium 2.9 L Stool Occult Blood Positive H EKG/Cardiology Studies: Cardiology / EKG Studies 04/26/17 18:30 ELECTROCARDIOGRAM Stat Comment: Mode Of Transportation: BED Reason For Exam: chest pain Isolation: Contact Fingerstick Blood Sugar Results: 173 Review of Systems - Review of Systems Systems not reviewed;Unavailable: Altered Mental Status - Cardiovascular Cardiovascular: absent: As Per HPI, Acrocyanosis, Chest Pain, Chest Pain at Rest , Chest Pain with Activity, Claudication, Diaphoresis, Dyspnea, Dyspnea on Exertion, Edema, Irregular Heart Rhythm, Pain Radiating to Arm/Neck/Jaw, Leg Edema, Leg Ulcers, Lightheadedness, Orthopnea, Palpitations, Paroxysmal Nocturnal Dyspnea, Pedal Edema, Radiating Pain, Rapid Heart Rate, Slow Heart Rate, Syncope, Other, UNREMARKABLE - Respiratory Respiratory: absent: As Per HPI, Cough, Dyspnea, Hemoptysis, Dyspnea on Exertion , Wheezing, Snoring, Stridor, Pain on Inspiration, Chest Congestion, Excessive Mucous Production, Change in Mucous Color, Pain with Coughing, Other, UNREMARKABLE - Gastrointestinal Gastrointestinal: Abdominal Pain Critical Care Progress Note - Extremities/Vascular Does the Patient have a Central Venous Catheter?: No Does the Patient need a Central Venous Catheter?: No Does the Patient have a Vu Catheter?: No Does the Patient need a Vu Catheter?: No Assessment/Plan (1) GI bleeding Status: Acute (2) ESRD (end stage renal disease) on dialysis Status: Acute (3) Sacral decubitus ulcer, stage IV Status: Chronic - Assessment and Plan (Free Text) Assessment: - Acute upper GI bleed most likely PUD - Admit to ICU sec to hemodynamic instability R/O malignancy. - Nasogastric tube - Two large bore peripheral catheters - Suplemental O2 - NPO - Volume resuscitation - IV Hydration, with SODIUM CHLORIDE 0.9% INJ @ 50 ml/hr - PANTOPRAZOLE drip - Nio need for OCTREOTIDE drip - Hold antihypertensives - Serial CBCs q 8 /HR - Active type and screen sent today - Consented for blood, in computer - DVT PPx: SCD - GI evaluation bro
[2017-04-26] MEDS ORDERED: Piperacillin/Tazobact 3.375 gm 100 ML IVPB ONE (20:19)
[2017-04-26] MEDS ORDERED: Phytonadione 10 mg/ml Inj (Adult) ONE (20:28)
[2017-04-26] MEDS ORDERED: Sodium Chloride 0.9% 500 ML IV ONE (20:30)
[2017-04-27 06:38] LABS: BASO % 0.7 % (0.0-2.0); EOS # 0.1 K/uL (0.0-0.7); EOS % 1.2 % (0.0-4.0); LYMPH % 17.1 % (20.0-40.0); MEAN CELL VOLUME 92.4 fL (81.0-99.0); MEAN CORPUSCULAR HEMOGLOBIN 31.5 pg (27.0-31.0); MEAN CORPUSCULAR HGB CONC 34.1 g/dL (33.0-37.0); MEAN PLATELET VOLUME 8.2 fL (7.2-11.7); MONO # 0.6 K/uL (0.0-0.8); MONO % 10.1 % (0.0-10.0); NEUT # 4.2 K/uL (1.8-7.0); NEUT % 70.9 % (50.0-75.0); NRBC % 0.1 % (0.0-2.0); RBC 1.51 Mil/uL (3.80-5.20); RED CELL DISTRIBUTION WIDTH 16.2 % (11.5-14.5); WHITE BLOOD COUNT 5.9 K/uL (4.8-10.8)
[2017-04-27 06:39] LABS: HEMOGLOBIN 4.8 g/dL (11.0-16.0)
[2017-04-27 06:42] LABS: ALB/GLOB RATIO 0.7 (1.0-2.1); ALBUMIN 2.4 g/dL (3.5-5.0); CALCIUM 7.7 mg/dl (8.6-10.4)
[2017-04-27 06:42] LABS: INR 1.4; PROTHROMBIN TIME 16.2 SECONDS (9.7-12.2)
--- NOTE | 2017-04-27 07:28 | CP.PCM.CON ---
<Shanon Nicole - Last Filed: 04/27/17 11:29> History of Present Illness - History of Present Illness History of Present Illness: Gastroenterology Consult Note 66 Female with PMHx of ESRD (TTS), Anemia of Chronic Disease, HTN, DM, and Sacral Decubitis Ulcer Stage 4 (medically managed) is currently admitted to the ICU for GI Bleed. Patient reported she felt weak, fatigued during dialysis yesterday. She was found to have a hemoglobin of 4.9 on admission. She denied any coffee ground emesis, hematemesis, hematochezia, or dark tarry stools. She received 1 unit PRBCs, 2 FFPs, vitamin K in the ED, and is currently being transfused 2 more PRBCs. 12 point ROS unremarkable, unless noted above. Prior EGD and Colonoscopy done 3 years ago- as per patient no findings. She is S/P EGD which showed a 15mm nonbleeding gastric ulcer (antrum), clips placed. PMHx: ESRD (TTS), Anemia of Chronic Disease, HTN, DM, Atrial Fibrillation and Sacral Decubitis Ulcer Stage 4 (medically managed) PSHx: SHx: Denied tobacco, ETOH or illicit drug use FHx: Denied any GI diseases or malignancies Past Patient History - Past Medical History & Family History Past Medical History?: Yes - Past Social History Smoking Status: Never Smoked - CARDIAC Hx Hypercholesterolemia: Yes Hx Hypertension: Yes - PULMONARY Hx Respiratory Disorders: No - NEUROLOGICAL Hx Dementia: Yes - HEENT Hx HEENT Problems: No - RENAL Hx Chronic Kidney Disease: Yes - ENDOCRINE/METABOLIC Hx Endocrine Disorders: Yes Hx Diabetes Mellitus Type 2: Yes - HEMATOLOGICAL/ONCOLOGICAL Hx Anemia: Yes - INTEGUMENTARY Hx Dermatological Problems: Yes Other/Comment: ulcer buttocks - MUSCULOSKELETAL/RHEUMATOLOGICAL Hx Musculoskeletal Disorders: No Hx Falls: No - GASTROINTESTINAL Hx Gastrointestinal Disorders: No - GENITOURINARY/GYNECOLOGICAL Hx Genitourinary Disorders: Yes Hx Incontinence: Yes Hx Urinary Tract Infection: Yes - PSYCHIATRIC Hx Substance Use: No - SURGICAL HISTORY Hx Surgeries: Yes Hx Cardiac Catheterization: Yes Hx Vascular Surgery: Yes (perma cath insertion) Other/Comment: debridement ulcer buttocks - ANESTHESIA Hx Anesthesia: Yes Hx Anesthesia Reactions: No Hx Malignant Hyperthermia: No Meds Allergies/Adverse Reactions: Allergies Allergy/AdvReac Type Severity Reaction Status Date / Time No Known Allergies Allergy Verified 04/26/17 18:14 - Medications Medications: Current Medications Amiodarone HCl (Cordarone) 200 mg PO DAILY [facility] Amlodipine Besylate (Norvasc) 5 mg PO DAILY [facility] Folic Acid (Folic Acid) 1 mg PO DAILY [facility] Insulin Human Regular (Novolin R) 0 unit SC ACHS [facility] PRN Reason: Protocol Lisinopril (Zestril) 40 mg PO DAILY [facility] Pantoprazole Sodium (Protonix Inj) 40 mg IVP Q12H [facility] Last Admin: 04/26/17 21:25 Dose: 40 mg Sevelamer Carbonate (Renvela) 1,600 mg PO TIDCC [facility] Physical Exam - Constitutional Appears: No Acute Distress - Head Exam Head Exam: NORMAL INSPECTION, NORMOCEPHALIC - Eye Exam Eye Exam: EOMI, Normal appearance, PERRL Pupil Exam: NORMAL ACCOMODATION - ENT Exam ENT Exam: Mucous Membranes Moist - Respiratory Exam Respiratory Exam: Clear to Auscultation Bilateral, NORMAL BREATHING PATTERN - Cardiovascular Exam Cardiovascular Exam: REGULAR RHYTHM - GI/Abdominal Exam GI & Abdominal Exam: Normal Bowel Sounds, Soft. absent: Distended, Organomegaly , Tenderness - Rectal Exam Rectal Exam: absent: Black Stool, Bloody Stool Additional comments: normal stool, nonbloody - Extremities Exam Extremities exam: Positive for: normal inspection, pedal pulses present. Negative for: pedal edema, tenderness - Neurological Exam Neurological exam: Alert, Oriented x3 - Psychiatric Exam Psychiatric exam: Normal Affect, Normal Mood - Skin Skin Exam: Dry, Intact, Normal Color, Warm Results - Vital Signs Recent Vital Signs: Last Vital Signs Temp 98.3 F 04/27/17 07:27 Pulse 68 04/27/17 07:27 Resp 18 04/27/17 07:27 BP 97/40 L 04/27/17 07:27 Pulse Ox 100 04/27/17 06:00 - Labs Result Diagrams: 04/27/17 06:35 04/27/17 06:35 Labs: Laboratory Results - last 24 hr 04/26/17 04/26/17 04/26/17 18:27 18:32 18:32 WBC RBC Hgb Hct MCV MCH MCHC RDW Plt Count MPV Neut % (Auto) Lymph % (Auto) [place] % (Auto) Eos % (Auto) Baso % (Auto) Neut # (Auto) Lymph # (Auto) [place] # (Auto) Eos # (Auto) Baso # (Auto) Neutrophils % (Manual) Lymphocytes % (Manual) Monocytes % (Manual) Platelet Estimate Large Platelets Poikilocytosis (manual Anisocytosis (manual) Ovalocytes PT 95.6 H* INR 7.8 APTT 54 H pO2 VBG pH VBG pCO2 VBG HCO3 VBG Total CO2 VBG O2 Sat (Calc) VBG Base Excess VBG Potassium Glucose Lactate Sodium 139 Potassium 3.6 Chloride 97 L Carbon Dioxide 27 Anion Gap 19 BUN 30 H Creatinine 1.1 Est GFR ( Amer) 60 Est GFR (Non-Af Amer) 50 POC Glucose (mg/dL) 173 H Random Glucose 166 H Calcium 7.8 L Phosphorus Magnesium Total Bilirubin 1.0 AST 32 ALT 9 D Alkaline Phosphatase 176 H D Troponin I 0.0220 Total Protein 6.5 Albumin 2.7 L Globulin 3.8 Albumin/Globulin Ratio 0.7 L Venous Blood Potassium Stool Occult Blood Blood Type Antibody Screen 04/26/17 04/26/17 04/26/17 18:37 18:49 18:56 WBC 8.2 RBC 1.61 L Hgb 4.9 L* D Hct 15.3 L MCV 95.2 D MCH 30.5 MCHC 32.0 L RDW 18.6 H Plt Count 300 D MPV 8.3 Neut % (Auto) 87.6 H Lymph % (Auto) 8.1 L [place] % (Auto) 4.0 Eos % (Auto) 0.0 Baso % (Auto) 0.3 Neut # (Auto) 7.2 H Lymph # (Auto) 0.7 L [place] # (Auto) 0.3 Eos # (Auto) 0.0 Baso # (Auto) 0.0 Neutrophils % (Manual) 91 H Lymphocytes % (Manual) 7 L Monocytes % (Manual) 2 Platelet Estimate Normal Large Platelets Present Poikilocytosis (manual Slight Anisocytosis (manual) Slight Ovalocytes Slight PT INR APTT pO2 23 L VBG pH 7.39 VBG pCO2 53 VBG HCO3 27.8 VBG Total CO2 33.7 H VBG O2 Sat (Calc) 46.6 VBG Base Excess 5.7 H VBG Potassium 2.9 L Glucose 174 H Lactate 1.6 Sodium 141.0 Potassium Chloride 103.0 Carbon Dioxide Anion Gap BUN Creatinine Est GFR ( Amer) Est GFR (Non-Af Amer) POC Glucose (mg/dL) Random Glucose Calcium Phosphorus Magnesium Total Bilirubin AST ALT Alkaline Phosphatase Troponin I Total Protein Albumin Globulin Albumin/Globulin Ratio Venous Blood Potassium 2.9 L Stool Occult Blood Positive H Blood Type Antibody Screen 04/26/17 04/26/17 04/27/17 21:00 21:05 06:17 WBC RBC Hgb Hct MCV MCH MCHC RDW Plt Count MPV Neut % (Auto) Lymph % (Auto) [place] % (Auto) Eos % (Auto) Baso % (Auto) Neut # (Auto) Lymph # (Auto) [place] # (Auto) Eos # (Auto) Baso # (Auto) Neutrophils % (Manual) Lymphocytes % (Manual) Monocytes % (Manual) Platelet Estimate Large Platelets Poikilocytosis (manual Anisocytosis (manual) Ovalocytes PT 16.2 H D INR 1.4 D APTT 29 D pO2 VBG pH VBG pCO2 VBG HCO3 VBG Total CO2 VBG O2 Sat (Calc) VBG Base Excess VBG Potassium Glucose Lactate Sodium Potassium Chloride Carbon Dioxide Anion Gap BUN Creatinine Est GFR ( Amer) Est GFR (Non-Af Amer) POC Glucose (mg/dL) 185 H Random Glucose Calcium Phosphorus Magnesium Total Bilirubin AST ALT Alkaline Phosphatase Troponin I Total Protein Albumin Globulin Albumin/Globulin Ratio Venous Blood Potassium Stool Occult Blood Blood Type B POSITIVE Antibody Screen Negative 04/27/17 04/27/17 04/27/17 06:35 06:35 07:12 WBC 5.9 RBC 1.51 L Hgb 4.8 L* Hct 14.0 L MCV 92.4 D MCH 31.5 H MCHC 34.1 RDW 16.2 H Plt Count 210 MPV 8.2 Neut % (Auto) 70.9 Lymph % (Auto) 17.1 L [place] % (Auto) 10.1 H Eos % (Auto) 1.2 Baso % (Auto) 0.7 Neut # (Auto) 4.2 Lymph # (Auto) 1.0 [place] # (Auto) 0.6 Eos # (Auto) 0.1 Baso # (Auto) 0.0 Neutrophils % (Manual) Lymphocytes % (Manual) Monocytes % (Manual) Platelet Estimate Large Platelets Poikilocytosis (manual Anisocytosis (manual) Ovalocytes PT INR APTT pO2 VBG pH VBG pCO2 VBG HCO3 VBG Total CO2 VBG O2 Sat (Calc) VBG Base Excess VBG Potassium Glucose Lactate Sodium 140 Potassium 3.2 L Chloride 100 Carbon Dioxide 30 Anion Gap 13 BUN 39 H Creatinine 1.6 H Est GFR ( Amer) 39 Est GFR (Non-Af Amer) 32 POC Glucose (mg/dL) 167 H Random Glucose 153 H Calcium 7.7 L Phosphorus 2.4 L Magnesium 1.8 Total Bilirubin 0.8 AST 21 ALT 22 Alkaline Phosphatase 141 H Troponin I Total Protein 5.6 L Albumin 2.4 L Globulin 3.2 Albumin/Globulin Ratio 0.7 L Venous Blood Potassium Stool Occult Blood Blood Type Antibody Screen Assessment & Plan - Assessment and Plan (Free Text) Assessment: 66 Female with PMHx of ESRD (TTS), Anemia of Chronic Disease, HTN, DM, and Sacral Decubitis Ulcer Stage 4 (medically managed) is currently admitted to the ICU for GI Bleed. Found to have a hemoglobin of 4.9 on admission. She denied any coffee ground emesis, hematemesis, hematochezia, or dark tarry stools. She received 1 unit PRBCs, 2 FFPs, vitamin K in the ED, and is currently being transfused 2 more PRBCs. Prior EGD and Colonoscopy done 3 years ago- as per patient no findings. S/P EGD which showed a 15mm nonbleeding gastric ulcer (antrum), hemostatic clips placed. Gastric Ulcer ESRD on HD Atrial Fibrillation on Coumadin HTN, DM Sacral Decubitis Ulcer Stage 4 Plan: - Resume diet as tolerated - Transfused as needed; baseline hemoglobin ~ 8 - S/P EGD - 15mm nonbleeding gastric ulcer (antrum), hemostatic clips placed - Avoid any ASA, NSAIDs - Continue with PPI BID x 3 months - Recommend outpatient EGD in 3 months to monitor for ulcer healing and outpatient colonoscopy for routine screening - Will continue to monitor this patient DW Dr. Emerson, Shanon Nicole DO, PGY-1 <Matias Emerson - Last Filed: 04/27/17 12:17> Meds - Medications Medications: Current Medications Amiodarone HCl (Cordarone) 200 mg PO DAILY [facility] Last Admin: 04/27/17 10:00 Dose: 200 mg Amlodipine Besylate (Norvasc) 5 mg PO DAILY [facility] Epoetin Alonso (Procrit) 10,000 unit IV TTS [facility] Folic Acid (Folic Acid) 1 mg PO DAILY [facility] Sodium Chloride (Sodium Chloride 0.9%) 1,000 mls @ 42 mls/hr IV .[id number] [facility] Last Admin: 04/27/17 11:49 Dose: 42 mls/hr Insulin Human Regular (Novolin R) 0 unit SC ACHS [facility] PRN Reason: Protocol Last Admin: 04/27/17 07:46 Dose: Not Given Metoprolol Tartrate (Lopressor) 50 mg PO Q12H [facility] Last Admin: 04/27/17 09:11 Dose: Not Given Pantoprazole Sodium (Protonix Inj) 40 mg IVP Q12H [facility] Last Admin: 04/27/17 08:33 Dose: 40 mg Sevelamer Carbonate (Renvela) 1,600 mg PO TIDCC [facility] Last Admin: 04/27/17 07:46 Dose: Not Given Vitamin B Complex/Vit C/Folic Acid (Nephro-Umu) 1 tab PO 0800 [facility] Results - Vital Signs Recent Vital Signs: Last Vital Signs Temp 97.5 F L 04/27/17 12:00 Pulse 71 04/27/17 12:00 Resp 20 04/27/17 12:00 BP 114/56 L 04/27/17 12:00 Pulse Ox 100 04/27/17 12:00 - Labs Result Diagrams: 04/27/17 06:35 04/27/17 06:35 Labs: Laboratory Results - last 24 hr 04/26/17 04/26/17 04/26/17 18:27 18:32 18:32 WBC RBC Hgb Hct MCV MCH MCHC RDW Plt Count MPV Neut % (Auto) Lymph % (Auto) [place] % (Auto) Eos % (Auto) Baso % (Auto) Neut # (Auto) Lymph # (Auto) [place] # (Auto) Eos # (Auto) Baso # (Auto) Neutrophils % (Manual) Lymphocytes % (Manual) Monocytes % (Manual) Platelet Estimate Large Platelets Poikilocytosis (manual Anisocytosis (manual) Ovalocytes PT 95.6 H* INR 7.8 APTT 54 H pO2 VBG pH VBG pCO2 VBG HCO3 VBG Total CO2 VBG O2 Sat (Calc) VBG Base Excess VBG Potassium Glucose Lactate Sodium 139 Potassium 3.6 Chloride 97 L Carbon Dioxide 27 Anion Gap 19 BUN 30 H Creatinine 1.1 Est GFR ( Amer) 60 Est GFR (Non-Af Amer) 50 POC Glucose (mg/dL) 173 H Random Glucose 166 H Calcium 7.8 L Phosphorus Magnesium Total Bilirubin 1.0 AST 32 ALT 9 D Alkaline Phosphatase 176 H D Troponin I 0.0220 Total Protein 6.5 Albumin 2.7 L Globulin 3.8 Albumin/Globulin Ratio 0.7 L Venous Blood Potassium Stool Occult Blood Blood Type Antibody Screen 04/26/17 04/26/17 04/26/17 18:37 18:49 18:56 WBC 8.2 RBC 1.61 L Hgb 4.9 L* D Hct 15.3 L MCV 95.2 D MCH 30.5 MCHC 32.0 L RDW 18.6 H Plt Count 300 D MPV 8.3 Neut % (Auto) 87.6 H Lymph % (Auto) 8.1 L [place] % (Auto) 4.0 Eos % (Auto) 0.0 Baso % (Auto) 0.3 Neut # (Auto) 7.2 H Lymph # (Auto) 0.7 L [place] # (Auto) 0.3 Eos # (Auto) 0.0 Baso # (Auto) 0.0 Neutrophils % (Manual) 91 H Lymphocytes % (Manual) 7 L Monocytes % (Manual) 2 Platelet Estimate Normal Large Platelets Present Poikilocytosis (manual Slight Anisocytosis (manual) Slight Ovalocytes Slight PT INR APTT pO2 23 L VBG pH 7.39 VBG pCO2 53 VBG HCO3 27.8 VBG Total CO2 33.7 H VBG O2 Sat (Calc) 46.6 VBG Base Excess 5.7 H VBG Potassium 2.9 L Glucose 174 H Lactate 1.6 Sodium 141.0 Potassium Chloride 103.0 Carbon Dioxide Anion Gap BUN Creatinine Est GFR ( Amer) Est GFR (Non-Af Amer) POC Glucose (mg/dL) Random Glucose Calcium Phosphorus Magnesium Total Bilirubin AST ALT Alkaline Phosphatase Troponin I Total Protein Albumin Globulin Albumin/Globulin Ratio Venous Blood Potassium 2.9 L Stool Occult Blood Positive H Blood Type Antibody Screen 04/26/17 04/26/17 04/27/17 21:00 21:05 06:17 WBC RBC Hgb Hct MCV MCH MCHC RDW Plt Count MPV Neut % (Auto) Lymph % (Auto) [place] % (Auto) Eos % (Auto) Baso % (Auto) Neut # (Auto) Lymph # (Auto) [place] # (Auto) Eos # (Auto) Baso # (Auto) Neutrophils % (Manual) Lymphocytes % (Manual) Monocytes % (Manual) Platelet Estimate Large Platelets Poikilocytosis (manual Anisocytosis (manual) Ovalocytes PT 16.2 H D INR 1.4 D APTT 29 D pO2 VBG pH VBG pCO2 VBG HCO3 VBG Total CO2 VBG O2 Sat (Calc) VBG Base Excess VBG Potassium Glucose Lactate Sodium Potassium Chloride Carbon Dioxide Anion Gap BUN Creatinine Est GFR ( Amer) Est GFR (Non-Af Amer) POC Glucose (mg/dL) 185 H Random Glucose Calcium Phosphorus Magnesium Total Bilirubin AST ALT Alkaline Phosphatase Troponin I Total Protein Albumin Globulin Albumin/Globulin Ratio Venous Blood Potassium Stool Occult Blood Blood Type B POSITIVE Antibody Screen Negative 04/27/17 04/27/17 04/27/17 06:35 06:35 07:12 WBC 5.9 RBC 1.51 L Hgb 4.8 L* Hct 14.0 L MCV 92.4 D MCH 31.5 H MCHC 34.1 RDW 16.2 H Plt Count 210 MPV 8.2 Neut % (Auto) 70.9 Lymph % (Auto) 17.1 L [place] % (Auto) 10.1 H Eos % (Auto) 1.2 Baso % (Auto) 0.7 Neut # (Auto) 4.2 Lymph # (Auto) 1.0 [place] # (Auto) 0.6 Eos # (Auto) 0.1 Baso # (Auto) 0.0 Neutrophils % (Manual) Lymphocytes % (Manual) Monocytes % (Manual) Platelet Estimate Large Platelets Poikilocytosis (manual Anisocytosis (manual) Ovalocytes PT INR APTT pO2 VBG pH VBG pCO2 VBG HCO3 VBG Total CO2 VBG O2 Sat (Calc) VBG Base Excess VBG Potassium Glucose Lactate Sodium 140 Potassium 3.2 L Chloride 100 Carbon Dioxide 30 Anion Gap 13 BUN 39 H Creatinine 1.6 H Est GFR ( Amer) 39 Est GFR (Non-Af Amer) 32 POC Glucose (mg/dL) 167 H Random Glucose 153 H Calcium 7.7 L Phosphorus 2.4 L Magnesium 1.8 Total Bilirubin 0.8 AST 21 ALT 22 Alkaline Phosphatase 141 H Troponin I Total Protein 5.6 L Albumin 2.4 L Globulin 3.2 Albumin/Globulin Ratio 0.7 L Venous Blood Potassium Stool Occult Blood Blood Type Antibody Screen Attending/Attestation - Attestation I have personally seen and examined this patient.: Yes I have fully participated in the care of the patient.: Yes I have reviewed all pertinent clinical information: Yes Notes (Text): 04/27/17 12:15 66 year old female with h/o ESRD on HD, sacral decub admitted with supratherapeutic INR and suspected UGIB. Recommend EGD today. Recommend IV PPI.
[2017-04-27] MEDS: (Novolin R) Insulin Human Regular 100 units/ml vial SC SCH ×4 (07:46→22:00)
--- NOTE | 2017-04-27 08:05 | CP.PCM.CON ---
History of Present Illness - History of Present Illness History of Present Illness: This patient was 66 years of age female was transferred from dialysis to the emergency room because of changes of her mental status weakness tiredness and in the emergency room she was found to have hemoglobin 4.8 and she was given fresh frozen plasma and 1 unit of packed cells and had a hemoglobin still as of this morning 4.8. Patient feeling the little bit better after she was given this blood product. No nausea no vomiting patient complaining of generalized weakness. Patient has dialysis catheter in the left subclavian area Also she has left AV shunt or perhaps assisted out which has been inserted and left arm remains slightly swollen Past medical history as noted hypercholesterolemia and hyperlipidemia hypertension chronic end stage renal disease on maintenance dialysis for about 2 years Social history not contributory Review of system as noted below Review of Systems - Review of Systems Systems not reviewed;Unavailable: Altered Mental Status - Constitutional Constitutional: Malaise, Weakness. absent: Excessive Sweating, Fever - EENT Eyes: As Per HPI Ears: absent: Other Nose/Mouth/Throat: Dry Mouth. absent: Epistaxis, Sore Throat - Breasts Breasts: As Per HPI - Cardiovascular Cardiovascular: As Per HPI. absent: Chest Pain, Dyspnea, Edema, Orthopnea, Pedal Edema - Respiratory Respiratory: absent: Cough - Gastrointestinal Gastrointestinal: Cramping, Diarrhea. absent: Abdominal Pain, Coffee Ground Emesis - Genitourinary Genitourinary: Nocturia - Reproductive: Female Reproductive:Female: As Per HPI - Musculoskeletal Musculoskeletal: Muscle Weakness. absent: Back Pain - Integumentary Integumentary: absent: Rash, Skin Pain - Neurological Neurological: Abnormal Gait, Confusion. absent: Focal Weakness - Psychiatric Psychiatric: As Per HPI - Endocrine Endocrine: absent: Heat Intolorance - Hematologic/Lymphatic Hematologic: absent: Easy Bleeding Past Patient History - Past Medical History & Family History Past Medical History?: Yes - Past Social History Smoking Status: Never Smoked - CARDIAC Hx Hypercholesterolemia: Yes Hx Hypertension: Yes - PULMONARY Hx Respiratory Disorders: No - NEUROLOGICAL Hx Dementia: Yes - HEENT Hx HEENT Problems: No - RENAL Hx Chronic Kidney Disease: Yes - ENDOCRINE/METABOLIC Hx Endocrine Disorders: Yes Hx Diabetes Mellitus Type 2: Yes - HEMATOLOGICAL/ONCOLOGICAL Hx Anemia: Yes - INTEGUMENTARY Hx Dermatological Problems: Yes Other/Comment: ulcer buttocks - MUSCULOSKELETAL/RHEUMATOLOGICAL Hx Musculoskeletal Disorders: No Hx Falls: No - GASTROINTESTINAL Hx Gastrointestinal Disorders: No - GENITOURINARY/GYNECOLOGICAL Hx Genitourinary Disorders: Yes Hx Incontinence: Yes Hx Urinary Tract Infection: Yes - PSYCHIATRIC Hx Substance Use: No - SURGICAL HISTORY Hx Surgeries: Yes Hx Cardiac Catheterization: Yes Hx Vascular Surgery: Yes (perma cath insertion) Other/Comment: debridement ulcer buttocks - ANESTHESIA Hx Anesthesia: Yes Hx Anesthesia Reactions: No Hx Malignant Hyperthermia: No Meds Allergies/Adverse Reactions: Allergies Allergy/AdvReac Type Severity Reaction Status Date / Time No Known Allergies Allergy Verified 04/26/17 18:14 - Medications Medications: Current Medications Amiodarone HCl (Cordarone) 200 mg PO DAILY [facility] Amlodipine Besylate (Norvasc) 5 mg PO DAILY [facility] Folic Acid (Folic Acid) 1 mg PO DAILY [facility] Insulin Human Regular (Novolin R) 0 unit SC ACHS [facility] PRN Reason: Protocol Last Admin: 04/27/17 07:46 Dose: Not Given Lisinopril (Zestril) 40 mg PO DAILY [facility] Pantoprazole Sodium (Protonix Inj) 40 mg IVP Q12H [facility] Last Admin: 04/26/17 21:25 Dose: 40 mg Sevelamer Carbonate (Renvela) 1,600 mg PO TIDCC [facility] Last Admin: 04/27/17 07:46 Dose: Not Given Physical Exam - Constitutional Appears: No Acute Distress - Eye Exam Eye Exam: Conjunctival injection - ENT Exam ENT Exam: Mucous Membranes Dry - Neck Exam Neck exam: Negative for: Lymphadenopathy - Respiratory Exam Respiratory Exam: NORMAL BREATHING PATTERN. absent: Chest Wall Tenderness, Rales, Rhonchi - Cardiovascular Exam Cardiovascular Exam: absent: Gallop, JVD, Rubs - GI/Abdominal Exam GI & Abdominal Exam: Normal Bowel Sounds - Extremities Exam Extremities exam: Negative for: calf tenderness - Back Exam Back exam: absent: CVA tenderness (L), CVA tenderness (R) - Neurological Exam Neurological exam: Altered - Psychiatric Exam Psychiatric exam: Anxious Results - Vital Signs Recent Vital Signs: Last Vital Signs Temp 98.3 F 04/27/17 07:42 Pulse 68 04/27/17 07:42 Resp 15 04/27/17 07:42 BP 91/39 L 04/27/17 07:42 Pulse Ox 100 04/27/17 07:00 - Labs Result Diagrams: 04/27/17 06:35 04/27/17 06:35 Labs: Laboratory Results - last 24 hr 04/26/17 04/26/17 04/26/17 18:27 18:32 18:32 WBC RBC Hgb Hct MCV MCH MCHC RDW Plt Count MPV Neut % (Auto) Lymph % (Auto) George % (Auto) Eos % (Auto) Baso % (Auto) Neut # (Auto) Lymph # (Auto) George # (Auto) Eos # (Auto) Baso # (Auto) Neutrophils % (Manual) Lymphocytes % (Manual) Monocytes % (Manual) Platelet Estimate Large Platelets Poikilocytosis (manual Anisocytosis (manual) Ovalocytes PT 95.6 H* INR 7.8 APTT 54 H pO2 VBG pH VBG pCO2 VBG HCO3 VBG Total CO2 VBG O2 Sat (Calc) VBG Base Excess VBG Potassium Glucose Lactate Sodium 139 Potassium 3.6 Chloride 97 L Carbon Dioxide 27 Anion Gap 19 BUN 30 H Creatinine 1.1 Est GFR ( Amer) 60 Est GFR (Non-Af Amer) 50 POC Glucose (mg/dL) 173 H Random Glucose 166 H Calcium 7.8 L Phosphorus Magnesium Total Bilirubin 1.0 AST 32 ALT 9 D Alkaline Phosphatase 176 H D Troponin I 0.0220 Total Protein 6.5 Albumin 2.7 L Globulin 3.8 Albumin/Globulin Ratio 0.7 L Venous Blood Potassium Stool Occult Blood Blood Type Antibody Screen 04/26/17 04/26/17 04/26/17 18:37 18:49 18:56 WBC 8.2 RBC 1.61 L Hgb 4.9 L* D Hct 15.3 L MCV 95.2 D MCH 30.5 MCHC 32.0 L RDW 18.6 H Plt Count 300 D MPV 8.3 Neut % (Auto) 87.6 H Lymph % (Auto) 8.1 L George % (Auto) 4.0 Eos % (Auto) 0.0 Baso % (Auto) 0.3 Neut # (Auto) 7.2 H Lymph # (Auto) 0.7 L George # (Auto) 0.3 Eos # (Auto) 0.0 Baso # (Auto) 0.0 Neutrophils % (Manual) 91 H Lymphocytes % (Manual) 7 L Monocytes % (Manual) 2 Platelet Estimate Normal Large Platelets Present Poikilocytosis (manual Slight Anisocytosis (manual) Slight Ovalocytes Slight PT INR APTT pO2 23 L VBG pH 7.39 VBG pCO2 53 VBG HCO3 27.8 VBG Total CO2 33.7 H VBG O2 Sat (Calc) 46.6 VBG Base Excess 5.7 H VBG Potassium 2.9 L Glucose 174 H Lactate 1.6 Sodium 141.0 Potassium Chloride 103.0 Carbon Dioxide Anion Gap BUN Creatinine Est GFR ( Amer) Est GFR (Non-Af Amer) POC Glucose (mg/dL) Random Glucose Calcium Phosphorus Magnesium Total Bilirubin AST ALT Alkaline Phosphatase Troponin I Total Protein Albumin Globulin Albumin/Globulin Ratio Venous Blood Potassium 2.9 L Stool Occult Blood Positive H Blood Type Antibody Screen 04/26/17 04/26/17 04/27/17 21:00 21:05 06:17 WBC RBC Hgb Hct MCV MCH MCHC RDW Plt Count MPV Neut % (Auto) Lymph % (Auto) George % (Auto) Eos % (Auto) Baso % (Auto) Neut # (Auto) Lymph # (Auto) George # (Auto) Eos # (Auto) Baso # (Auto) Neutrophils % (Manual) Lymphocytes % (Manual) Monocytes % (Manual) Platelet Estimate Large Platelets Poikilocytosis (manual Anisocytosis (manual) Ovalocytes PT 16.2 H D INR 1.4 D APTT 29 D pO2 VBG pH VBG pCO2 VBG HCO3 VBG Total CO2 VBG O2 Sat (Calc) VBG Base Excess VBG Potassium Glucose Lactate Sodium Potassium Chloride Carbon Dioxide Anion Gap BUN Creatinine Est GFR ( Amer) Est GFR (Non-Af Amer) POC Glucose (mg/dL) 185 H Random Glucose Calcium Phosphorus Magnesium Total Bilirubin AST ALT Alkaline Phosphatase Troponin I Total Protein Albumin Globulin Albumin/Globulin Ratio Venous Blood Potassium Stool Occult Blood Blood Type B POSITIVE Antibody Screen Negative 04/27/17 04/27/17 04/27/17 06:35 06:35 07:12 WBC 5.9 RBC 1.51 L Hgb 4.8 L* Hct 14.0 L MCV 92.4 D MCH 31.5 H MCHC 34.1 RDW 16.2 H Plt Count 210 MPV 8.2 Neut % (Auto) 70.9 Lymph % (Auto) 17.1 L George % (Auto) 10.1 H Eos % (Auto) 1.2 Baso % (Auto) 0.7 Neut # (Auto) 4.2 Lymph # (Auto) 1.0 George # (Auto) 0.6 Eos # (Auto) 0.1 Baso # (Auto) 0.0 Neutrophils % (Manual) Lymphocytes % (Manual) Monocytes % (Manual) Platelet Estimate Large Platelets Poikilocytosis (manual Anisocytosis (manual) Ovalocytes PT INR APTT pO2 VBG pH VBG pCO2 VBG HCO3 VBG Total CO2 VBG O2 Sat (Calc) VBG Base Excess VBG Potassium Glucose Lactate Sodium 140 Potassium 3.2 L Chloride 100 Carbon Dioxide 30 Anion Gap 13 BUN 39 H Creatinine 1.6 H Est GFR ( Amer) 39 Est GFR (Non-Af Amer) 32 POC Glucose (mg/dL) 167 H Random Glucose 153 H Calcium 7.7 L Phosphorus 2.4 L Magnesium 1.8 Total Bilirubin 0.8 AST 21 ALT 22 Alkaline Phosphatase 141 H Troponin I Total Protein 5.6 L Albumin 2.4 L Globulin 3.2 Albumin/Globulin Ratio 0.7 L Venous Blood Potassium Stool Occult Blood Blood Type Antibody Screen Assessment & Plan (1) ESRD (end stage renal disease) on dialysis Assessment and Plan: Patient with end stage renal disease on maintenance hemodialysis completed dialysis yesterday as outpatient and admitted with GI bleeding with hemoglobin 4.8 require 1 unit of packed cells so far and 2 additional unit to be given. 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 Patient needs GI evaluation also she is scheduled for hemodialysis for tomorrow . Massive anemia related to GI bleeding Patient has left AV access perhaps assisted and has good bruit left arm slightly swollen Continue monitoring Status: Acute (2) GI bleeding Status: Acute (3) Sacral decubitus ulcer, stage IV Status: Chronic
--- NOTE | 2017-04-27 08:24 | RAD ---
PROCEDURE: CHEST RADIOGRAPH, 1 VIEW HISTORY: Chest pain COMPARISON: 03/26/2017. FINDINGS: The left-sided dialysis catheter terminates in the right atrium. LUNGS: The lungs are well inflated. There is mild pulmonary venous congestion. No focal consolidation. PLEURA: No pneumothorax or pleural fluid seen. CARDIOVASCULAR: Normal. OSSEOUS STRUCTURES: No significant abnormalities. VISUALIZED UPPER ABDOMEN: Normal. OTHER FINDINGS: None. IMPRESSION: No acute findings.
--- NOTE | 2017-04-27 09:01 | CP.CCUPN ---
<Christen Cameron - Last Filed: 04/27/17 10:48> CCU Subjective - Physician Review Subjective (Free Text): 04/27/17 09:00 Patient seen and examined at bedside. She is being treated for GI bleed. Currently s/p 1 unit PRBCs, 2 units FFP, also received Vitamin K. Hemoglobin 4.9 -> 4.8. Will transfuse 2 more units of PRBCS. Patient offers no complaints at this time. Denies headaches, dizziness, cp, palpitations, sob, abdominal pain. CCU Objective - Vital Signs / Intake & Output Vital Signs (Last 4 hours): Vital Signs Temp Pulse Resp BP Pulse Ox 04/27/17 08:03 66 16 92/39 L 100 04/27/17 08:00 67 16 100 04/27/17 07:57 98.3 F 67 16 92/39 L 04/27/17 07:48 66 17 91/39 L 100 04/27/17 07:42 98.3 F 68 15 91/39 L 04/27/17 07:27 98.3 F 68 18 97/40 L 04/27/17 07:00 67 16 100 04/27/17 06:52 68 18 97/40 L 100 04/27/17 06:00 66 15 100 04/27/17 05:51 63 16 87/34 L 100 04/27/17 05:50 98.1 F 04/27/17 05:45 98.1 F 64 17 100 04/27/17 05:41 95/40 L 04/27/17 05:31 99/40 L 04/27/17 05:30 65 19 100 04/27/17 05:26 65 20 85/37 L 04/27/17 05:15 98.2 F 65 20 100 04/27/17 05:11 65 17 100/41 L 04/27/17 05:01 88/38 L Intake and Output (Last 8hrs): Intake & Output 04/26/17 04/27/17 04/27/17 22:59 06:59 14:59 Intake Total 1085 0 Balance 1085 0 Weight 41.005 kg 86.954 kg Intake: Intake, IV Amount 200 Right Hand 200 Blood Product 885 0 Apheresis Rbc Cp2d As3 Lr 0 1st Unit [id number] Red Blood Cells Cpd As1 325 Lr Unit [id number] - Physical Exam Head: Positive for: Atraumatic Pupils: Positive for: PERRL Extroacular Muscles: Positive for: EOMI Mouth: Positive for: Moist Mucous Membranes Nose (Internal): Positive for: Normal Inspection Neck: Positive for: Normal Range of Motion, Trachea Midline. Negative for: Meningeal Signs, MIDLINE TENDERNESS, Paraspinal Tenderness, JVD, Lymphadenopathy , Bruit, Other Respiratory/Chest: Positive for: Clear to Auscultation, Good Air Exchange, Other (Left sided dialysis catheter). Negative for: Respiratory Distress, Accessory Muscle Use, Wheezes, Rales, Retracting Cardiovascular: Positive for: Regular Rate and Rhythm, Normal S1, S2, Peripheal Pulses Present. Negative for: Murmurs, Irregular Rhythm Abdomen: Positive for: Distention, Normal Bowel Sounds. Negative for: Tenderness Back: Positive for: Decubitus Ulcer (Stage 2 decubitus ulcer). Negative for: CVA Tenderness, Midline Tenderness Upper Extremity: Positive for: Swelling (Left arm), Other (Left subclavian Will catheter, L AV shunt) Skin: Positive for: Warm, Dry Psychiatric: Positive for: Alert, Oriented x 3 - Medications Active Medications: Active Medications Generic Name Dose Route Start Last Admin Trade Name Freq PRN Reason Stop Dose Admin Amiodarone HCl 200 mg 04/27/17 10:00 Cordarone PO DAILY [facility] Amlodipine Besylate 5 mg 04/27/17 10:00 Norvasc PO DAILY YANETH Epoetin Alonso 10,000 unit 04/28/17 10:00 Procrit IV TTS YANETH Folic Acid 1 mg 04/27/17 10:00 Folic Acid PO DAILY [facility] Sodium Chloride 1,000 mls @ 42 mls/hr 04/27/17 08:30 Sodium Chloride 0.9% IV .[id number] YANETH Insulin Human Regular 0 unit 04/27/17 07:30 04/27/17 07:46 Novolin R SC Not Given ACHS [facility] Protocol Metoprolol Tartrate 50 mg 04/27/17 08:30 Lopressor PO Q12H YANETH Pantoprazole Sodium 40 mg 04/26/17 20:15 04/27/17 08:33 Protonix Inj IVP 40 mg Q12H YANETH Administration Sevelamer Carbonate 1,600 mg 04/27/17 08:00 04/27/17 07:46 Renvela PO Not Given TIDCC [facility] Vitamin B Complex/Vit C/Folic Acid 1 tab 04/28/17 08:00 Nephro-Umu PO 0800 [facility] - Patient Studies Lab Studies: Lab Studies 04/27/17 04/27/17 04/27/17 Range/Units 07:12 06:35 06:35 WBC 5.9 (4.8-10.8) K/uL RBC 1.51 L (3.80-5.20) Mil/uL Hgb 4.8 L* (11.0-16.0) g/dL Hct 14.0 L (34.0-47.0) % MCV 92.4 D (81.0-99.0) fL MCH 31.5 H (27.0-31.0) pg MCHC 34.1 (33.0-37.0) g/dL RDW 16.2 H (11.5-14.5) % Plt Count 210 (130-400) K/uL MPV 8.2 (7.2-11.7) fL Neut % (Auto) 70.9 (50.0-75.0) % Lymph % (Auto) 17.1 L (20.0-40.0) % [place] % (Auto) 10.1 H (0.0-10.0) % Eos % (Auto) 1.2 (0.0-4.0) % Baso % (Auto) 0.7 (0.0-2.0) % Neut # (Auto) 4.2 (1.8-7.0) K/uL Lymph # (Auto) 1.0 (1.0-4.3) K/uL [place] # (Auto) 0.6 (0.0-0.8) K/uL Eos # (Auto) 0.1 (0.0-0.7) K/uL Baso # (Auto) 0.0 (0.0-0.2) K/uL Neutrophils % (Manual) (50-75) % Lymphocytes % (Manual) (20-40) % Monocytes % (Manual) (0-10) % Platelet Estimate (NORMAL) Large Platelets Poikilocytosis (manual Anisocytosis (manual) Ovalocytes PT (9.7-12.2) SECONDS INR APTT (21-34) SECONDS pO2 (30-55) mm/Hg VBG pH (7.32-7.43) VBG pCO2 (40-60) mmHg VBG HCO3 mmol/L VBG Total CO2 (22-28) mmol/L VBG O2 Sat (Calc) (40-65) % VBG Base Excess (0.0-2.0) mmol/L VBG Potassium (3.6-5.2) mmol/L Glucose (65-105) mg/dl Lactate (0.7-2.1) mmol/L Sodium 140 (132-148) mmol/L Potassium 3.2 L (3.6-5.2) mmol/L Chloride 100 (98-107) mmol/L Carbon Dioxide 30 (22-30) mmol/L Anion Gap 13 (10-20) BUN 39 H (7-17) mg/dL Creatinine 1.6 H (0.7-1.2) mg/dL Est GFR ( Amer) 39 Est GFR (Non-Af Amer) 32 POC Glucose (mg/dL) 167 H (65-110) mg/dL Random Glucose 153 H (65-105) mg/dL Calcium 7.7 L (8.6-10.4) mg/dl Phosphorus 2.4 L (2.5-4.5) mg/dL Magnesium 1.8 (1.6-2.3) mg/dL Total Bilirubin 0.8 (0.2-1.3) mg/dL AST 21 (14-36) U/L ALT 22 (9-52) U/L Alkaline Phosphatase 141 H (38-126) U/L Troponin I (0.00-0.120) ng/mL Total Protein 5.6 L (6.3-8.3) g/dL Albumin 2.4 L (3.5-5.0) g/dL Globulin 3.2 (2.2-3.9) gm/dL Albumin/Globulin Ratio 0.7 L (1.0-2.1) Venous Blood Potassium (3.6-5.2) mmol/L Stool Occult Blood (NEGATIVE) Blood Type Antibody Screen 04/27/17 04/26/17 04/26/17 Range/Units 06:17 21:05 21:00 WBC (4.8-10.8) K/uL RBC (3.80-5.20) Mil/uL Hgb (11.0-16.0) g/dL Hct (34.0-47.0) % MCV (81.0-99.0) fL MCH (27.0-31.0) pg MCHC (33.0-37.0) g/dL RDW (11.5-14.5) % Plt Count (130-400) K/uL MPV (7.2-11.7) fL Neut % (Auto) (50.0-75.0) % Lymph % (Auto) (20.0-40.0) % [place] % (Auto) (0.0-10.0) % Eos % (Auto) (0.0-4.0) % Baso % (Auto) (0.0-2.0) % Neut # (Auto) (1.8-7.0) K/uL Lymph # (Auto) (1.0-4.3) K/uL [place] # (Auto) (0.0-0.8) K/uL Eos # (Auto) (0.0-0.7) K/uL Baso # (Auto) (0.0-0.2) K/uL Neutrophils % (Manual) (50-75) % Lymphocytes % (Manual) (20-40) % Monocytes % (Manual) (0-10) % Platelet Estimate (NORMAL) Large Platelets Poikilocytosis (manual Anisocytosis (manual) Ovalocytes PT 16.2 H D (9.7-12.2) SECONDS INR 1.4 D APTT 29 D (21-34) SECONDS pO2 (30-55) mm/Hg VBG pH (7.32-7.43) VBG pCO2 (40-60) mmHg VBG HCO3 mmol/L VBG Total CO2 (22-28) mmol/L VBG O2 Sat (Calc) (40-65) % VBG Base Excess (0.0-2.0) mmol/L VBG Potassium (3.6-5.2) mmol/L Glucose (65-105) mg/dl Lactate (0.7-2.1) mmol/L Sodium (132-148) mmol/L Potassium (3.6-5.2) mmol/L Chloride (98-107) mmol/L Carbon Dioxide (22-30) mmol/L Anion Gap (10-20) BUN (7-17) mg/dL Creatinine (0.7-1.2) mg/dL Est GFR ( Amer) Est GFR (Non-Af Amer) POC Glucose (mg/dL) 185 H (65-110) mg/dL Random Glucose (65-105) mg/dL Calcium (8.6-10.4) mg/dl Phosphorus (2.5-4.5) mg/dL Magnesium (1.6-2.3) mg/dL Total Bilirubin (0.2-1.3) mg/dL AST (14-36) U/L ALT (9-52) U/L Alkaline Phosphatase (38-126) U/L Troponin I (0.00-0.120) ng/mL Total Protein (6.3-8.3) g/dL Albumin (3.5-5.0) g/dL Globulin (2.2-3.9) gm/dL Albumin/Globulin Ratio (1.0-2.1) Venous Blood Potassium (3.6-5.2) mmol/L Stool Occult Blood (NEGATIVE) Blood Type B POSITIVE Antibody Screen Negative 04/26/17 04/26/17 04/26/17 Range/Units 18:56 18:49 18:37 WBC 8.2 (4.8-10.8) K/uL RBC 1.61 L (3.80-5.20) Mil/uL Hgb 4.9 L* D (11.0-16.0) g/dL Hct 15.3 L (34.0-47.0) % MCV 95.2 D (81.0-99.0) fL MCH 30.5 (27.0-31.0) pg MCHC 32.0 L (33.0-37.0) g/dL RDW 18.6 H (11.5-14.5) % Plt Count 300 D (130-400) K/uL MPV 8.3 (7.2-11.7) fL Neut % (Auto) 87.6 H (50.0-75.0) % Lymph % (Auto) 8.1 L (20.0-40.0) % [place] % (Auto) 4.0 (0.0-10.0) % Eos % (Auto) 0.0 (0.0-4.0) % Baso % (Auto) 0.3 (0.0-2.0) % Neut # (Auto) 7.2 H (1.8-7.0) K/uL Lymph # (Auto) 0.7 L (1.0-4.3) K/uL [place] # (Auto) 0.3 (0.0-0.8) K/uL Eos # (Auto) 0.0 (0.0-0.7) K/uL Baso # (Auto) 0.0 (0.0-0.2) K/uL Neutrophils % (Manual) 91 H (50-75) % Lymphocytes % (Manual) 7 L (20-40) % Monocytes % (Manual) 2 (0-10) % Platelet Estimate Normal (NORMAL) Large Platelets Present Poikilocytosis (manual Slight Anisocytosis (manual) Slight Ovalocytes Slight PT (9.7-12.2) SECONDS INR APTT (21-34) SECONDS pO2 23 L (30-55) mm/Hg VBG pH 7.39 (7.32-7.43) VBG pCO2 53 (40-60) mmHg VBG HCO3 27.8 mmol/L VBG Total CO2 33.7 H (22-28) mmol/L VBG O2 Sat (Calc) 46.6 (40-65) % VBG Base Excess 5.7 H (0.0-2.0) mmol/L VBG Potassium 2.9 L (3.6-5.2) mmol/L Glucose 174 H (65-105) mg/dl Lactate 1.6 (0.7-2.1) mmol/L Sodium 141.0 (132-148) mmol/L Potassium (3.6-5.2) mmol/L Chloride 103.0 (98-107) mmol/L Carbon Dioxide (22-30) mmol/L Anion Gap (10-20) BUN (7-17) mg/dL Creatinine (0.7-1.2) mg/dL Est GFR ( Amer) Est GFR (Non-Af Amer) POC Glucose (mg/dL) (65-110) mg/dL Random Glucose (65-105) mg/dL Calcium (8.6-10.4) mg/dl Phosphorus (2.5-4.5) mg/dL Magnesium (1.6-2.3) mg/dL Total Bilirubin (0.2-1.3) mg/dL AST (14-36) U/L ALT (9-52) U/L Alkaline Phosphatase (38-126) U/L Troponin I (0.00-0.120) ng/mL Total Protein (6.3-8.3) g/dL Albumin (3.5-5.0) g/dL Globulin (2.2-3.9) gm/dL Albumin/Globulin Ratio (1.0-2.1) Venous Blood Potassium 2.9 L (3.6-5.2) mmol/L Stool Occult Blood Positive H (NEGATIVE) Blood Type Antibody Screen 04/26/17 04/26/17 04/26/17 Range/Units 18:32 18:32 18:27 WBC (4.8-10.8) K/uL RBC (3.80-5.20) Mil/uL Hgb (11.0-16.0) g/dL Hct (34.0-47.0) % MCV (81.0-99.0) fL MCH (27.0-31.0) pg MCHC (33.0-37.0) g/dL RDW (11.5-14.5) % Plt Count (130-400) K/uL MPV (7.2-11.7) fL Neut % (Auto) (50.0-75.0) % Lymph % (Auto) (20.0-40.0) % [place] % (Auto) (0.0-10.0) % Eos % (Auto) (0.0-4.0) % Baso % (Auto) (0.0-2.0) % Neut # (Auto) (1.8-7.0) K/uL Lymph # (Auto) (1.0-4.3) K/uL [place] # (Auto) (0.0-0.8) K/uL Eos # (Auto) (0.0-0.7) K/uL Baso # (Auto) (0.0-0.2) K/uL Neutrophils % (Manual) (50-75) % Lymphocytes % (Manual) (20-40) % Monocytes % (Manual) (0-10) % Platelet Estimate (NORMAL) Large Platelets Poikilocytosis (manual Anisocytosis (manual) Ovalocytes PT 95.6 H* (9.7-12.2) SECONDS INR 7.8 APTT 54 H (21-34) SECONDS pO2 (30-55) mm/Hg VBG pH (7.32-7.43) VBG pCO2 (40-60) mmHg VBG HCO3 mmol/L VBG Total CO2 (22-28) mmol/L VBG O2 Sat (Calc) (40-65) % VBG Base Excess (0.0-2.0) mmol/L VBG Potassium (3.6-5.2) mmol/L Glucose (65-105) mg/dl Lactate (0.7-2.1) mmol/L Sodium 139 (132-148) mmol/L Potassium 3.6 (3.6-5.2) mmol/L Chloride 97 L (98-107) mmol/L Carbon Dioxide 27 (22-30) mmol/L Anion Gap 19 (10-20) BUN 30 H (7-17) mg/dL Creatinine 1.1 (0.7-1.2) mg/dL Est GFR ( Amer) 60 Est GFR (Non-Af Amer) 50 POC Glucose (mg/dL) 173 H (65-110) mg/dL Random Glucose 166 H (65-105) mg/dL Calcium 7.8 L (8.6-10.4) mg/dl Phosphorus (2.5-4.5) mg/dL Magnesium (1.6-2.3) mg/dL Total Bilirubin 1.0 (0.2-1.3) mg/dL AST 32 (14-36) U/L ALT 9 D (9-52) U/L Alkaline Phosphatase 176 H D (38-126) U/L Troponin I 0.0220 (0.00-0.120) ng/mL Total Protein 6.5 (6.3-8.3) g/dL Albumin 2.7 L (3.5-5.0) g/dL Globulin 3.8 (2.2-3.9) gm/dL Albumin/Globulin Ratio 0.7 L (1.0-2.1) Venous Blood Potassium (3.6-5.2) mmol/L Stool Occult Blood (NEGATIVE) Blood Type Antibody Screen Laboratory Results - last 24 hr 04/26/17 04/26/17 04/26/17 18:27 18:32 18:32 WBC RBC Hgb Hct MCV MCH MCHC RDW Plt Count MPV Neut % (Auto) Lymph % (Auto) [place] % (Auto) Eos % (Auto) Baso % (Auto) Neut # (Auto) Lymph # (Auto) [place] # (Auto) Eos # (Auto) Baso # (Auto) Neutrophils % (Manual) Lymphocytes % (Manual) Monocytes % (Manual) Platelet Estimate Large Platelets Poikilocytosis (manual Anisocytosis (manual) Ovalocytes PT 95.6 H* INR 7.8 APTT 54 H pO2 VBG pH VBG pCO2 VBG HCO3 VBG Total CO2 VBG O2 Sat (Calc) VBG Base Excess VBG Potassium Glucose Lactate Sodium 139 Potassium 3.6 Chloride 97 L Carbon Dioxide 27 Anion Gap 19 BUN 30 H Creatinine 1.1 Est GFR ( Amer) 60 Est GFR (Non-Af Amer) 50 POC Glucose (mg/dL) 173 H Random Glucose 166 H Calcium 7.8 L Phosphorus Magnesium Total Bilirubin 1.0 AST 32 ALT 9 D Alkaline Phosphatase 176 H D Troponin I 0.0220 Total Protein 6.5 Albumin 2.7 L Globulin 3.8 Albumin/Globulin Ratio 0.7 L Venous Blood Potassium Stool Occult Blood Blood Type Antibody Screen 04/26/17 04/26/17 04/26/17 18:37 18:49 18:56 WBC 8.2 RBC 1.61 L Hgb 4.9 L* D Hct 15.3 L MCV 95.2 D MCH 30.5 MCHC 32.0 L RDW 18.6 H Plt Count 300 D MPV 8.3 Neut % (Auto) 87.6 H Lymph % (Auto) 8.1 L [place] % (Auto) 4.0 Eos % (Auto) 0.0 Baso % (Auto) 0.3 Neut # (Auto) 7.2 H Lymph # (Auto) 0.7 L [place] # (Auto) 0.3 Eos # (Auto) 0.0 Baso # (Auto) 0.0 Neutrophils % (Manual) 91 H Lymphocytes % (Manual) 7 L Monocytes % (Manual) 2 Platelet Estimate Normal Large Platelets Present Poikilocytosis (manual Slight Anisocytosis (manual) Slight Ovalocytes Slight PT INR APTT pO2 23 L VBG pH 7.39 VBG pCO2 53 VBG HCO3 27.8 VBG Total CO2 33.7 H VBG O2 Sat (Calc) 46.6 VBG Base Excess 5.7 H VBG Potassium 2.9 L Glucose 174 H Lactate 1.6 Sodium 141.0 Potassium Chloride 103.0 Carbon Dioxide Anion Gap BUN Creatinine Est GFR ( Amer) Est GFR (Non-Af Amer) POC Glucose (mg/dL) Random Glucose Calcium Phosphorus Magnesium Total Bilirubin AST ALT Alkaline Phosphatase Troponin I Total Protein Albumin Globulin Albumin/Globulin Ratio Venous Blood Potassium 2.9 L Stool Occult Blood Positive H Blood Type Antibody Screen 04/26/17 04/26/17 04/27/17 21:00 21:05 06:17 WBC RBC Hgb Hct MCV MCH MCHC RDW Plt Count MPV Neut % (Auto) Lymph % (Auto) [place] % (Auto) Eos % (Auto) Baso % (Auto) Neut # (Auto) Lymph # (Auto) [place] # (Auto) Eos # (Auto) Baso # (Auto) Neutrophils % (Manual) Lymphocytes % (Manual) Monocytes % (Manual) Platelet Estimate Large Platelets Poikilocytosis (manual Anisocytosis (manual) Ovalocytes PT 16.2 H D INR 1.4 D APTT 29 D pO2 VBG pH VBG pCO2 VBG HCO3 VBG Total CO2 VBG O2 Sat (Calc) VBG Base Excess VBG Potassium Glucose Lactate Sodium Potassium Chloride Carbon Dioxide Anion Gap BUN Creatinine Est GFR ( Amer) Est GFR (Non-Af Amer) POC Glucose (mg/dL) 185 H Random Glucose Calcium Phosphorus Magnesium Total Bilirubin AST ALT Alkaline Phosphatase Troponin I Total Protein Albumin Globulin Albumin/Globulin Ratio Venous Blood Potassium Stool Occult Blood Blood Type B POSITIVE Antibody Screen Negative 04/27/17 04/27/17 04/27/17 06:35 06:35 07:12 WBC 5.9 RBC 1.51 L Hgb 4.8 L* Hct 14.0 L MCV 92.4 D MCH 31.5 H MCHC 34.1 RDW 16.2 H Plt Count 210 MPV 8.2 Neut % (Auto) 70.9 Lymph % (Auto) 17.1 L [place] % (Auto) 10.1 H Eos % (Auto) 1.2 Baso % (Auto) 0.7 Neut # (Auto) 4.2 Lymph # (Auto) 1.0 [place] # (Auto) 0.6 Eos # (Auto) 0.1 Baso # (Auto) 0.0 Neutrophils % (Manual) Lymphocytes % (Manual) Monocytes % (Manual) Platelet Estimate Large Platelets Poikilocytosis (manual Anisocytosis (manual) Ovalocytes PT INR APTT pO2 VBG pH VBG pCO2 VBG HCO3 VBG Total CO2 VBG O2 Sat (Calc) VBG Base Excess VBG Potassium Glucose Lactate Sodium 140 Potassium 3.2 L Chloride 100 Carbon Dioxide 30 Anion Gap 13 BUN 39 H Creatinine 1.6 H Est GFR ( Amer) 39 Est GFR (Non-Af Amer) 32 POC Glucose (mg/dL) 167 H Random Glucose 153 H Calcium 7.7 L Phosphorus 2.4 L Magnesium 1.8 Total Bilirubin 0.8 AST 21 ALT 22 Alkaline Phosphatase 141 H Troponin I Total Protein 5.6 L Albumin 2.4 L Globulin 3.2 Albumin/Globulin Ratio 0.7 L Venous Blood Potassium Stool Occult Blood Blood Type Antibody Screen EKG/Cardiology Studies: Cardiology / EKG Studies 04/26/17 18:03 EKG [ELECTROCARDIOGRAM] Stat Comment: Mode Of Transportation: BED Reason For Exam: cp Isolation: Contact 04/26/17 18:30 ELECTROCARDIOGRAM Stat Comment: Mode Of Transportation: BED Reason For Exam: chest pain Isolation: Contact 04/26/17 20:52 EKG [ELECTROCARDIOGRAM] Stat Comment: Mode Of Transportation: BED Reason For Exam: cp Isolation: Contact Fingerstick Blood Sugar Results: 173 Critical Care Progress Note - Nutrition Nutrition: Nutrition Category Date Time Status NPO Diet [DIET] Diets 04/26/17 Dinner Active Assessment/Plan - Assessment and Plan (Free Text) Assessment: Patient is a 66 year old female with past medical history of ESRD on HD, Stage 2 Sacral decubitus ulcer, HTN, Hypercholesterolemia, Anemia, Dementia was brought in to the ED for evaluation of altered mental status during hemodialysis. Patient presented with Hgb 4.9 and stool occult blood was positive. Admitted to the ICU for GI Bleed. Neurology: -Patient appears more awake today -Answering questions appropriately -CT head showed no acute intracranial abnormality Cardiology: -Patient was on Coumadin at home for afib? -Will hold all anticoagulation as risk currently outweigh the benefits -Continue Amiodarone 200mg PO daily -Continue Lopressor 50mg PO Q12H with holding parameters -Norvasc 5mg PO daily on hold -Lisinopril on hold Heme/Onc: -s/p 1 unit PRBCs, 2 units FFP, Vitamin K -Hgb 4.9 -> 4.8, currently asymptomatic -Will transfuse 2 more units of PRBCs -F/U post transfusion CBC -Continue Folic Acid daily -Patient will need PICC/midline for venous access GI: -Patient likely with Lower GI bleed -Stool occult positive -Post transfusion CBC reviewed -Protonix 40mg IVP Q12H -Continue NS @ 42cc/hr -Diet NPO -Plan for possible EGD at some point -Will order CT abd/pelvis -GI on consult, Dr Sethi, help appreciated Renal: -Patient history of ESRD on HD TTS -Continue Renvela 1,600mg TIDCC -Continue Nephrovite 1 tab PO daily -Contiue Procrit 10,000 TTS -Continue NS @ 42cc/hr, monitor closely for fluid overload -Nephrology on consult, help appreciated Musculoskeletal: -Patient with Stage 2 sacral decubitus ulcer -Wound care consulted, f/u recommendations -Please turn [id number] -Patient with left arm swelling, will order arterial/venous duplex Endocrine: -Unclear if patient has a history of diabetes -Hgba1c in 10/2016 noted to be 5.0 -Monitor accuchecks, low dose ISS Infectious Disease: -Received Vancomycin 1gm x 1 dose and Zosyn 3.375 mg IV x 1 dose in the ED -Will hold on continuing antibiotics at this time -F/U wound cultures, blood cultures GI/DVT ppx : -Protonix 40mg IVP Q12H -SCDs, AC contraindicated at this time 2/2 GI bleed <Elizabeth Ya - Last Filed: 04/27/17 15:11> CCU Objective - Vital Signs / Intake & Output Vital Signs (Last 4 hours): Vital Signs Temp Pulse Resp BP Pulse Ox 04/27/17 14:00 70 19 100 04/27/17 13:40 72 25 H 114/54 L 100 04/27/17 13:15 98.4 F 72 20 114/54 L 100 04/27/17 13:10 73 24 114/53 L 100 04/27/17 13:00 71 20 100 04/27/17 12:45 98.4 F 72 20 114/53 L 100 04/27/17 12:29 70 17 121/58 L 100 04/27/17 12:15 98.1 F 69 16 121/58 L 100 04/27/17 12:14 70 17 111/54 L 100 04/27/17 12:00 97.5 F L 70 16 114/56 L 100 04/27/17 11:59 70 23 114/56 L 100 04/27/17 11:45 97.5 F L 71 20 115/59 L 100 04/27/17 11:44 71 21 115/59 L 100 04/27/17 11:30 97.1 F L 73 15 125/60 100 04/27/17 11:29 97.1 F L 71 15 125/60 100 04/27/17 11:28 73 18 Intake and Output (Last 8hrs): Intake & Output 04/27/17 04/27/17 04/27/17 06:59 14:59 22:59 Intake Total 1085 1751 Balance 1085 1751 Weight 191 lb 11.2 oz Intake: IV 300 Intake, IV Amount 200 126 Right Hand 200 126 Oral 300 Blood Product 885 925 Apheresis Rbc Cp2d As3 Lr 280 1st Unit [id number] Red Blood Cells Cpd As1 325 Lr Unit [id number] Red Blood Cells Cpd As1 325 Lr Unit [id number] Other 100 Apheresis Rbc Cp2d As3 Lr 50 1st Unit [id number] Red Blood Cells Cpd As1 50 Lr Unit [id number] Other: # Bowel Movements 1 - Medications Active Medications: Active Medications Generic Name Dose Route Start Last Admin Trade Name Freq PRN Reason Stop Dose Admin Amiodarone HCl 200 mg 04/27/17 10:00 04/27/17 10:00 Cordarone PO 200 mg DAILY YANETH Administration Amlodipine Besylate 5 mg 04/27/17 10:00 Norvasc PO DAILY YANETH Epoetin Alonso 10,000 unit 04/28/17 10:00 Procrit IV TTS YANETH Folic Acid 1 mg 04/27/17 10:00 04/27/17 12:50 Folic Acid PO 1 mg DAILY YANETH Administration Sodium Chloride 1,000 mls @ 42 mls/hr 04/27/17 08:30 04/27/17 11:49 Sodium Chloride 0.9% IV 42 mls/hr .[id number] YANETH Administration Insulin Human Regular 0 unit 04/27/17 07:30 04/27/17 12:48 Novolin R SC 1 unit ACHS YANETH Administration Protocol Metoprolol Tartrate 50 mg 04/27/17 08:30 04/27/17 09:11 Lopressor PO Not Given Q12H YANETH Pantoprazole Sodium 40 mg 04/26/17 20:15 04/27/17 08:33 Protonix Inj IVP 40 mg Q12H YANETH Administration Sevelamer Carbonate 1,600 mg 04/27/17 08:00 04/27/17 12:50 Renvela PO 1,600 mg TIDCC YANETH Administration Vitamin B Complex/Vit C/Folic Acid 1 tab 04/28/17 08:00 Nephro-Umu PO 0800 YANETH - Patient Studies Lab Studies: Microbiology Studies 04/27/17 06:00 Gram Stain - Final Sacral Lab Studies 04/27/17 04/27/17 04/27/17 Range/Units 14:14 11:52 07:12 WBC 7.1 (4.8-10.8) K/uL RBC 2.51 L (3.80-5.20) Mil/uL Hgb 7.5 L D (11.0-16.0) g/dL Hct 22.1 L (34.0-47.0) % MCV 88.2 D (81.0-99.0) fL MCH 30.1 (27.0-31.0) pg MCHC 34.1 (33.0-37.0) g/dL RDW 16.9 H (11.5-14.5) % Plt Count 225 (130-400) K/uL MPV 8.7 (7.2-11.7) fL Neut % (Auto) (50.0-75.0) % Lymph % (Auto) (20.0-40.0) % [place] % (Auto) (0.0-10.0) % Eos % (Auto) (0.0-4.0) % Baso % (Auto) (0.0-2.0) % Neut # (Auto) (1.8-7.0) K/uL Lymph # (Auto) (1.0-4.3) K/uL [place] # (Auto) (0.0-0.8) K/uL Eos # (Auto) (0.0-0.7) K/uL Baso # (Auto) (0.0-0.2) K/uL Neutrophils % (Manual) (50-75) % Lymphocytes % (Manual) (20-40) % Monocytes % (Manual) (0-10) % Platelet Estimate (NORMAL) Large Platelets Poikilocytosis (manual Anisocytosis (manual) Ovalocytes PT (9.7-12.2) SECONDS INR APTT (21-34) SECONDS pO2 (30-55) mm/Hg VBG pH (7.32-7.43) VBG pCO2 (40-60) mmHg VBG HCO3 mmol/L VBG Total CO2 (22-28) mmol/L VBG O2 Sat (Calc) (40-65) % VBG Base Excess (0.0-2.0) mmol/L VBG Potassium (3.6-5.2) mmol/L Glucose (65-105) mg/dl Lactate (0.7-2.1) mmol/L Sodium (132-148) mmol/L Potassium (3.6-5.2) mmol/L Chloride (98-107) mmol/L Carbon Dioxide (22-30) mmol/L Anion Gap (10-20) BUN (7-17) mg/dL Creatinine (0.7-1.2) mg/dL Est GFR ( Amer) Est GFR (Non-Af Amer) POC Glucose (mg/dL) 152 H 167 H (65-110) mg/dL Random Glucose (65-105) mg/dL Calcium (8.6-10.4) mg/dl Phosphorus (2.5-4.5) mg/dL Magnesium (1.6-2.3) mg/dL Total Bilirubin (0.2-1.3) mg/dL AST (14-36) U/L ALT (9-52) U/L Alkaline Phosphatase (38-126) U/L Troponin I (0.00-0.120) ng/mL Total Protein (6.3-8.3) g/dL Albumin (3.5-5.0) g/dL Globulin (2.2-3.9) gm/dL Albumin/Globulin Ratio (1.0-2.1) Venous Blood Potassium (3.6-5.2) mmol/L Stool Occult Blood (NEGATIVE) Blood Type Antibody Screen 04/27/17 04/27/17 04/27/17 Range/Units 06:35 06:35 06:17 WBC 5.9 (4.8-10.8) K/uL RBC 1.51 L (3.80-5.20) Mil/uL Hgb 4.8 L* (11.0-16.0) g/dL Hct 14.0 L (34.0-47.0) % MCV 92.4 D (81.0-99.0) fL MCH 31.5 H (27.0-31.0) pg MCHC 34.1 (33.0-37.0) g/dL RDW 16.2 H (11.5-14.5) % Plt Count 210 (130-400) K/uL MPV 8.2 (7.2-11.7) fL Neut % (Auto) 70.9 (50.0-75.0) % Lymph % (Auto) 17.1 L (20.0-40.0) % [place] % (Auto) 10.1 H (0.0-10.0) % Eos % (Auto) 1.2 (0.0-4.0) % Baso % (Auto) 0.7 (0.0-2.0) % Neut # (Auto) 4.2 (1.8-7.0) K/uL Lymph # (Auto) 1.0 (1.0-4.3) K/uL [place] # (Auto) 0.6 (0.0-0.8) K/uL Eos # (Auto) 0.1 (0.0-0.7) K/uL Baso # (Auto) 0.0 (0.0-0.2) K/uL Neutrophils % (Manual) (50-75) % Lymphocytes % (Manual) (20-40) % Monocytes % (Manual) (0-10) % Platelet Estimate (NORMAL) Large Platelets Poikilocytosis (manual Anisocytosis (manual) Ovalocytes PT 16.2 H D (9.7-12.2) SECONDS INR 1.4 D APTT 29 D (21-34) SECONDS pO2 (30-55) mm/Hg VBG pH (7.32-7.43) VBG pCO2 (40-60) mmHg VBG HCO3 mmol/L VBG Total CO2 (22-28) mmol/L VBG O2 Sat (Calc) (40-65) % VBG Base Excess (0.0-2.0) mmol/L VBG Potassium (3.6-5.2) mmol/L Glucose (65-105) mg/dl Lactate (0.7-2.1) mmol/L Sodium 140 (132-148) mmol/L Potassium 3.2 L (3.6-5.2) mmol/L Chloride 100 (98-107) mmol/L Carbon Dioxide 30 (22-30) mmol/L Anion Gap 13 (10-20) BUN 39 H (7-17) mg/dL Creatinine 1.6 H (0.7-1.2) mg/dL Est GFR ( Amer) 39 Est GFR (Non-Af Amer) 32 POC Glucose (mg/dL) (65-110) mg/dL Random Glucose 153 H (65-105) mg/dL Calcium 7.7 L (8.6-10.4) mg/dl Phosphorus 2.4 L (2.5-4.5) mg/dL Magnesium 1.8 (1.6-2.3) mg/dL Total Bilirubin 0.8 (0.2-1.3) mg/dL AST 21 (14-36) U/L ALT 22 (9-52) U/L Alkaline Phosphatase 141 H (38-126) U/L Troponin I (0.00-0.120) ng/mL Total Protein 5.6 L (6.3-8.3) g/dL Albumin 2.4 L (3.5-5.0) g/dL Globulin 3.2 (2.2-3.9) gm/dL Albumin/Globulin Ratio 0.7 L (1.0-2.1) Venous Blood Potassium (3.6-5.2) mmol/L Stool Occult Blood (NEGATIVE) Blood Type Antibody Screen 04/26/17 04/26/17 04/26/17 Range/Units 21:05 21:00 18:56 WBC (4.8-10.8) K/uL RBC (3.80-5.20) Mil/uL Hgb (11.0-16.0) g/dL Hct (34.0-47.0) % MCV (81.0-99.0) fL MCH (27.0-31.0) pg MCHC (33.0-37.0) g/dL RDW (11.5-14.5) % Plt Count (130-400) K/uL MPV (7.2-11.7) fL Neut % (Auto) (50.0-75.0) % Lymph % (Auto) (20.0-40.0) % [place] % (Auto) (0.0-10.0) % Eos % (Auto) (0.0-4.0) % Baso % (Auto) (0.0-2.0) % Neut # (Auto) (1.8-7.0) K/uL Lymph # (Auto) (1.0-4.3) K/uL [place] # (Auto) (0.0-0.8) K/uL Eos # (Auto) (0.0-0.7) K/uL Baso # (Auto) (0.0-0.2) K/uL Neutrophils % (Manual) (50-75) % Lymphocytes % (Manual) (20-40) % Monocytes % (Manual) (0-10) % Platelet Estimate (NORMAL) Large Platelets Poikilocytosis (manual Anisocytosis (manual) Ovalocytes PT (9.7-12.2) SECONDS INR APTT (21-34) SECONDS pO2 23 L (30-55) mm/Hg VBG pH 7.39 (7.32-7.43) VBG pCO2 53 (40-60) mmHg VBG HCO3 27.8 mmol/L VBG Total CO2 33.7 H (22-28) mmol/L VBG O2 Sat (Calc) 46.6 (40-65) % VBG Base Excess 5.7 H (0.0-2.0) mmol/L VBG Potassium 2.9 L (3.6-5.2) mmol/L Glucose 174 H (65-105) mg/dl Lactate 1.6 (0.7-2.1) mmol/L Sodium 141.0 (132-148) mmol/L Potassium (3.6-5.2) mmol/L Chloride 103.0 (98-107) mmol/L Carbon Dioxide (22-30) mmol/L Anion Gap (10-20) BUN (7-17) mg/dL Creatinine (0.7-1.2) mg/dL Est GFR ( Amer) Est GFR (Non-Af Amer) POC Glucose (mg/dL) 185 H (65-110) mg/dL Random Glucose (65-105) mg/dL Calcium (8.6-10.4) mg/dl Phosphorus (2.5-4.5) mg/dL Magnesium (1.6-2.3) mg/dL Total Bilirubin (0.2-1.3) mg/dL AST (14-36) U/L ALT (9-52) U/L Alkaline Phosphatase (38-126) U/L Troponin I (0.00-0.120) ng/mL Total Protein (6.3-8.3) g/dL Albumin (3.5-5.0) g/dL Globulin (2.2-3.9) gm/dL Albumin/Globulin Ratio (1.0-2.1) Venous Blood Potassium 2.9 L (3.6-5.2) mmol/L Stool Occult Blood (NEGATIVE) Blood Type B POSITIVE Antibody Screen Negative 04/26/17 04/26/17 04/26/17 Range/Units 18:49 18:37 18:32 WBC 8.2 (4.8-10.8) K/uL RBC 1.61 L (3.80-5.20) Mil/uL Hgb 4.9 L* D (11.0-16.0) g/dL Hct 15.3 L (34.0-47.0) % MCV 95.2 D (81.0-99.0) fL MCH 30.5 (27.0-31.0) pg MCHC 32.0 L (33.0-37.0) g/dL RDW 18.6 H (11.5-14.5) % Plt Count 300 D (130-400) K/uL MPV 8.3 (7.2-11.7) fL Neut % (Auto) 87.6 H (50.0-75.0) % Lymph % (Auto) 8.1 L (20.0-40.0) % [place] % (Auto) 4.0 (0.0-10.0) % Eos % (Auto) 0.0 (0.0-4.0) % Baso % (Auto) 0.3 (0.0-2.0) % Neut # (Auto) 7.2 H (1.8-7.0) K/uL Lymph # (Auto) 0.7 L (1.0-4.3) K/uL [place] # (Auto) 0.3 (0.0-0.8) K/uL Eos # (Auto) 0.0 (0.0-0.7) K/uL Baso # (Auto) 0.0 (0.0-0.2) K/uL Neutrophils % (Manual) 91 H (50-75) % Lymphocytes % (Manual) 7 L (20-40) % Monocytes % (Manual) 2 (0-10) % Platelet Estimate Normal (NORMAL) Large Platelets Present Poikilocytosis (manual Slight Anisocytosis (manual) Slight Ovalocytes Slight PT (9.7-12.2) SECONDS INR APTT (21-34) SECONDS pO2 (30-55) mm/Hg VBG pH (7.32-7.43) VBG pCO2 (40-60) mmHg VBG HCO3 mmol/L VBG Total CO2 (22-28) mmol/L VBG O2 Sat (Calc) (40-65) % VBG Base Excess (0.0-2.0) mmol/L VBG Potassium (3.6-5.2) mmol/L Glucose (65-105) mg/dl Lactate (0.7-2.1) mmol/L Sodium 139 (132-148) mmol/L Potassium 3.6 (3.6-5.2) mmol/L Chloride 97 L (98-107) mmol/L Carbon Dioxide 27 (22-30) mmol/L Anion Gap 19 (10-20) BUN 30 H (7-17) mg/dL Creatinine 1.1 (0.7-1.2) mg/dL Est GFR ( Amer) 60 Est GFR (Non-Af Amer) 50 POC Glucose (mg/dL) (65-110) mg/dL Random Glucose 166 H (65-105) mg/dL Calcium 7.8 L (8.6-10.4) mg/dl Phosphorus (2.5-4.5) mg/dL Magnesium (1.6-2.3) mg/dL Total Bilirubin 1.0 (0.2-1.3) mg/dL AST 32 (14-36) U/L ALT 9 D (9-52) U/L Alkaline Phosphatase 176 H D (38-126) U/L Troponin I 0.0220 (0.00-0.120) ng/mL Total Protein 6.5 (6.3-8.3) g/dL Albumin 2.7 L (3.5-5.0) g/dL Globulin 3.8 (2.2-3.9) gm/dL Albumin/Globulin Ratio 0.7 L (1.0-2.1) Venous Blood Potassium (3.6-5.2) mmol/L Stool Occult Blood Positive H (NEGATIVE) Blood Type Antibody Screen 04/26/17 04/26/17 Range/Units 18:32 18:27 WBC (4.8-10.8) K/uL RBC (3.80-5.20) Mil/uL Hgb (11.0-16.0) g/dL Hct (34.0-47.0) % MCV (81.0-99.0) fL MCH (27.0-31.0) pg MCHC (33.0-37.0) g/dL RDW (11.5-14.5) % Plt Count (130-400) K/uL MPV (7.2-11.7) fL Neut % (Auto) (50.0-75.0) % Lymph % (Auto) (20.0-40.0) % [place] % (Auto) (0.0-10.0) % Eos % (Auto) (0.0-4.0) % Baso % (Auto) (0.0-2.0) % Neut # (Auto) (1.8-7.0) K/uL Lymph # (Auto) (1.0-4.3) K/uL [place] # (Auto) (0.0-0.8) K/uL Eos # (Auto) (0.0-0.7) K/uL Baso # (Auto) (0.0-0.2) K/uL Neutrophils % (Manual) (50-75) % Lymphocytes % (Manual) (20-40) % Monocytes % (Manual) (0-10) % Platelet Estimate (NORMAL) Large Platelets Poikilocytosis (manual Anisocytosis (manual) Ovalocytes PT 95.6 H* (9.7-12.2) SECONDS INR 7.8 APTT 54 H (21-34) SECONDS pO2 (30-55) mm/Hg VBG pH (7.32-7.43) VBG pCO2 (40-60) mmHg VBG HCO3 mmol/L VBG Total CO2 (22-28) mmol/L VBG O2 Sat (Calc) (40-65) % VBG Base Excess (0.0-2.0) mmol/L VBG Potassium (3.6-5.2) mmol/L Glucose (65-105) mg/dl Lactate (0.7-2.1) mmol/L Sodium (132-148) mmol/L Potassium (3.6-5.2) mmol/L Chloride (98-107) mmol/L Carbon Dioxide (22-30) mmol/L Anion Gap (10-20) BUN (7-17) mg/dL Creatinine (0.7-1.2) mg/dL Est GFR ( Amer) Est GFR (Non-Af Amer) POC Glucose (mg/dL) 173 H (65-110) mg/dL Random Glucose (65-105) mg/dL Calcium (8.6-10.4) mg/dl Phosphorus (2.5-4.5) mg/dL Magnesium (1.6-2.3) mg/dL Total Bilirubin (0.2-1.3) mg/dL AST (14-36) U/L ALT (9-52) U/L Alkaline Phosphatase (38-126) U/L Troponin I (0.00-0.120) ng/mL Total Protein (6.3-8.3) g/dL Albumin (3.5-5.0) g/dL Globulin (2.2-3.9) gm/dL Albumin/Globulin Ratio (1.0-2.1) Venous Blood Potassium (3.6-5.2) mmol/L Stool Occult Blood (NEGATIVE) Blood Type Antibody Screen Laboratory Results - last 24 hr 04/26/17 04/26/17 04/26/17 18:27 18:32 18:32 WBC RBC Hgb Hct MCV MCH MCHC RDW Plt Count MPV Neut % (Auto) Lymph % (Auto) [place] % (Auto) Eos % (Auto) Baso % (Auto) Neut # (Auto) Lymph # (Auto) [place] # (Auto) Eos # (Auto) Baso # (Auto) Neutrophils % (Manual) Lymphocytes % (Manual) Monocytes % (Manual) Platelet Estimate Large Platelets Poikilocytosis (manual Anisocytosis (manual) Ovalocytes PT 95.6 H* INR 7.8 APTT 54 H pO2 VBG pH VBG pCO2 VBG HCO3 VBG Total CO2 VBG O2 Sat (Calc) VBG Base Excess VBG Potassium Glucose Lactate Sodium 139 Potassium 3.6 Chloride 97 L Carbon Dioxide 27 Anion Gap 19 BUN 30 H Creatinine 1.1 Est GFR ( Amer) 60 Est GFR (Non-Af Amer) 50 POC Glucose (mg/dL) 173 H Random Glucose 166 H Calcium 7.8 L Phosphorus Magnesium Total Bilirubin 1.0 AST 32 ALT 9 D Alkaline Phosphatase 176 H D Troponin I 0.0220 Total Protein 6.5 Albumin 2.7 L Globulin 3.8 Albumin/Globulin Ratio 0.7 L Venous Blood Potassium Stool Occult Blood Blood Type Antibody Screen 04/26/17 04/26/17 04/26/17 18:37 18:49 18:56 WBC 8.2 RBC 1.61 L Hgb 4.9 L* D Hct 15.3 L MCV 95.2 D MCH 30.5 MCHC 32.0 L RDW 18.6 H Plt Count 300 D MPV 8.3 Neut % (Auto) 87.6 H Lymph % (Auto) 8.1 L [place] % (Auto) 4.0 Eos % (Auto) 0.0 Baso % (Auto) 0.3 Neut # (Auto) 7.2 H Lymph # (Auto) 0.7 L [place] # (Auto) 0.3 Eos # (Auto) 0.0 Baso # (Auto) 0.0 Neutrophils % (Manual) 91 H Lymphocytes % (Manual) 7 L Monocytes % (Manual) 2 Platelet Estimate Normal Large Platelets Present Poikilocytosis (manual Slight Anisocytosis (manual) Slight Ovalocytes Slight PT INR APTT pO2 23 L VBG pH 7.39 VBG pCO2 53 VBG HCO3 27.8 VBG Total CO2 33.7 H VBG O2 Sat (Calc) 46.6 VBG Base Excess 5.7 H VBG Potassium 2.9 L Glucose 174 H Lactate 1.6 Sodium 141.0 Potassium Chloride 103.0 Carbon Dioxide Anion Gap BUN Creatinine Est GFR ( Amer) Est GFR (Non-Af Amer) POC Glucose (mg/dL) Random Glucose Calcium Phosphorus Magnesium Total Bilirubin AST ALT Alkaline Phosphatase Troponin I Total Protein Albumin Globulin Albumin/Globulin Ratio Venous Blood Potassium 2.9 L Stool Occult Blood Positive H Blood Type Antibody Screen 04/26/17 04/26/17 04/27/17 21:00 21:05 06:17 WBC RBC Hgb Hct MCV MCH MCHC RDW Plt Count MPV Neut % (Auto) Lymph % (Auto) [place] % (Auto) Eos % (Auto) Baso % (Auto) Neut # (Auto) Lymph # (Auto) [place] # (Auto) Eos # (Auto) Baso # (Auto) Neutrophils % (Manual) Lymphocytes % (Manual) Monocytes % (Manual) Platelet Estimate Large Platelets Poikilocytosis (manual Anisocytosis (manual) Ovalocytes PT 16.2 H D INR 1.4 D APTT 29 D pO2 VBG pH VBG pCO2 VBG HCO3 VBG Total CO2 VBG O2 Sat (Calc) VBG Base Excess VBG Potassium Glucose Lactate Sodium Potassium Chloride Carbon Dioxide Anion Gap BUN Creatinine Est GFR ( Amer) Est GFR (Non-Af Amer) POC Glucose (mg/dL) 185 H Random Glucose Calcium Phosphorus Magnesium Total Bilirubin AST ALT Alkaline Phosphatase Troponin I Total Protein Albumin Globulin Albumin/Globulin Ratio Venous Blood Potassium Stool Occult Blood Blood Type B POSITIVE Antibody Screen Negative 04/27/17 04/27/17 04/27/17 06:35 06:35 07:12 WBC 5.9 RBC 1.51 L Hgb 4.8 L* Hct 14.0 L MCV 92.4 D MCH 31.5 H MCHC 34.1 RDW 16.2 H Plt Count 210 MPV 8.2 Neut % (Auto) 70.9 Lymph % (Auto) 17.1 L [place] % (Auto) 10.1 H Eos % (Auto) 1.2 Baso % (Auto) 0.7 Neut # (Auto) 4.2 Lymph # (Auto) 1.0 [place] # (Auto) 0.6 Eos # (Auto) 0.1 Baso # (Auto) 0.0 Neutrophils % (Manual) Lymphocytes % (Manual) Monocytes % (Manual) Platelet Estimate Large Platelets Poikilocytosis (manual Anisocytosis (manual) Ovalocytes PT INR APTT pO2 VBG pH VBG pCO2 VBG HCO3 VBG Total CO2 VBG O2 Sat (Calc) VBG Base Excess VBG Potassium Glucose Lactate Sodium 140 Potassium 3.2 L Chloride 100 Carbon Dioxide 30 Anion Gap 13 BUN 39 H Creatinine 1.6 H Est GFR ( Amer) 39 Est GFR (Non-Af Amer) 32 POC Glucose (mg/dL) 167 H Random Glucose 153 H Calcium 7.7 L Phosphorus 2.4 L Magnesium 1.8 Total Bilirubin 0.8 AST 21 ALT 22 Alkaline Phosphatase 141 H Troponin I Total Protein 5.6 L Albumin 2.4 L Globulin 3.2 Albumin/Globulin Ratio 0.7 L Venous Blood Potassium Stool Occult Blood Blood Type Antibody Screen 04/27/17 04/27/17 11:52 14:14 WBC 7.1 RBC 2.51 L Hgb 7.5 L D Hct 22.1 L MCV 88.2 D MCH 30.1 MCHC 34.1 RDW 16.9 H Plt Count 225 MPV 8.7 Neut % (Auto) Lymph % (Auto) [place] % (Auto) Eos % (Auto) Baso % (Auto) Neut # (Auto) Lymph # (Auto) [place] # (Auto) Eos # (Auto) Baso # (Auto) Neutrophils % (Manual) Lymphocytes % (Manual) Monocytes % (Manual) Platelet Estimate Large Platelets Poikilocytosis (manual Anisocytosis (manual) Ovalocytes PT INR APTT pO2 VBG pH VBG pCO2 VBG HCO3 VBG Total CO2 VBG O2 Sat (Calc) VBG Base Excess VBG Potassium Glucose Lactate Sodium Potassium Chloride Carbon Dioxide Anion Gap BUN Creatinine Est GFR ( Amer) Est GFR (Non-Af Amer) POC Glucose (mg/dL) 152 H Random Glucose Calcium Phosphorus Magnesium Total Bilirubin AST ALT Alkaline Phosphatase Troponin I Total Protein Albumin Globulin Albumin/Globulin Ratio Venous Blood Potassium Stool Occult Blood Blood Type Antibody Screen EKG/Cardiology Studies: Cardiology / EKG Studies 04/26/17 18:03 EKG [ELECTROCARDIOGRAM] Stat Comment: Mode Of Transportation: BED Reason For Exam: cp Isolation: Contact 04/26/17 18:30 ELECTROCARDIOGRAM Stat Comment: Mode Of Transportation: BED Reason For Exam: chest pain Isolation: Contact 04/26/17 20:52 EKG [ELECTROCARDIOGRAM] Stat Comment: Mode Of Transportation: BED Reason For Exam: cp Isolation: Contact Critical Care Progress Note - Nutrition Nutrition: Nutrition Category Date Time Status NPO Diet [DIET] Diets 04/27/17 Lunch Active Assessment/Plan - Assessment and Plan (Free Text) Plan: Above resident note reviewed and verified. Patient with h/o ?A-fib taking coumadin presents to [facility] (formerly [facility]) dx with sever blood loss anemia Above resident note documents my discussion during ICu rounds. -Acute blood loss anemia: continue IV PPI, endoscopy, NPO -transfuse blood to keep hb/hct >8/24 -HTN: continue lopressor, avoid ccb and ACEI -no BMs overnight no active bleeding -BUN low, suspect lower GI bleed -ESRD on HD: continue HD as per renal -decubitus care: wound care eval DVT ppx scds pud ppx protonix q12 Patient remains hemodynamically stable. - Date & Time Date: 04/27/17 Time: 15:10
--- NOTE | 2017-04-27 10:10 | CARD ---
APPROVED REPORT EKG Measurement Heart [id number] <Conclusion> Normal sinus rhythm Prolonged QT Abnormal ECG
--- NOTE | 2017-04-27 10:11 | CARD ---
APPROVED REPORT EKG Measurement Heart [id number] [place] [id number] <Conclusion> Normal sinus rhythm Prolonged QT Abnormal ECG
[2017-04-27] MEDS ORDERED: Midazolam 2 MG/2 ML VIAL ONE (10:32)
[2017-04-27] MEDS ORDERED: Propofol 10 mg/ml Inj (20 ML) ONE ×2 (10:32→11:00)
[2017-04-27] MEDS: Sodium Chloride 0.9% 1,000 ML IV SCH (11:49)
[2017-04-27 14:25] LABS: MEAN CORPUSCULAR HEMOGLOBIN 30.1 pg (27.0-31.0); MEAN CORPUSCULAR HGB CONC 34.1 g/dL (33.0-37.0); MEAN PLATELET VOLUME 8.7 fL (7.2-11.7); RBC 2.51 Mil/uL (3.80-5.20); RED CELL DISTRIBUTION WIDTH 16.9 % (11.5-14.5); WHITE BLOOD COUNT 7.1 K/uL (4.8-10.8)
[2017-04-27 14:29] LABS: HEMOGLOBIN 7.5 g/dL (11.0-16.0); MEAN CELL VOLUME 88.2 fL (81.0-99.0)
--- NOTE | 2017-04-27 15:29 | VASCLAB ---
PROCEDURE: Left Upper Extremity Venous Duplex Exam HISTORY: DVT , left arm swelling PRIORS: None. TECHNIQUE: Left upper extremity, internal jugular, subclavian, axillary, brachial, ulnar, radial, basilic and upper cephalic veins were evaluated. Flow was assessed with color Doppler, compressibility, assessment of phasic flow and augmentation response. Report prepared by JUANY Hernadez, RVT FINDINGS: LEFT: 1. Internal Jugular: 1.1. Compressibility - Fully compressible: Thrombus - None : Flow - Phasic: Augmentation -Normal: Reflux - None. 2. Subclavian: 2.1. Compressibility - Fully compressible: Thrombus - None : Flow - Phasic: Augmentation -Normal: Reflux - None. 3. Axillary: 3.1. Compressibility - Fully compressible: Thrombus - None : Flow - Phasic: Augmentation -Normal: Reflux - None. 4. Brachial: 4.1. Compressibility - Fully compressible: Thrombus - None: Flow - Phasic: Augmentation -Normal: Reflux - None. 5. Ulnar: 5.1. Compressibility - Fully compressible: Thrombus - None: Flow - Phasic: Augmentation -Normal: Reflux - None. 6. Radial: 6.1. Compressibility - Fully compressible: Thrombus - None: Flow - Phasic: Augmentation - Normal: Reflux - None. 7. Cephalic: 7.1. Compressibility - Fully compressible: Thrombus - None: Flow - Phasic: Augmentation -Normal: Reflux - None. 8. Basilic: 8.1. Compressibility - : Thrombus - : Flow - : Augmentation -: Reflux - . OTHER FINDINGS: Left: None. IMPRESSION: Left: No evidence of vein thrombosis of the left upper extremity with excellent venous flow. Normal valve function noted of the left side. Normal venous flow noted in the right internal jugular and right subclavian veins.
--- NOTE | 2017-04-27 16:33 | CT ---
PROCEDURE: CT Abdomen and Pelvis without intravenous contrast HISTORY: GI bleed COMPARISON: None. TECHNIQUE: Without contrast.. Contrast Dose: 0 Radiation dose: Total exam DLP = Total exam DLP = 1042.04 mGy-cm. This CT exam was performed using one or more of the following dose reduction techniques: Automated exposure control, adjustment of the mA and/or kV according to patient size, and/or use of iterative reconstruction technique. FINDINGS: LOWER THORAX: Minimal dependent pleural thickening in both lower lobes. LIVER: Unremarkable. No gross lesion or ductal dilatation. GALLBLADDER AND BILE DUCTS: Unremarkable. PANCREAS: Unremarkable. No gross lesion or ductal dilatation. SPLEEN: Unremarkable. ADRENALS: Unremarkable. No mass. KIDNEYS AND URETERS: Unremarkable. No hydronephrosis. No solid mass. VASCULATURE: Unremarkable. No aortic aneurysm. BOWEL: Circumferential mural thickening of the rectosigmoid colon suspicious for a nonspecific colitis. There are no other abnormal bowel loops. There is no bowel obstruction. There are at least 4 linear metallic foreign bodies in the gastric lumen. Uncertain significance. Please correlate with any surgical history. Question of prior partial gastrectomy but this is an atypical postoperative appearance. APPENDIX: Unremarkable. Normal appendix. PERITONEUM: Minimal ascites LYMPH NODES: Unremarkable. No enlarged lymph nodes. BLADDER: Diffusely thickened wall. Poorly distended. Nevertheless, the wall is thicker than expected for this nondistended bladder and the possibility of a cystitis must be considered. REPRODUCTIVE: Unremarkable uterus. BONES: No acute fracture. OTHER FINDINGS: There is marked edema and cutaneous thickening of the left breast. However, there is also mild dependent edema in the flanks, left greater than right, associated with cutaneous thickening. Uncertain significance. Consider evaluation with mammography. Possible lymphedema. IMPRESSION: Linear radiopaque foreign bodies within the gastric lumen. Uncertain significance. Please correlate. Mural thickening of the rectosigmoid colon consistent with a nonspecific colitis. Edema and cutaneous thickening in the breast but also in the flanks, left greater than right. Possible dependent edema with patient lying left lateral decubitus or lymphedema. Minimal ascites. Diffuse thickening of bladder wall. Nonspecific cystitis.
--- NOTE | 2017-04-27 18:22 | CP.PCM.HP ---
Past Patient History - Past Medical History & Family History Past Medical History?: Yes - Past Social History Smoking Status: Never Smoked - CARDIAC Hx Hypercholesterolemia: Yes Hx Hypertension: Yes - PULMONARY Hx Respiratory Disorders: No - NEUROLOGICAL Hx Dementia: Yes - HEENT Hx HEENT Problems: No - RENAL Hx Chronic Kidney Disease: Yes - ENDOCRINE/METABOLIC Hx Endocrine Disorders: Yes Hx Diabetes Mellitus Type 2: Yes - HEMATOLOGICAL/ONCOLOGICAL Hx Anemia: Yes - INTEGUMENTARY Hx Dermatological Problems: Yes Other/Comment: ulcer buttocks - MUSCULOSKELETAL/RHEUMATOLOGICAL Hx Musculoskeletal Disorders: No Hx Falls: No - GASTROINTESTINAL Hx Gastrointestinal Disorders: No - GENITOURINARY/GYNECOLOGICAL Hx Genitourinary Disorders: Yes Hx Incontinence: Yes Hx Urinary Tract Infection: Yes - PSYCHIATRIC Hx Substance Use: No - SURGICAL HISTORY Hx Surgeries: Yes Hx Cardiac Catheterization: Yes Hx Vascular Surgery: Yes (perma cath insertion) Other/Comment: debridement ulcer buttocks - ANESTHESIA Hx Anesthesia: Yes Hx Anesthesia Reactions: No Hx Malignant Hyperthermia: No Meds Allergies/Adverse Reactions: Allergies Allergy/AdvReac Type Severity Reaction Status Date / Time No Known Allergies Allergy Verified 04/26/17 18:14 Physical Exam - Constitutional Appears: Well - Head Exam Head Exam: ATRAUMATIC, NORMAL INSPECTION, NORMOCEPHALIC - Eye Exam Eye Exam: EOMI, Normal appearance, PERRL Pupil Exam: NORMAL ACCOMODATION, PERRL - ENT Exam ENT Exam: Mucous Membranes Moist, Normal Exam - Neck Exam Neck exam: Positive for: Normal Inspection - Respiratory Exam Respiratory Exam: Decreased Breath Sounds - Cardiovascular Exam Cardiovascular Exam: REGULAR RHYTHM, +S1, +S2 - GI/Abdominal Exam GI & Abdominal Exam: Diminished Bowel Sounds, Soft - Rectal Exam Rectal Exam: Deferred Results - Vital Signs Recent Vital Signs: Last Vital Signs Temp 98.4 F 04/27/17 13:15 Pulse 68 04/27/17 18:00 Resp 13 04/27/17 18:00 BP 104/53 L 04/27/17 17:18 Pulse Ox 99 04/27/17 18:00 - Labs Result Diagrams: 04/27/17 14:14 04/27/17 06:35 Labs: Laboratory Results - last 24 hr 04/26/17 04/26/17 04/26/17 18:27 18:32 18:32 WBC RBC Hgb Hct MCV MCH MCHC RDW Plt Count MPV Neut % (Auto) Lymph % (Auto) [place] % (Auto) Eos % (Auto) Baso % (Auto) Neut # (Auto) Lymph # (Auto) [place] # (Auto) Eos # (Auto) Baso # (Auto) Neutrophils % (Manual) Lymphocytes % (Manual) Monocytes % (Manual) Platelet Estimate Large Platelets Poikilocytosis (manual Anisocytosis (manual) Ovalocytes PT 95.6 H* INR 7.8 APTT 54 H pO2 VBG pH VBG pCO2 VBG HCO3 VBG Total CO2 VBG O2 Sat (Calc) VBG Base Excess VBG Potassium Glucose Lactate Sodium 139 Potassium 3.6 Chloride 97 L Carbon Dioxide 27 Anion Gap 19 BUN 30 H Creatinine 1.1 Est GFR ( Amer) 60 Est GFR (Non-Af Amer) 50 POC Glucose (mg/dL) 173 H Random Glucose 166 H Calcium 7.8 L Phosphorus Magnesium Total Bilirubin 1.0 AST 32 ALT 9 D Alkaline Phosphatase 176 H D Troponin I 0.0220 Total Protein 6.5 Albumin 2.7 L Globulin 3.8 Albumin/Globulin Ratio 0.7 L Venous Blood Potassium Stool Occult Blood Blood Type Antibody Screen 04/26/17 04/26/17 04/26/17 18:37 18:49 18:56 WBC 8.2 RBC 1.61 L Hgb 4.9 L* D Hct 15.3 L MCV 95.2 D MCH 30.5 MCHC 32.0 L RDW 18.6 H Plt Count 300 D MPV 8.3 Neut % (Auto) 87.6 H Lymph % (Auto) 8.1 L [place] % (Auto) 4.0 Eos % (Auto) 0.0 Baso % (Auto) 0.3 Neut # (Auto) 7.2 H Lymph # (Auto) 0.7 L [place] # (Auto) 0.3 Eos # (Auto) 0.0 Baso # (Auto) 0.0 Neutrophils % (Manual) 91 H Lymphocytes % (Manual) 7 L Monocytes % (Manual) 2 Platelet Estimate Normal Large Platelets Present Poikilocytosis (manual Slight Anisocytosis (manual) Slight Ovalocytes Slight PT INR APTT pO2 23 L VBG pH 7.39 VBG pCO2 53 VBG HCO3 27.8 VBG Total CO2 33.7 H VBG O2 Sat (Calc) 46.6 VBG Base Excess 5.7 H VBG Potassium 2.9 L Glucose 174 H Lactate 1.6 Sodium 141.0 Potassium Chloride 103.0 Carbon Dioxide Anion Gap BUN Creatinine Est GFR ( Amer) Est GFR (Non-Af Amer) POC Glucose (mg/dL) Random Glucose Calcium Phosphorus Magnesium Total Bilirubin AST ALT Alkaline Phosphatase Troponin I Total Protein Albumin Globulin Albumin/Globulin Ratio Venous Blood Potassium 2.9 L Stool Occult Blood Positive H Blood Type Antibody Screen 04/26/17 04/26/17 04/27/17 21:00 21:05 06:17 WBC RBC Hgb Hct MCV MCH MCHC RDW Plt Count MPV Neut % (Auto) Lymph % (Auto) [place] % (Auto) Eos % (Auto) Baso % (Auto) Neut # (Auto) Lymph # (Auto) [place] # (Auto) Eos # (Auto) Baso # (Auto) Neutrophils % (Manual) Lymphocytes % (Manual) Monocytes % (Manual) Platelet Estimate Large Platelets Poikilocytosis (manual Anisocytosis (manual) Ovalocytes PT 16.2 H D INR 1.4 D APTT 29 D pO2 VBG pH VBG pCO2 VBG HCO3 VBG Total CO2 VBG O2 Sat (Calc) VBG Base Excess VBG Potassium Glucose Lactate Sodium Potassium Chloride Carbon Dioxide Anion Gap BUN Creatinine Est GFR ( Amer) Est GFR (Non-Af Amer) POC Glucose (mg/dL) 185 H Random Glucose Calcium Phosphorus Magnesium Total Bilirubin AST ALT Alkaline Phosphatase Troponin I Total Protein Albumin Globulin Albumin/Globulin Ratio Venous Blood Potassium Stool Occult Blood Blood Type B POSITIVE Antibody Screen Negative 04/27/17 04/27/17 04/27/17 06:35 06:35 07:12 WBC 5.9 RBC 1.51 L Hgb 4.8 L* Hct 14.0 L MCV 92.4 D MCH 31.5 H MCHC 34.1 RDW 16.2 H Plt Count 210 MPV 8.2 Neut % (Auto) 70.9 Lymph % (Auto) 17.1 L [place] % (Auto) 10.1 H Eos % (Auto) 1.2 Baso % (Auto) 0.7 Neut # (Auto) 4.2 Lymph # (Auto) 1.0 [place] # (Auto) 0.6 Eos # (Auto) 0.1 Baso # (Auto) 0.0 Neutrophils % (Manual) Lymphocytes % (Manual) Monocytes % (Manual) Platelet Estimate Large Platelets Poikilocytosis (manual Anisocytosis (manual) Ovalocytes PT INR APTT pO2 VBG pH VBG pCO2 VBG HCO3 VBG Total CO2 VBG O2 Sat (Calc) VBG Base Excess VBG Potassium Glucose Lactate Sodium 140 Potassium 3.2 L Chloride 100 Carbon Dioxide 30 Anion Gap 13 BUN 39 H Creatinine 1.6 H Est GFR ( Amer) 39 Est GFR (Non-Af Amer) 32 POC Glucose (mg/dL) 167 H Random Glucose 153 H Calcium 7.7 L Phosphorus 2.4 L Magnesium 1.8 Total Bilirubin 0.8 AST 21 ALT 22 Alkaline Phosphatase 141 H Troponin I Total Protein 5.6 L Albumin 2.4 L Globulin 3.2 Albumin/Globulin Ratio 0.7 L Venous Blood Potassium Stool Occult Blood Blood Type Antibody Screen 04/27/17 04/27/17 04/27/17 11:52 14:14 16:12 WBC 7.1 RBC 2.51 L Hgb 7.5 L D Hct 22.1 L MCV 88.2 D MCH 30.1 MCHC 34.1 RDW 16.9 H Plt Count 225 MPV 8.7 Neut % (Auto) Lymph % (Auto) [place] % (Auto) Eos % (Auto) Baso % (Auto) Neut # (Auto) Lymph # (Auto) [place] # (Auto) Eos # (Auto) Baso # (Auto) Neutrophils % (Manual) Lymphocytes % (Manual) Monocytes % (Manual) Platelet Estimate Large Platelets Poikilocytosis (manual Anisocytosis (manual) Ovalocytes PT INR APTT pO2 VBG pH VBG pCO2 VBG HCO3 VBG Total CO2 VBG O2 Sat (Calc) VBG Base Excess VBG Potassium Glucose Lactate Sodium Potassium Chloride Carbon Dioxide Anion Gap BUN Creatinine Est GFR ( Amer) Est GFR (Non-Af Amer) POC Glucose (mg/dL) 152 H 122 H Random Glucose Calcium Phosphorus Magnesium Total Bilirubin AST ALT Alkaline Phosphatase Troponin I Total Protein Albumin Globulin Albumin/Globulin Ratio Venous Blood Potassium Stool Occult Blood Blood Type Antibody Screen
[2017-04-28 06:31] LABS: BASO % 0.8 % (0.0-2.0); EOS # 0.1 K/uL (0.0-0.7); EOS % 1.7 % (0.0-4.0); HEMOGLOBIN 7.4 g/dL (11.0-16.0); LYMPH % 32.4 % (20.0-40.0); MEAN CELL VOLUME 89.4 fL (81.0-99.0); MEAN CORPUSCULAR HEMOGLOBIN 29.8 pg (27.0-31.0); MEAN CORPUSCULAR HGB CONC 33.4 g/dL (33.0-37.0); MEAN PLATELET VOLUME 8.6 fL (7.2-11.7); MONO # 0.7 K/uL (0.0-0.8); MONO % 11.2 % (0.0-10.0); NEUT # 3.3 K/uL (1.8-7.0); NEUT % 53.9 % (50.0-75.0); RBC 2.49 Mil/uL (3.80-5.20); RED CELL DISTRIBUTION WIDTH 17.3 % (11.5-14.5)
[2017-04-28 06:38] LABS: INR 1.1; PROTHROMBIN TIME 12.7 SECONDS (9.7-12.2)
[2017-04-28 06:49] LABS: ALB/GLOB RATIO 0.7 (1.0-2.1); ALBUMIN 2.5 g/dL (3.5-5.0); CALCIUM 8.1 mg/dl (8.6-10.4)
[2017-04-28] MEDS: (Novolin R) Insulin Human Regular 100 units/ml vial SC SCH ×4 (08:01→21:15)
[2017-04-28] MEDS: Multivitamin Vitamin B Complex (Nephro-Vite) Tab PO SCH (08:24)
[2017-04-28] MEDS: Sodium Chloride 0.9% 1,000 ML IV SCH (08:28)
--- NOTE | 2017-04-28 08:34 | CP.PCM.PN ---
<Darby Ya - Last Filed: 04/28/17 09:39> Subjective - Date & Time of Evaluation Date of Evaluation: 04/28/17 Time of Evaluation: 07:00 - Subjective Subjective: PGY4 GI Follow-up Note Pt seen and examined bedside No complaints small bm yesterday RN denies any signs of GI bleed including melena, hematemesis ROS: 10 point ROS conducted, neg other than above Objective - Vital Signs/Intake and Output Vital Signs (last 24 hours): Temp Pulse Resp BP Pulse Ox 98.4 F 65 15 118/53 L 100 04/28/17 04:00 04/28/17 08:18 04/28/17 08:18 04/28/17 08:18 04/28/17 04:00 Intake and Output: 04/28/17 04/28/17 06:59 18:59 Intake Total 504 42 Output Total 0 Balance 504 42 - Medications Medications: Current Medications Amiodarone HCl (Cordarone) 200 mg PO DAILY [facility] Last Admin: 04/27/17 10:00 Dose: 200 mg Amlodipine Besylate (Norvasc) 5 mg PO DAILY [facility] Epoetin Alonso (Procrit) 10,000 unit IV TTS [facility] Folic Acid (Folic Acid) 1 mg PO DAILY [facility] Last Admin: 04/27/17 12:50 Dose: 1 mg Sodium Chloride (Sodium Chloride 0.9%) 1,000 mls @ 42 mls/hr IV .[id number] [facility] Last Admin: 04/28/17 08:28 Dose: Not Given Insulin Human Regular (Novolin R) 0 unit SC ACHS [facility] PRN Reason: Protocol Last Admin: 04/28/17 08:01 Dose: Not Given Metoprolol Tartrate (Lopressor) 50 mg PO Q12H [facility] Last Admin: 04/28/17 08:20 Dose: 50 mg Pantoprazole Sodium (Protonix Inj) 40 mg IVP Q12H [facility] Last Admin: 04/28/17 08:27 Dose: 40 mg Sevelamer Carbonate (Renvela) 1,600 mg PO TIDCC [facility] Last Admin: 04/28/17 08:20 Dose: 1,600 mg Vitamin B Complex/Vit C/Folic Acid (Nephro-Umu) 1 tab PO 0800 [facility] Last Admin: 04/28/17 08:24 Dose: 1 tab - Labs Labs: 04/28/17 06:26 04/28/17 06:26 PT 12.7 SECONDS (9.7-12.2) H 04/28/17 06:26 INR 1.1 04/28/17 06:26 APTT 27 SECONDS (21-34) 04/28/17 06:26 - Constitutional Appears: Well, No Acute Distress - Head Exam Head Exam: ATRAUMATIC, NORMOCEPHALIC - Eye Exam Eye Exam: Normal appearance - ENT Exam ENT Exam: Mucous Membranes Moist, Normal Exam - Neck Exam Neck Exam: Normal Inspection - Respiratory Exam Respiratory Exam: Clear to Ausculation Bilateral, NORMAL BREATHING PATTERN. absent: Rales, Rhonchi, Wheezes, Respiratory Distress - Cardiovascular Exam Cardiovascular Exam: REGULAR RHYTHM, +S1, +S2 - GI/Abdominal Exam GI & Abdominal Exam: Soft, Normal Bowel Sounds. absent: Guarding, Rigid, Tenderness - Extremities Exam Extremities Exam: absent: Joint Swelling, Pedal Edema - Neurological Exam Neurological Exam: Alert, Awake, Oriented x3 - Psychiatric Exam Psychiatric exam: Normal Affect, Normal Mood - Skin Skin Exam: Dry, Intact, Normal Color, Warm Assessment and Plan - Assessment and Plan (Free Text) Assessment: 66 Female with PMHx of ESRD (TTS), Anemia of Chronic Disease, HTN, DM, and Sacral Decubitis Ulcer Stage 4 (medically managed) is currently admitted to the ICU for GI Bleed. Found to have a hemoglobin of 4.9 on admission. She denied any coffee ground emesis, hematemesis, hematochezia, or dark tarry stools. She received 1 unit PRBCs, 2 FFPs, vitamin K in the ED, and is currently being transfused 2 more PRBCs. Prior EGD and Colonoscopy done 3 years ago- as per patient no findings. S/P EGD which showed a 15mm nonbleeding gastric ulcer (antrum), hemostatic clips placed. Gastric Ulcer ESRD on HD Atrial Fibrillation on Coumadin HTN, DM Sacral Decubitis Ulcer Stage 4 Plan: - Advance diet as tolerated - Transfused as needed to keep hgb >8 - Advised to give 1 unit PRBC with dialysis - S/P EGD - 15mm nonbleeding gastric ulcer (antrum), hemostatic clips placed - Avoid any ASA, NSAIDs - Continue with PPI BID x 3 months - Recommend outpatient EGD in 3 months to monitor for ulcer healing and outpatient colonoscopy for routine screening - Will continue to monitor this patient DW Dr. Sethi <Alban Sethi - Last Filed: 04/28/17 09:57> Objective - Vital Signs/Intake and Output Vital Signs (last 24 hours): Temp Pulse Resp BP Pulse Ox 98.3 F 67 19 118/53 L 100 04/28/17 08:21 04/28/17 09:00 04/28/17 09:00 04/28/17 08:18 04/28/17 04:00 Intake and Output: 04/28/17 04/28/17 06:59 18:59 Intake Total 504 126 Output Total 0 0 Balance 504 126 - Medications Medications: Current Medications Amiodarone HCl (Cordarone) 200 mg PO DAILY [facility] Last Admin: 04/28/17 09:40 Dose: 200 mg Amlodipine Besylate (Norvasc) 5 mg PO DAILY [facility] Epoetin Alonso (Procrit) 10,000 unit IV TTS [facility] Folic Acid (Folic Acid) 1 mg PO DAILY [facility] Last Admin: 04/28/17 09:41 Dose: 1 mg Sodium Chloride (Sodium Chloride 0.9%) 1,000 mls @ 42 mls/hr IV .[id number] [facility] Last Admin: 04/28/17 08:28 Dose: Not Given Insulin Human Regular (Novolin R) 0 unit SC ACHS [facility] PRN Reason: Protocol Last Admin: 04/28/17 08:01 Dose: Not Given Metoprolol Tartrate (Lopressor) 50 mg PO Q12H [facility] Last Admin: 04/28/17 08:20 Dose: 50 mg Pantoprazole Sodium (Protonix Inj) 40 mg IVP Q12H [facility] Last Admin: 04/28/17 08:27 Dose: 40 mg Sevelamer Carbonate (Renvela) 1,600 mg PO TIDCC [facility] Last Admin: 04/28/17 08:20 Dose: 1,600 mg Vitamin B Complex/Vit C/Folic Acid (Nephro-Umu) 1 tab PO 0800 [facility] Last Admin: 04/28/17 08:24 Dose: 1 tab - Labs Labs: 04/28/17 06:26 04/28/17 06:26 PT 12.7 SECONDS (9.7-12.2) H 04/28/17 06:26 INR 1.1 04/28/17 06:26 APTT 27 SECONDS (21-34) 04/28/17 06:26 Attending/Attestation - Attestation I have personally seen and examined this patient.: Yes I have fully participated in the care of the patient.: Yes I have reviewed all pertinent clinical information, including history, physical exam and plan: Yes Notes (Text): 04/28/17 09:54 I have seen and examined patient with GI fellow. No acute events overnight, she is seen resting in bed comfortably talking on phone. She denies abdominal pain, nausea, vomiting, fever/chills. No reports of melena or bowel movements. She is tolerating PO liquids, asking for diet to be advanced. Review of vitals from today are normal. ESRD on HD DM / HTN Chronic anemia s/p EGD showing large gastric ulcer with visible vessel s/p epinephrine therapy and endoclip placement Stage IV sacral decubitus ulcer Atrial fibrillation on coumadin - Advance to full liquid diet as tolerated - Continue with PPI therapy - H/H stable, continue to monitor. Suggest additional unit PRBC transfusion with dialysis today. - Will continue to monitor patient clinical course
--- NOTE | 2017-04-28 13:39 | CP.PCM.PN ---
Subjective - Date & Time of Evaluation Date of Evaluation: 04/28/17 Time of Evaluation: 08:50 - Subjective Subjective: clinically same Objective - Vital Signs/Intake and Output Vital Signs (last 24 hours): Temp Pulse Resp BP Pulse Ox 98 F 67 17 127/60 100 04/28/17 13:26 04/28/17 11:18 04/28/17 11:18 04/28/17 11:18 04/28/17 11:18 Intake and Output: 04/28/17 04/28/17 06:59 18:59 Intake Total 504 546 Output Total 0 0 Balance 504 546 - Medications Medications: Current Medications Amiodarone HCl (Cordarone) 200 mg PO DAILY [facility] Last Admin: 04/28/17 09:40 Dose: 200 mg Amlodipine Besylate (Norvasc) 5 mg PO DAILY [facility] Epoetin Alonso (Procrit) 10,000 unit IV TTS [facility] Folic Acid (Folic Acid) 1 mg PO DAILY [facility] Last Admin: 04/28/17 09:41 Dose: 1 mg Sodium Chloride (Sodium Chloride 0.9%) 1,000 mls @ 42 mls/hr IV .[id number] [facility] Last Admin: 04/28/17 08:28 Dose: Not Given Insulin Human Regular (Novolin R) 0 unit SC ACHS [facility] PRN Reason: Protocol Last Admin: 04/28/17 12:55 Dose: 1 unit Metoprolol Tartrate (Lopressor) 50 mg PO Q12H [facility] Last Admin: 04/28/17 08:20 Dose: 50 mg Pantoprazole Sodium (Protonix Inj) 40 mg IVP Q12H [facility] Last Admin: 04/28/17 08:27 Dose: 40 mg Vitamin B Complex/Vit C/Folic Acid (Nephro-Umu) 1 tab PO 0800 [facility] Last Admin: 04/28/17 08:24 Dose: 1 tab - Labs Labs: 04/28/17 06:26 04/28/17 06:26 PT 12.7 SECONDS (9.7-12.2) H 04/28/17 06:26 INR 1.1 04/28/17 06:26 APTT 27 SECONDS (21-34) 04/28/17 06:26 - Constitutional Appears: Well - Head Exam Head Exam: ATRAUMATIC, NORMAL INSPECTION, NORMOCEPHALIC - Eye Exam Eye Exam: EOMI, Normal appearance, PERRL Pupil Exam: NORMAL ACCOMODATION, PERRL - ENT Exam ENT Exam: Mucous Membranes Moist, Normal Exam - Neck Exam Neck Exam: Full ROM, Normal Inspection. absent: Lymphadenopathy - Respiratory Exam Respiratory Exam: Decreased Breath Sounds - Cardiovascular Exam Cardiovascular Exam: REGULAR RHYTHM, +S1, +S2 - GI/Abdominal Exam GI & Abdominal Exam: Soft, Diminished Bowel Sounds - Rectal Exam Rectal Exam: Deferred
[2017-04-28] MEDS: Epoetin Alfa 10,000 unit/ml Dialysis IV SCH (17:08)
--- NOTE | 2017-04-28 18:16 | CP.CCUPN ---
CCU Subjective - Physician Review Events Since Last Encounter (Free Text): 04/29/17 15:01 Patient is a 66-year-old female with a history of hypertension hypercholesterolemia or dementia and end-stage renal disease on dialysis. Patient initially admitted with the low hemoglobin. GI bleed. Patient noted to have upper GI bleed with duodenal ulcer. Patient platelets stable. Today patient received 1 unit of blood transfusion during hemodialysis. Spoke to the emr implementation specialist. Currently improving. On examination: Vital signs stable. Chest good air entry regular hostile nontender abdomen Assessment and recommendation: 66 female hypertension and high cholesterol dementia end-stage renal disease on dialysis. Admitted with the upper GI bleed. Duodenal ulcer, now having no active bleeding. Clinical stable. We will watch one more day. CCU Objective - Vital Signs / Intake & Output Vital Signs (Last 4 hours): Vital Signs Temp Pulse Pulse Resp BP BP Pulse Ox 04/28/17 18:00 66 14 125/51 L 100 04/28/17 17:22 65 14 134/58 L 100 04/28/17 17:00 98 F 66 15 134/58 L 100 04/28/17 16:55 98 F 65 15 134/58 L 04/28/17 16:40 65 15 126/58 L 100 04/28/17 16:32 98 F 70 20 04/28/17 16:20 65 14 133/61 100 04/28/17 16:15 98 F 65 15 133/61 04/28/17 16:05 67 16 136/64 100 04/28/17 16:02 98 F 70 16 126/58 L 04/28/17 16:00 98 F 70 19 04/28/17 15:49 98.2 F 66 14 127/57 L 04/28/17 15:48 98.2 F 66 15 126/58 L 100 04/28/17 15:30 66 15 127/57 L 100 04/28/17 15:15 65 14 129/60 100 04/28/17 15:00 66 16 127/58 L 100 04/28/17 14:45 98.2 F 67 67 16 128/60 128/60 100 04/28/17 14:26 98 F 04/28/17 14:18 71 20 125/61 100 Intake and Output (Last 8hrs): Intake & Output 04/28/17 04/28/17 04/28/17 06:59 14:59 22:59 Intake Total 336 1166 465 Output Total 0 0 Balance 336 1166 465 Weight 175 lb 191 lb 6.4 oz Intake: Intake, IV Amount 336 126 Right Hand 336 126 Oral 0 1040 140 Blood Product 325 Red Blood Cells Cpd As1 325 Lr Unit [id number] Output: Urine 0 0 Urine, Voided 0 0 Other: # Bowel Movements 1 - Physical Exam Head: Positive for: Atraumatic Pupils: Positive for: PERRL Extroacular Muscles: Positive for: EOMI Mouth: Positive for: Moist Mucous Membranes Nose (Internal): Positive for: Normal Inspection Neck: Positive for: Normal Range of Motion, Trachea Midline. Negative for: Meningeal Signs, MIDLINE TENDERNESS, Paraspinal Tenderness, JVD, Lymphadenopathy , Bruit, Other Respiratory/Chest: Positive for: Clear to Auscultation, Good Air Exchange, Other (Left sided dialysis catheter). Negative for: Respiratory Distress, Accessory Muscle Use, Wheezes, Rales, Retracting Cardiovascular: Positive for: Regular Rate and Rhythm, Normal S1, S2, Peripheal Pulses Present. Negative for: Murmurs, Irregular Rhythm Abdomen: Positive for: Distention, Normal Bowel Sounds. Negative for: Tenderness Back: Positive for: Decubitus Ulcer (Stage 2 decubitus ulcer). Negative for: CVA Tenderness, Midline Tenderness Upper Extremity: Positive for: Swelling (Left arm), Other (Left subclavian Will catheter, L AV shunt) Skin: Positive for: Warm, Dry Psychiatric: Positive for: Alert, Oriented x 3 - Medications Active Medications: Active Medications Generic Name Dose Route Start Last Admin Trade Name Teraq PRN Reason Stop Dose Admin Amiodarone HCl 200 mg 04/27/17 10:00 04/28/17 09:40 Cordarone PO 200 mg DAILY [facility] Administration Amlodipine Besylate 5 mg 04/27/17 10:00 Norvasc PO DAILY [facility] Epoetin Alonso 10,000 unit 04/28/17 10:00 04/28/17 17:08 Procrit IV 10,000 unit TTS [facility] Administration Folic Acid 1 mg 04/27/17 10:00 04/28/17 09:41 Folic Acid PO 1 mg DAILY [facility] Administration Insulin Human Regular 0 unit 04/27/17 07:30 04/28/17 16:30 Novolin R SC Not Given ACHS [facility] Protocol Metoprolol Tartrate 50 mg 04/27/17 08:30 04/28/17 08:20 Lopressor PO 50 mg Q12H [facility] Administration Pantoprazole Sodium 40 mg 04/26/17 20:15 04/28/17 08:27 Protonix Inj IVP 40 mg Q12H [facility] Administration Vitamin B Complex/Vit C/Folic Acid 1 tab 04/28/17 08:00 04/28/17 08:24 Nephro-Umu PO 1 tab 0800 [facility] Administration - Patient Studies Lab Studies: Microbiology Studies 04/27/17 06:00 Gram Stain - Final Sacral Wound Culture - Preliminary NO GROWTH AFTER 24 HOURS 04/26/17 06:00 MRSA Culture (Admit) - Final Naris MRSA NOT DETECTED 04/26/17 18:30 Blood Culture - Preliminary Blood NO GROWTH AFTER 24 HOURS 04/26/17 19:00 Blood Culture - Preliminary Blood NO GROWTH AFTER 24 HOURS Lab Studies 04/28/17 04/28/17 04/28/17 Range/Units 16:15 11:53 07:11 WBC (4.8-10.8) K/uL RBC (3.80-5.20) Mil/uL Hgb (11.0-16.0) g/dL Hct (34.0-47.0) % MCV (81.0-99.0) fL MCH (27.0-31.0) pg MCHC (33.0-37.0) g/dL RDW (11.5-14.5) % Plt Count (130-400) K/uL MPV (7.2-11.7) fL Neut % (Auto) (50.0-75.0) % Lymph % (Auto) (20.0-40.0) % [place] % (Auto) (0.0-10.0) % Eos % (Auto) (0.0-4.0) % Baso % (Auto) (0.0-2.0) % Neut # (Auto) (1.8-7.0) K/uL Lymph # (Auto) (1.0-4.3) K/uL [place] # (Auto) (0.0-0.8) K/uL Eos # (Auto) (0.0-0.7) K/uL Baso # (Auto) (0.0-0.2) K/uL PT (9.7-12.2) SECONDS INR APTT (21-34) SECONDS Sodium (132-148) mmol/L Potassium (3.6-5.2) mmol/L Chloride (98-107) mmol/L Carbon Dioxide (22-30) mmol/L Anion Gap (10-20) BUN (7-17) mg/dL Creatinine (0.7-1.2) mg/dL Est GFR ( Amer) Est GFR (Non-Af Amer) POC Glucose (mg/dL) 114 H 178 H 126 H (65-110) mg/dL Random Glucose (65-105) mg/dL Calcium (8.6-10.4) mg/dl Phosphorus (2.5-4.5) mg/dL Magnesium (1.6-2.3) mg/dL Total Bilirubin (0.2-1.3) mg/dL AST (14-36) U/L ALT (9-52) U/L Alkaline Phosphatase (38-126) U/L Total Protein (6.3-8.3) g/dL Albumin (3.5-5.0) g/dL Globulin (2.2-3.9) gm/dL Albumin/Globulin Ratio (1.0-2.1) Blood Type Antibody Screen 04/28/17 04/28/17 04/28/17 Range/Units 06:26 06:26 06:26 WBC 6.0 (4.8-10.8) K/uL RBC 2.49 L (3.80-5.20) Mil/uL Hgb 7.4 L (11.0-16.0) g/dL Hct 22.2 L (34.0-47.0) % MCV 89.4 (81.0-99.0) fL MCH 29.8 (27.0-31.0) pg MCHC 33.4 (33.0-37.0) g/dL RDW 17.3 H (11.5-14.5) % Plt Count 218 (130-400) K/uL MPV 8.6 (7.2-11.7) fL Neut % (Auto) 53.9 (50.0-75.0) % Lymph % (Auto) 32.4 (20.0-40.0) % [place] % (Auto) 11.2 H (0.0-10.0) % Eos % (Auto) 1.7 (0.0-4.0) % Baso % (Auto) 0.8 (0.0-2.0) % Neut # (Auto) 3.3 (1.8-7.0) K/uL Lymph # (Auto) 2.0 (1.0-4.3) K/uL [place] # (Auto) 0.7 (0.0-0.8) K/uL Eos # (Auto) 0.1 (0.0-0.7) K/uL Baso # (Auto) 0.0 (0.0-0.2) K/uL PT 12.7 H (9.7-12.2) SECONDS INR 1.1 APTT 27 (21-34) SECONDS Sodium 140 (132-148) mmol/L Potassium 3.6 (3.6-5.2) mmol/L Chloride 101 (98-107) mmol/L Carbon Dioxide 26 (22-30) mmol/L Anion Gap 16 (10-20) BUN 47 H (7-17) mg/dL Creatinine 2.3 H (0.7-1.2) mg/dL Est GFR ( Amer) 26 Est GFR (Non-Af Amer) 21 POC Glucose (mg/dL) (65-110) mg/dL Random Glucose 113 H (65-105) mg/dL Calcium 8.1 L (8.6-10.4) mg/dl Phosphorus 3.0 (2.5-4.5) mg/dL Magnesium 1.9 (1.6-2.3) mg/dL Total Bilirubin 0.8 (0.2-1.3) mg/dL AST 18 (14-36) U/L ALT 21 (9-52) U/L Alkaline Phosphatase 140 H (38-126) U/L Total Protein 5.9 L (6.3-8.3) g/dL Albumin 2.5 L (3.5-5.0) g/dL Globulin 3.4 (2.2-3.9) gm/dL Albumin/Globulin Ratio 0.7 L (1.0-2.1) Blood Type Antibody Screen 04/27/17 04/26/17 Range/Units 21:17 21:00 WBC (4.8-10.8) K/uL RBC (3.80-5.20) Mil/uL Hgb (11.0-16.0) g/dL Hct (34.0-47.0) % MCV (81.0-99.0) fL MCH (27.0-31.0) pg MCHC (33.0-37.0) g/dL RDW (11.5-14.5) % Plt Count (130-400) K/uL MPV (7.2-11.7) fL Neut % (Auto) (50.0-75.0) % Lymph % (Auto) (20.0-40.0) % [place] % (Auto) (0.0-10.0) % Eos % (Auto) (0.0-4.0) % Baso % (Auto) (0.0-2.0) % Neut # (Auto) (1.8-7.0) K/uL Lymph # (Auto) (1.0-4.3) K/uL [place] # (Auto) (0.0-0.8) K/uL Eos # (Auto) (0.0-0.7) K/uL Baso # (Auto) (0.0-0.2) K/uL PT (9.7-12.2) SECONDS INR APTT (21-34) SECONDS Sodium (132-148) mmol/L Potassium (3.6-5.2) mmol/L Chloride (98-107) mmol/L Carbon Dioxide (22-30) mmol/L Anion Gap (10-20) BUN (7-17) mg/dL Creatinine (0.7-1.2) mg/dL Est GFR ( Amer) Est GFR (Non-Af Amer) POC Glucose (mg/dL) 104 (65-110) mg/dL Random Glucose (65-105) mg/dL Calcium (8.6-10.4) mg/dl Phosphorus (2.5-4.5) mg/dL Magnesium (1.6-2.3) mg/dL Total Bilirubin (0.2-1.3) mg/dL AST (14-36) U/L ALT (9-52) U/L Alkaline Phosphatase (38-126) U/L Total Protein (6.3-8.3) g/dL Albumin (3.5-5.0) g/dL Globulin (2.2-3.9) gm/dL Albumin/Globulin Ratio (1.0-2.1) Blood Type B POSITIVE Antibody Screen Negative Laboratory Results - last 24 hr 04/26/17 04/27/17 04/28/17 21:00 21:17 06:26 WBC 6.0 RBC 2.49 L Hgb 7.4 L Hct 22.2 L MCV 89.4 MCH 29.8 MCHC 33.4 RDW 17.3 H Plt Count 218 MPV 8.6 Neut % (Auto) 53.9 Lymph % (Auto) 32.4 [place] % (Auto) 11.2 H Eos % (Auto) 1.7 Baso % (Auto) 0.8 Neut # (Auto) 3.3 Lymph # (Auto) 2.0 [place] # (Auto) 0.7 Eos # (Auto) 0.1 Baso # (Auto) 0.0 PT INR APTT Sodium Potassium Chloride Carbon Dioxide Anion Gap BUN Creatinine Est GFR ( Amer) Est GFR (Non-Af Amer) POC Glucose (mg/dL) 104 Random Glucose Calcium Phosphorus Magnesium Total Bilirubin AST ALT Alkaline Phosphatase Total Protein Albumin Globulin Albumin/Globulin Ratio Blood Type B POSITIVE Antibody Screen Negative 04/28/17 04/28/17 04/28/17 06:26 06:26 07:11 WBC RBC Hgb Hct MCV MCH MCHC RDW Plt Count MPV Neut % (Auto) Lymph % (Auto) [place] % (Auto) Eos % (Auto) Baso % (Auto) Neut # (Auto) Lymph # (Auto) [place] # (Auto) Eos # (Auto) Baso # (Auto) PT 12.7 H INR 1.1 APTT 27 Sodium 140 Potassium 3.6 Chloride 101 Carbon Dioxide 26 Anion Gap 16 BUN 47 H Creatinine 2.3 H Est GFR ( Amer) 26 Est GFR (Non-Af Amer) 21 POC Glucose (mg/dL) 126 H Random Glucose 113 H Calcium 8.1 L Phosphorus 3.0 Magnesium 1.9 Total Bilirubin 0.8 AST 18 ALT 21 Alkaline Phosphatase 140 H Total Protein 5.9 L Albumin 2.5 L Globulin 3.4 Albumin/Globulin Ratio 0.7 L Blood Type Antibody Screen 04/28/17 04/28/17 11:53 16:15 WBC RBC Hgb Hct MCV MCH MCHC RDW Plt Count MPV Neut % (Auto) Lymph % (Auto) [place] % (Auto) Eos % (Auto) Baso % (Auto) Neut # (Auto) Lymph # (Auto) [place] # (Auto) Eos # (Auto) Baso # (Auto) PT INR APTT Sodium Potassium Chloride Carbon Dioxide Anion Gap BUN Creatinine Est GFR ( Amer) Est GFR (Non-Af Amer) POC Glucose (mg/dL) 178 H 114 H Random Glucose Calcium Phosphorus Magnesium Total Bilirubin AST ALT Alkaline Phosphatase Total Protein Albumin Globulin Albumin/Globulin Ratio Blood Type Antibody Screen Fingerstick Blood Sugar Results: 114 Critical Care Progress Note - Nutrition Nutrition: Nutrition Category Date Time Status Liquid Diet [DIET] Diets 04/28/17 Lunch Active
--- NOTE | 2017-04-28 20:41 | CP.PCM.PN ---
Subjective - Date & Time of Evaluation Date of Evaluation: 04/28/17 Time of Evaluation: 20:38 - Subjective Subjective: Follow up Nephrology Consultation: Assessment: Stable Anemia of acute blood loss with upper GI/peptic ulcer bleed and supreatherapeutic INR Hypertensive Chronic Kidney Disease (I12.0), Diabetic CKD (E11.22) End stage renal disease (N18.6) dependence on hemodialysis (Z99.2) (TTS) via permacath Anemia Hyperphosphatemia (E83.39), Secondary Hyperparathyroidism (E21.1), HTN ( I12.0) Plan: for HD Today as ordered. Continue with Nephrovite 1 tab/day. PRBC as needed for anemia. for PRBC today. On KEILA as epogen , last Hb 7.4 Continue with phos binders home dose. BP controlled with meds as ordered Glycemic control, Dialysis consistent diet Further work up/management as per primary team Dose meds/antibiotics for ESRD status. Avoid fleets enema/magnesium based laxatives. GI following. continue with PPI Thanks for allowing me to participate in care of your patient. Will follow patient with you. Please call if any Qs. Dr Ryan Carter Office: [phone] ROS Cardiovascular: No chest pain. Pulmonary: improved shortness of breath Gastrointestinal: denies abdominal pain no further nausea vomiting Genitourinary: No pain while urinating. Denies blood in urine. All other negative Physical Examination: General Appearance: Comfortable, in no acute respiratory distress, co-operative . Vitals reviewed and noted as below Head; Atraumatic, normocephalic ENT: no ulcers no thrush. Tongue is midline. Oropharynx: no rash or ulcers. EYES: Pupils are equal, round and reactive to light accommodation. Eye muscles and extraocular movement intact. Sclera is anicteric. Neck; supple no lymphadenopathy, no thyromegaly or bruit Lungs: Normal respiratory rate/effort. Breath sounds bilateral equal and clear Heart: Normal rate. s1s2 normal. No rub or gallop. Extremities: no edema. No varicose veins Neurological: Patient is alert, awake and oriented to person, place and time. chronically bed bound Skin: Warm and dry. Normal turgor. No rash. Palpitation: Normal elasticity for age Abdomen: Abdomen is soft. Bowel sounds +. There is no abdominal tenderness, no guarding/rigidity or organomegaly Psych: normal insight and normal affect/mood MSK: no joint tenderness or swelling. Digits and nails normal, no deformity : kidney or bladder not palpable Access: permacath. left AVF maturing Labs/imaging reviewed. Past medical history, past surgical history, family history, social history, allergy reviewed and noted as below Family Hx: no hx of CKD. Non contributory Objective - Vital Signs/Intake and Output Vital Signs (last 24 hours): Temp Pulse Resp BP Pulse Ox 98 F 69 20 124/74 97 04/28/17 18:48 04/28/17 19:00 04/28/17 19:00 04/28/17 19:00 04/28/17 19:00 Intake and Output: 04/28/17 04/29/17 18:59 06:59 Intake Total 1871 Output Total 1999 Balance -129 - Medications Medications: Current Medications Amiodarone HCl (Cordarone) 200 mg PO DAILY [facility] Last Admin: 04/28/17 09:40 Dose: 200 mg Amlodipine Besylate (Norvasc) 5 mg PO DAILY [facility] Epoetin Alonso (Procrit) 10,000 unit IV TTS [facility] Last Admin: 04/28/17 17:08 Dose: 10,000 unit Folic Acid (Folic Acid) 1 mg PO DAILY [facility] Last Admin: 04/28/17 09:41 Dose: 1 mg Insulin Human Regular (Novolin R) 0 unit SC ACHS [facility] PRN Reason: Protocol Last Admin: 04/28/17 16:30 Dose: Not Given Metoprolol Tartrate (Lopressor) 50 mg PO Q12H [facility] Last Admin: 04/28/17 08:20 Dose: 50 mg Pantoprazole Sodium (Protonix Inj) 40 mg IVP Q12H [facility] Last Admin: 04/28/17 08:27 Dose: 40 mg Vitamin B Complex/Vit C/Folic Acid (Nephro-Umu) 1 tab PO 0800 [facility] Last Admin: 04/28/17 08:24 Dose: 1 tab - Labs Labs: 04/28/17 06:26 04/28/17 06:26 PT 12.7 SECONDS (9.7-12.2) H 04/28/17 06:26 INR 1.1 04/28/17 06:26 APTT 27 SECONDS (21-34) 04/28/17 06:26
[2017-04-29 06:41] LABS: BASO % 0.7 % (0.0-2.0); EOS # 0.1 K/uL (0.0-0.7); EOS % 1.4 % (0.0-4.0); HEMOGLOBIN 8.9 g/dL (11.0-16.0); LYMPH # 1.7 K/uL (1.0-4.3); LYMPH % 29.4 % (20.0-40.0); MEAN CELL VOLUME 90.3 fL (81.0-99.0); MEAN CORPUSCULAR HEMOGLOBIN 30.1 pg (27.0-31.0); MEAN CORPUSCULAR HGB CONC 33.3 g/dL (33.0-37.0); MEAN PLATELET VOLUME 9.5 fL (7.2-11.7); MONO # 0.6 K/uL (0.0-0.8); MONO % 9.4 % (0.0-10.0); NEUT # 3.5 K/uL (1.8-7.0); NEUT % 59.1 % (50.0-75.0); NRBC % 0.2 % (0.0-2.0); RBC 2.96 Mil/uL (3.80-5.20); RED CELL DISTRIBUTION WIDTH 17.1 % (11.5-14.5); WHITE BLOOD COUNT 5.9 K/uL (4.8-10.8)
[2017-04-29 06:53] LABS: ALB/GLOB RATIO 0.7 (1.0-2.1); ALBUMIN 2.5 g/dL (3.5-5.0)
[2017-04-29] MEDS: (Novolin R) Insulin Human Regular 100 units/ml vial SC SCH ×4 (07:56→21:55)
[2017-04-29] MEDS: Multivitamin Vitamin B Complex (Nephro-Vite) Tab PO SCH (08:21)
--- NOTE | 2017-04-29 08:44 | CP.PCM.PN ---
<Darby Ya - Last Filed: 04/29/17 09:34> Subjective - Date & Time of Evaluation Date of Evaluation: 04/29/17 Time of Evaluation: 07:00 - Subjective Subjective: PGY4 GI Follow-up Pt seen and examined bedside No complaints tolerating diet denies any nausea or vomiting +BM, denies any melena or BRB ROS: 10 point ROS conducted neg other than above Objective - Vital Signs/Intake and Output Vital Signs (last 24 hours): Temp Pulse Resp BP Pulse Ox 97.8 F 73 13 154/68 H 98 04/29/17 08:00 04/29/17 08:00 04/29/17 08:00 04/29/17 08:00 04/29/17 08:00 Intake and Output: 04/29/17 04/29/17 06:59 18:59 Intake Total 275 200 Output Total 0 Balance 275 200 - Medications Medications: Current Medications Amiodarone HCl (Cordarone) 200 mg PO DAILY [facility] Last Admin: 04/28/17 09:40 Dose: 200 mg Amlodipine Besylate (Norvasc) 5 mg PO DAILY [facility] Epoetin Alonso (Procrit) 10,000 unit IV TTS [facility] Last Admin: 04/28/17 17:08 Dose: 10,000 unit Folic Acid (Folic Acid) 1 mg PO DAILY [facility] Last Admin: 04/28/17 09:41 Dose: 1 mg Insulin Human Regular (Novolin R) 0 unit SC [facility] PRN Reason: Protocol Last Admin: 04/29/17 07:56 Dose: Not Given Metoprolol Tartrate (Lopressor) 50 mg PO Q12H [facility] Last Admin: 04/29/17 08:32 Dose: 50 mg Pantoprazole Sodium (Protonix Inj) 40 mg IVP Q12H [facility] Last Admin: 04/29/17 08:21 Dose: 40 mg Vitamin B Complex/Vit C/Folic Acid (Nephro-Umu) 1 tab PO 0800 [facility] Last Admin: 04/29/17 08:21 Dose: 1 tab - Labs Labs: 04/29/17 06:32 04/29/17 06:31 PT 12.7 SECONDS (9.7-12.2) H 04/28/17 06:26 INR 1.1 04/28/17 06:26 APTT 27 SECONDS (21-34) 04/28/17 06:26 - Constitutional Appears: Well, No Acute Distress - Head Exam Head Exam: ATRAUMATIC, NORMOCEPHALIC - Eye Exam Eye Exam: Normal appearance - ENT Exam ENT Exam: Mucous Membranes Moist, Normal Exam - Respiratory Exam Respiratory Exam: Clear to Ausculation Bilateral, NORMAL BREATHING PATTERN. absent: Rales, Rhonchi, Wheezes, Respiratory Distress - Cardiovascular Exam Cardiovascular Exam: REGULAR RHYTHM, +S1, +S2 - GI/Abdominal Exam GI & Abdominal Exam: Soft, Normal Bowel Sounds. absent: Firm, Guarding, Rigid, Tenderness, Hyperactive Bowel Sounds, Organomegaly - Extremities Exam Extremities Exam: absent: Joint Swelling, Pedal Edema - Neurological Exam Neurological Exam: Alert, Awake, Oriented x3 - Psychiatric Exam Psychiatric exam: Normal Affect, Normal Mood - Skin Skin Exam: Dry, Intact, Normal Color, Warm Assessment and Plan - Assessment and Plan (Free Text) Assessment: 66 Female with PMHx of ESRD (TTS), Anemia of Chronic Disease, HTN, DM, and Sacral Decubitis Ulcer Stage 4 (medically managed) is currently admitted to the ICU for GI Bleed. Found to have a hemoglobin of 4.9 on admission. She denied any coffee ground emesis, hematemesis, hematochezia, or dark tarry stools. She received 1 unit PRBCs, 2 FFPs, vitamin K in the ED, and is currently being transfused 2 more PRBCs. Prior EGD and Colonoscopy done 3 years ago- as per patient no findings. S/P EGD which showed a 15mm nonbleeding gastric ulcer (antrum), hemostatic clips placed. Gastric Ulcer ESRD on HD Atrial Fibrillation on Coumadin HTN, DM Sacral Decubitis Ulcer Stage 4 Plan: - Advance diet as tolerated to soft diet - Transfused as needed to keep hgb >8 - s/p 1 unit PRBC yesterday and appropriate response - S/P EGD - 15mm nonbleeding gastric ulcer (antrum), hemostatic clips placed - Avoid any ASA, NSAIDs - Continue with PPI BID x 3 months - Recommend outpatient EGD in 3 months to monitor for ulcer healing and outpatient colonoscopy for routine screening w/ Dr. Sethi - Will sign off ANTONI Sethi <Alban Sethi Y - Last Filed: 04/29/17 09:40> Objective - Vital Signs/Intake and Output Vital Signs (last 24 hours): Temp Pulse Resp BP Pulse Ox 97.8 F 73 13 154/68 H 98 04/29/17 08:00 04/29/17 08:00 04/29/17 08:00 04/29/17 08:00 04/29/17 08:00 Intake and Output: 04/29/17 04/29/17 06:59 18:59 Intake Total 275 200 Output Total 0 Balance 275 200 - Medications Medications: Current Medications Amiodarone HCl (Cordarone) 200 mg PO DAILY [facility] Last Admin: 04/29/17 09:07 Dose: 200 mg Amlodipine Besylate (Norvasc) 5 mg PO DAILY [facility] Epoetin Alonso (Procrit) 10,000 unit IV TTS [facility] Last Admin: 04/28/17 17:08 Dose: 10,000 unit Folic Acid (Folic Acid) 1 mg PO DAILY [facility] Last Admin: 04/29/17 09:07 Dose: 1 mg Insulin Human Regular (Novolin R) 0 unit SC ACHS [facility] PRN Reason: Protocol Last Admin: 04/29/17 07:56 Dose: Not Given Metoprolol Tartrate (Lopressor) 50 mg PO Q12H [facility] Last Admin: 04/29/17 08:32 Dose: 50 mg Pantoprazole Sodium (Protonix Inj) 40 mg IVP Q12H [facility] Last Admin: 04/29/17 08:21 Dose: 40 mg Vitamin B Complex/Vit C/Folic Acid (Nephro-Umu) 1 tab PO 0800 [facility] Last Admin: 04/29/17 08:21 Dose: 1 tab - Labs Labs: 04/29/17 06:32 04/29/17 06:31 PT 12.7 SECONDS (9.7-12.2) H 04/28/17 06:26 INR 1.1 04/28/17 06:26 APTT 27 SECONDS (21-34) 04/28/17 06:26 Attending/Attestation - Attestation I have personally seen and examined this patient.: Yes I have fully participated in the care of the patient.: Yes I have reviewed all pertinent clinical information, including history, physical exam and plan: Yes Notes (Text): 04/29/17 09:36 I have seen and examined patient with GI fellow. No acute events overnight, she is seen resting in bed comfortably, daughter at bedside. She denies abdominal pain, nausea, vomiting, fever/chills, or melena. Tolerating PO liquids without difficulty. Review of vitals from today shows elevated BP. HTN / DM ESRD on HD Stage IV sacral decubitus ulcer Anemia, gastric ulcer Atrial fibrillation - Advance diet as tolerated - Continue with PPI therapy - Check stool Hpylori Ag - H/H stable, s/p PRBC transfusion at HD yesterday, continue to monitor - No further planned GI intervention, will sign off case. Patient instructed to have repeat EGD within 2-3 months to ensure ulcer healing, office contact information provided to patient. Please reconsult as necessary, thank you.
--- NOTE | 2017-04-29 15:02 | CP.CCUPN ---
CCU Subjective - Physician Review Events Since Last Encounter (Free Text): 04/29/17 15:02 Patient is a 66-year-old female with a history of hypertension hypercholesterolemia or dementia and end-stage renal disease on dialysis. Patient initially admitted with the low hemoglobin. GI bleed. Patient noted to have upper GI bleed with duodenal ulcer. Patient platelets stable. Today patient received 1 unit of blood transfusion during hemodialysis. 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 Currently improving. On examination: Vital signs stable. Chest good air entry regular hostile nontender abdomen Assessment and recommendation: 66 female hypertension and high cholesterol dementia end-stage renal disease on dialysis. Admitted with the upper GI bleed. Duodenal ulcer, now having no active bleeding. Clinical stable. transfer to floor CCU Objective - Vital Signs / Intake & Output Vital Signs (Last 4 hours): Vital Signs Temp Pulse Resp BP Pulse Ox 04/29/17 15:00 136/64 04/29/17 14:59 68 24 97 04/29/17 14:00 69 25 H 97 04/29/17 13:59 69 20 122/58 L 96 04/29/17 13:00 68 23 98 04/29/17 12:59 68 22 116/56 L 98 04/29/17 12:00 98.6 F 65 22 98 04/29/17 11:59 66 9 L 134/66 99 Intake and Output (Last 8hrs): Intake & Output 04/29/17 04/29/17 04/29/17 06:59 14:59 22:59 Intake Total 125 520 0 Output Total 0 Balance 125 520 0 Weight 189 lb 3.2 oz Intake: Intake, IV Amount 0 0 Right Hand 0 0 Oral 125 520 0 Output: Urine 0 Urine, Voided 0 Other: # Voids Urine, Voided 0 0 # Bowel Movements 0 0 - Physical Exam Head: Positive for: Atraumatic Pupils: Positive for: PERRL Extroacular Muscles: Positive for: EOMI Mouth: Positive for: Moist Mucous Membranes Nose (Internal): Positive for: Normal Inspection Neck: Positive for: Normal Range of Motion, Trachea Midline. Negative for: Meningeal Signs, MIDLINE TENDERNESS, Paraspinal Tenderness, JVD, Lymphadenopathy , Bruit, Other Respiratory/Chest: Positive for: Clear to Auscultation, Good Air Exchange, Other (Left sided dialysis catheter). Negative for: Respiratory Distress, Accessory Muscle Use, Wheezes, Rales, Retracting Cardiovascular: Positive for: Regular Rate and Rhythm, Normal S1, S2, Peripheal Pulses Present. Negative for: Murmurs, Irregular Rhythm Abdomen: Positive for: Distention, Normal Bowel Sounds. Negative for: Tenderness Back: Positive for: Decubitus Ulcer (Stage 2 decubitus ulcer). Negative for: CVA Tenderness, Midline Tenderness Upper Extremity: Positive for: Swelling (Left arm), Other (Left subclavian Will catheter, L AV shunt) Skin: Positive for: Warm, Dry Psychiatric: Positive for: Alert, Oriented x 3 - Medications Active Medications: Active Medications Generic Name Dose Route Start Last Admin Trade Name Freq PRN Reason Stop Dose Admin Amiodarone HCl 200 mg 04/27/17 10:00 04/29/17 09:07 Cordarone PO 200 mg DAILY [facility] Administration Amlodipine Besylate 5 mg 04/27/17 10:00 Norvasc PO DAILY [facility] Epoetin Alonso 10,000 unit 04/28/17 10:00 04/28/17 17:08 Procrit IV 10,000 unit TTS [facility] Administration Folic Acid 1 mg 04/27/17 10:00 04/29/17 09:07 Folic Acid PO 1 mg DAILY [facility] Administration Insulin Human Regular 0 unit 04/27/17 07:30 04/29/17 11:54 Novolin R SC 1 unit ACHS [facility] Administration Protocol Metoprolol Tartrate 50 mg 04/27/17 08:30 04/29/17 08:32 Lopressor PO 50 mg Q12H [facility] Administration Pantoprazole Sodium 40 mg 04/26/17 20:15 04/29/17 08:21 Protonix Inj IVP 40 mg Q12H [facility] Administration Vitamin B Complex/Vit C/Folic Acid 1 tab 04/28/17 08:00 04/29/17 08:21 Nephro-Umu PO 1 tab 0800 [facility] Administration - Patient Studies Lab Studies: Microbiology Studies 04/27/17 06:00 Gram Stain - Final Sacral Wound Culture - Preliminary No growth. 04/26/17 18:30 Blood Culture - Preliminary Blood NO GROWTH AFTER 48 HOURS 04/26/17 19:00 Blood Culture - Preliminary Blood NO GROWTH AFTER 48 HOURS 04/26/17 06:00 MRSA Culture (Admit) - Final Naris MRSA NOT DETECTED Lab Studies 04/29/17 04/29/17 04/29/17 Range/Units 11:21 07:50 06:32 WBC 5.9 (4.8-10.8) K/uL RBC 2.96 L (3.80-5.20) Mil/uL Hgb 8.9 L (11.0-16.0) g/dL Hct 26.7 L (34.0-47.0) % MCV 90.3 (81.0-99.0) fL MCH 30.1 (27.0-31.0) pg MCHC 33.3 (33.0-37.0) g/dL RDW 17.1 H (11.5-14.5) % Plt Count 178 (130-400) K/uL MPV 9.5 (7.2-11.7) fL Neut % (Auto) 59.1 (50.0-75.0) % Lymph % (Auto) 29.4 (20.0-40.0) % [place] % (Auto) 9.4 (0.0-10.0) % Eos % (Auto) 1.4 (0.0-4.0) % Baso % (Auto) 0.7 (0.0-2.0) % Neut # (Auto) 3.5 (1.8-7.0) K/uL Lymph # (Auto) 1.7 (1.0-4.3) K/uL [place] # (Auto) 0.6 (0.0-0.8) K/uL Eos # (Auto) 0.1 (0.0-0.7) K/uL Baso # (Auto) 0.0 (0.0-0.2) K/uL Sodium (132-148) mmol/L Potassium (3.6-5.2) mmol/L Chloride (98-107) mmol/L Carbon Dioxide (22-30) mmol/L Anion Gap (10-20) BUN (7-17) mg/dL Creatinine (0.7-1.2) mg/dL Est GFR ( Amer) Est GFR (Non-Af Amer) POC Glucose (mg/dL) 163 H 105 (65-110) mg/dL Random Glucose (65-105) mg/dL Calcium (8.6-10.4) mg/dl Phosphorus (2.5-4.5) mg/dL Magnesium (1.6-2.3) mg/dL Total Bilirubin (0.2-1.3) mg/dL AST (14-36) U/L ALT (9-52) U/L Alkaline Phosphatase (38-126) U/L Total Protein (6.3-8.3) g/dL Albumin (3.5-5.0) g/dL Globulin (2.2-3.9) gm/dL Albumin/Globulin Ratio (1.0-2.1) Blood Type Antibody Screen 04/29/17 04/28/17 04/28/17 Range/Units 06:31 21:09 16:15 WBC (4.8-10.8) K/uL RBC (3.80-5.20) Mil/uL Hgb (11.0-16.0) g/dL Hct (34.0-47.0) % MCV (81.0-99.0) fL MCH (27.0-31.0) pg MCHC (33.0-37.0) g/dL RDW (11.5-14.5) % Plt Count (130-400) K/uL MPV (7.2-11.7) fL Neut % (Auto) (50.0-75.0) % Lymph % (Auto) (20.0-40.0) % [place] % (Auto) (0.0-10.0) % Eos % (Auto) (0.0-4.0) % Baso % (Auto) (0.0-2.0) % Neut # (Auto) (1.8-7.0) K/uL Lymph # (Auto) (1.0-4.3) K/uL [place] # (Auto) (0.0-0.8) K/uL Eos # (Auto) (0.0-0.7) K/uL Baso # (Auto) (0.0-0.2) K/uL Sodium 136 (132-148) mmol/L Potassium 3.7 (3.6-5.2) mmol/L Chloride 98 (98-107) mmol/L Carbon Dioxide 26 (22-30) mmol/L Anion Gap 16 (10-20) BUN 27 H (7-17) mg/dL Creatinine 1.6 H (0.7-1.2) mg/dL Est GFR ( Amer) 39 Est GFR (Non-Af Amer) 32 POC Glucose (mg/dL) 174 H 114 H (65-110) mg/dL Random Glucose 102 (65-105) mg/dL Calcium 8.0 L (8.6-10.4) mg/dl Phosphorus 2.4 L (2.5-4.5) mg/dL Magnesium 1.9 (1.6-2.3) mg/dL Total Bilirubin 0.8 (0.2-1.3) mg/dL AST 27 (14-36) U/L ALT 11 (9-52) U/L Alkaline Phosphatase 160 H (38-126) U/L Total Protein 6.2 L (6.3-8.3) g/dL Albumin 2.5 L (3.5-5.0) g/dL Globulin 3.7 (2.2-3.9) gm/dL Albumin/Globulin Ratio 0.7 L (1.0-2.1) Blood Type Antibody Screen 04/26/17 Range/Units 21:00 WBC (4.8-10.8) K/uL RBC (3.80-5.20) Mil/uL Hgb (11.0-16.0) g/dL Hct (34.0-47.0) % MCV (81.0-99.0) fL MCH (27.0-31.0) pg MCHC (33.0-37.0) g/dL RDW (11.5-14.5) % Plt Count (130-400) K/uL MPV (7.2-11.7) fL Neut % (Auto) (50.0-75.0) % Lymph % (Auto) (20.0-40.0) % [place] % (Auto) (0.0-10.0) % Eos % (Auto) (0.0-4.0) % Baso % (Auto) (0.0-2.0) % Neut # (Auto) (1.8-7.0) K/uL Lymph # (Auto) (1.0-4.3) K/uL [place] # (Auto) (0.0-0.8) K/uL Eos # (Auto) (0.0-0.7) K/uL Baso # (Auto) (0.0-0.2) K/uL Sodium (132-148) mmol/L Potassium (3.6-5.2) mmol/L Chloride (98-107) mmol/L Carbon Dioxide (22-30) mmol/L Anion Gap (10-20) BUN (7-17) mg/dL Creatinine (0.7-1.2) mg/dL Est GFR ( Amer) Est GFR (Non-Af Amer) POC Glucose (mg/dL) (65-110) mg/dL Random Glucose (65-105) mg/dL Calcium (8.6-10.4) mg/dl Phosphorus (2.5-4.5) mg/dL Magnesium (1.6-2.3) mg/dL Total Bilirubin (0.2-1.3) mg/dL AST (14-36) U/L ALT (9-52) U/L Alkaline Phosphatase (38-126) U/L Total Protein (6.3-8.3) g/dL Albumin (3.5-5.0) g/dL Globulin (2.2-3.9) gm/dL Albumin/Globulin Ratio (1.0-2.1) Blood Type B POSITIVE Antibody Screen Negative Laboratory Results - last 24 hr 04/26/17 04/28/17 04/28/17 21:00 16:15 21:09 WBC RBC Hgb Hct MCV MCH MCHC RDW Plt Count MPV Neut % (Auto) Lymph % (Auto) [place] % (Auto) Eos % (Auto) Baso % (Auto) Neut # (Auto) Lymph # (Auto) [place] # (Auto) Eos # (Auto) Baso # (Auto) Sodium Potassium Chloride Carbon Dioxide Anion Gap BUN Creatinine Est GFR ( Amer) Est GFR (Non-Af Amer) POC Glucose (mg/dL) 114 H 174 H Random Glucose Calcium Phosphorus Magnesium Total Bilirubin AST ALT Alkaline Phosphatase Total Protein Albumin Globulin Albumin/Globulin Ratio Blood Type B POSITIVE Antibody Screen Negative 04/29/17 04/29/17 04/29/17 06:31 06:32 07:50 WBC 5.9 RBC 2.96 L Hgb 8.9 L Hct 26.7 L MCV 90.3 MCH 30.1 MCHC 33.3 RDW 17.1 H Plt Count 178 MPV 9.5 Neut % (Auto) 59.1 Lymph % (Auto) 29.4 [place] % (Auto) 9.4 Eos % (Auto) 1.4 Baso % (Auto) 0.7 Neut # (Auto) 3.5 Lymph # (Auto) 1.7 [place] # (Auto) 0.6 Eos # (Auto) 0.1 Baso # (Auto) 0.0 Sodium 136 Potassium 3.7 Chloride 98 Carbon Dioxide 26 Anion Gap 16 BUN 27 H Creatinine 1.6 H Est GFR ( Amer) 39 Est GFR (Non-Af Amer) 32 POC Glucose (mg/dL) 105 Random Glucose 102 Calcium 8.0 L Phosphorus 2.4 L Magnesium 1.9 Total Bilirubin 0.8 AST 27 ALT 11 Alkaline Phosphatase 160 H Total Protein 6.2 L Albumin 2.5 L Globulin 3.7 Albumin/Globulin Ratio 0.7 L Blood Type Antibody Screen 04/29/17 11:21 WBC RBC Hgb Hct MCV MCH MCHC RDW Plt Count MPV Neut % (Auto) Lymph % (Auto) [place] % (Auto) Eos % (Auto) Baso % (Auto) Neut # (Auto) Lymph # (Auto) [place] # (Auto) Eos # (Auto) Baso # (Auto) Sodium Potassium Chloride Carbon Dioxide Anion Gap BUN Creatinine Est GFR ( Amer) Est GFR (Non-Af Amer) POC Glucose (mg/dL) 163 H Random Glucose Calcium Phosphorus Magnesium Total Bilirubin AST ALT Alkaline Phosphatase Total Protein Albumin Globulin Albumin/Globulin Ratio Blood Type Antibody Screen Fingerstick Blood Sugar Results: 114 Critical Care Progress Note - Nutrition Nutrition: Nutrition Category Date Time Status Renal Diet [DIET] Diets 04/29/17 Lunch Active
--- NOTE | 2017-04-29 16:01 | CP.PCM.PN ---
Subjective - Date & Time of Evaluation Date of Evaluation: 04/29/17 Time of Evaluation: 16:00 - Subjective Subjective: Follow up Nephrology Consultation: Assessment: Stable Anemia of acute blood loss with upper GI/peptic ulcer bleed and supreatherapeutic INR Hypertensive Chronic Kidney Disease (I12.0), Diabetic CKD (E11.22) End stage renal disease (N18.6) dependence on hemodialysis (Z99.2) (TTS) via permacath Anemia Hyperphosphatemia (E83.39), Secondary Hyperparathyroidism (E21.1), HTN ( I12.0) Plan: for HD Sunday as ordered. Continue with Nephrovite 1 tab/day. PRBC as needed for anemia. for PRBC today. On KEILA as epogen , last Hb 8.9 Continue with phos binders BP controlled with meds as ordered Glycemic control, Dialysis consistent diet Further work up/management as per primary team Dose meds/antibiotics for ESRD status. Avoid fleets enema/magnesium based laxatives. GI following. continue with PPI Thanks for allowing me to participate in care of your patient. Will follow patient with you. Please call if any Qs. Dr Ryan Carter Office: [phone] ROS Cardiovascular: No chest pain. Pulmonary: improved shortness of breath Gastrointestinal: denies abdominal pain no further nausea vomiting Genitourinary: No pain while urinating. Denies blood in urine. All other negative Physical Examination: General Appearance: Comfortable, in no acute respiratory distress, co-operative . Vitals reviewed and noted as below Head; Atraumatic, normocephalic ENT: no ulcers no thrush. Tongue is midline. Oropharynx: no rash or ulcers. EYES: Pupils are equal, round and reactive to light accommodation. Eye muscles and extraocular movement intact. Sclera is anicteric. Neck; supple no lymphadenopathy, no thyromegaly or bruit Lungs: Normal respiratory rate/effort. Breath sounds bilateral equal and clear Heart: Normal rate. s1s2 normal. No rub or gallop. Extremities: no edema. No varicose veins Neurological: Patient is alert, awake and oriented to person, place and time. chronically bed bound Skin: Warm and dry. Normal turgor. No rash. Palpitation: Normal elasticity for age Abdomen: Abdomen is soft. Bowel sounds +. There is no abdominal tenderness, no guarding/rigidity or organomegaly Psych: normal insight and normal affect/mood MSK: no joint tenderness or swelling. Digits and nails normal, no deformity : kidney or bladder not palpable Access: permacath. left AVF maturing Labs/imaging reviewed. Past medical history, past surgical history, family history, social history, allergy reviewed and noted as below Family Hx: no hx of CKD. Non contributory Objective - Vital Signs/Intake and Output Vital Signs (last 24 hours): Temp Pulse Resp BP Pulse Ox 98.6 F 68 24 136/64 97 04/29/17 12:00 04/29/17 14:59 04/29/17 14:59 04/29/17 15:00 04/29/17 14:59 Intake and Output: 04/29/17 04/29/17 06:59 18:59 Intake Total 275 520 Output Total 0 Balance 275 520 - Medications Medications: Current Medications Amiodarone HCl (Cordarone) 200 mg PO DAILY [facility] Last Admin: 04/29/17 09:07 Dose: 200 mg Amlodipine Besylate (Norvasc) 5 mg PO DAILY [facility] Epoetin Alonso (Procrit) 10,000 unit IV TTS [facility] Last Admin: 04/28/17 17:08 Dose: 10,000 unit Folic Acid (Folic Acid) 1 mg PO DAILY [facility] Last Admin: 04/29/17 09:07 Dose: 1 mg Insulin Human Regular (Novolin R) 0 unit SC ACHS [facility] PRN Reason: Protocol Last Admin: 04/29/17 11:54 Dose: 1 unit Metoprolol Tartrate (Lopressor) 50 mg PO Q12H [facility] Last Admin: 04/29/17 08:32 Dose: 50 mg Pantoprazole Sodium (Protonix Inj) 40 mg IVP Q12H [facility] Last Admin: 04/29/17 08:21 Dose: 40 mg Vitamin B Complex/Vit C/Folic Acid (Nephro-Umu) 1 tab PO 0800 [facility] Last Admin: 04/29/17 08:21 Dose: 1 tab - Labs Labs: 04/29/17 06:32 04/29/17 06:31 PT 12.7 SECONDS (9.7-12.2) H 04/28/17 06:26 INR 1.1 04/28/17 06:26 APTT 27 SECONDS (21-34) 04/28/17 06:26
--- NOTE | 2017-04-29 18:36 | CP.PCM.PN ---
Subjective - Date & Time of Evaluation Date of Evaluation: 04/29/17 Time of Evaluation: 12:20 - Subjective Subjective: clinically same Objective - Vital Signs/Intake and Output Vital Signs (last 24 hours): Temp Pulse Resp BP Pulse Ox 98.7 F 72 11 L 148/70 99 04/29/17 16:00 04/29/17 18:00 04/29/17 18:00 04/29/17 17:59 04/29/17 18:00 Intake and Output: 04/29/17 04/29/17 06:59 18:59 Intake Total 275 770 Output Total 0 Balance 275 770 - Medications Medications: Current Medications Amiodarone HCl (Cordarone) 200 mg PO DAILY [facility] Last Admin: 04/29/17 09:07 Dose: 200 mg Amlodipine Besylate (Norvasc) 5 mg PO DAILY [facility] Epoetin Alonso (Procrit) 10,000 unit IV TTS [facility] Last Admin: 04/28/17 17:08 Dose: 10,000 unit Folic Acid (Folic Acid) 1 mg PO DAILY [facility] Last Admin: 04/29/17 09:07 Dose: 1 mg Insulin Human Regular (Novolin R) 0 unit SC [facility] PRN Reason: Protocol Last Admin: 04/29/17 17:20 Dose: Not Given Metoprolol Tartrate (Lopressor) 50 mg PO Q12H [facility] Last Admin: 04/29/17 08:32 Dose: 50 mg Pantoprazole Sodium (Protonix Inj) 40 mg IVP Q12H [facility] Last Admin: 04/29/17 08:21 Dose: 40 mg Vitamin B Complex/Vit C/Folic Acid (Nephro-Umu) 1 tab PO 0800 [facility] Last Admin: 04/29/17 08:21 Dose: 1 tab - Labs Labs: 04/29/17 06:32 04/29/17 06:31 PT 12.7 SECONDS (9.7-12.2) H 04/28/17 06:26 INR 1.1 04/28/17 06:26 APTT 27 SECONDS (21-34) 04/28/17 06:26 - Constitutional Appears: Well - Head Exam Head Exam: ATRAUMATIC, NORMAL INSPECTION, NORMOCEPHALIC - Eye Exam Eye Exam: EOMI, Normal appearance, PERRL Pupil Exam: NORMAL ACCOMODATION, PERRL - ENT Exam ENT Exam: Mucous Membranes Moist, Normal Exam - Neck Exam Neck Exam: Full ROM, Normal Inspection. absent: Lymphadenopathy - Respiratory Exam Respiratory Exam: Decreased Breath Sounds - Cardiovascular Exam Cardiovascular Exam: REGULAR RHYTHM, +S1, +S2 - GI/Abdominal Exam GI & Abdominal Exam: Soft, Diminished Bowel Sounds - Rectal Exam Rectal Exam: Deferred
[2017-04-30 06:12] LABS: BASO % 0.5 % (0.0-2.0); EOS # 0.1 K/uL (0.0-0.7); EOS % 0.9 % (0.0-4.0); LYMPH # 2.4 K/uL (1.0-4.3); LYMPH % 31.6 % (20.0-40.0); MEAN CELL VOLUME 89.2 fL (81.0-99.0); MEAN CORPUSCULAR HEMOGLOBIN 30.5 pg (27.0-31.0); MEAN CORPUSCULAR HGB CONC 34.1 g/dL (33.0-37.0); MEAN PLATELET VOLUME 8.7 fL (7.2-11.7); MONO # 0.6 K/uL (0.0-0.8); MONO % 8.3 % (0.0-10.0); NEUT # 4.4 K/uL (1.8-7.0); NEUT % 58.7 % (50.0-75.0); RBC 2.95 Mil/uL (3.80-5.20); RED CELL DISTRIBUTION WIDTH 17.4 % (11.5-14.5); WHITE BLOOD COUNT 7.5 K/uL (4.8-10.8)
[2017-04-30 06:41] LABS: BLOOD UREA NITROGEN 33 mg/dL (7-17); GFR AFRICAN-AMERICAN 23
[2017-04-30 06:42] LABS: ALB/GLOB RATIO 0.7 (1.0-2.1); ALBUMIN 2.6 g/dL (3.5-5.0); ALT/SGPT < 6 U/L (9-52); AST/SGOT 16 U/L (14-36); CALCIUM 8.1 mg/dl (8.6-10.4); GFR NON-AFRICAN AMERICAN 19
[2017-04-30] MEDS: (Novolin R) Insulin Human Regular 100 units/ml vial SC SCH ×4 (07:38→21:25)
[2017-04-30] MEDS: Multivitamin Vitamin B Complex (Nephro-Vite) Tab PO SCH (07:46)
[2017-04-30] MEDS: Piperacill/Tazo 2.25gm in Dex 2.25 GM/50 ML BAG IVPB SCH ×2 (13:57→21:25)
--- NOTE | 2017-04-30 15:43 | CP.PCM.PN ---
Subjective - Date & Time of Evaluation Date of Evaluation: 04/30/17 Time of Evaluation: 15:42 - Subjective Subjective: Follow up Nephrology Consultation: Assessment: Stable Anemia of acute blood loss with upper GI/peptic ulcer bleed and supreatherapeutic INR Hypertensive Chronic Kidney Disease (I12.0), Diabetic CKD (E11.22) End stage renal disease (N18.6) dependence on hemodialysis (Z99.2) (TTS) via permacath Anemia Hyperphosphatemia (E83.39), Secondary Hyperparathyroidism (E21.1), HTN ( I12.0) Plan: for HD Sunday as ordered. Continue with Nephrovite 1 tab/day. PRBC as needed for anemia. for PRBC today. On KEILA as epogen , last Hb 8.9 Continue with phos binders BP controlled with meds as ordered Glycemic control, Dialysis consistent diet Further work up/management as per primary team Dose meds/antibiotics for ESRD status. Avoid fleets enema/magnesium based laxatives. GI following. continue with PPI Thanks for allowing me to participate in care of your patient. Will follow patient with you. Please call if any Qs. Dr Ryan Carter Office: [phone] ROS Cardiovascular: No chest pain. Pulmonary: improved shortness of breath Gastrointestinal: denies abdominal pain no further nausea vomiting Genitourinary: No pain while urinating. Denies blood in urine. All other negative Physical Examination: General Appearance: Comfortable, in no acute respiratory distress, co-operative . Vitals reviewed and noted as below Head; Atraumatic, normocephalic ENT: no ulcers no thrush. Tongue is midline. Oropharynx: no rash or ulcers. EYES: Pupils are equal, round and reactive to light accommodation. Eye muscles and extraocular movement intact. Sclera is anicteric. Neck; supple no lymphadenopathy, no thyromegaly or bruit Lungs: Normal respiratory rate/effort. Breath sounds bilateral equal and clear Heart: Normal rate. s1s2 normal. No rub or gallop. Extremities: no edema. No varicose veins Neurological: Patient is alert, awake and oriented to person, place and time. chronically bed bound Skin: Warm and dry. Normal turgor. No rash. Palpitation: Normal elasticity for age Abdomen: Abdomen is soft. Bowel sounds +. There is no abdominal tenderness, no guarding/rigidity or organomegaly Psych: normal insight and normal affect/mood MSK: no joint tenderness or swelling. Digits and nails normal, no deformity : kidney or bladder not palpable Access: permacath. left AVF maturing Labs/imaging reviewed. Past medical history, past surgical history, family history, social history, allergy reviewed and noted as below Family Hx: no hx of CKD. Non contributory Objective - Vital Signs/Intake and Output Vital Signs (last 24 hours): Temp Pulse Resp BP Pulse Ox 98.5 F 62 16 147/73 100 04/30/17 12:00 04/30/17 12:00 04/30/17 12:00 04/30/17 12:00 04/30/17 12:00 Intake and Output: 04/30/17 04/30/17 06:59 18:59 Intake Total 80 120 Balance 80 120 - Medications Medications: Current Medications Acetaminophen (Tylenol 325mg Tab) 650 mg PO Q6 PRN PRN Reason: Pain, Mild (1-3) Last Admin: 04/30/17 08:25 Dose: 650 mg Amiodarone HCl (Cordarone) 200 mg PO DAILY [facility] Last Admin: 04/30/17 11:00 Dose: 200 mg Amlodipine Besylate (Norvasc) 5 mg PO DAILY [facility] Epoetin Alonso (Procrit) 10,000 unit IV TTS [facility] Last Admin: 04/28/17 17:08 Dose: 10,000 unit Folic Acid (Folic Acid) 1 mg PO DAILY [facility] Last Admin: 04/30/17 11:00 Dose: 1 mg Piperacillin Sod/Tazobactam Sod (Zosyn 2.25 Gm Iv Premix) 2.25 gm in 50 mls @ 200 mls/hr IVPB Q8H [facility] PRN Reason: Protocol Last Admin: 04/30/17 13:57 Dose: 200 mls/hr Insulin Human Regular (Novolin R) 0 unit SC [facility] PRN Reason: Protocol Last Admin: 04/30/17 11:57 Dose: 1 unit Metoprolol Tartrate (Lopressor) 50 mg PO Q12H [facility] Last Admin: 04/30/17 07:46 Dose: 50 mg Pantoprazole Sodium (Protonix Inj) 40 mg IVP Q12H [facility] Last Admin: 04/30/17 07:46 Dose: 40 mg Vitamin B Complex/Vit C/Folic Acid (Nephro-Umu) 1 tab PO 0800 [facility] Last Admin: 04/30/17 07:46 Dose: 1 tab - Labs Labs: 04/30/17 05:55 04/30/17 05:58 PT 12.7 SECONDS (9.7-12.2) H 04/28/17 06:26 INR 1.1 04/28/17 06:26 APTT 27 SECONDS (21-34) 04/28/17 06:26
[2017-05-01] MEDS ORDERED: Vancomycin 1 gm/NS 200 ml 1 GM/200 ML BAG IVPB STA (03:10)
[2017-05-01] MEDS: Piperacill/Tazo 2.25gm in Dex 2.25 GM/50 ML BAG IVPB SCH (05:45)
[2017-05-01] MEDS: (Novolin R) Insulin Human Regular 100 units/ml vial SC SCH ×4 (07:53→21:21)
[2017-05-01] MEDS: Multivitamin Vitamin B Complex (Nephro-Vite) Tab PO SCH (08:44)
[2017-05-01 11:01] LABS: HEMOGLOBIN 9.1 g/dL (11.0-16.0); MEAN CELL VOLUME 90.2 fL (81.0-99.0); MEAN CORPUSCULAR HEMOGLOBIN 30.5 pg (27.0-31.0); MEAN CORPUSCULAR HGB CONC 33.8 g/dL (33.0-37.0); MEAN PLATELET VOLUME 9.1 fL (7.2-11.7); RBC 2.99 Mil/uL (3.80-5.20); RED CELL DISTRIBUTION WIDTH 16.8 % (11.5-14.5); WHITE BLOOD COUNT 9.1 K/uL (4.8-10.8)
[2017-05-01 11:30] LABS: CALCIUM 7.7 mg/dl (8.6-10.4)
--- NOTE | 2017-05-01 12:10 | CP.PCM.CON ---
History of Present Illness - History of Present Illness History of Present Illness: The patient, whose PMHx includes Dementia, ESRD (on hemodialysis), presents to the ED for evaluation after she was found to have altered mental stratus during hemodialysis earlier today. Patient appeared lethargic and was slow to respond. Patient was recently evaluated in ED and admitted for sacral decub and urosepsis. She denies any other complaints at this time. Additional history limited because patient is a poor historian. ID consulted for rx infected stage IV sacral wound from home - Medical History PMH: Anemia, Dementia, HTN, Hypercholesterolemia, Chronic Kidney Disease Surgical History: No Surg Hx Review of Systems - Review of Systems Systems not reviewed;Unavailable: Altered Mental Status All systems: reviewed and no additional remarkable complaints except - Constitutional Constitutional: As Per HPI - EENT Eyes: absent: As Per HPI, Blind Spots, Blurred Vision, Change in Vision, Decreased Night Vision, Diplopia, Discharge, Dry Eye, Exophthalmos, Floaters, Irritation, Itchy Eyes, Loss of Peripheral Vision, Pain, Photophobia, Requires Corrective Lenses, Sees Flashes, Spots in Vision, Tunnel Vision, Other Visual Disturbances, Loss of Vision, Other Ears: absent: As Per HPI, Decreased Hearing, Ear Discharge, Ear Pain, Tinnitus, Abnormal Hearing, Disequilibrium, Dizziness, Other Nose/Mouth/Throat: absent: As Per HPI, Epistaxis, Nasal Congestion, Nasal Discharge, Nasal Obstruction, Nasal Trauma, Nose Pain, Post Nasal Drip, Sinus Pain, Sinus Pressure, Bleeding Gums, Change in Voice, Dental Pain, Dry Mouth, Dysphagia, Halitosis, Hoarsness, Lip Swelling, Mouth Lesions, Mouth Pain, Odynophagia, Sore Throat, Throat Swelling, Tongue Swelling, Facial Pain, Neck Pain, Neck Mass, Other - Breasts Breasts: absent: As Per HPI, Change in Shape, Mass, Pain, Nipple Discharge, Nipple Inversion, Skin Changes, Swelling, Other - Cardiovascular Cardiovascular: absent: As Per HPI, Acrocyanosis, Chest Pain, Chest Pain at Rest , Chest Pain with Activity, Claudication, Diaphoresis, Dyspnea, Dyspnea on Exertion, Edema, Irregular Heart Rhythm, Pain Radiating to Arm/Neck/Jaw, Leg Edema, Leg Ulcers, Lightheadedness, Orthopnea, Palpitations, Paroxysmal Nocturnal Dyspnea, Pedal Edema, Radiating Pain, Rapid Heart Rate, Slow Heart Rate, Syncope, Other - Respiratory Respiratory: absent: As Per HPI, Cough, Dyspnea, Hemoptysis, Dyspnea on Exertion , Wheezing, Snoring, Stridor, Pain on Inspiration, Chest Congestion, Excessive Mucous Production, Change in Mucous Color, Pain with Coughing, Other - Gastrointestinal Gastrointestinal: absent: As Per HPI, Abdominal Pain, Belching, Bloating, Change in Bowel Habits, Change in Stool Character, Coffee Ground Emesis, Constipation, Cramping, Diarrhea, Dyspepsia, Dysphagia, Early Satiety, Excessive Flatus, Fecal Incontinence, Heartburn, Hematemesis, Hematochezia, Loose Stools, Melena, Nausea, Odynophagia, Temesmus, Vomiting, Other - Genitourinary Genitourinary: absent: As Per HPI, Change in Urinary Stream, Difficulty Urinating, Dysuria, Flank Pain, Hematuria, Pyuria, Nocturia, Urinary Incontinence, Urinary Frequency, Urinary Hesitance, Urinary Urgency, Voiding Freq/Small Amts, Freq UTI, Hx Renal/Bladder Calculi, Hx /Renal Surgery, Bladder Distension, Other - Reproductive: Female Reproductive:Female: absent: As Per HPI, Amenorrhea, Amenorrhea/ Control, Currently Menstual, Cycle <21 Days, Cycle >35 Days, Cycle Variable, Menses 1-7 Days, Menses >/= 8 Days, Menses Variable, Cycle > 4 Weeks Between, No Menses for 6 Months, Heavy Menses, Light Menses, Normal Menses, Spotting Between Cycles , S/P Hysterectomy, Menopausal, Post Menopausal, Premenarche, Abnormal Vaginal Bleeding, Dysmenorrhea, Dyspareunia, Genital Lesions, Genital Pruritis, Pelvic Pain, Prolapse Symptoms, Sexual Dysfunction, Vaginal Discharge, Vaginal Dryness , Vaginal Odor, Vaginal Pruritis, Other - Menstruation Menstruation: absent: As Per HPI, Amenorrhea, Amenorrhea/ Control, Currently Menstual, Cycle <21 Days, Cycle >35 Days, Cycle Variable, Menses 1-7 Days, Menses >/= 8 Days, Menses Variable, Cycle > 4 Weeks Between, No Menses for 6 Months, Heavy Menses, Light Menses, Normal Menses, Spotting Between Cycles , S/P Hysterectomy, Menopausal, Post Menopausal, Premenarche, Abnormal Vaginal Bleeding, Dysmenorrhea, Other - Musculoskeletal Musculoskeletal: As Per HPI - Integumentary Integumentary: As Per HPI, Skin Pain, Wounds - Neurological Neurological: As Per HPI - Psychiatric Psychiatric: absent: As Per HPI, Abnormal Sleep Pattern, Anhedonia, Anxiety, Auditory Hallucinations, Behavioral Changes, Change in Appetite, Change in Libido, Confusion, Depression, Difficulty Concentrating, Hallucinations, Homicidal Ideation, Hopelessness, Irritability, Memory Loss, Mood Swings, Panic Attacks, Paranoia, Suicidal Ideation, Visual Hallucinations, Tactile Hallucinations, Other - Endocrine Endocrine: absent: As Per HPI, Change in Body Appearance, Change in Libido, Cold Intolorance, Deepening of Voice, Excessive Sweating, Fatigue, Flushing, Heat Intolorance, Increase in Ring/Shoe/Hat Size, Palpitations, Polydipsia, Polyphagia, Polyuria, Other - Hematologic/Lymphatic Hematologic: absent: As Per HPI, Easy Bleeding, Easy Bruising, Lymphadenopathy, Other Past Patient History - Past Medical History & Family History Past Medical History?: Yes - Past Social History Smoking Status: Never Smoked - CARDIAC Hx Hypercholesterolemia: Yes Hx Hypertension: Yes - PULMONARY Hx Respiratory Disorders: No - NEUROLOGICAL Hx Dementia: Yes - HEENT Hx HEENT Problems: No - RENAL Hx Chronic Kidney Disease: Yes - ENDOCRINE/METABOLIC Hx Endocrine Disorders: Yes Hx Diabetes Mellitus Type 2: Yes - HEMATOLOGICAL/ONCOLOGICAL Hx Anemia: Yes - INTEGUMENTARY Hx Dermatological Problems: Yes Other/Comment: ulcer buttocks - MUSCULOSKELETAL/RHEUMATOLOGICAL Hx Musculoskeletal Disorders: No Hx Falls: No - GASTROINTESTINAL Hx Gastrointestinal Disorders: No - GENITOURINARY/GYNECOLOGICAL Hx Genitourinary Disorders: Yes Hx Incontinence: Yes Hx Urinary Tract Infection: Yes - PSYCHIATRIC Hx Substance Use: No - SURGICAL HISTORY Hx Surgeries: Yes Hx Cardiac Catheterization: Yes Hx Vascular Surgery: Yes (perma cath insertion) Other/Comment: debridement ulcer buttocks - ANESTHESIA Hx Anesthesia: Yes Hx Anesthesia Reactions: No Hx Malignant Hyperthermia: No Meds Allergies/Adverse Reactions: Allergies Allergy/AdvReac Type Severity Reaction Status Date / Time No Known Allergies Allergy Verified 04/26/17 18:14 - Medications Medications: Current Medications Acetaminophen (Tylenol 325mg Tab) 650 mg PO Q6 PRN PRN Reason: Pain, Mild (1-3) Last Admin: 05/01/17 00:15 Dose: 650 mg Amiodarone HCl (Cordarone) 200 mg PO DAILY [facility] Last Admin: 05/01/17 10:29 Dose: 200 mg Amlodipine Besylate (Norvasc) 5 mg PO DAILY [facility] Epoetin Alonso (Procrit) 10,000 unit IV TTS [facility] Last Admin: 04/28/17 17:08 Dose: 10,000 unit Folic Acid (Folic Acid) 1 mg PO DAILY [facility] Last Admin: 05/01/17 10:29 Dose: 1 mg Piperacillin Sod/Tazobactam Sod (Zosyn 2.25 Gm Iv Premix) 2.25 gm in 50 mls @ 200 mls/hr IVPB Q8H [facility] PRN Reason: Protocol Last Admin: 05/01/17 05:45 Dose: 200 mls/hr Insulin Human Regular (Novolin R) 0 unit SC ACHS [facility] PRN Reason: Protocol Last Admin: 05/01/17 11:22 Dose: Not Given Metoprolol Tartrate (Lopressor) 50 mg PO Q12H [facility] Last Admin: 05/01/17 08:44 Dose: Not Given Pantoprazole Sodium (Protonix Inj) 40 mg IVP Q12H [facility] Last Admin: 05/01/17 08:44 Dose: 40 mg Vitamin B Complex/Vit C/Folic Acid (Nephro-Umu) 1 tab PO 0800 [facility] Last Admin: 05/01/17 08:44 Dose: 1 tab Physical Exam - Constitutional Appears: Non-toxic, Chronically Ill - Head Exam Head Exam: NORMOCEPHALIC - Eye Exam Eye Exam: PERRL - ENT Exam ENT Exam: Mucous Membranes Dry - Neck Exam Neck exam: Negative for: Lymphadenopathy - Respiratory Exam Respiratory Exam: Decreased Breath Sounds - Cardiovascular Exam Cardiovascular Exam: REGULAR RHYTHM - GI/Abdominal Exam GI & Abdominal Exam: Diminished Bowel Sounds - Rectal Exam Rectal Exam: Deferred - Extremities Exam Extremities exam: Positive for: pedal pulses present. Negative for: calf tenderness, pedal edema, tenderness - Back Exam Back exam: absent: CVA tenderness (L), CVA tenderness (R) - Neurological Exam Neurological exam: Alert, CN II-XII Intact, Oriented x3, Reflexes Normal - Psychiatric Exam Psychiatric exam: Depressed - Skin Skin Exam: Dry Additional comments: large stage IV sacrum Results - Vital Signs Recent Vital Signs: Last Vital Signs Temp 97.8 F 05/01/17 07:39 Pulse 82 05/01/17 07:39 Resp 20 05/01/17 07:39 BP 139/75 05/01/17 07:39 Pulse Ox 98 05/01/17 07:39 - Labs Result Diagrams: 05/01/17 10:53 05/01/17 10:53 Labs: Laboratory Results - last 24 hr 04/27/17 04/30/17 04/30/17 07:16 16:10 21:09 WBC RBC Hgb Hct MCV MCH MCHC RDW Plt Count MPV Sodium Potassium Chloride Carbon Dioxide Anion Gap BUN Creatinine Est GFR ( Amer) Est GFR (Non-Af Amer) POC Glucose (mg/dL) 136 H 179 H Random Glucose Calcium Stool H. pylori Ag Not detected H. pylori Source Stool 05/01/17 05/01/17 05/01/17 06:46 10:53 10:53 WBC 9.1 RBC 2.99 L Hgb 9.1 L Hct 26.9 L MCV 90.2 MCH 30.5 MCHC 33.8 RDW 16.8 H Plt Count 201 MPV 9.1 Sodium 130 L Potassium 3.9 Chloride 94 L Carbon Dioxide 23 Anion Gap 18 BUN 44 H Creatinine 3.6 H Est GFR ( Amer) 15 Est GFR (Non-Af Amer) 13 POC Glucose (mg/dL) 135 H Random Glucose 176 H Calcium 7.7 L Stool H. pylori Ag H. pylori Source Assessment & Plan (1) Anemia Status: Acute (2) ESRD (end stage renal disease) on dialysis Status: Acute (3) GI bleeding Status: Acute (4) Sacral decubitus ulcer Status: Acute (5) Osteomyelitis Status: Acute (6) Sepsis Status: Acute (7) UTI (urinary tract infection) Status: Acute (8) CKD (chronic kidney disease) stage 4, GFR 15-29 ml/min Status: Chronic - Assessment and Plan (Free Text) Assessment: consider debridement, skin flap by plastics cont iv rx 6-8 weeks await cultures
--- NOTE | 2017-05-01 13:03 | CP.PCM.CON ---
History of Present Illness - History of Present Illness History of Present Illness: Palliative consult requested by Doctor Kain Ya for goals of care discussion Patient is a 66 yo lad admitted from HD place where she was noted to be with AMS. Upon admission, patient found with Hb 4.8, urosepsis and infected sacral pressure sore. After all prudent interventions applied., patient's condition improved. Hb today 9.1. On 03/30/2017 patient underwent EGD with Doctor Navdeep and Hemostasis Tx for GI bleed was performed. PMH: dementia, anemia, ESRD with HD, GI bleed, sacral pressure sore, non ambulatory Soc. Hx: , lives at home with her family Fam. Hx: One nephew born with one kidney only, denies other knowm medical Hx Review of Systems - Constitutional Constitutional: Malaise - EENT Eyes: absent: As Per HPI, Blind Spots, Blurred Vision, Change in Vision, Decreased Night Vision, Diplopia, Discharge, Dry Eye, Exophthalmos, Floaters, Irritation, Itchy Eyes, Loss of Peripheral Vision, Pain, Photophobia, Requires Corrective Lenses, Sees Flashes, Spots in Vision, Tunnel Vision, Other Visual Disturbances, Loss of Vision, Other Ears: absent: As Per HPI, Decreased Hearing, Ear Discharge, Ear Pain, Tinnitus, Abnormal Hearing, Disequilibrium, Dizziness, Other Nose/Mouth/Throat: absent: As Per HPI, Epistaxis, Nasal Congestion, Nasal Discharge, Nasal Obstruction, Nasal Trauma, Nose Pain, Post Nasal Drip, Sinus Pain, Sinus Pressure, Bleeding Gums, Change in Voice, Dental Pain, Dry Mouth, Dysphagia, Halitosis, Hoarsness, Lip Swelling, Mouth Lesions, Mouth Pain, Odynophagia, Sore Throat, Throat Swelling, Tongue Swelling, Facial Pain, Neck Pain, Neck Mass, Other - Breasts Breasts: absent: As Per HPI, Change in Shape, Mass, Pain, Nipple Discharge, Nipple Inversion, Skin Changes, Swelling, Other - Cardiovascular Cardiovascular: absent: As Per HPI, Acrocyanosis, Chest Pain, Chest Pain at Rest , Chest Pain with Activity, Claudication, Diaphoresis, Dyspnea, Dyspnea on Exertion, Edema, Irregular Heart Rhythm, Pain Radiating to Arm/Neck/Jaw, Leg Edema, Leg Ulcers, Lightheadedness, Orthopnea, Palpitations, Paroxysmal Nocturnal Dyspnea, Pedal Edema, Radiating Pain, Rapid Heart Rate, Slow Heart Rate, Syncope, Other - Respiratory Respiratory: absent: As Per HPI, Cough, Dyspnea, Hemoptysis, Dyspnea on Exertion , Wheezing, Snoring, Stridor, Pain on Inspiration, Chest Congestion, Excessive Mucous Production, Change in Mucous Color, Pain with Coughing, Other - Genitourinary Genitourinary: absent: As Per HPI, Change in Urinary Stream, Difficulty Urinating, Dysuria, Flank Pain, Hematuria, Pyuria, Nocturia, Urinary Incontinence, Urinary Frequency, Urinary Hesitance, Urinary Urgency, Voiding Freq/Small Amts, Freq UTI, Hx Renal/Bladder Calculi, Hx /Renal Surgery, Bladder Distension, Other - Reproductive: Female Reproductive:Female: Post Menopausal - Menstruation Menstruation: Post Menopausal - Musculoskeletal Musculoskeletal: Stiffness - Integumentary Integumentary: absent: As Per HPI, Acne, Alopecia, Bleeding Lesions, Change in Hair, Change in Nails, Change in Pigmentation, Changing Lesions, Dry Skin, Erythema, Furuncle, Hirsutism, Lesions, New Lesions, Non-Healing Lesions, Photosensitivity, Pruritus, Rash, Skin Pain, Skin Ulcer, Sores, Striae, Swelling , Unusual Bruising, Wounds, Jaundice, Other - Neurological Neurological: absent: As Per HPI, Abnormal Gait, Abnormal Hearing, Abnormal Movements, Abnormal Speech, Behavioral Changes, Burning Sensations, Confusion, Convulsions, Disequilibrium, Dizziness, Numbness, Focal Weakness, Frequent Falls , Headaches, Lack of Coordination, Loss of Vision, Memory Loss, Paresthesias, Radicular Pain, Restless Legs, Sensory Deficit, Syncope, Tingling, Tremor, Vertigo, Weakness, Other Visual Disturbances, Other - Psychiatric Psychiatric: absent: As Per HPI, Abnormal Sleep Pattern, Anhedonia, Anxiety, Auditory Hallucinations, Behavioral Changes, Change in Appetite, Change in Libido, Confusion, Depression, Difficulty Concentrating, Hallucinations, Homicidal Ideation, Hopelessness, Irritability, Memory Loss, Mood Swings, Panic Attacks, Paranoia, Suicidal Ideation, Visual Hallucinations, Tactile Hallucinations, Other - Endocrine Endocrine: absent: As Per HPI, Change in Body Appearance, Change in Libido, Cold Intolorance, Deepening of Voice, Excessive Sweating, Fatigue, Flushing, Heat Intolorance, Increase in Ring/Shoe/Hat Size, Palpitations, Polydipsia, Polyphagia, Polyuria, Other - Hematologic/Lymphatic Hematologic: absent: As Per HPI, Easy Bleeding, Easy Bruising, Lymphadenopathy, Other Past Patient History - Past Medical History & Family History Past Medical History?: Yes - Past Social History Smoking Status: Never Smoked - CARDIAC Hx Hypercholesterolemia: Yes Hx Hypertension: Yes - PULMONARY Hx Respiratory Disorders: No - NEUROLOGICAL Hx Dementia: Yes - HEENT Hx HEENT Problems: No - RENAL Hx Chronic Kidney Disease: Yes - ENDOCRINE/METABOLIC Hx Endocrine Disorders: Yes Hx Diabetes Mellitus Type 2: Yes - HEMATOLOGICAL/ONCOLOGICAL Hx Anemia: Yes - INTEGUMENTARY Hx Dermatological Problems: Yes Other/Comment: ulcer buttocks - MUSCULOSKELETAL/RHEUMATOLOGICAL Hx Musculoskeletal Disorders: No Hx Falls: No - GASTROINTESTINAL Hx Gastrointestinal Disorders: No - GENITOURINARY/GYNECOLOGICAL Hx Genitourinary Disorders: Yes Hx Incontinence: Yes Hx Urinary Tract Infection: Yes - PSYCHIATRIC Hx Substance Use: No - SURGICAL HISTORY Hx Surgeries: Yes Hx Cardiac Catheterization: Yes Hx Vascular Surgery: Yes (perma cath insertion) Other/Comment: debridement ulcer buttocks - ANESTHESIA Hx Anesthesia: Yes Hx Anesthesia Reactions: No Hx Malignant Hyperthermia: No Meds Allergies/Adverse Reactions: Allergies Allergy/AdvReac Type Severity Reaction Status Date / Time No Known Allergies Allergy Verified 04/26/17 18:14 - Medications Medications: Current Medications Acetaminophen (Tylenol 325mg Tab) 650 mg PO Q6 PRN PRN Reason: Pain, Mild (1-3) Last Admin: 05/01/17 00:15 Dose: 650 mg Amiodarone HCl (Cordarone) 200 mg PO DAILY [facility] Last Admin: 05/01/17 10:29 Dose: 200 mg Amlodipine Besylate (Norvasc) 5 mg PO DAILY [facility] Epoetin Alonso (Procrit) 10,000 unit IV TTS [facility] Last Admin: 04/28/17 17:08 Dose: 10,000 unit Folic Acid (Folic Acid) 1 mg PO DAILY [facility] Last Admin: 05/01/17 10:29 Dose: 1 mg Vancomycin/Sodium Chloride (Vancomycin 1 Gm/Ns 200 Ml) 1 gm in 200 mls @ 133.333 mls/hr IVPB MWF [facility] PRN Reason: Protocol Stop: 05/07/17 09:01 Ciprofloxacin (Cipro 200mg/100ml D5w) 100 mls @ 67 mls/hr IVPB Q12H [facility] PRN Reason: Protocol Insulin Human Regular (Novolin R) 0 unit SC ACHS [facility] PRN Reason: Protocol Last Admin: 05/01/17 11:22 Dose: Not Given Metoprolol Tartrate (Lopressor) 50 mg PO Q12H [facility] Last Admin: 05/01/17 08:44 Dose: Not Given Pantoprazole Sodium (Protonix Inj) 40 mg IVP Q12H [facility] Last Admin: 05/01/17 08:44 Dose: 40 mg Vitamin B Complex/Vit C/Folic Acid (Nephro-Umu) 1 tab PO 0800 [facility] Last Admin: 05/01/17 08:44 Dose: 1 tab Physical Exam - Constitutional Appears: Chronically Ill - Head Exam Head Exam: ATRAUMATIC, NORMAL INSPECTION, NORMOCEPHALIC - Eye Exam Eye Exam: EOMI, Normal appearance, PERRL Pupil Exam: NORMAL ACCOMODATION, PERRL - ENT Exam ENT Exam: Mucous Membranes Moist, Normal Exam - Neck Exam Neck exam: Positive for: Normal Inspection - Respiratory Exam Respiratory Exam: NORMAL BREATHING PATTERN - Cardiovascular Exam Cardiovascular Exam: REGULAR RHYTHM - GI/Abdominal Exam GI & Abdominal Exam: Normal Bowel Sounds - Rectal Exam Rectal Exam: Deferred - Exam Additional comments: On HD - Extremities Exam Extremities exam: Positive for: normal inspection Additional comments: foot droop - Back Exam Additional comments: sacral pressure sore - Neurological Exam Neurological exam: Alert, Oriented x3 - Psychiatric Exam Psychiatric exam: Normal Affect, Normal Mood - Skin Skin Exam: Normal Color, Warm Results - Vital Signs Recent Vital Signs: Last Vital Signs Temp 97.8 F 05/01/17 07:39 Pulse 82 05/01/17 07:39 Resp 20 05/01/17 07:39 BP 139/75 05/01/17 07:39 Pulse Ox 98 05/01/17 07:39 - Labs Result Diagrams: 05/01/17 10:53 05/01/17 10:53 Labs: Laboratory Results - last 24 hr 04/27/17 04/30/17 04/30/17 07:16 16:10 21:09 WBC RBC Hgb Hct MCV MCH MCHC RDW Plt Count MPV Sodium Potassium Chloride Carbon Dioxide Anion Gap BUN Creatinine Est GFR ( Amer) Est GFR (Non-Af Amer) POC Glucose (mg/dL) 136 H 179 H Random Glucose Calcium Stool H. pylori Ag Not detected H. pylori Source Stool 05/01/17 05/01/17 05/01/17 06:46 10:53 10:53 WBC 9.1 RBC 2.99 L Hgb 9.1 L Hct 26.9 L MCV 90.2 MCH 30.5 MCHC 33.8 RDW 16.8 H Plt Count 201 MPV 9.1 Sodium 130 L Potassium 3.9 Chloride 94 L Carbon Dioxide 23 Anion Gap 18 BUN 44 H Creatinine 3.6 H Est GFR ( Amer) 15 Est GFR (Non-Af Amer) 13 POC Glucose (mg/dL) 135 H Random Glucose 176 H Calcium 7.7 L Stool H. pylori Ag H. pylori Source 05/01/17 11:10 WBC RBC Hgb Hct MCV MCH MCHC RDW Plt Count MPV Sodium Potassium Chloride Carbon Dioxide Anion Gap BUN Creatinine Est GFR ( Amer) Est GFR (Non-Af Amer) POC Glucose (mg/dL) 147 H Random Glucose Calcium Stool H. pylori Ag H. pylori Source Assessment & Plan - Assessment and Plan (Free Text) Assessment: Palliative consult Full Code, there is no Advance Directive on chart, PPS 30% I reviewed medical records, all diagnostic studies, examined and interviewed patient in the bed. Patient is alert, oriented X 3 with affect that is appropriate. Denies, dizziness, headache. Breath sounds normal, HR regular. Abdomen soft, denies constipation. Sacral pressure sore with intact dressing on. Patient able to perform active ROM to upper extremities. Reports decreased sensation and muscle strength to LEs. Reports being unable to walk X 2 years, since she had surgery " for sacral ulcer". Patient complains of B/L shoulders pain and stiffness to the neck. Unable to reposition in bed with out max assistance. Reports being repositioned regularly by the nursing staff. BP 139/75, HR 72, afebrile. Zosyn IV on board for Klebsiella infection in the sacral wound. Tylenol for pain. Goals of care discussed. Patient s looking forward returning home to her family. She admits feeling better, but is not at her norm. Complains of feeling tired and lack of energy. Code status discussed. POLST introduced. I made sure patient understood meaning of DNR/DNI. She stated understanding and preference to discuss it with her famiy. I supported her decision. Impression * Chronically ill lady with acute AMS due to acute blood loss * Limited mobility, non ambulatory * Shoulders and neck stiffness most likely due to prolonged bed rest and inactivity * Pressure sore Suggestions * Promote safety * Assist with ADLs * Reinforce active ROM for both arms and neck, patient did set of 10 with me today * Tylenol 500 mg PO Q 6 hr PRN shoulders and neck pain * Pressure sore care per wound RN; reposition Q 2 hr * Full Code Thank you for consulting Palliative Care. Palliative care will fallow up with this patient on as needed basis Advance planing time, 30 min
[2017-05-01] MEDS: Ciprofloxacin 200mg/100ml D5W 100 ML IVPB SCH (14:00)
[2017-05-01] MEDS: Epoetin Alfa 10,000 unit/ml Dialysis IV SCH (15:24)
--- NOTE | 2017-05-01 15:51 | CP.PCM.PN ---
Subjective - Date & Time of Evaluation Date of Evaluation: 05/01/17 Time of Evaluation: 09:00 - Subjective Subjective: clinically same Objective - Vital Signs/Intake and Output Vital Signs (last 24 hours): Temp Pulse Resp BP Pulse Ox 98.2 F 67 20 122/81 99 05/01/17 14:25 05/01/17 14:25 05/01/17 14:25 05/01/17 15:25 05/01/17 14:25 Intake and Output: 05/01/17 05/01/17 06:59 18:59 Intake Total 230 Balance 230 - Medications Medications: Current Medications Acetaminophen (Tylenol 325mg Tab) 650 mg PO Q6 PRN PRN Reason: Pain, Mild (1-3) Last Admin: 05/01/17 00:15 Dose: 650 mg Amiodarone HCl (Cordarone) 200 mg PO DAILY [facility] Last Admin: 05/01/17 10:29 Dose: 200 mg Amlodipine Besylate (Norvasc) 5 mg PO DAILY [facility] Epoetin Alonso (Procrit) 10,000 unit IV TTS [facility] Last Admin: 05/01/17 15:24 Dose: 10,000 unit Folic Acid (Folic Acid) 1 mg PO DAILY [facility] Last Admin: 05/01/17 10:29 Dose: 1 mg Vancomycin/Sodium Chloride (Vancomycin 1 Gm/Ns 200 Ml) 1 gm in 200 mls @ 133.333 mls/hr IVPB MWF [facility] PRN Reason: Protocol Stop: 05/07/17 09:01 Ciprofloxacin (Cipro 200mg/100ml D5w) 100 mls @ 67 mls/hr IVPB Q12H [facility] PRN Reason: Protocol Insulin Human Regular (Novolin R) 0 unit SC ACHS [facility] PRN Reason: Protocol Last Admin: 05/01/17 11:22 Dose: Not Given Metoprolol Tartrate (Lopressor) 50 mg PO Q12H [facility] Last Admin: 05/01/17 08:44 Dose: Not Given Pantoprazole Sodium (Protonix Inj) 40 mg IVP Q12H [facility] Last Admin: 05/01/17 08:44 Dose: 40 mg Vitamin B Complex/Vit C/Folic Acid (Nephro-Umu) 1 tab PO 0800 [facility] Last Admin: 05/01/17 08:44 Dose: 1 tab - Labs Labs: 05/01/17 10:53 05/01/17 10:53 PT 12.7 SECONDS (9.7-12.2) H 04/28/17 06:26 INR 1.1 04/28/17 06:26 APTT 27 SECONDS (21-34) 04/28/17 06:26 - Constitutional Appears: Well - Head Exam Head Exam: ATRAUMATIC, NORMAL INSPECTION, NORMOCEPHALIC - Eye Exam Eye Exam: EOMI, Normal appearance, PERRL Pupil Exam: NORMAL ACCOMODATION, PERRL - ENT Exam ENT Exam: Mucous Membranes Moist, Normal Exam - Neck Exam Neck Exam: Full ROM, Normal Inspection. absent: Lymphadenopathy - Respiratory Exam Respiratory Exam: Decreased Breath Sounds - Cardiovascular Exam Cardiovascular Exam: REGULAR RHYTHM, +S1, +S2 - GI/Abdominal Exam GI & Abdominal Exam: Soft, Diminished Bowel Sounds - Rectal Exam Rectal Exam: Deferred
--- NOTE | 2017-05-01 17:20 | CP.PCM.PN ---
Subjective - Date & Time of Evaluation Date of Evaluation: 05/01/17 Time of Evaluation: 17:20 - Subjective Subjective: Follow up Nephrology Consultation: Assessment: Stable Anemia of acute blood loss with upper GI/peptic ulcer bleed and supreatherapeutic INR Hypertensive Chronic Kidney Disease (I12.0), Diabetic CKD (E11.22) End stage renal disease (N18.6) dependence on hemodialysis (Z99.2) (TTS) via permacath Anemia Hyperphosphatemia (E83.39), Secondary Hyperparathyroidism (E21.1), HTN ( I12.0) Plan: for HD Today as ordered. Continue with Nephrovite 1 tab/day. PRBC as needed for anemia. for PRBC today. On KEILA as epogen , last Hb 9.1 Continue with phos binders BP controlled with meds as ordered Glycemic control, Dialysis consistent diet Further work up/management as per primary team Dose meds/antibiotics for ESRD status. Avoid fleets enema/magnesium based laxatives. GI following. continue with PPI Thanks for allowing me to participate in care of your patient. Will follow patient with you. Please call if any Qs. Dr Ryan Carter Office: [phone] ROS Cardiovascular: No chest pain. Pulmonary: improved shortness of breath Gastrointestinal: denies abdominal pain no further nausea vomiting Genitourinary: No pain while urinating. Denies blood in urine. All other negative Physical Examination: General Appearance: Comfortable, in no acute respiratory distress, co-operative . Vitals reviewed and noted as below Head; Atraumatic, normocephalic ENT: no ulcers no thrush. Tongue is midline. Oropharynx: no rash or ulcers. EYES: Pupils are equal, round and reactive to light accommodation. Eye muscles and extraocular movement intact. Sclera is anicteric. Neck; supple no lymphadenopathy, no thyromegaly or bruit Lungs: Normal respiratory rate/effort. Breath sounds bilateral equal and clear Heart: Normal rate. s1s2 normal. No rub or gallop. Extremities: no edema. No varicose veins Neurological: Patient is alert, awake and oriented to person, place and time. chronically bed bound Skin: Warm and dry. Normal turgor. No rash. Palpitation: Normal elasticity for age Abdomen: Abdomen is soft. Bowel sounds +. There is no abdominal tenderness, no guarding/rigidity or organomegaly Psych: normal insight and normal affect/mood MSK: no joint tenderness or swelling. Digits and nails normal, no deformity : kidney or bladder not palpable Access: permacath. left AVF maturing Labs/imaging reviewed. Past medical history, past surgical history, family history, social history, allergy reviewed and noted as below Family Hx: no hx of CKD. Non contributory Objective - Vital Signs/Intake and Output Vital Signs (last 24 hours): Temp Pulse Resp BP Pulse Ox 98.2 F 67 20 122/81 99 05/01/17 14:25 05/01/17 14:25 05/01/17 14:25 05/01/17 15:25 05/01/17 14:25 Intake and Output: 05/01/17 05/01/17 06:59 18:59 Intake Total 230 Balance 230 - Medications Medications: Current Medications Acetaminophen (Tylenol 325mg Tab) 650 mg PO Q6 PRN PRN Reason: Pain, Mild (1-3) Last Admin: 05/01/17 00:15 Dose: 650 mg Amiodarone HCl (Cordarone) 200 mg PO DAILY [facility] Last Admin: 05/01/17 10:29 Dose: 200 mg Amlodipine Besylate (Norvasc) 5 mg PO DAILY [facility] Epoetin Alonso (Procrit) 10,000 unit IV TTS [facility] Last Admin: 05/01/17 15:24 Dose: 10,000 unit Folic Acid (Folic Acid) 1 mg PO DAILY [facility] Last Admin: 05/01/17 10:29 Dose: 1 mg Vancomycin/Sodium Chloride (Vancomycin 1 Gm/Ns 200 Ml) 1 gm in 200 mls @ 133.333 mls/hr IVPB MWF [facility] PRN Reason: Protocol Stop: 05/07/17 09:01 Ciprofloxacin (Cipro 200mg/100ml D5w) 100 mls @ 67 mls/hr IVPB Q12H [facility] PRN Reason: Protocol Last Admin: 05/01/17 14:00 Dose: Not Given Insulin Human Regular (Novolin R) 0 unit SC ACHS [facility] PRN Reason: Protocol Last Admin: 05/01/17 11:22 Dose: Not Given Metoprolol Tartrate (Lopressor) 50 mg PO Q12H [facility] Last Admin: 05/01/17 08:44 Dose: Not Given Pantoprazole Sodium (Protonix Inj) 40 mg IVP Q12H [facility] Last Admin: 05/01/17 08:44 Dose: 40 mg Vitamin B Complex/Vit C/Folic Acid (Nephro-Umu) 1 tab PO 0800 [facility] Last Admin: 05/01/17 08:44 Dose: 1 tab - Labs Labs: 05/01/17 10:53 05/01/17 10:53 PT 12.7 SECONDS (9.7-12.2) H 04/28/17 06:26 INR 1.1 04/28/17 06:26 APTT 27 SECONDS (21-34) 04/28/17 06:26
[2017-05-02] MEDS: Ciprofloxacin 200mg/100ml D5W 100 ML IVPB SCH ×2 (01:45→13:00)
[2017-05-02] MEDS: (Novolin R) Insulin Human Regular 100 units/ml vial SC SCH ×3 (07:41→17:16)
[2017-05-02] MEDS: Multivitamin Vitamin B Complex (Nephro-Vite) Tab PO SCH (08:27)
[2017-05-02 08:42] VITALS: RESP 18
[2017-05-02] MEDS ORDERED: Vancomycin 1 gm/NS 200 ml 1 GM/200 ML BAG IVPB SCH (09:00)
--- NOTE | 2017-05-02 10:51 | CP.PCM.PN ---
Subjective - Date & Time of Evaluation Date of Evaluation: 05/02/17 Time of Evaluation: 10:50 - Subjective Subjective: Follow up Nephrology Consultation: Assessment: Stable Anemia of acute blood loss with upper GI/peptic ulcer bleed and supreatherapeutic INR sacral wound infection Hypertensive Chronic Kidney Disease (I12.0), Diabetic CKD (E11.22) End stage renal disease (N18.6) dependence on hemodialysis (Z99.2) (TTS) via permacath Anemia Hyperphosphatemia (E83.39), Secondary Hyperparathyroidism (E21.1), HTN ( I12.0) Plan: for HD Tomorrow as ordered. Continue with Nephrovite 1 tab/day. PRBC as needed for anemia. Ricardo KEILA as epogen , last Hb 9.1 Continue with phos binders BP controlled with meds as ordered Glycemic control, Dialysis consistent diet Further work up/management as per primary team Dose meds/antibiotics for ESRD status. Avoid fleets enema/magnesium based laxatives. GI, ID following. continue with PPI. on antibiotics for sacral wound infection Thanks for allowing me to participate in care of your patient. Will follow patient with you. Please call if any Qs. Dr Ryan Carter Office: [phone] ROS Cardiovascular: No chest pain. Pulmonary: no shortness of breath Gastrointestinal: denies abdominal pain no further nausea vomiting Genitourinary: No pain while urinating. Denies blood in urine. All other negative except low back wound/pain Physical Examination: General Appearance: Comfortable, in no acute respiratory distress, co-operative . Vitals reviewed and noted as below Head; Atraumatic, normocephalic ENT: no ulcers no thrush. Tongue is midline. Oropharynx: no rash or ulcers. EYES: Pupils are equal, round and reactive to light accommodation. Eye muscles and extraocular movement intact. Sclera is anicteric. Neck; supple no lymphadenopathy, no thyromegaly or bruit Lungs: Normal respiratory rate/effort. Breath sounds bilateral equal and clear Heart: Normal rate. s1s2 normal. No rub or gallop. Extremities: no edema. No varicose veins Neurological: Patient is alert, awake and oriented to person, place and time. chronically bed bound Skin: Warm and dry. Normal turgor. No rash. Palpitation: Normal elasticity for age Abdomen: Abdomen is soft. Bowel sounds +. There is no abdominal tenderness, no guarding/rigidity or organomegaly Psych: normal insight and normal affect/mood MSK: no joint tenderness or swelling. Digits and nails normal, no deformity : kidney or bladder not palpable Access: permacath. left AVF maturing Labs/imaging reviewed. Past medical history, past surgical history, family history, social history, allergy reviewed and noted as below Family Hx: no hx of CKD. Non contributory Objective - Vital Signs/Intake and Output Vital Signs (last 24 hours): Temp Pulse Resp BP Pulse Ox 98.7 F 69 18 134/64 100 05/02/17 09:00 05/02/17 07:05 05/02/17 07:05 05/02/17 07:05 05/02/17 07:05 - Medications Medications: Current Medications Acetaminophen (Tylenol 325mg Tab) 650 mg PO Q6 PRN PRN Reason: Pain, Mild (1-3) Last Admin: 05/02/17 09:00 Dose: 650 mg Amiodarone HCl (Cordarone) 200 mg PO DAILY [facility] Last Admin: 05/02/17 09:01 Dose: 200 mg Amlodipine Besylate (Norvasc) 5 mg PO DAILY [facility] Epoetin Alonso (Procrit) 10,000 unit IV TTS [facility] Last Admin: 05/01/17 15:24 Dose: 10,000 unit Folic Acid (Folic Acid) 1 mg PO DAILY [facility] Last Admin: 05/02/17 09:01 Dose: 1 mg Vancomycin/Sodium Chloride (Vancomycin 1 Gm/Ns 200 Ml) 1 gm in 200 mls @ 133.333 mls/hr IVPB MWF [facility] PRN Reason: Protocol Stop: 05/07/17 09:01 Last Admin: 05/02/17 08:31 Dose: 133.333 mls/hr Ciprofloxacin (Cipro 200mg/100ml D5w) 100 mls @ 67 mls/hr IVPB Q12H [facility] PRN Reason: Protocol Last Admin: 05/02/17 01:45 Dose: 67 mls/hr Insulin Human Regular (Novolin R) 0 unit SC ACHS [facility] PRN Reason: Protocol Last Admin: 05/02/17 07:41 Dose: Not Given Metoprolol Tartrate (Lopressor) 50 mg PO Q12H [facility] Last Admin: 05/02/17 08:27 Dose: 50 mg Pantoprazole Sodium (Protonix Inj) 40 mg IVP Q12H [facility] Last Admin: 05/02/17 08:27 Dose: 40 mg Vitamin B Complex/Vit C/Folic Acid (Nephro-Umu) 1 tab PO 0800 [facility] Last Admin: 05/02/17 08:27 Dose: 1 tab - Labs Labs: 05/01/17 10:53 05/01/17 10:53 PT 12.7 SECONDS (9.7-12.2) H 04/28/17 06:26 INR 1.1 04/28/17 06:26 APTT 27 SECONDS (21-34) 04/28/17 06:26
--- NOTE | 2017-05-02 15:38 | CP.PCM.PN ---
Subjective - Date & Time of Evaluation Date of Evaluation: 05/02/17 Time of Evaluation: 09:00 - Subjective Subjective: improving on iv rx needs follow up with neuro and surg for poss debridement cont po antiibotics and wound care Objective - Vital Signs/Intake and Output Vital Signs (last 24 hours): Temp Pulse Resp BP Pulse Ox 98.3 F 67 18 134/71 98 05/02/17 15:26 05/02/17 15:26 05/02/17 15:26 05/02/17 15:26 05/02/17 15:26 - Medications Medications: Current Medications Acetaminophen (Tylenol 325mg Tab) 650 mg PO Q6 PRN PRN Reason: Pain, Mild (1-3) Last Admin: 05/02/17 09:00 Dose: 650 mg Amiodarone HCl (Cordarone) 200 mg PO DAILY [facility] Last Admin: 05/02/17 09:01 Dose: 200 mg Amlodipine Besylate (Norvasc) 5 mg PO DAILY [facility] Epoetin Alonso (Procrit) 10,000 unit IV TTS [facility] Last Admin: 05/01/17 15:24 Dose: 10,000 unit Folic Acid (Folic Acid) 1 mg PO DAILY [facility] Last Admin: 05/02/17 09:01 Dose: 1 mg Vancomycin/Sodium Chloride (Vancomycin 1 Gm/Ns 200 Ml) 1 gm in 200 mls @ 133.333 mls/hr IVPB MWF [facility] PRN Reason: Protocol Stop: 05/07/17 09:01 Last Admin: 05/02/17 08:31 Dose: 133.333 mls/hr Ciprofloxacin (Cipro 200mg/100ml D5w) 100 mls @ 67 mls/hr IVPB Q12H [facility] PRN Reason: Protocol Last Admin: 05/02/17 13:00 Dose: 67 mls/hr Insulin Human Regular (Novolin R) 0 unit SC ACHS [facility] PRN Reason: Protocol Last Admin: 05/02/17 11:46 Dose: Not Given Metoprolol Tartrate (Lopressor) 50 mg PO Q12H [facility] Last Admin: 05/02/17 08:27 Dose: 50 mg Pantoprazole Sodium (Protonix Inj) 40 mg IVP Q12H [facility] Last Admin: 05/02/17 08:27 Dose: 40 mg Vitamin B Complex/Vit C/Folic Acid (Nephro-Umu) 1 tab PO 0800 [facility] Last Admin: 05/02/17 08:27 Dose: 1 tab - Labs Labs: 05/01/17 10:53 05/01/17 10:53 PT 12.7 SECONDS (9.7-12.2) H 04/28/17 06:26 INR 1.1 04/28/17 06:26 APTT 27 SECONDS (21-34) 04/28/17 06:26 Assessment and Plan (1) Anemia Status: Acute (2) ESRD (end stage renal disease) on dialysis Status: Acute (3) GI bleeding Status: Acute (4) Sacral decubitus ulcer Status: Acute (5) Osteomyelitis Status: Acute (6) Sepsis Status: Acute (7) UTI (urinary tract infection) Status: Acute (8) CKD (chronic kidney disease) stage 4, GFR 15-29 ml/min Status: Chronic
--- NOTE | 2017-05-02 15:50 | CP.PCM.PN ---
Subjective - Date & Time of Evaluation Date of Evaluation: 05/02/17 Time of Evaluation: 15:50 - Subjective Subjective: PATIENT AAOX3 LAY IN BED UNABLE TO REPOSITION HERSELF DENIES CHEST PAIN/SOB/NAUSE OR VOMITING NO SIGN OF DISTRESS NOTED Objective - Vital Signs/Intake and Output Vital Signs (last 24 hours): Temp Pulse Resp BP Pulse Ox 98.3 F 67 18 134/71 98 05/02/17 15:26 05/02/17 15:26 05/02/17 15:26 05/02/17 15:26 05/02/17 15:26 - Medications Medications: Current Medications Acetaminophen (Tylenol 325mg Tab) 650 mg PO Q6 PRN PRN Reason: Pain, Mild (1-3) Last Admin: 05/02/17 09:00 Dose: 650 mg Amiodarone HCl (Cordarone) 200 mg PO DAILY [facility] Last Admin: 05/02/17 09:01 Dose: 200 mg Amlodipine Besylate (Norvasc) 5 mg PO DAILY [facility] Epoetin Alonso (Procrit) 10,000 unit IV TTS [facility] Last Admin: 05/01/17 15:24 Dose: 10,000 unit Folic Acid (Folic Acid) 1 mg PO DAILY [facility] Last Admin: 05/02/17 09:01 Dose: 1 mg Vancomycin/Sodium Chloride (Vancomycin 1 Gm/Ns 200 Ml) 1 gm in 200 mls @ 133.333 mls/hr IVPB MWF [facility] PRN Reason: Protocol Stop: 05/07/17 09:01 Last Admin: 05/02/17 08:31 Dose: 133.333 mls/hr Ciprofloxacin (Cipro 200mg/100ml D5w) 100 mls @ 67 mls/hr IVPB Q12H [facility] PRN Reason: Protocol Last Admin: 05/02/17 13:00 Dose: 67 mls/hr Insulin Human Regular (Novolin R) 0 unit SC ACHS [facility] PRN Reason: Protocol Last Admin: 05/02/17 11:46 Dose: Not Given Metoprolol Tartrate (Lopressor) 50 mg PO Q12H [facility] Last Admin: 05/02/17 08:27 Dose: 50 mg Pantoprazole Sodium (Protonix Inj) 40 mg IVP Q12H [facility] Last Admin: 05/02/17 08:27 Dose: 40 mg Vitamin B Complex/Vit C/Folic Acid (Nephro-Umu) 1 tab PO 0800 [facility] Last Admin: 05/02/17 08:27 Dose: 1 tab - Labs Labs: 05/01/17 10:53 05/01/17 10:53 PT 12.7 SECONDS (9.7-12.2) H 04/28/17 06:26 INR 1.1 04/28/17 06:26 APTT 27 SECONDS (21-34) 04/28/17 06:26 Assessment and Plan - Assessment and Plan (Free Text) Assessment: PATIENT SEEN AND EXAMINED AT THE BEDSIDE LUNG SOUND CLEAR SACRAL STAGE 4 HEALING ULCER DRESSING DRY AND INTACT PELVIC CT DONE AFEBRILE/ WBC WITHIN NORMAL RANGE DISCUSS WITH DR PRIEST AND DR BASURTO WHO CLEAR FOR DC FOLLOW UP WITH DR Kain PRISET IN 1-2 WEEK AT HIS OFFICE ---CALL FOR APPOINTMENT FOLLOW UP WITH DR BASURTO IN 1-2 WEEK AT HIS OFFICE ---CALL FOR APPOINTMENT WOUND CARE ORDER CLEANSE WELL USING MOISTENED 4 X 4S' TO REMOVE ALL EXUDATE; APPLY MEDIHONEY TO (2) 4 X 4'S THEN PACK INTO ULCER, (APPLY SKIN PREP TO ENTIRE PERIWOUND) THEN COVER WITH LARGE FOAM DRESSING TO CHANGE EVERY (OTHER DAY) OR NEEDED. MUST REPOSITION FREQUENTLY USING [facility] SCHEDULE CONTINUE ALL HOME MEDICATION ORDER NEW PRESCRIPTION GIVEN CIPRO 500 MG PO Q12 H FOR 6 WEEKS FLAGYL 500 MG PO Q12 H FOR 6 WEEKS FLORASTOR 250 MG PO DAILY FOR 6 WEEKS METOPROLOL 50 MG PO BID protonix 40 mg po bid for 1 months(call dr priest for renew additional 2 months) ACTIVITY TOLERATED CALL DR Kain PRIEST OR GO TO THE EMERGENCY ROOM IF SYMPTOMS RETURN OR WORSENING DISCUSS WITH PATIENT WHO AGREE AND VERBALIZED UNDERSTANDING
[2017-05-02] MEDS ORDERED: Pantoprazole 40 mg EC Tab PO SCH (22:00)
[2017-05-03 11:09] VITALS: BP 134/71; PULSE 67; TEMP 98.3; O2SAT 98
== END 2017-05-02 18:10 | disposition home health service (06) | DRG 377 ==
LOC: C.ER 17:55 → C.9I 19:55 → C.5S 05-01 06:23
PROVIDERS: ADMIT Internal Medicine Nephrology; ATTEND Internal Medicine Nephrology
PROC: 3E0G8GC Introduction of Other Therapeutic Substance into Upper GI, Via Natural or Artificial Opening Endoscopic (ICD-10-PCS; 2017-04-27)
PROC: 0DJ08ZZ Inspection of Upper Intestinal Tract, Via Natural or Artificial Opening Endoscopic (ICD-10-PCS; 2017-04-27)
PROC: 30233N1 Transfusion of Nonautologous Red Blood Cells into Peripheral Vein, Percutaneous Approach (ICD-10-PCS; 2017-04-27)
PROC: 30233L1 Transfusion of Nonautologous Fresh Plasma into Peripheral Vein, Percutaneous Approach (ICD-10-PCS; 2017-04-27)
PROC: 0W3P8ZZ Control Bleeding in Gastrointestinal Tract, Via Natural or Artificial Opening Endoscopic (ICD-10-PCS; principal; 2017-04-27 10:40)
PROC: 5A1D70Z Performance of Urinary Filtration, Intermittent, Less than 6 Hours Per Day (ICD-10-PCS; 2017-04-28)
PROC: 02HV33Z Insertion of Infusion Device into Superior Vena Cava, Percutaneous Approach (ICD-10-PCS; 2017-04-30)
DX: K25.4 Chronic or unspecified gastric ulcer with hemorrhage (principal); A41.9 Sepsis, unspecified organism; L89.154 Pressure ulcer of sacral region, stage 4; N18.6 End stage renal disease; D62 Acute posthemorrhagic anemia; I12.0 Hypertensive chronic kidney disease with stage 5 chronic kidney disease or end stage renal disease; N25.81 Secondary hyperparathyroidism of renal origin; N39.0 Urinary tract infection, site not specified; B96.1 Klebsiella pneumoniae [K. pneumoniae] as the cause of diseases classified elsewhere; D63.1 Anemia in chronic kidney disease; E11.22 Type 2 diabetes mellitus with diabetic chronic kidney disease; E78.00 Pure hypercholesterolemia, unspecified; F03.90 Unspecified dementia, unspecified severity, without behavioral disturbance, psychotic disturbance, mood disturbance, and anxiety; I48.91 Unspecified atrial fibrillation; L89.152 Pressure ulcer of sacral region, stage 2; M43.6 Torticollis; Z51.5 Encounter for palliative care; Z79.01 Long term (current) use of anticoagulants; Z79.899 Other long term (current) drug therapy; Z99.2 Dependence on renal dialysis

== ENCOUNTER 2017-07-04 12:38 | Inpatient (IN) | payer MEDICARE, BC, OTHER ==
[2017-07-04 12:38] VITALS: BMI 32.3
--- NOTE | 2017-07-04 14:03 | C.PDOC ---
History Of Present Illness Patient is a 66 y/o female, who is on dialysis with Dr Ya, who presents to the ED with a complaint of liquid stools for the last 10 days. Patient cannot confirm number of episodes as patient wears a diaper and experiences incontinence. Admits symptoms occur periodically and is able to eat and drink with mild nausea. Patient experienced new onset of fever last night and felt lightheaded this morning, prompting ED visit. Denies any abdominal pain, blood in stool, or sick contact. Patient reports to have gotten dialysis yesterday and requested to take less fluid off due to persistent diarrhea, but cannot confirm if they complied. No other physical complaints at this time. Time Seen by Provider: 07/04/17 13:44 Chief Complaint (Nursing): GI Problem History Per: Patient History/Exam Limitations: no limitations Onset/Duration Of Symptoms: Days (10 ), Intermittent Episodes Current Symptoms Are (Timing): Still Present Associated Symptoms: Nausea (mild), Diarrhea (incontinence) Recent travel outside of the [place]: No Past Medical History Reviewed: Historical Data, Nursing Documentation, Vital Signs Vital Signs: Last Vital Signs Temp 98.7 F 07/04/17 12:49 Pulse 60 07/04/17 14:57 Resp 20 07/04/17 14:57 BP 114/69 07/04/17 14:57 Pulse Ox 99 07/04/17 16:52 - Medical History PMH: Anemia, Dementia, HTN, Hypercholesterolemia, End Stage Renal Disease, Chronic Kidney Disease - [facility] Procedures (04/26/17) CONTROL BLEEDING IN GASTROINTESTINAL TRACT, ENDO (04/26/17) INSERTION OF INFUSION DEV INTO SUP VENA CAVA, PERC APPROACH (04/26/17) INSPECTION OF UPPER INTESTINAL TRACT, ENDO (04/26/17) INTRODUCTION OF OTHER THERAPEUTIC SUBSTANCE INTO UP GI, ENDO (04/26/17) PERFORMANCE OF URINARY FILTRATION, MULTIPLE (10/25/16) TRANSFUSE NONAUT FRESH PLASMA IN PERIPH VEIN, PERC (04/26/17) TRANSFUSE NONAUT RED BLOOD CELLS IN PERIPH VEIN, PERC (04/26/17) Family History: States: No Known Family Hx - Social History Hx Tobacco Use: No Hx Alcohol Use: No Hx Substance Use: No - Immunization History Hx Tetanus Toxoid Vaccination: No Hx Influenza Vaccination: No Hx Pneumococcal Vaccination: Yes Review Of Systems Constitutional: Positive for: Fever (subjective) Gastrointestinal: Positive for: Nausea, Diarrhea. Negative for: Abdominal Pain , Hematochezia Neurological: Positive for: Other (lightheaded) Physical Exam - Physical Exam Appears: Well, Non-toxic, No Acute Distress Skin: Normal Color, Warm, Dry Head: Atraumatic, Normacephalic Oral Mucosa: Dry Chest: Symmetrical Cardiovascular: Rhythm Regular, No Murmur, Other (not tachyardic) Respiratory: Normal Breath Sounds, No Rales, No Rhonchi, No Wheezing Gastrointestinal/Abdominal: Bowel Sounds (normal), Soft, No Tenderness, Other ( morbidly obese) Neurological/Psych: Oriented x3, Normal Speech, Normal Cognition ED Course And Treatment - Laboratory Results Result Diagrams: 07/04/17 14:12 07/04/17 14:12 Lab Interpretation: Abnormal (WBC 11.6, BUN25, Cr 2.6) O2 Sat by Pulse Oximetry: 99 Pulse Ox Interpretation: Normal - Other Rad Obstructive series X-Ray: Viewed By Me, Read By Radiologist Interpretation: No evidence of mechanical obstruction Progress Note: Blood work and obstructive series ordered. Reevaluation Time: 16:50 Reassessment Condition: Unchanged - Physician Consult Information Time Consulting Physician Contacted: 14:49 Physician Contacted: Stacie Ya Outcome Of Conversation: Patient to be admitted for treatment of diarrhea and fluid management with dialysis. Disposition - Disposition Disposition: HOSPITALIZED Disposition Time: 17:01 Condition: STABLE - POA Present On Arrival: None - Clinical Impression Clinical Impression: ESRD (end stage renal disease) on dialysis, Sacral decubitus ulcer, Diarrhea - Scribe Statement The provider has reviewed the documentation as recorded by the Scribe Eunice Tom All medical record entries made by the Ugoibankur were at my direction and personally dictated by me. I have reviewed the chart and agree that the record accurately reflects my personal performance of the history, physical exam, medical decision making, and the department course for this patient. I have also personally directed, reviewed, and agree with the discharge instructions and disposition.
[2017-07-04 14:16] LABS: BASO # 0.1 K/uL (0.0-0.2); BASO % 0.9 % (0.0-2.0); EOS % 0.4 % (0.0-4.0); HEMOGLOBIN 11.2 g/dL (11.0-16.0); LYMPH # 2.6 K/uL (1.0-4.3); LYMPH % 22.3 % (20.0-40.0); MEAN CELL VOLUME 92.5 fL (81.0-99.0); MEAN CORPUSCULAR HEMOGLOBIN 29.7 pg (27.0-31.0); MEAN CORPUSCULAR HGB CONC 32.1 g/dL (33.0-37.0); MEAN PLATELET VOLUME 9.2 fL (7.2-11.7); MONO # 0.6 K/uL (0.0-0.8); MONO % 5.2 % (0.0-10.0); NEUT # 8.3 K/uL (1.8-7.0); NEUT % 71.2 % (50.0-75.0); RBC 3.79 Mil/uL (3.80-5.20); WHITE BLOOD COUNT 11.6 K/uL (4.8-10.8)
[2017-07-04 14:33] LABS: CALCIUM 7.7 mg/dl (8.6-10.4); GFR AFRICAN-AMERICAN 22; GFR NON-AFRICAN AMERICAN 18; LIPASE 29 U/L (23-300)
[2017-07-04 14:38] LABS: ALB/GLOB RATIO 0.8 (1.0-2.1); ALBUMIN 3.2 g/dL (3.5-5.0); ALT/SGPT < 6 U/L (9-52); AST/SGOT 38 U/L (14-36); BLOOD UREA NITROGEN 25 mg/dL (7-17)
--- NOTE | 2017-07-04 16:36 | RAD ---
PROCEDURE: Radiographs of the chest and abdomen (obstructive series) HISTORY: fecal incontinence, r/o obstruction COMPARISON: No prior. TECHNIQUE: AP radiograph of the chest, with upright and supine radiographs of the abdomen. FINDINGS: CHEST: Lungs: Clear. Cardiovascular: Normal heart size. Tunneled left central venous dialysis catheter. Pleura: No pleural fluid. No pneumothorax. Other findings: None. ABDOMEN AND PELVIS: Bowel: Unremarkable bowel gas pattern. No evidence of mechanical obstruction. Free air: None. Bones: No osseous fracture. Other findings: None. IMPRESSION: Normal bowel gas pattern. No acute pulmonary infiltrate.
[2017-07-04] MEDS ORDERED: Vancomycin 1 gm/NS 200 ml 1 GM/200 ML BAG IVPB SCH (21:15)
[2017-07-04] MEDS: (Novolog) Insulin Aspart, Recombinant 100 u/ml 10 ml vial SC SCH (22:17)
[2017-07-05] MEDS: cefTRIAXone IV 1 gm in Dextros 50 ML IVPB SCH (00:30)
[2017-07-05] MEDS: (Novolog) Insulin Aspart, Recombinant 100 u/ml 10 ml vial SC SCH ×4 (08:04→21:35)
[2017-07-05] MEDS ORDERED: Vancomycin 1 gm/NS 200 ml 1 GM/200 ML BAG IVPB SCH (12:00)
--- NOTE | 2017-07-05 14:17 | CP.PCM.CON ---
History of Present Illness - History of Present Illness History of Present Illness: INFECTIOUS DISEASE CONSULT: HPI : 66 y/o female, who is on dialysis TTS with Dr Lobato, who presents to the ED with a complaint of liquid stools for the last 10 days. Patient cannot confirm number of episodes as patient wears a diaper and experiences incontinence. Admits symptoms occur periodically and is able to eat and drink with mild nausea. Patient also experienced new onset of fever last night and felt lightheaded this morning, prompting ED visit. Denies any abdominal pain, blood in stool, or sick contact. Patient reports to have gotten dialysis yesterday and requested to take less fluid off due to persistent diarrhea, but cannot confirm if they complied. No other physical complaints at this time. PT ALSO NOTED TO HAVE STAGE 111 SACRAL DECUBITUS ULCERS. INFECTIOUS DISEASE CONSULT REQUESTED BY DR Goldy MONTAÑO FOR FEVERS/AND DIARRHOEA. PMH: Anemia, Dementia, HTN, Hypercholesterolemia, End Stage Renal Disease, Chronic Kidney Disease - [facility] Procedures (04/26/17) CONTROL BLEEDING IN GASTROINTESTINAL TRACT, ENDO (04/26/17) INSERTION OF INFUSION DEV INTO SUP VENA CAVA, PERC APPROACH (04/26/17) INSPECTION OF UPPER INTESTINAL TRACT, ENDO (04/26/17) INTRODUCTION OF OTHER THERAPEUTIC SUBSTANCE INTO UP GI, ENDO (04/26/17) PERFORMANCE OF URINARY FILTRATION, MULTIPLE (10/25/16) TRANSFUSE NONAUT FRESH PLASMA IN PERIPH VEIN, PERC (04/26/17) TRANSFUSE NONAUT RED BLOOD CELLS IN PERIPH VEIN, PERC (04/26/17) Family History: States: No Known Family Hx - Social History Hx Tobacco Use: No Hx Alcohol Use: No Hx Substance Use: No - Immunization History Hx Tetanus Toxoid Vaccination: No Hx Influenza Vaccination: No Hx Pneumococcal Vaccination: Yes ALLERGY : NKA. Review of Systems - Constitutional Constitutional: Chills, Fever, Lethargy, Weakness - EENT Eyes: absent: Change in Vision Nose/Mouth/Throat: absent: Mouth Lesions - Cardiovascular Cardiovascular: absent: Chest Pain, Dyspnea - Respiratory Respiratory: absent: Cough, Hemoptysis - Gastrointestinal Gastrointestinal: Diarrhea, Loose Stools. absent: Abdominal Pain, Vomiting - Genitourinary Genitourinary: Urinary Incontinence. absent: Dysuria - Neurological Neurological: Dizziness - Hematologic/Lymphatic Hematologic: As Per HPI. absent: Easy Bruising, Lymphadenopathy Past Patient History - Past Medical History & Family History Past Medical History?: Yes - Past Social History Smoking Status: Never Smoked - CARDIAC Hx Cardiac Disorders: Yes Hx Hypercholesterolemia: Yes Hx Hypertension: Yes - PULMONARY Hx Respiratory Disorders: No - NEUROLOGICAL Hx Dementia: Yes - HEENT Hx HEENT Problems: No - RENAL Hx Chronic Kidney Disease: Yes - ENDOCRINE/METABOLIC Hx Endocrine Disorders: Yes Hx Diabetes Mellitus Type 2: Yes - HEMATOLOGICAL/ONCOLOGICAL Hx Anemia: Yes - INTEGUMENTARY Hx Dermatological Problems: Yes Other/Comment: ulcer buttocks - MUSCULOSKELETAL/RHEUMATOLOGICAL Hx Musculoskeletal Disorders: Yes Hx Falls: No Hx Unsteady Gait: Yes - GASTROINTESTINAL Hx Gastrointestinal Disorders: Yes Hx Diarrhea: Yes - GENITOURINARY/GYNECOLOGICAL Hx Genitourinary Disorders: Yes - PSYCHIATRIC Hx Substance Use: No - SURGICAL HISTORY Hx Surgeries: Yes Hx Cardiac Catheterization: Yes Hx Vascular Surgery: Yes (perma cath insertion) Hx Vascular Access Device: Yes Other/Comment: debridement ulcer buttocks - ANESTHESIA Hx Anesthesia: Yes Hx Anesthesia Reactions: No Hx Malignant Hyperthermia: No Has any member of the family had a problem w/ anesthesia?: No Meds Allergies/Adverse Reactions: Allergies Allergy/AdvReac Type Severity Reaction Status Date / Time No Known Allergies Allergy Verified 07/04/17 12:53 - Medications Medications: Current Medications Amiodarone HCl (Cordarone) 200 mg PO DAILY [facility] Last Admin: 07/05/17 09:52 Dose: 200 mg Amlodipine Besylate (Norvasc) 5 mg PO DAILY [facility] Last Admin: 07/05/17 09:52 Dose: 5 mg Folic Acid (Folic Acid) 1 mg PO DAILY [facility] Last Admin: 07/05/17 09:52 Dose: 1 mg Heparin Sodium (Porcine) (Heparin) 5,000 units SC Q12 [facility] Last Admin: 07/05/17 09:55 Dose: 5,000 units Vancomycin/Sodium Chloride (Vancomycin 1 Gm/Ns 200 Ml) 1 gm in 200 mls @ 133.333 mls/hr IVPB TTS [facility] PRN Reason: Protocol Last Admin: 07/05/17 12:23 Dose: 133.333 mls/hr Ceftriaxone Sodium (Rocephin Iv 1 Gm Duplex) 50 mls @ 100 mls/hr IVPB Q24H [facility] PRN Reason: Protocol Last Admin: 07/05/17 00:30 Dose: 100 mls/hr Insulin Aspart (Novolog) 0 unit SC ACHS [facility] PRN Reason: Protocol Last Admin: 07/05/17 12:23 Dose: 2 unit Lisinopril (Zestril) 40 mg PO DAILY [facility] Last Admin: 07/05/17 10:53 Dose: 40 mg Pneumococcal Polyvalent Vaccine (Pneumovax 23 Vaccine) 0.5 ml IM .ONCE ONE Stop: 07/07/17 08:01 Vitamin B Complex/Vit C/Folic Acid (Nephro-Umu) 1 tab PO 0800 [facility] Physical Exam - Constitutional Appears: No Acute Distress - Head Exam Head Exam: NORMAL INSPECTION - Eye Exam Eye Exam: EOMI, PERRL - ENT Exam ENT Exam: Normal Oropharynx - Neck Exam Neck exam: Positive for: Normal Inspection - Respiratory Exam Respiratory Exam: Decreased Breath Sounds, NORMAL BREATHING PATTERN - Cardiovascular Exam Cardiovascular Exam: Tachycardia, REGULAR RHYTHM, +S1, +S2 - GI/Abdominal Exam GI & Abdominal Exam: Normal Bowel Sounds, Soft, Tenderness (SUPRAPUBIC /LOWER QUANDRANTS) - Extremities Exam Extremities exam: Positive for: pedal pulses present. Negative for: calf tenderness, pedal edema - Neurological Exam Neurological exam: Alert, CN II-XII Intact, Oriented x3 - Psychiatric Exam Psychiatric exam: Normal Mood - Skin Skin Exam: Normal Color, Warm Results - Vital Signs Recent Vital Signs: Last Vital Signs Temp 97.4 F L 07/05/17 08:00 Pulse 70 07/05/17 08:00 Resp 20 07/05/17 08:00 BP 147/60 07/05/17 08:00 Pulse Ox 98 07/05/17 08:00 - Labs Result Diagrams: 07/04/17 14:12 07/04/17 14:12 Labs: Laboratory Results - last 24 hr 07/04/17 07/04/17 07/04/17 14:12 14:12 21:39 WBC 11.6 H RBC 3.79 L Hgb 11.2 D Hct 35.0 MCV 92.5 D MCH 29.7 MCHC 32.1 L RDW 18.0 H Plt Count 278 MPV 9.2 Neut % (Auto) 71.2 Lymph % (Auto) 22.3 [place] % (Auto) 5.2 Eos % (Auto) 0.4 Baso % (Auto) 0.9 Neut # (Auto) 8.3 H Lymph # (Auto) 2.6 [place] # (Auto) 0.6 Eos # (Auto) 0.0 Baso # (Auto) 0.1 Sodium 138 Potassium 4.4 Chloride 98 Carbon Dioxide 30 Anion Gap 14 BUN 25 H Creatinine 2.6 H Est GFR ( Amer) 22 Est GFR (Non-Af Amer) 18 POC Glucose (mg/dL) 228 H Random Glucose 86 Calcium 7.7 L Total Bilirubin 1.2 AST 38 H D ALT < 6 L Alkaline Phosphatase 362 H D Total Protein 7.2 Albumin 3.2 L D Globulin 4.0 H Albumin/Globulin Ratio 0.8 L Lipase 29 07/05/17 07/05/17 07:15 11:28 WBC RBC Hgb Hct MCV MCH MCHC RDW Plt Count MPV Neut % (Auto) Lymph % (Auto) [place] % (Auto) Eos % (Auto) Baso % (Auto) Neut # (Auto) Lymph # (Auto) [place] # (Auto) Eos # (Auto) Baso # (Auto) Sodium Potassium Chloride Carbon Dioxide Anion Gap BUN Creatinine Est GFR ( Amer) Est GFR (Non-Af Amer) POC Glucose (mg/dL) 133 H 211 H Random Glucose Calcium Total Bilirubin AST ALT Alkaline Phosphatase Total Protein Albumin Globulin Albumin/Globulin Ratio Lipase - Imaging and Cardiology Abdominal x-rayOBSTRUCTIVE SERIES Status: Report reviewed by me (N GAS PATTERN.) Assessment & Plan (1) Sepsis Assessment and Plan: PANCULTURE. ESR CRP. CONTINUE IV ROCEPHIN 1GM IVPB QD DAILY.07/04/17. ON IV VANCOMYCIN 1GM POST EACH HD TTS. F/U VANCO LEVEL PRIOR TO 4TH DOSE. Status: Acute (2) Diarrhea Assessment and Plan: DIARRHOEA W/U IN PROGRESS. STOOL FOR C.[place]--P ENTERIC PRECAUTIONS. Status: Acute (3) ESRD (end stage renal disease) on dialysis Assessment and Plan: ON HD TTS. Status: Acute (4) Sacral decubitus ulcer Assessment and Plan: STAGE 3-4 SACRAL DECUBITUS ULCER. [facility] WOUND CARE NURSE . Status: Acute
--- NOTE | 2017-07-05 14:41 | CP.PCM.CON ---
History of Present Illness - History of Present Illness History of Present Illness: Nephrology Consultation Note: Assessment: Stable Acute gastroenteritis peptic ulcer bleed disease sacral wound/decubitus ulcer Hypertensive Chronic Kidney Disease (I12.0), Diabetic CKD (E11.22) End stage renal disease (N18.6) dependence on hemodialysis (Z99.2) (TTS) via permacath Anemia of CKD, Hyperphosphatemia (E83.39), Secondary Hyperparathyroidism (E21.1) , HTN (I12.0) Plan: will plan for HD Today as per TTS schedule, as ordered. Continue with Nephrovite 1 tab/day. PRBC as needed for anemia. not On KEILA as epogen , last Hb 11.2 Continue with phos binders BP controlled with meds as ordered . pt on RAAS kesha Glycemic control, Dialysis consistent diet Further work up/management as per primary team Dose meds/antibiotics for ESRD status. Avoid fleets enema/magnesium based laxatives. ID following. Thanks for allowing me to participate in care of your patient. Will follow patient with you. Please call if any Qs. Dr Ryan Carter Office: [phone] CC: loose stool reason for consult: ESRD management HPI: pt is a 66 F with hx of DM, HTN, Obesity, chronic bed bound status, sacral ulcer, peptic ulcer disease, ESRD on HD via permacath TTS @ [facility], last HD sunday came to hospital with loose stool multiple episodes each day x 10 days with mild pain abdomen associated with it. denies SOB/nausea/vomitting today feels loose stool are better ROS Cardiovascular: No chest pain. Pulmonary: no shortness of breath Gastrointestinal: denies abdominal pain no nausea vomiting c/o loose stool x 10 days now better Genitourinary: No pain while urinating. Denies blood in urine. All other negative except low back wound/pain Physical Examination: General Appearance: Comfortable, in no acute respiratory distress, co-operative . obese Vitals reviewed and noted as below Head; Atraumatic, normocephalic ENT: no ulcers no thrush. Tongue is midline. Oropharynx: no rash or ulcers. EYES: Pupils are equal, round and reactive to light accommodation. Eye muscles and extraocular movement intact. Sclera is anicteric. Neck; supple no lymphadenopathy, no thyromegaly or bruit Lungs: Normal respiratory rate/effort. Breath sounds bilateral equal and clear Heart: Normal rate. s1s2 normal. No rub or gallop. Extremities: no edema. No varicose veins Neurological: Patient is alert, awake and oriented to person, place and time. chronically bed bound Skin: Warm and dry. Normal turgor. No rash. Palpitation: Normal elasticity for age Abdomen: Abdomen is soft. Bowel sounds +. There is no abdominal tenderness, no guarding/rigidity or organomegaly Psych: normal insight and normal affect/mood MSK: no joint tenderness or swelling. Digits and nails normal, no deformity : kidney or bladder not palpable Access: permacath. left AVF maturing Labs/imaging reviewed. Past medical history, past surgical history, family history, social history, allergy reviewed and noted as below Family Hx: no hx of CKD. Non contributory Past Patient History - Past Medical History & Family History Past Medical History?: Yes - Past Social History Smoking Status: Never Smoked - CARDIAC Hx Cardiac Disorders: Yes Hx Hypercholesterolemia: Yes Hx Hypertension: Yes - PULMONARY Hx Respiratory Disorders: No - NEUROLOGICAL Hx Dementia: Yes - HEENT Hx HEENT Problems: No - RENAL Hx Chronic Kidney Disease: Yes - ENDOCRINE/METABOLIC Hx Endocrine Disorders: Yes Hx Diabetes Mellitus Type 2: Yes - HEMATOLOGICAL/ONCOLOGICAL Hx Anemia: Yes - INTEGUMENTARY Hx Dermatological Problems: Yes Other/Comment: ulcer buttocks - MUSCULOSKELETAL/RHEUMATOLOGICAL Hx Musculoskeletal Disorders: Yes Hx Falls: No Hx Unsteady Gait: Yes - GASTROINTESTINAL Hx Gastrointestinal Disorders: Yes Hx Diarrhea: Yes - GENITOURINARY/GYNECOLOGICAL Hx Genitourinary Disorders: Yes - PSYCHIATRIC Hx Substance Use: No - SURGICAL HISTORY Hx Surgeries: Yes Hx Cardiac Catheterization: Yes Hx Vascular Surgery: Yes (perma cath insertion) Hx Vascular Access Device: Yes Other/Comment: debridement ulcer buttocks - ANESTHESIA Hx Anesthesia: Yes Hx Anesthesia Reactions: No Hx Malignant Hyperthermia: No Has any member of the family had a problem w/ anesthesia?: No Meds Allergies/Adverse Reactions: Allergies Allergy/AdvReac Type Severity Reaction Status Date / Time No Known Allergies Allergy Verified 07/04/17 12:53 - Medications Medications: Current Medications Amiodarone HCl (Cordarone) 200 mg PO DAILY [facility] Last Admin: 07/05/17 09:52 Dose: 200 mg Amlodipine Besylate (Norvasc) 5 mg PO DAILY [facility] Last Admin: 07/05/17 09:52 Dose: 5 mg Folic Acid (Folic Acid) 1 mg PO DAILY [facility] Last Admin: 07/05/17 09:52 Dose: 1 mg Heparin Sodium (Porcine) (Heparin) 5,000 units SC Q12 [facility] Last Admin: 07/05/17 09:55 Dose: 5,000 units Vancomycin/Sodium Chloride (Vancomycin 1 Gm/Ns 200 Ml) 1 gm in 200 mls @ 133.333 mls/hr IVPB TTS [facility] PRN Reason: Protocol Last Admin: 07/05/17 12:23 Dose: 133.333 mls/hr Ceftriaxone Sodium (Rocephin Iv 1 Gm Duplex) 50 mls @ 100 mls/hr IVPB Q24H [facility] PRN Reason: Protocol Last Admin: 07/05/17 00:30 Dose: 100 mls/hr Insulin Aspart (Novolog) 0 unit SC ACHS [facility] PRN Reason: Protocol Last Admin: 07/05/17 12:23 Dose: 2 unit Lisinopril (Zestril) 40 mg PO DAILY [facility] Last Admin: 07/05/17 10:53 Dose: 40 mg Pneumococcal Polyvalent Vaccine (Pneumovax 23 Vaccine) 0.5 ml IM .ONCE ONE Stop: 07/07/17 08:01 Vitamin B Complex/Vit C/Folic Acid (Nephro-Umu) 1 tab PO 0800 [facility] Results - Vital Signs Recent Vital Signs: Last Vital Signs Temp 97.4 F L 07/05/17 08:00 Pulse 70 07/05/17 08:00 Resp 20 07/05/17 08:00 BP 147/60 07/05/17 08:00 Pulse Ox 98 07/05/17 08:00 - Labs Result Diagrams: 07/04/17 14:12 07/04/17 14:12 Labs: Laboratory Results - last 24 hr 07/04/17 07/04/17 07/05/17 14:12 21:39 07:15 Sodium 138 Potassium 4.4 Chloride 98 Carbon Dioxide 30 Anion Gap 14 BUN 25 H POC Glucose (mg/dL) 228 H 133 H Random Glucose 86 Total Bilirubin 1.2 AST 38 H D ALT < 6 L Alkaline Phosphatase 362 H D Total Protein 7.2 Albumin 3.2 L D Globulin 4.0 H Albumin/Globulin Ratio 0.8 L 05/31/18 11:28 Sodium Potassium Chloride Carbon Dioxide Anion Gap BUN POC Glucose (mg/dL) 211 H Random Glucose Total Bilirubin AST ALT Alkaline Phosphatase Total Protein Albumin Globulin Albumin/Globulin Ratio
--- NOTE | 2017-07-05 18:21 | CP.PCM.HP ---
Past Patient History - Past Medical History & Family History Past Medical History?: Yes - Past Social History Smoking Status: Never Smoked - CARDIAC Hx Cardiac Disorders: Yes Hx Hypercholesterolemia: Yes Hx Hypertension: Yes - PULMONARY Hx Respiratory Disorders: No - NEUROLOGICAL Hx Dementia: Yes - HEENT Hx HEENT Problems: No - RENAL Hx Chronic Kidney Disease: Yes - ENDOCRINE/METABOLIC Hx Endocrine Disorders: Yes Hx Diabetes Mellitus Type 2: Yes - HEMATOLOGICAL/ONCOLOGICAL Hx Anemia: Yes - INTEGUMENTARY Hx Dermatological Problems: Yes Other/Comment: ulcer buttocks - MUSCULOSKELETAL/RHEUMATOLOGICAL Hx Musculoskeletal Disorders: Yes Hx Falls: No Hx Unsteady Gait: Yes - GASTROINTESTINAL Hx Gastrointestinal Disorders: Yes Hx Diarrhea: Yes - GENITOURINARY/GYNECOLOGICAL Hx Genitourinary Disorders: Yes - PSYCHIATRIC Hx Substance Use: No - SURGICAL HISTORY Hx Surgeries: Yes Hx Cardiac Catheterization: Yes Hx Vascular Surgery: Yes (perma cath insertion) Hx Vascular Access Device: Yes Other/Comment: debridement ulcer buttocks - ANESTHESIA Hx Anesthesia: Yes Hx Anesthesia Reactions: No Hx Malignant Hyperthermia: No Has any member of the family had a problem w/ anesthesia?: No Meds Allergies/Adverse Reactions: Allergies Allergy/AdvReac Type Severity Reaction Status Date / Time No Known Allergies Allergy Verified 07/04/17 12:53 Physical Exam - Constitutional Appears: Well - Head Exam Head Exam: ATRAUMATIC, NORMAL INSPECTION, NORMOCEPHALIC - Eye Exam Eye Exam: EOMI, Normal appearance, PERRL Pupil Exam: NORMAL ACCOMODATION, PERRL - ENT Exam ENT Exam: Mucous Membranes Moist, Normal Exam - Neck Exam Neck exam: Positive for: Normal Inspection - Respiratory Exam Respiratory Exam: Decreased Breath Sounds - Cardiovascular Exam Cardiovascular Exam: REGULAR RHYTHM, +S1, +S2 - GI/Abdominal Exam GI & Abdominal Exam: Diminished Bowel Sounds, Soft - Rectal Exam Rectal Exam: Deferred Results - Vital Signs Recent Vital Signs: Last Vital Signs Temp 99 F 07/05/17 15:00 Pulse 62 07/05/17 15:05 Resp 18 07/05/17 15:05 BP 130/58 L 07/05/17 18:10 Pulse Ox 98 07/05/17 08:00 - Labs Result Diagrams: 07/04/17 14:12 07/04/17 14:12 Labs: Laboratory Results - last 24 hr 07/04/17 07/05/17 07/05/17 21:39 07:15 11:28 POC Glucose (mg/dL) 228 H 133 H 211 H Stool Occult Blood Stool Leukocytes, Qual C. difficile Ag & Toxin 07/05/17 07/05/17 07/05/17 15:20 15:21 15:21 POC Glucose (mg/dL) Stool Occult Blood Positive H Stool Leukocytes, Qual Positive H C. difficile Ag & Toxin Positive H 07/05/17 16:04 POC Glucose (mg/dL) 120 H Stool Occult Blood Stool Leukocytes, Qual C. difficile Ag & Toxin
[2017-07-05] MEDS: Pantoprazole 40 mg EC Tab PO SCH (19:14)
[2017-07-05] MEDS: Vancomycin 125 MG/5 ML SOLN (ORAL/RECTAL) PO SCH (22:19)
[2017-07-06] MEDS: cefTRIAXone IV 1 gm in Dextros 50 ML IVPB SCH
[2017-07-06] MEDS: (Novolog) Insulin Aspart, Recombinant 100 u/ml 10 ml vial SC SCH ×4 (08:36→21:41)
[2017-07-06] MEDS: Multivitamin Vitamin B Complex (Nephro-Vite) Tab PO SCH (08:36)
[2017-07-06] MEDS: Pantoprazole 40 mg EC Tab PO SCH (10:19)
[2017-07-06] MEDS: Vancomycin 125 MG/5 ML SOLN (ORAL/RECTAL) PO SCH ×4 (10:47→21:41)
--- NOTE | 2017-07-06 15:01 | CP.PCM.PN ---
Subjective - Date & Time of Evaluation Date of Evaluation: 07/06/17 Time of Evaluation: 14:58 - Subjective Subjective: Nephrology Consultation Note: Assessment: Stable Acute gastroenteritis due to C Diff infection peptic ulcer bleed disease sacral wound/decubitus ulcer Hypertensive Chronic Kidney Disease (I12.0), Diabetic CKD (E11.22) End stage renal disease (N18.6) dependence on hemodialysis (Z99.2) (TTS) via permacath Anemia of CKD, Hyperphosphatemia (E83.39), Secondary Hyperparathyroidism (E21.1) , HTN (I12.0) Plan: will plan for HD Tomorrow as per TTS schedule, as ordered. Continue with Nephrovite 1 tab/day. PRBC as needed for anemia. not On KEILA as epogen , last Hb 11.2 can hold phos binders while pt with diarrhoea BP controlled with meds as ordered . pt on RAAS kesha Glycemic control, Dialysis consistent diet Further work up/management as per primary team Dose meds/antibiotics for ESRD status. Avoid fleets enema/magnesium based laxatives. ID following. pt requesting ophthalmology eval for R eye visual impairment Thanks for allowing me to participate in care of your patient. Will follow patient with you. Please call if any Qs. Dr Ryan Carter Office: [phone] CC: loose stool reason for consult: ESRD management HPI: pt is a 66 F with hx of DM, HTN, Obesity, chronic bed bound status, sacral ulcer, peptic ulcer disease, ESRD on HD via permacath TTS @ [facility], last HD sunday came to hospital with loose stool multiple episodes each day x 10 days with mild pain abdomen associated with it. denies SOB/nausea/vomiting today feels loose stool are better ROS Cardiovascular: No chest pain. Pulmonary: no shortness of breath Gastrointestinal: denies abdominal pain no nausea vomiting c/o loose stool x 10 days now frequency better but still loose/watery Genitourinary: No pain while urinating. Denies blood in urine. All other negative except low back wound/pain Physical Examination: General Appearance: Comfortable, in no acute respiratory distress, co-operative . obese Vitals reviewed and noted as below Head; Atraumatic, normocephalic ENT: no ulcers no thrush. Tongue is midline. Oropharynx: no rash or ulcers. EYES: Pupils are equal, round and reactive to light accommodation. Eye muscles and extraocular movement intact. Sclera is anicteric. Neck; supple no lymphadenopathy, no thyromegaly or bruit Lungs: Normal respiratory rate/effort. Breath sounds bilateral equal and clear Heart: Normal rate. s1s2 normal. No rub or gallop. Extremities: no edema. No varicose veins Neurological: Patient is alert, awake and oriented to person, place and time. chronically bed bound Skin: Warm and dry. Normal turgor. No rash. Palpitation: Normal elasticity for age Abdomen: Abdomen is soft. Bowel sounds +. There is no abdominal tenderness, no guarding/rigidity or organomegaly Psych: normal insight and normal affect/mood MSK: no joint tenderness or swelling. Digits and nails normal, no deformity : kidney or bladder not palpable Access: permacath. left AVF maturing Labs/imaging reviewed. Past medical history, past surgical history, family history, social history, allergy reviewed and noted as below Family Hx: no hx of CKD. Non contributory Objective - Vital Signs/Intake and Output Vital Signs (last 24 hours): Temp Pulse Resp BP Pulse Ox 98.3 F 71 20 151/71 H 98 07/06/17 08:00 07/06/17 08:00 07/06/17 08:00 07/06/17 08:00 07/06/17 08:00 Intake and Output: 07/06/17 07/06/17 06:59 18:59 Intake Total 350 300 Output Total 1 Balance 349 300 - Medications Medications: Current Medications Amiodarone HCl (Cordarone) 200 mg PO DAILY [facility] Last Admin: 07/06/17 10:19 Dose: 200 mg Amlodipine Besylate (Norvasc) 5 mg PO DAILY [facility] Last Admin: 07/06/17 10:19 Dose: 5 mg Folic Acid (Folic Acid) 1 mg PO DAILY [facility] Last Admin: 07/06/17 10:19 Dose: 1 mg Heparin Sodium (Porcine) (Heparin) 5,000 units SC Q12 [facility] Last Admin: 07/06/17 10:19 Dose: 5,000 units Ceftriaxone Sodium (Rocephin Iv 1 Gm Duplex) 50 mls @ 100 mls/hr IVPB Q24H [facility] PRN Reason: Protocol Last Admin: 07/06/17 00:00 Dose: 100 mls/hr Insulin Aspart (Novolog) 0 unit SC ACHS [facility] PRN Reason: Protocol Last Admin: 07/06/17 12:41 Dose: 1 unit Lisinopril (Zestril) 40 mg PO DAILY [facility] Last Admin: 07/06/17 10:19 Dose: 40 mg Pantoprazole Sodium (Protonix Ec Tab) 40 mg PO DAILY [facility] Last Admin: 07/06/17 10:19 Dose: 40 mg Pneumococcal Polyvalent Vaccine (Pneumovax 23 Vaccine) 0.5 ml IM .ONCE ONE Stop: 07/07/17 08:01 Vancomycin HCl (Vancocin (Oral Or Rectal Use)) 250 mg PO QID [facility] PRN Reason: Protocol Last Admin: 07/06/17 13:21 Dose: 250 mg Vitamin B Complex/Vit C/Folic Acid (Nephro-Umu) 1 tab PO 0800 [facility] Last Admin: 07/06/17 08:36 Dose: 1 tab - Labs Labs: 07/04/17 14:12 07/04/17 14:12
[2017-07-06 16:08] LABS: SOURCE STOOL
--- NOTE | 2017-07-06 16:34 | CP.PCM.PN ---
Subjective - Date & Time of Evaluation Date of Evaluation: 07/06/17 Time of Evaluation: 16:33 - Subjective Subjective: CHIEF COMPLAINTS TODAY : AFEBRILE, C/O LOOSE STOOLS PT INCONTINANT OF STOOLS/URINE ROS. HEENT : N. Resp : No SOB wheezing, cough Cardio : No CP, PND orthopnea GI : No abd. Pain, n/v CREATIVE STRATEGIST : No headache , focal deficit. Musculoskel : N Ext. : Pedal pulses intact, no edema or calf pain Derm : N Psych : N. PE. Pt. is alert awake in no distress. V.S As noted in the chart Head ,ear nose,throat and eyes : Normal. Neck : Supple with normal carotids. Lungs: Clear air entry. Heart : S1 & S2 normal . . No murmur. S4 + Abd : Soft non tender with normal bowel sounds. Neuro : Moves all ext. with no localized deficit. Ext : +VE EDEMA LE,with intact pulses. Neg. calf tenderness Derm : No rashes or decubitus ulcer. Radiology/Labs STOOLS +VE C. DIFFICILE TOXIN STOOLS +VE OB/ LEUKOCYTES Asssessment : SEPSIS PSEUDOMEMBRANOUS COLITIS. ESRD ON HD TTS SACRAL DECUBITUS ULCER -STAGE 3-4 Plan : ON BY MOUTH VANCOMYCIN 250 MG 4 TIMES A DAY. ON iv ROCEPHIN 1 G ONCE A DAY . SACRAL DECUBITUS CARE Objective - Vital Signs/Intake and Output Vital Signs (last 24 hours): Temp Pulse Resp BP Pulse Ox 98.3 F 71 20 151/71 H 98 07/06/17 08:00 07/06/17 08:00 07/06/17 08:00 07/06/17 08:00 07/06/17 08:00 Intake and Output: 07/06/17 07/06/17 06:59 18:59 Intake Total 350 300 Output Total 1 Balance 349 300 - Medications Medications: Current Medications Amiodarone HCl (Cordarone) [address] [facility] Last Admin: 07/06/17 10:19 Dose: 200 mg Amlodipine Besylate (Norvasc) [address] [facility] Last Admin: 07/06/17 10:19 Dose: 5 mg Folic Acid (Folic Acid) [address] [facility] Last Admin: 07/06/17 10:19 Dose: 1 mg Heparin Sodium (Porcine) (Heparin) 5,[address] [facility] Last Admin: 07/06/17 10:19 Dose: 5,000 units Ceftriaxone Sodium (Rocephin Iv 1 Gm Duplex) 50 mls @ 100 mls/hr IVPB Q24H [facility] PRN Reason: Protocol Last Admin: 07/06/17 00:00 Dose: 100 mls/hr Insulin Aspart (Novolog) 0 unit SC ACHS [facility] PRN Reason: Protocol Last Admin: 07/06/17 12:41 Dose: 1 unit Lisinopril (Zestril) [address] [facility] Last Admin: 07/06/17 10:19 Dose: 40 mg Pantoprazole Sodium (Protonix Ec Tab) [address] [facility] Last Admin: 07/06/17 10:19 Dose: 40 mg Pneumococcal Polyvalent Vaccine (Pneumovax 23 Vaccine) 0.5 ml IM .ONCE ONE Stop: 07/07/17 08:01 Vancomycin HCl (Vancocin (Oral Or Rectal Use)) [address] [facility] PRN Reason: Protocol Last Admin: 07/06/17 13:21 Dose: 250 mg Vitamin B Complex/Vit C/Folic Acid (Nephro-Umu) [address] [facility] Last Admin: 07/06/17 08:36 Dose: 1 tab - Labs Labs: 07/04/17 14:12 07/04/17 14:12 Assessment and Plan (1) Sepsis Status: Acute (2) Diarrhea Status: Acute (3) ESRD (end stage renal disease) on dialysis Status: Acute (4) Sacral decubitus ulcer Status: Acute
--- NOTE | 2017-07-06 18:59 | CP.PCM.PN ---
Subjective - Date & Time of Evaluation Date of Evaluation: 07/06/17 Time of Evaluation: 08:00 - Subjective Subjective: clinically same Objective - Vital Signs/Intake and Output Vital Signs (last 24 hours): Temp Pulse Resp BP Pulse Ox 99 F 78 20 120/64 97 07/06/17 15:30 07/06/17 15:30 07/06/17 15:30 07/06/17 15:30 07/06/17 15:30 Intake and Output: 07/06/17 07/06/17 06:59 18:59 Intake Total 350 300 Output Total 1 Balance 349 300 - Medications Medications: Current Medications Amiodarone HCl (Cordarone) 200 mg PO DAILY [facility] Last Admin: 07/06/17 10:19 Dose: 200 mg Amlodipine Besylate (Norvasc) 5 mg PO DAILY [facility] Last Admin: 07/06/17 10:19 Dose: 5 mg Folic Acid (Folic Acid) 1 mg PO DAILY [facility] Last Admin: 07/06/17 10:19 Dose: 1 mg Heparin Sodium (Porcine) (Heparin) 5,000 units SC Q12 [facility] Last Admin: 07/06/17 10:19 Dose: 5,000 units Ceftriaxone Sodium (Rocephin Iv 1 Gm Duplex) 50 mls @ 100 mls/hr IVPB Q24H [facility] PRN Reason: Protocol Last Admin: 07/06/17 00:00 Dose: 100 mls/hr Insulin Aspart (Novolog) 0 unit SC ACHS [facility] PRN Reason: Protocol Last Admin: 07/06/17 16:45 Dose: Not Given Lisinopril (Zestril) 40 mg PO DAILY [facility] Last Admin: 07/06/17 10:19 Dose: 40 mg Pantoprazole Sodium (Protonix Ec Tab) 40 mg PO DAILY [facility] Last Admin: 07/06/17 10:19 Dose: 40 mg Pneumococcal Polyvalent Vaccine (Pneumovax 23 Vaccine) 0.5 ml IM .ONCE ONE Stop: 07/07/17 08:01 Vancomycin HCl (Vancocin (Oral Or Rectal Use)) 250 mg PO QID [facility] PRN Reason: Protocol Last Admin: 07/06/17 17:19 Dose: 250 mg Vitamin B Complex/Vit C/Folic Acid (Nephro-Umu) 1 tab PO 0800 [facility] Last Admin: 07/06/17 08:36 Dose: 1 tab - Labs Labs: 07/04/17 14:12 07/04/17 14:12 - Constitutional Appears: Well - Head Exam Head Exam: ATRAUMATIC, NORMAL INSPECTION, NORMOCEPHALIC - Eye Exam Eye Exam: EOMI, Normal appearance, PERRL Pupil Exam: NORMAL ACCOMODATION, PERRL - ENT Exam ENT Exam: Mucous Membranes Moist, Normal Exam - Neck Exam Neck Exam: Full ROM, Normal Inspection. absent: Lymphadenopathy - Respiratory Exam Respiratory Exam: Decreased Breath Sounds - Cardiovascular Exam Cardiovascular Exam: REGULAR RHYTHM, +S1, +S2 - GI/Abdominal Exam GI & Abdominal Exam: Soft, Diminished Bowel Sounds - Rectal Exam Rectal Exam: Deferred
[2017-07-07] MEDS: cefTRIAXone IV 1 gm in Dextros 50 ML IVPB SCH (00:30)
[2017-07-07] MEDS ORDERED: Pneumococcal 23-Valent Vaccine IM ONE (08:00)
[2017-07-07] MEDS: (Novolog) Insulin Aspart, Recombinant 100 u/ml 10 ml vial SC SCH ×4 (08:06→21:30)
[2017-07-07] MEDS: Pantoprazole 40 mg EC Tab PO SCH ×2 (10:31→14:17)
[2017-07-07] MEDS: Vancomycin 125 MG/5 ML SOLN (ORAL/RECTAL) PO SCH ×4 (10:32→21:27)
[2017-07-07 13:17] LABS: BASO # 0.1 K/uL (0.0-0.2); BASO % 0.8 % (0.0-2.0); EOS # 0.1 K/uL (0.0-0.7); HEMOGLOBIN 11.2 g/dL (11.0-16.0); LYMPH # 2.4 K/uL (1.0-4.3); MEAN CORPUSCULAR HEMOGLOBIN 30.5 pg (27.0-31.0); MEAN CORPUSCULAR HGB CONC 33.8 g/dL (33.0-37.0); MEAN PLATELET VOLUME 8.1 fL (7.2-11.7); MONO # 0.5 K/uL (0.0-0.8); MONO % 4.7 % (0.0-10.0); NEUT # 6.6 K/uL (1.8-7.0); NEUT % 68.5 % (50.0-75.0); RBC 3.69 Mil/uL (3.80-5.20); RED CELL DISTRIBUTION WIDTH 17.7 % (11.5-14.5); WHITE BLOOD COUNT 9.6 K/uL (4.8-10.8)
[2017-07-07 13:19] LABS: MEAN CELL VOLUME 90.2 fL (81.0-99.0)
[2017-07-07 13:34] LABS: ALB/GLOB RATIO 0.8 (1.0-2.1); ALBUMIN 2.7 g/dL (3.5-5.0); BILIRUBIN,DIRECT 0.2 mg/dL (0.0-0.4); CALCIUM 7.8 mg/dl (8.6-10.4)
[2017-07-07] MEDS: Multivitamin Vitamin B Complex (Nephro-Vite) Tab PO SCH (14:17)
--- NOTE | 2017-07-07 15:01 | CP.PCM.PN ---
Subjective - Date & Time of Evaluation Date of Evaluation: 07/07/17 Time of Evaluation: 07:20 - Subjective Subjective: clinically same Objective - Vital Signs/Intake and Output Vital Signs (last 24 hours): Temp Pulse Resp BP Pulse Ox 97.6 F 80 16 141/68 98 07/07/17 09:45 07/07/17 09:45 07/07/17 09:45 07/07/17 13:15 07/07/17 09:45 Intake and Output: 07/07/17 07/07/17 06:59 18:59 Intake Total 350 Output Total 2 Balance 348 - Medications Medications: Current Medications Amiodarone HCl (Cordarone) 200 mg PO DAILY [facility] Last Admin: 07/07/17 14:17 Dose: 200 mg Amlodipine Besylate (Norvasc) 5 mg PO DAILY [facility] Last Admin: 07/07/17 14:18 Dose: 5 mg Folic Acid (Folic Acid) 1 mg PO DAILY [facility] Last Admin: 07/07/17 14:18 Dose: 1 mg Heparin Sodium (Porcine) (Heparin) 5,000 units SC Q12 [facility] Last Admin: 07/07/17 10:31 Dose: Not Given Ceftriaxone Sodium (Rocephin Iv 1 Gm Duplex) 50 mls @ 100 mls/hr IVPB Q24H [facility] PRN Reason: Protocol Last Admin: 07/07/17 00:30 Dose: 100 mls/hr Insulin Aspart (Novolog) 0 unit SC ACHS [facility] PRN Reason: Protocol Last Admin: 07/07/17 11:30 Dose: Not Given Lisinopril (Zestril) 40 mg PO DAILY [facility] Last Admin: 07/07/17 14:18 Dose: 40 mg Pantoprazole Sodium (Protonix Ec Tab) 40 mg PO DAILY [facility] Last Admin: 07/07/17 14:17 Dose: 40 mg Vancomycin HCl (Vancocin (Oral Or Rectal Use)) 250 mg PO QID [facility] PRN Reason: Protocol Last Admin: 07/07/17 14:19 Dose: 250 mg Vitamin B Complex/Vit C/Folic Acid (Nephro-Umu) 1 tab PO 0800 [facility] Last Admin: 07/07/17 14:17 Dose: 1 tab - Labs Labs: 07/07/17 13:13 07/07/17 13:13 - Constitutional Appears: Well - Head Exam Head Exam: ATRAUMATIC, NORMAL INSPECTION, NORMOCEPHALIC - Eye Exam Eye Exam: EOMI, Normal appearance, PERRL Pupil Exam: NORMAL ACCOMODATION, PERRL - ENT Exam ENT Exam: Mucous Membranes Moist, Normal Exam - Neck Exam Neck Exam: Full ROM, Normal Inspection. absent: Lymphadenopathy - Respiratory Exam Respiratory Exam: Decreased Breath Sounds - Cardiovascular Exam Cardiovascular Exam: REGULAR RHYTHM, +S1, +S2 - GI/Abdominal Exam GI & Abdominal Exam: Soft, Diminished Bowel Sounds - Rectal Exam Rectal Exam: Deferred
--- NOTE | 2017-07-07 15:59 | RAD ---
Chest x-ray single frontal view History: Pneumonia. Comparison: 04/26/2017 Findings: Left central venous catheter tip extending into the right atrium. Diffuse patchy increased interstitial opacities throughout the right upper to mid lung zone as well as the left suprahilar region extending into the left upper lung zone. This may represent interstitial infiltrate. Clinical correlation. Right hilar prominence. Upper lobe granulomatous changes. Tortuous aorta. Mild cardiomegaly. Degenerative changes in the spine. Impression: Left central venous catheter tip extending into the right atrium. Diffuse patchy increased interstitial opacities throughout the right upper to mid lung zone as well as the left suprahilar region extending into the left upper lung zone. This may represent interstitial infiltrate. Clinical correlation. Right hilar prominence. Upper lobe granulomatous changes. Tortuous aorta. Mild cardiomegaly.
[2017-07-07] MEDS: Potassium Chloride 20 mEq ER Tab PO SCH ×2 (16:39→20:20)
--- NOTE | 2017-07-07 22:56 | CP.PCM.PN ---
Subjective - Date & Time of Evaluation Date of Evaluation: 07/07/17 Time of Evaluation: 22:56 - Subjective Subjective: CHIEF COMPLAINTS TODAY : AFEBRILE, TMAX 99.9 LOOSE STOOLS PT INCONTINANT OF STOOLS/URINE ROS. HEENT : N. Resp : No SOB wheezing, cough Cardio : No CP, PND orthopnea GI : No abd. 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 Musculoskel : N Ext. : Pedal pulses intact, no edema or calf pain Derm : N Psych : N. PE. Pt. is alert awake in no distress. V.S As noted in the chart Head ,ear nose,throat and eyes : Normal. Neck : Supple with normal carotids. Lungs: Clear air entry. Heart : S1 & S2 normal . . No murmur. S4 + Abd : Soft non tender with normal bowel sounds. Neuro : Moves all ext. with no localized deficit. Ext : +VE EDEMA LE,with intact pulses. Neg. calf tenderness Derm : No rashes or decubitus ulcer. Radiology/Labs STOOLS +VE C. DIFFICILE TOXIN STOOLS +VE OB/ LEUKOCYTES Asssessment : SEPSIS PSEUDOMEMBRANOUS COLITIS. ESRD ON HD TTS SACRAL DECUBITUS ULCER -STAGE 3-4 Plan : ON BY MOUTH VANCOMYCIN 250 MG 4 TIMES A DAY. ON iv ROCEPHIN 1 G ONCE A DAY . SACRAL DECUBITUS CARE PER WOUND CARE. Objective - Vital Signs/Intake and Output Vital Signs (last 24 hours): Temp Pulse Resp BP Pulse Ox 99.9 F H 82 18 121/67 97 07/07/17 16:00 07/07/17 16:00 07/07/17 16:00 07/07/17 16:00 07/07/17 16:00 Intake and Output: 07/07/17 07/08/17 18:59 06:59 Intake Total 300 Output Total 1 Balance 299 - Medications Medications: Current Medications Amiodarone HCl (Cordarone) 200 mg PO DAILY [facility] Last Admin: 07/07/17 14:17 Dose: 200 mg Amlodipine Besylate (Norvasc) 5 mg PO DAILY [facility] Last Admin: 07/07/17 14:18 Dose: 5 mg Folic Acid (Folic Acid) 1 mg PO DAILY [facility] Last Admin: 07/07/17 14:18 Dose: 1 mg Ceftriaxone Sodium (Rocephin Iv 1 Gm Duplex) 50 mls @ 100 mls/hr IVPB Q24H [facility] PRN Reason: Protocol Last Admin: 07/07/17 00:30 Dose: 100 mls/hr Insulin Aspart (Novolog) 0 unit SC ACHS [facility] PRN Reason: Protocol Last Admin: 07/07/17 21:30 Dose: Not Given Lisinopril (Zestril) 40 mg PO DAILY [facility] Last Admin: 07/07/17 14:18 Dose: 40 mg Pantoprazole Sodium (Protonix Ec Tab) 40 mg PO DAILY [facility] Last Admin: 07/07/17 14:17 Dose: 40 mg Vancomycin HCl (Vancocin (Oral Or Rectal Use)) 250 mg PO QID [facility] PRN Reason: Protocol Last Admin: 07/07/17 21:27 Dose: 250 mg Vitamin B Complex/Vit C/Folic Acid (Nephro-Umu) 1 tab PO 0800 [facility] Last Admin: 07/07/17 14:17 Dose: 1 tab - Labs Labs: 07/07/17 13:13 07/07/17 13:13 Assessment and Plan (1) Sepsis Status: Acute (2) Diarrhea Status: Acute (3) ESRD (end stage renal disease) on dialysis Status: Acute (4) Sacral decubitus ulcer Status: Acute
[2017-07-08] MEDS: cefTRIAXone IV 1 gm in Dextros 50 ML IVPB SCH (00:30)
[2017-07-08] MEDS: (Novolog) Insulin Aspart, Recombinant 100 u/ml 10 ml vial SC SCH ×4 (08:12→21:23)
[2017-07-08] MEDS: Pantoprazole 40 mg EC Tab PO SCH (11:20)
[2017-07-08] MEDS: Multivitamin Vitamin B Complex (Nephro-Vite) Tab PO SCH (11:20)
[2017-07-08] MEDS: Vancomycin 125 MG/5 ML SOLN (ORAL/RECTAL) PO SCH ×4 (11:21→22:10)
--- NOTE | 2017-07-08 15:47 | CP.PCM.PN ---
Subjective - Date & Time of Evaluation Date of Evaluation: 07/08/17 Time of Evaluation: 07:20 - Subjective Subjective: clinically same Objective - Vital Signs/Intake and Output Vital Signs (last 24 hours): Temp Pulse Resp BP Pulse Ox 98.7 F 81 20 132/70 96 07/08/17 08:00 07/08/17 08:00 07/08/17 08:00 07/08/17 08:00 07/08/17 08:00 Intake and Output: 07/08/17 07/08/17 06:59 18:59 Intake Total 250 360 Output Total 1 Balance 249 360 - Medications Medications: Current Medications Amiodarone HCl (Cordarone) 200 mg PO DAILY [facility] Last Admin: 07/08/17 11:21 Dose: 200 mg Amlodipine Besylate (Norvasc) 5 mg PO DAILY [facility] Last Admin: 07/08/17 11:21 Dose: 5 mg Folic Acid (Folic Acid) 1 mg PO DAILY [facility] Last Admin: 07/08/17 11:20 Dose: 1 mg Ceftriaxone Sodium (Rocephin Iv 1 Gm Duplex) 50 mls @ 100 mls/hr IVPB Q24H [facility] PRN Reason: Protocol Last Admin: 07/08/17 00:30 Dose: 100 mls/hr Insulin Aspart (Novolog) 0 unit SC ACHS [facility] PRN Reason: Protocol Last Admin: 07/08/17 12:33 Dose: 1 unit Lisinopril (Zestril) 40 mg PO DAILY [facility] Last Admin: 07/08/17 11:21 Dose: 40 mg Pantoprazole Sodium (Protonix Ec Tab) 40 mg PO DAILY [facility] Last Admin: 07/08/17 11:20 Dose: 40 mg Vancomycin HCl (Vancocin (Oral Or Rectal Use)) 250 mg PO QID [facility] PRN Reason: Protocol Last Admin: 07/08/17 14:23 Dose: 250 mg Vitamin B Complex/Vit C/Folic Acid (Nephro-Umu) 1 tab PO 0800 [facility] Last Admin: 07/08/17 11:20 Dose: 1 tab - Labs Labs: 07/07/17 13:13 07/07/17 13:13 - Constitutional Appears: Well - Head Exam Head Exam: ATRAUMATIC, NORMAL INSPECTION, NORMOCEPHALIC - Eye Exam Eye Exam: EOMI, Normal appearance, PERRL Pupil Exam: NORMAL ACCOMODATION, PERRL - ENT Exam ENT Exam: Mucous Membranes Moist, Normal Exam - Neck Exam Neck Exam: Full ROM, Normal Inspection. absent: Lymphadenopathy - Respiratory Exam Respiratory Exam: Decreased Breath Sounds - Cardiovascular Exam Cardiovascular Exam: REGULAR RHYTHM, +S1 - GI/Abdominal Exam GI & Abdominal Exam: Soft, Diminished Bowel Sounds - Rectal Exam Rectal Exam: Deferred
--- NOTE | 2017-07-08 23:21 | CP.PCM.PN ---
Subjective - Date & Time of Evaluation Date of Evaluation: 07/08/17 Time of Evaluation: 23:21 - Subjective Subjective: CHIEF COMPLAINTS TODAY : AFEBRILE, AAO LOOSE STOOLS PT INCONTINANT OF STOOLS/URINE ROS. HEENT : N. Resp : No SOB wheezing, cough Cardio : No CP, PND orthopnea GI : No abd. 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 Musculoskel : N Ext. : Pedal pulses intact, no edema or calf pain Derm : N Psych : N. PE. Pt. is alert awake in no distress. V.S As noted in the chart Head ,ear nose,throat and eyes : Normal. Neck : Supple with normal carotids. Lungs: Clear air entry. Heart : S1 & S2 normal . . No murmur. S4 + Abd : Soft non tender with normal bowel sounds. Neuro : Moves all ext. with no localized deficit. Ext : +VE EDEMA LE,with intact pulses. Neg. calf tenderness Derm : No rashes or decubitus ulcer. 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 DIFFICILE TOXIN STOOLS +VE OB/ LEUKOCYTES Asssessment : SEPSIS DIARRHOEA PSEUDOMEMBRANOUS COLITIS. ESRD ON HD TTS SACRAL DECUBITUS ULCER -STAGE 3-4 Plan : ON BY MOUTH VANCOMYCIN 250 MG 4 TIMES A DAY. ON iv ROCEPHIN 1 G ONCE A DAY . F/U CULTURES SACRAL DECUBITUS CARE PER WOUND CARE. Objective - Vital Signs/Intake and Output Vital Signs (last 24 hours): Temp Pulse Resp BP Pulse Ox 98.8 F 73 20 130/64 97 07/08/17 15:52 07/08/17 15:52 07/08/17 15:52 07/08/17 15:52 07/08/17 15:52 Intake and Output: 07/08/17 07/09/17 18:59 06:59 Intake Total 360 600 Balance 360 600 - Medications Medications: Current Medications Amiodarone HCl (Cordarone) 200 mg PO DAILY [facility] Last Admin: 07/08/17 11:21 Dose: 200 mg Amlodipine Besylate (Norvasc) 5 mg PO DAILY [facility] Last Admin: 07/08/17 11:21 Dose: 5 mg Folic Acid (Folic Acid) 1 mg PO DAILY [facility] Last Admin: 07/08/17 11:20 Dose: 1 mg Ceftriaxone Sodium (Rocephin Iv 1 Gm Duplex) 50 mls @ 100 mls/hr IVPB Q24H [facility] PRN Reason: Protocol Last Admin: 07/08/17 00:30 Dose: 100 mls/hr Insulin Aspart (Novolog) 0 unit SC ACHS [facility] PRN Reason: Protocol Last Admin: 07/08/17 21:23 Dose: Not Given Lisinopril (Zestril) 40 mg PO DAILY [facility] Last Admin: 07/08/17 11:21 Dose: 40 mg Pantoprazole Sodium (Protonix Ec Tab) 40 mg PO DAILY [facility] Last Admin: 07/08/17 11:20 Dose: 40 mg Vancomycin HCl (Vancocin (Oral Or Rectal Use)) 250 mg PO QID [facility] PRN Reason: Protocol Last Admin: 07/08/17 22:10 Dose: 250 mg Vitamin B Complex/Vit C/Folic Acid (Nephro-Umu) 1 tab PO 0800 [facility] Last Admin: 07/08/17 11:20 Dose: 1 tab - Labs Labs: 07/07/17 13:13 07/07/17 13:13 Assessment and Plan (1) Sepsis Status: Acute (2) Diarrhea Status: Acute (3) ESRD (end stage renal disease) on dialysis Status: Acute (4) Sacral decubitus ulcer Status: Acute
[2017-07-09] MEDS: cefTRIAXone IV 1 gm in Dextros 50 ML IVPB SCH
[2017-07-09] MEDS: (Novolog) Insulin Aspart, Recombinant 100 u/ml 10 ml vial SC SCH ×4 (08:00→21:54)
[2017-07-09] MEDS: Multivitamin Vitamin B Complex (Nephro-Vite) Tab PO SCH (08:26)
[2017-07-09] MEDS: Pantoprazole 40 mg EC Tab PO SCH (10:24)
[2017-07-09] MEDS: Vancomycin 125 MG/5 ML SOLN (ORAL/RECTAL) PO SCH ×4 (10:25→22:28)
--- NOTE | 2017-07-09 13:37 | CP.PCM.PN ---
Subjective - Date & Time of Evaluation Date of Evaluation: 07/09/17 Time of Evaluation: 13:37 - Subjective Subjective: CHIEF COMPLAINTS TODAY : AFEBRILE, AAO STATES STOOLS ARE GETTING PASTY PT INCONTINANT OF STOOLS/URINE. patient states she is seen by accounting systems analyst and told she had cataract and hemorrhage in the eye. ROS. HEENT : N. Resp : No SOB wheezing, cough Cardio : No CP, PND orthopnea GI : No abd. 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 Musculoskel : N Ext. : Pedal pulses intact, no edema or calf pain Derm : N Psych : N. PE. Pt. is alert awake in no distress. V.S As noted in the chart Head ,ear nose,throat and eyes : Normal. Neck : Supple with normal carotids. Lungs: Clear air entry. Heart : S1 & S2 normal . . No murmur. S4 + Abd : Soft non tender with normal bowel sounds. Neuro : Moves all ext. with no localized deficit. Ext : +VE EDEMA LE,with intact pulses. Neg. calf tenderness Derm : No rashes or decubitus ulcer. 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 DIFFICILE TOXIN STOOLS +VE OB/ LEUKOCYTES Asssessment : SEPSIS DIARRHOEA PSEUDOMEMBRANOUS COLITIS. ESRD ON HD TTS SACRAL DECUBITUS ULCER -STAGE 3-4 Plan : ON BY MOUTH VANCOMYCIN 250 MG 4 TIMES A DAY. ON iv ROCEPHIN 1 G ONCE A DAY . F/U CULTURES SACRAL DECUBITUS CARE PER WOUND CARE. Objective - Vital Signs/Intake and Output Vital Signs (last 24 hours): Temp Pulse Resp BP Pulse Ox 97.4 F L 80 20 157/77 H 95 07/09/17 08:12 07/09/17 08:12 07/09/17 08:12 07/09/17 08:12 07/09/17 08:12 Intake and Output: 07/09/17 07/09/17 06:59 18:59 Intake Total 850 Balance 850 - Medications Medications: Current Medications Amiodarone HCl (Cordarone) 200 mg PO DAILY [facility] Last Admin: 07/09/17 10:24 Dose: 200 mg Amlodipine Besylate (Norvasc) 5 mg PO DAILY [facility] Last Admin: 07/09/17 10:24 Dose: 5 mg Folic Acid (Folic Acid) 1 mg PO DAILY [facility] Last Admin: 07/09/17 10:24 Dose: 1 mg Ceftriaxone Sodium (Rocephin Iv 1 Gm Duplex) 50 mls @ 100 mls/hr IVPB Q24H [facility] PRN Reason: Protocol Last Admin: 07/09/17 00:00 Dose: 100 mls/hr Insulin Aspart (Novolog) 0 unit SC ACHS [facility] PRN Reason: Protocol Last Admin: 07/09/17 12:02 Dose: Not Given Lisinopril (Zestril) 40 mg PO DAILY [facility] Last Admin: 07/09/17 10:24 Dose: 40 mg Pantoprazole Sodium (Protonix Ec Tab) 40 mg PO DAILY [facility] Last Admin: 07/09/17 10:24 Dose: 40 mg Vancomycin HCl (Vancocin (Oral Or Rectal Use)) 250 mg PO QID [facility] PRN Reason: Protocol Last Admin: 07/09/17 10:25 Dose: 250 mg Vitamin B Complex/Vit C/Folic Acid (Nephro-Umu) 1 tab PO 0800 [facility] Last Admin: 07/09/17 08:26 Dose: 1 tab - Labs Labs: 07/07/17 13:13 07/07/17 13:13 Assessment and Plan (1) Sepsis Status: Acute (2) Diarrhea Status: Acute (3) ESRD (end stage renal disease) on dialysis Status: Acute (4) Sacral decubitus ulcer Status: Acute
--- NOTE | 2017-07-09 15:03 | CP.PCM.PN ---
Subjective - Date & Time of Evaluation Date of Evaluation: 07/09/17 Time of Evaluation: 15:02 - Subjective Subjective: Nephrology Consultation Note: Assessment: Stable Acute gastroenteritis due to C Diff infection peptic ulcer bleed disease sacral wound/decubitus ulcer Hypertensive Chronic Kidney Disease (I12.0), Diabetic CKD (E11.22) End stage renal disease (N18.6) dependence on hemodialysis (Z99.2) (TTS) via permacath Anemia of CKD, Hyperphosphatemia (E83.39), Secondary Hyperparathyroidism (E21.1) , HTN (I12.0) Plan: will plan for HD Tomorrow as per TTS schedule, as ordered. Continue with Nephrovite 1 tab/day. PRBC as needed for anemia. not On KEILA as epogen , last Hb 11.2 can hold phos binders while pt with diarrhoea BP controlled with meds as ordered . pt on RAAS kesha Glycemic control, Dialysis consistent diet Further work up/management as per primary team Dose meds/antibiotics for ESRD status. Avoid fleets enema/magnesium based laxatives. ID following. Thanks for allowing me to participate in care of your patient. Will follow patient with you. Please call if any Qs. Dr Ryan Carter Office: [phone] CC: loose stool reason for consult: ESRD management HPI: pt is a 66 F with hx of DM, HTN, Obesity, chronic bed bound status, sacral ulcer, peptic ulcer disease, ESRD on HD via permacath TTS @ [facility], last HD sunday came to hospital with loose stool multiple episodes each day x 10 days with mild pain abdomen associated with it. denies SOB/nausea/vomiting today feels loose stool are better ROS Cardiovascular: No chest pain. Pulmonary: no shortness of breath Gastrointestinal: denies abdominal pain no nausea vomiting. loose stool frequency better bit more formed Genitourinary: No pain while urinating. Denies blood in urine. All other negative except low back wound/pain Physical Examination: General Appearance: Comfortable, in no acute respiratory distress, co-operative . obese Vitals reviewed and noted as below Head; Atraumatic, normocephalic ENT: no ulcers no thrush. Tongue is midline. Oropharynx: no rash or ulcers. EYES: Pupils are equal, round and reactive to light accommodation. Eye muscles and extraocular movement intact. Sclera is anicteric. Neck; supple no lymphadenopathy, no thyromegaly or bruit Lungs: Normal respiratory rate/effort. Breath sounds bilateral equal and clear Heart: Normal rate. s1s2 normal. No rub or gallop. Extremities: no edema. No varicose veins Neurological: Patient is alert, awake and oriented to person, place and time. chronically bed bound Skin: Warm and dry. Normal turgor. No rash. Palpitation: Normal elasticity for age Abdomen: Abdomen is soft. Bowel sounds +. There is no abdominal tenderness, no guarding/rigidity or organomegaly Psych: normal insight and normal affect/mood MSK: no joint tenderness or swelling. Digits and nails normal, no deformity : kidney or bladder not palpable Access: permacath. left AVF maturing Labs/imaging reviewed. Past medical history, past surgical history, family history, social history, allergy reviewed and noted as below Family Hx: no hx of CKD. Non contributory Objective - Vital Signs/Intake and Output Vital Signs (last 24 hours): Temp Pulse Resp BP Pulse Ox 97.4 F L 80 20 157/77 H 95 07/09/17 08:12 07/09/17 08:12 07/09/17 08:12 07/09/17 08:12 07/09/17 08:12 Intake and Output: 07/09/17 07/09/17 06:59 18:59 Intake Total 850 Balance 850 - Medications Medications: Current Medications Amiodarone HCl (Cordarone) 200 mg PO DAILY [facility] Last Admin: 07/09/17 10:24 Dose: 200 mg Amlodipine Besylate (Norvasc) 5 mg PO DAILY [facility] Last Admin: 07/09/17 10:24 Dose: 5 mg Folic Acid (Folic Acid) 1 mg PO DAILY [facility] Last Admin: 07/09/17 10:24 Dose: 1 mg Ceftriaxone Sodium (Rocephin Iv 1 Gm Duplex) 50 mls @ 100 mls/hr IVPB Q24H [facility] PRN Reason: Protocol Last Admin: 07/09/17 00:00 Dose: 100 mls/hr Insulin Aspart (Novolog) 0 unit SC ACHS [facility] PRN Reason: Protocol Last Admin: 07/09/17 12:02 Dose: Not Given Lisinopril (Zestril) 40 mg PO DAILY [facility] Last Admin: 07/09/17 10:24 Dose: 40 mg Pantoprazole Sodium (Protonix Ec Tab) 40 mg PO DAILY [facility] Last Admin: 07/09/17 10:24 Dose: 40 mg Saccharomyces Boulardii (Florastor) 250 mg PO BID [facility] Vancomycin HCl (Vancocin (Oral Or Rectal Use)) 250 mg PO QID [facility] PRN Reason: Protocol Last Admin: 07/09/17 14:39 Dose: 250 mg Vitamin B Complex/Vit C/Folic Acid (Nephro-Umu) 1 tab PO 0800 [facility] Last Admin: 07/09/17 08:26 Dose: 1 tab - Labs Labs: 07/07/17 13:13 07/07/17 13:13
--- NOTE | 2017-07-09 16:17 | CP.PCM.PN ---
Subjective - Date & Time of Evaluation Date of Evaluation: 07/09/17 Time of Evaluation: 07:20 - Subjective Subjective: clinically same Objective - Vital Signs/Intake and Output Vital Signs (last 24 hours): Temp Pulse Resp BP Pulse Ox 97.4 F L 80 20 157/77 H 95 07/09/17 08:12 07/09/17 08:12 07/09/17 08:12 07/09/17 08:12 07/09/17 08:12 Intake and Output: 07/09/17 07/09/17 06:59 18:59 Intake Total 850 480 Balance 850 480 - Medications Medications: Current Medications Amiodarone HCl (Cordarone) 200 mg PO DAILY [facility] Last Admin: 07/09/17 10:24 Dose: 200 mg Amlodipine Besylate (Norvasc) 5 mg PO DAILY [facility] Last Admin: 07/09/17 10:24 Dose: 5 mg Folic Acid (Folic Acid) 1 mg PO DAILY [facility] Last Admin: 07/09/17 10:24 Dose: 1 mg Ceftriaxone Sodium (Rocephin Iv 1 Gm Duplex) 50 mls @ 100 mls/hr IVPB Q24H [facility] PRN Reason: Protocol Last Admin: 07/09/17 00:00 Dose: 100 mls/hr Insulin Aspart (Novolog) 0 unit SC ACHS [facility] PRN Reason: Protocol Last Admin: 07/09/17 12:02 Dose: Not Given Lisinopril (Zestril) 40 mg PO DAILY [facility] Last Admin: 07/09/17 10:24 Dose: 40 mg Pantoprazole Sodium (Protonix Ec Tab) 40 mg PO DAILY [facility] Last Admin: 07/09/17 10:24 Dose: 40 mg Saccharomyces Boulardii (Florastor) 250 mg PO BID [facility] Vancomycin HCl (Vancocin (Oral Or Rectal Use)) 250 mg PO QID [facility] PRN Reason: Protocol Last Admin: 07/09/17 14:39 Dose: 250 mg Vitamin B Complex/Vit C/Folic Acid (Nephro-Umu) 1 tab PO 0800 [facility] Last Admin: 07/09/17 08:26 Dose: 1 tab - Labs Labs: 07/07/17 13:13 07/07/17 13:13 - Constitutional Appears: Well - Head Exam Head Exam: ATRAUMATIC, NORMAL INSPECTION, NORMOCEPHALIC - Eye Exam Eye Exam: EOMI, Normal appearance, PERRL Pupil Exam: NORMAL ACCOMODATION, PERRL - ENT Exam ENT Exam: Mucous Membranes Moist, Normal Exam - Neck Exam Neck Exam: Full ROM, Normal Inspection. absent: Lymphadenopathy - Respiratory Exam Respiratory Exam: Decreased Breath Sounds - Cardiovascular Exam Cardiovascular Exam: REGULAR RHYTHM, +S1, +S2 - GI/Abdominal Exam GI & Abdominal Exam: Soft, Diminished Bowel Sounds - Rectal Exam Rectal Exam: Deferred Assessment and Plan - Assessment and Plan (Free Text) Plan: Patient states that the diarrhea Positive for C. difficile On vancomycin p.o. ID consult Renal consult Sacral wound care Continue p.o. vancomycin Continue hemodialysis
[2017-07-09] MEDS: Saccharomyces Boulardi 250 mg Cap PO SCH (17:41)
--- NOTE | 2017-07-09 23:47 | CON ---
DATE: 07/09/2017 HISTORY OF PRESENT ILLNESS: The patient is a 66-year-old female with a history of end-stage renal disease due to diabetes. She reports a 3-week history of decreased vision in her right eye. She reports that the vision went very quickly within one day and was painless. PHYSICAL EXAMINATION: HEENT: On examination today, the vision in the right eye is near 20 in near count fingers and in the left eye, the vision is near 20/80 without correction of both eye. Her intraocular pressure is within normal limit. Her ocular exam was slightly difficult due to the patient with difficulty moving. There was noted to be large cataract in both eyes. There was no afferent pupillary defect. Her cornea was clear. Anterior chambers appeared clear. Her posterior exam showed significant retinopathy in both eyes and likely vitreous hemorrhage in the right eye. ASSESSMENT: 1. Proliferative diabetic retinopathy, both eyes. 2. Cataract, both eyes. PLAN: Once the patient is discharged, the patient will need to make an appointment in the office for likely retinal treatment and possibly cataract surgery. The number of the office is [phone]. The patient can make an appointment once discharged from [facility]. If there are any questions, please contact our office. Daniel Fernandes MD
[2017-07-10] MEDS: cefTRIAXone IV 1 gm in Dextros 50 ML IVPB SCH (00:15)
[2017-07-10] MEDS: (Novolog) Insulin Aspart, Recombinant 100 u/ml 10 ml vial SC SCH ×3 (08:01→17:15)
[2017-07-10] MEDS: Multivitamin Vitamin B Complex (Nephro-Vite) Tab PO SCH (08:04)
[2017-07-10] MEDS: Saccharomyces Boulardi 250 mg Cap PO SCH ×2 (09:45→17:15)
[2017-07-10] MEDS: Vancomycin 125 MG/5 ML SOLN (ORAL/RECTAL) PO SCH ×3 (09:45→17:14)
[2017-07-10] MEDS: Pantoprazole 40 mg EC Tab PO SCH (09:45)
--- NOTE | 2017-07-10 11:24 | CP.PCM.PN ---
Subjective - Date & Time of Evaluation Date of Evaluation: 07/10/17 Time of Evaluation: 11:23 - Subjective Subjective: Nephrology Consultation Note: Assessment: Stable Acute gastroenteritis due to C Diff infection hx peptic ulcer disease sacral wound/decubitus ulcer Hypertensive Chronic Kidney Disease (I12.0), Diabetic CKD (E11.22) End stage renal disease (N18.6) dependence on hemodialysis (Z99.2) (TTS) via permacath Anemia of CKD, Hyperphosphatemia (E83.39), Secondary Hyperparathyroidism (E21.1) , HTN (I12.0) Plan: check labs with HD today will plan for HD Today as per TTS schedule, as ordered. Continue with Nephrovite 1 tab/day. PRBC as needed for anemia. not On KEILA as epogen , last Hb 11.2 can hold phos binders while pt with diarrhoea BP controlled with meds as ordered . pt on RAAS kesha Glycemic control, Dialysis consistent diet Further work up/management as per primary team Dose meds/antibiotics for ESRD status. Avoid fleets enema/magnesium based laxatives. ID following. Thanks for allowing me to participate in care of your patient. Will follow patient with you. Please call if any Qs. Dr Ryan Carter Office: [phone] CC: loose stool reason for consult: ESRD management HPI: pt is a 66 F with hx of DM, HTN, Obesity, chronic bed bound status, sacral ulcer, peptic ulcer disease, ESRD on HD via permacath TTS @ [facility], last HD sunday came to hospital with loose stool multiple episodes each day x 10 days with mild pain abdomen associated with it. denies SOB/nausea/vomiting today feels loose stool are better ROS Cardiovascular: No chest pain. Pulmonary: no shortness of breath Gastrointestinal: denies abdominal pain no nausea vomiting. loose stool frequency better bit more formed Genitourinary: No pain while urinating. Denies blood in urine. All other negative except low back wound/pain Physical Examination: seen on HD General Appearance: Comfortable, in no acute respiratory distress, co-operative . obese Vitals reviewed and noted as below Head; Atraumatic, normocephalic ENT: no ulcers no thrush. Tongue is midline. Oropharynx: no rash or ulcers. EYES: Pupils are equal, round and reactive to light accommodation. Eye muscles and extraocular movement intact. Sclera is anicteric. Neck; supple no lymphadenopathy, no thyromegaly or bruit Lungs: Normal respiratory rate/effort. Breath sounds bilateral equal and clear Heart: Normal rate. s1s2 normal. No rub or gallop. Extremities: 1+ edema. No varicose veins Neurological: Patient is alert, awake and oriented to person, place and time. chronically bed bound Skin: Warm and dry. Normal turgor. No rash. Palpitation: Normal elasticity for age Abdomen: Abdomen is soft. Bowel sounds +. There is no abdominal tenderness, no guarding/rigidity or organomegaly Psych: normal insight and normal affect/mood MSK: no joint tenderness or swelling. Digits and nails normal, no deformity : kidney or bladder not palpable Access: permacath. left AVF maturing Labs/imaging reviewed. Past medical history, past surgical history, family history, social history, allergy reviewed and noted as below Family Hx: no hx of CKD. Non contributory Objective - Vital Signs/Intake and Output Vital Signs (last 24 hours): Temp Pulse Resp BP Pulse Ox 98.5 F 76 20 158/72 H 96 07/10/17 08:00 07/10/17 08:00 07/10/17 08:00 07/10/17 08:00 07/10/17 08:00 Intake and Output: 07/10/17 07/10/17 06:59 18:59 Intake Total 350 Balance 350 - Medications Medications: Current Medications Amiodarone HCl (Cordarone) 200 mg PO DAILY [facility] Last Admin: 07/10/17 09:45 Dose: 200 mg Amlodipine Besylate (Norvasc) 5 mg PO DAILY [facility] Last Admin: 07/10/17 09:44 Dose: Not Given Folic Acid (Folic Acid) 1 mg PO DAILY [facility] Last Admin: 07/10/17 09:45 Dose: 1 mg Ceftriaxone Sodium (Rocephin Iv 1 Gm Duplex) 50 mls @ 100 mls/hr IVPB Q24H [facility] PRN Reason: Protocol Last Admin: 07/10/17 00:15 Dose: 100 mls/hr Insulin Aspart (Novolog) 0 unit SC ACHS [facility] PRN Reason: Protocol Last Admin: 07/10/17 08:01 Dose: Not Given Lisinopril (Zestril) 40 mg PO DAILY [facility] Last Admin: 07/10/17 09:44 Dose: Not Given Pantoprazole Sodium (Protonix Ec Tab) 40 mg PO DAILY [facility] Last Admin: 07/10/17 09:45 Dose: 40 mg Saccharomyces Boulardii (Florastor) 250 mg PO BID [facility] Last Admin: 07/10/17 09:45 Dose: 250 mg Vancomycin HCl (Vancocin (Oral Or Rectal Use)) 250 mg PO QID [facility] PRN Reason: Protocol Last Admin: 07/10/17 09:45 Dose: 250 mg Vitamin B Complex/Vit C/Folic Acid (Nephro-Umu) 1 tab PO 0800 [facility] Last Admin: 07/10/17 08:04 Dose: 1 tab - Labs Labs: 07/07/17 13:13 07/07/17 13:13
[2017-07-10 11:38] LABS: BASO # 0.1 K/uL (0.0-0.2); BASO % 1.2 % (0.0-2.0); EOS # 0.1 K/uL (0.0-0.7); EOS % 1.5 % (0.0-4.0); LYMPH # 2.4 K/uL (1.0-4.3); LYMPH % 31.7 % (20.0-40.0); MEAN CELL VOLUME 89.9 fL (81.0-99.0); MEAN CORPUSCULAR HEMOGLOBIN 30.1 pg (27.0-31.0); MEAN CORPUSCULAR HGB CONC 33.4 g/dL (33.0-37.0); MEAN PLATELET VOLUME 8.3 fL (7.2-11.7); MONO # 0.5 K/uL (0.0-0.8); MONO % 6.1 % (0.0-10.0); NEUT # 4.5 K/uL (1.8-7.0); NEUT % 59.5 % (50.0-75.0); RBC 3.04 Mil/uL (3.80-5.20); WHITE BLOOD COUNT 7.5 K/uL (4.8-10.8)
[2017-07-10 11:43] LABS: HEMOGLOBIN 9.1 g/dL (11.0-16.0)
[2017-07-10 11:50] LABS: CALCIUM 7.4 mg/dl (8.6-10.4)
[2017-07-10 15:22] VITALS: RESP 20
--- NOTE | 2017-07-10 16:21 | CP.PCM.PN ---
Subjective - Date & Time of Evaluation Date of Evaluation: 07/10/17 Time of Evaluation: 07:20 - Subjective Subjective: clinically same Objective - Vital Signs/Intake and Output Vital Signs (last 24 hours): Temp Pulse Resp BP Pulse Ox 98 F 73 20 146/68 100 07/10/17 11:15 07/10/17 15:05 07/10/17 15:05 07/10/17 15:05 07/10/17 15:05 Intake and Output: 07/10/17 07/10/17 06:59 18:59 Intake Total 350 480 Balance 350 480 - Medications Medications: Current Medications Amiodarone HCl (Cordarone) 200 mg PO DAILY [facility] Last Admin: 07/10/17 09:45 Dose: 200 mg Amlodipine Besylate (Norvasc) 5 mg PO DAILY [facility] Last Admin: 07/10/17 09:44 Dose: Not Given Folic Acid (Folic Acid) 1 mg PO DAILY [facility] Last Admin: 07/10/17 09:45 Dose: 1 mg Ceftriaxone Sodium (Rocephin Iv 1 Gm Duplex) 50 mls @ 100 mls/hr IVPB Q24H [facility] PRN Reason: Protocol Last Admin: 07/10/17 00:15 Dose: 100 mls/hr Insulin Aspart (Novolog) 0 unit SC ACHS [facility] PRN Reason: Protocol Last Admin: 07/10/17 11:35 Dose: Not Given Lisinopril (Zestril) 40 mg PO DAILY [facility] Last Admin: 07/10/17 09:44 Dose: Not Given Pantoprazole Sodium (Protonix Ec Tab) 40 mg PO DAILY [facility] Last Admin: 07/10/17 09:45 Dose: 40 mg Saccharomyces Boulardii (Florastor) 250 mg PO BID [facility] Last Admin: 07/10/17 09:45 Dose: 250 mg Vancomycin HCl (Vancocin (Oral Or Rectal Use)) 250 mg PO QID [facility] PRN Reason: Protocol Last Admin: 07/10/17 14:07 Dose: Not Given Vitamin B Complex/Vit C/Folic Acid (Nephro-Umu) 1 tab PO 0800 [facility] Last Admin: 07/10/17 08:04 Dose: 1 tab - Labs Labs: 07/10/17 11:29 07/10/17 11:29 - Constitutional Appears: Well - Head Exam Head Exam: ATRAUMATIC, NORMAL INSPECTION, NORMOCEPHALIC - Eye Exam Eye Exam: EOMI, Normal appearance, PERRL Pupil Exam: NORMAL ACCOMODATION, PERRL - ENT Exam ENT Exam: Mucous Membranes Moist, Normal Exam - Neck Exam Neck Exam: Full ROM, Normal Inspection. absent: Lymphadenopathy - Respiratory Exam Respiratory Exam: Decreased Breath Sounds - Cardiovascular Exam Cardiovascular Exam: REGULAR RHYTHM, +S1, +S2 - GI/Abdominal Exam GI & Abdominal Exam: Soft, Diminished Bowel Sounds - Rectal Exam Rectal Exam: Deferred
--- NOTE | 2017-07-10 16:36 | CP.PCM.PN ---
Subjective - Date & Time of Evaluation Date of Evaluation: 07/10/17 Time of Evaluation: 16:36 - Subjective Subjective: -FOLLOW UP WITH DR. MONTAÑO IN THE OFFICE WITHIN 1 WEEK----CALL THE OFFICE FOR APPOINTMENT TIME. -CONTINUE WITH YOUR DIALYSIS USUAL. -CONTINUE HOME MEDICATIONS USUAL. -NEW PRESCRIPTIONS INCLUDE: 1) VANCOMYCIN (ANTIBIOTIC FOR YOUR DIARRHEA) 10 ML BY MOUTH 4 TIMES A DAY (10 AM, 2 PM, 6 PM, AND 10 PM). 2) NEPHRO-KOJO (VITAMIN FOR YOUR KIDNEYS) 3) FLORASTOR (VITAMIN WHILE ON ANTIBIOTICS) TAKE 1 CAPSULE TWICE A DAY. -FOR ANY OTHER QUESTIONS, CONTACT DR. MONTAÑO. Objective - Vital Signs/Intake and Output Vital Signs (last 24 hours): Temp Pulse Resp BP Pulse Ox 98 F 73 20 146/68 100 07/10/17 11:15 07/10/17 15:05 07/10/17 15:05 07/10/17 15:05 07/10/17 15:05 Intake and Output: 07/10/17 07/10/17 06:59 18:59 Intake Total 350 480 Balance 350 480 - Medications Medications: Current Medications Amiodarone HCl (Cordarone) 200 mg PO DAILY [facility] Last Admin: 07/10/17 09:45 Dose: 200 mg Amlodipine Besylate (Norvasc) 5 mg PO DAILY [facility] Last Admin: 07/10/17 09:44 Dose: Not Given Folic Acid (Folic Acid) 1 mg PO DAILY [facility] Last Admin: 07/10/17 09:45 Dose: 1 mg Ceftriaxone Sodium (Rocephin Iv 1 Gm Duplex) 50 mls @ 100 mls/hr IVPB Q24H [facility] PRN Reason: Protocol Last Admin: 07/10/17 00:15 Dose: 100 mls/hr Insulin Aspart (Novolog) 0 unit SC ACHS [facility] PRN Reason: Protocol Last Admin: 07/10/17 11:35 Dose: Not Given Lisinopril (Zestril) 40 mg PO DAILY [facility] Last Admin: 07/10/17 09:44 Dose: Not Given Pantoprazole Sodium (Protonix Ec Tab) 40 mg PO DAILY [facility] Last Admin: 07/10/17 09:45 Dose: 40 mg Saccharomyces Boulardii (Florastor) 250 mg PO BID [facility] Last Admin: 07/10/17 09:45 Dose: 250 mg Vancomycin HCl (Vancocin (Oral Or Rectal Use)) 250 mg PO QID [facility] PRN Reason: Protocol Last Admin: 07/10/17 14:07 Dose: Not Given Vitamin B Complex/Vit C/Folic Acid (Nephro-Kojo) 1 tab PO 0800 [facility] Last Admin: 07/10/17 08:04 Dose: 1 tab - Labs Labs: 07/10/17 11:29 07/10/17 11:29
[2017-07-10 17:05] VITALS: BP 144/72; PULSE 84; TEMP 99.2; O2SAT 95
--- NOTE | 2017-07-10 17:12 | CP.PCM.PN ---
Subjective - Date & Time of Evaluation Date of Evaluation: 07/10/17 Time of Evaluation: 17:11 - Subjective Subjective: CHIEF COMPLAINTS TODAY : AFEBRILE, AAO DOING BETTER ROS. HEENT : N. Resp : No SOB wheezing, cough Cardio : No CP, PND orthopnea GI : No abd. Pain, n/v NAIL STICKER : No headache , focal deficit. Musculoskel : N Ext. : Pedal pulses intact, no edema or calf pain Derm : N Psych : N. PE. Pt. is alert awake in no distress. V.S As noted in the chart Head ,ear nose,throat and eyes : Normal. Neck : Supple with normal carotids. Lungs: Clear air entry. Heart : S1 & S2 normal . . No murmur. S4 + Abd : Soft non tender with normal bowel sounds. Neuro : Moves all ext. with no localized deficit. Ext : +VE EDEMA LE,with intact pulses. Neg. calf tenderness Derm : No rashes or decubitus ulcer. Radiology/Labs STOOLS +VE 07/07/17 -VE SALMONELLA,SHIGELLA, CAMPYLOBACTER STOOLS +VE C. DIFFICILE TOXIN STOOLS +VE OB/ LEUKOCYTES Asssessment : SEPSIS-IMPROVED DIARRHOEA PSEUDOMEMBRANOUS COLITIS. ESRD ON HD TTS SACRAL DECUBITUS ULCER -STAGE 3-4 Plan : ON BY MOUTH VANCOMYCIN 250 MG 4 TIMES A DAY X 10DAYS MORE. DC iv ROCEPHIN 1 G ONCE A DAY . SACRAL DECUBITUS CARE PER WOUND CARE. PER ATTENDING . CONTINUE CONTACT PRECAUTIONS. Objective - Vital Signs/Intake and Output Vital Signs (last 24 hours): Temp Pulse Resp BP Pulse Ox 99.2 F 84 20 144/72 95 07/10/17 16:00 07/10/17 16:00 07/10/17 16:00 07/10/17 16:00 07/10/17 16:00 Intake and Output: 07/10/17 07/10/17 06:59 18:59 Intake Total 350 480 Balance 350 480 - Medications Medications: Current Medications Amiodarone HCl (Cordarone) 200 mg PO DAILY [facility] Last Admin: 07/10/17 09:45 Dose: 200 mg Amlodipine Besylate (Norvasc) 5 mg PO DAILY [facility] Last Admin: 07/10/17 09:44 Dose: Not Given Folic Acid (Folic Acid) 1 mg PO DAILY [facility] Last Admin: 07/10/17 09:45 Dose: 1 mg Ceftriaxone Sodium (Rocephin Iv 1 Gm Duplex) 50 mls @ 100 mls/hr IVPB Q24H [facility] PRN Reason: Protocol Last Admin: 07/10/17 00:15 Dose: 100 mls/hr Insulin Aspart (Novolog) 0 unit SC ACHS [facility] PRN Reason: Protocol Last Admin: 07/10/17 11:35 Dose: Not Given Lisinopril (Zestril) 40 mg PO DAILY [facility] Last Admin: 07/10/17 09:44 Dose: Not Given Pantoprazole Sodium (Protonix Ec Tab) 40 mg PO DAILY [facility] Last Admin: 07/10/17 09:45 Dose: 40 mg Saccharomyces Boulardii (Florastor) 250 mg PO BID [facility] Last Admin: 07/10/17 09:45 Dose: 250 mg Vancomycin HCl (Vancocin (Oral Or Rectal Use)) 250 mg PO QID [facility] PRN Reason: Protocol Last Admin: 07/10/17 14:07 Dose: Not Given Vitamin B Complex/Vit C/Folic Acid (Nephro-Umu) 1 tab PO 0800 [facility] Last Admin: 07/10/17 08:04 Dose: 1 tab - Labs Labs: 07/10/17 11:29 07/10/17 11:29 Assessment and Plan (1) Sepsis Status: Acute (2) Diarrhea Status: Acute (3) ESRD (end stage renal disease) on dialysis Status: Acute (4) Sacral decubitus ulcer Status: Acute
== END 2017-07-10 19:55 | disposition home or self-care (01) | DRG 871 ==
LOC: C.ER 12:38 → C.9E 17:03 → C.3T 18:39
PROVIDERS: ADMIT Internal Medicine Nephrology; ATTEND Internal Medicine Nephrology
PROC: 5A1D70Z Performance of Urinary Filtration, Intermittent, Less than 6 Hours Per Day (ICD-10-PCS; principal; 2017-07-05)
PROC: 5A1D70Z Performance of Urinary Filtration, Intermittent, Less than 6 Hours Per Day (ICD-10-PCS; 2017-07-07)
PROC: 5A1D70Z Performance of Urinary Filtration, Intermittent, Less than 6 Hours Per Day (ICD-10-PCS; 2017-07-10)
DX: A41.9 Sepsis, unspecified organism (principal); A04.72 Enterocolitis due to Clostridium difficile, not specified as recurrent; L89.154 Pressure ulcer of sacral region, stage 4; N18.6 End stage renal disease; I12.0 Hypertensive chronic kidney disease with stage 5 chronic kidney disease or end stage renal disease; N25.81 Secondary hyperparathyroidism of renal origin; D63.1 Anemia in chronic kidney disease; E11.22 Type 2 diabetes mellitus with diabetic chronic kidney disease; E11.3593 Type 2 diabetes mellitus with proliferative diabetic retinopathy without macular edema, bilateral; E11.36 Type 2 diabetes mellitus with diabetic cataract; E78.00 Pure hypercholesterolemia, unspecified; E83.39 Other disorders of phosphorus metabolism; F03.90 Unspecified dementia, unspecified severity, without behavioral disturbance, psychotic disturbance, mood disturbance, and anxiety; R26.81 Unsteadiness on feet; Z87.11 Personal history of peptic ulcer disease; Z99.2 Dependence on renal dialysis; Z79.4 Long term (current) use of insulin